=== PATIENT | female | born 2000 | race Two or more races ===

== ENCOUNTER 2023-01-02 15:38 | Outpatient (RCR) | payer OTHER, SELFPAY ==
[2023-01-02 17:27] LABS: HCG Quantitative 10211 mIU/mL
== END 2023-01-16 16:03 | disposition home or self-care (01) ==
LOC: LAB 15:38
PROVIDERS: PCP Family Medicine; Visit Provider Obstetrics & Gynecology
DX: N92.6 Irregular menstruation, unspecified (principal)
CPT/HCPCS: 36415; 84702

== ENCOUNTER 2023-02-22 08:30 | Outpatient (OUT) | payer OTHER, SELFPAY ==
--- NOTE | 2023-02-22 08:35 | US_ITS ---
The [address] [address] Patient Name: ROSALIE MCLAUGHLIN MRN: [id number] date: 2000 Sex: F Assigned Patient Location: Current Patient Location: US Accession/Order Number: [id number] Exam Date: 02/22/2023 08:35 Report Date: 02/22/2023 15:19 At the request of: ANA LUISA VILLATORO Procedure: US OB transvaginal EXAMINATION: US OB transvaginal HISTORY: MISSED MENSES COMPARISON: No relevant comparison available. FINDINGS: GESTATIONAL SAC: Present and normal appearing. YOLK SAC: Present and normal appearing. POLE: Present and normal appearing. CARDIAC: Present. UTERUS: Normal size and appearance. OVARIES: Right: Normal. Left: Normal. CERVIX: 4.4 cm in length and closed. CUL-DE-SAC: Normal. OTHER: Prominent left parauterine vessels; nonspecific. AGE BY LMP: Unknown LMP GENO BY LMP: AGE BY US CRL: 13 weeks 1 day GENO BY US CRL: 08/29/2023 US/US OB transvaginal IMPRESSION: Single live intrauterine 13 weeks 1 day. Electronically authenticated by: LEILA MATA Date: 02/22/2023 15:19
== END 2023-02-22 08:31 | disposition home or self-care (01) ==
LOC: US 08:31
PROVIDERS: PCP Family Medicine; Visit Provider Obstetrics & Gynecology
DX: Z34.91 Encounter for supervision of normal pregnancy, unspecified, first trimester (principal)
CPT/HCPCS: 76817

== ENCOUNTER 2023-03-05 08:57 | Outpatient (OUT) | payer OTHER, SELFPAY ==
[2023-03-05 09:18] LABS: Basophils Percent Auto 0.4 % (0.2-2.0); Eosinophils Absolute Auto 0.1 10^3/uL (0.0-0.7); Eosinophils Percent Auto 1.2 % (0.9-7.0); Hematocrit 36.8 % (36.0-48.0); Hemoglobin 12.9 g/dL (12.0-16.0); Immature Granulocytes Abs Auto 0.03 10^3/uL (0.00-0.03); Immature Granulocytes Pct Auto 0.4 % (0.0-0.5); Lymphocytes Absolute Auto 1.6 10^3/uL (1.2-3.8); Lymphocytes Percent Auto 18.1 % (20.5-60.0); Mean Corpuscular HGB Conc 35.1 g/dL (29.9-35.2); Mean Corpuscular Hemoglobin 31.5 pg (26.7-34.0); Mean Corpuscular Volume 89.8 fL (81.0-99.0); Mean Platelet Volume 9.6 fL (9.5-13.5); Monocytes Absolute Auto 0.4 10^3/uL (0.3-0.8); Monocytes Percent Auto 4.9 % (1.7-12.0); Neutrophils Absolute Auto 6.4 10^3/uL (1.4-6.5); Platelet Count 210 10^3/uL (150-450); Red Cell Distribution Width 12.1 % (11.0-15.0); White Blood Count 8.6 10^3/uL (4.0-11.0)
[2023-03-05 09:28] LABS: Estimated Average Glucose 97 mg/dL
[2023-03-05 10:11] LABS: Thyroid Stimulating Hormone 1.695 uIU/mL (0.358-3.740)
[2023-03-06 05:07] LABS: HCV Ab Non Reactive (Non Reactive); HIV Ab/p24 Ag Screen Non Reactive (Non Reactive); Rubella Antibodies, IgG 7.07 index (Immune >0.99)
[2023-03-06 06:09] LABS: HBsAg Screen Negative (Negative)
[2023-03-06 11:19] LABS: Rapid Plasma Reagin, Quant Non Reactive (NonRea<1:1)
== END 2023-03-05 08:58 | disposition home or self-care (01) ==
LOC: LAB 08:57
PROVIDERS: PCP Family Medicine; Visit Provider Obstetrics & Gynecology
DX: N92.6 Irregular menstruation, unspecified (principal)
CPT/HCPCS: 36415; 83036; 84443; 85025; 86592; 86706; 86762; 86803; 86850; 86900; 86901; 87086; 87389

== ENCOUNTER 2023-03-21 10:27 | Outpatient (OUT) | payer OTHER, SELFPAY ==
--- NOTE | 2023-03-21 | US_ITS ---
[address] [address] Patient Name: ROSALIE MCLAUGHLIN MRN: [id number] date: 2000 Sex: F Assigned Patient Location: Current Patient Location: US Accession/Order Number: [id number] Exam Date: 03/21/2023 10:38 Report Date: 03/21/2023 11:23 At the request of: ANA LUISA VILLATORO Procedure: US OB amniotic fluid vol EXAMINATION: US OB cervical length, US OB amniotic fluid vol HISTORY: VAGINAL BLEEDING AND DISCHARGE COMPARISON: No relevant comparison available. FINDINGS: lie: Transverse Amniotic fluid volume: 11.4 cm, largest fluid pocket: 4.1 cm Heart rate: 136 bpm The cervix measures a total of 4.6 cm in length. The closed portion measures 0.6 cm. There is dilatation of the endocervical canal measuring up to 2.7 cm. Placenta: Fundal/posterior. No intraplacental echogenic abnormality US/US OB amniotic fluid vol IMPRESSION: Marked dilatation of the endocervical canal measuring up to 2.7 cm The total cervical length is 4.6 cm, the closed portion is only 0.6 cm Normal amniotic fluid volume Electronically authenticated by: KATARINA JIANG Date: 03/21/2023 11:23
--- NOTE | 2023-03-21 | US_ITS ---
[address] [address] Patient Name: ROSALIE MCLAUGHLIN MRN: [id number] date: 2000 Sex: F Assigned Patient Location: Current Patient Location: US Accession/Order Number: [id number] Exam Date: 03/21/2023 10:38 Report Date: 03/21/2023 11:23 At the request of: ANA LUISA VILLATORO Procedure: US OB cervical length EXAMINATION: US OB cervical length, US OB amniotic fluid vol HISTORY: VAGINAL BLEEDING AND DISCHARGE COMPARISON: No relevant comparison available. FINDINGS: lie: Transverse Amniotic fluid volume: 11.4 cm, largest fluid pocket: 4.1 cm Heart rate: 136 bpm The cervix measures a total of 4.6 cm in length. The closed portion measures 0.6 cm. There is dilatation of the endocervical canal measuring up to 2.7 cm. Placenta: Fundal/posterior. No intraplacental echogenic abnormality US/US OB cervical length IMPRESSION: Marked dilatation of the endocervical canal measuring up to 2.7 cm The total cervical length is 4.6 cm, the closed portion is only 0.6 cm Normal amniotic fluid volume Electronically authenticated by: KATARINA JIANG Date: 03/21/2023 11:23
== END 2023-03-21 10:28 | disposition home or self-care (01) ==
LOC: US 10:33
PROVIDERS: PCP Family Medicine; Visit Provider Obstetrics & Gynecology
DX: Z12.4 Encounter for screening for malignant neoplasm of cervix (principal); O46.90 Antepartum hemorrhage, unspecified, unspecified trimester
CPT/HCPCS: 76815; 76817; G0145

== ENCOUNTER 2023-03-21 21:01 | Outpatient (REF) | payer OTHER, SELFPAY ==
[2023-03-26 14:09] LABS: Age Gdln ACOG Testing Note (.); IGP, rfx Aptima HPV ASCU Note (.)
== END 2023-03-21 21:02 | disposition home or self-care (01) ==
LOC: LAB 21:01
PROVIDERS: PCP Family Medicine; Visit Provider Obstetrics & Gynecology
DX: Z12.4 Encounter for screening for malignant neoplasm of cervix (principal)
CPT/HCPCS: G0145

== ENCOUNTER 2023-03-25 09:16 | Outpatient (OUT) | payer OTHER, SELFPAY ==
[2023-03-27 01:10] LABS: AFP Value 53.7 ng/mL (.); Gest. Age on Collection Date 17.6 weeks (.); Gestat. Age Based On As provided (.); Insulin Dep Diabetes No (.); OSBR Risk 1 IN 4947 (.); Results Report (.)
== END 2023-03-25 09:17 | disposition home or self-care (01) ==
LOC: LAB 09:16
PROVIDERS: PCP Family Medicine; Visit Provider Obstetrics & Gynecology
DX: Z34.92 Encounter for supervision of normal pregnancy, unspecified, second trimester (principal)
CPT/HCPCS: 36415; 82105

== ENCOUNTER 2023-05-09 12:17 | Observation (INO) | payer OTHER, SELFPAY ==
[2023-05-09 12:55] LABS: Bilirubin Urine NEGATIVE (NEGATIVE); Blood Urine NEGATIVE (NEGATIVE); Clarity Urine CLEAR (CLEAR); Color Urine YELLOW (YELLOW); Glucose Urine UA NEGATIVE (NEGATIVE); Ketones Urine NEGATIVE (NEGATIVE); Leukocyte Esterase Urine TRACE (NEGATIVE); Nitrite Urine NEGATIVE (NEGATIVE); Protein Urine NEGATIVE (NEG/TRACE); Specific Gravity Urine 1.025 (1.005-1.025); Urobilinogen Urine 0.2 EU/dL (0.2-1.0)
[2023-05-09 13:05] LABS: Urine Microscopic Indicated YES
[2023-05-09 13:06] LABS: WBC Urine 0-2 #/HPF (NONE SEEN)
[2023-05-09 13:07] LABS: Bacteria Urine TRACE #/HPF (NONE SEEN); Mucus Urine NONE SEEN (NONE SEEN); RBC Urine NONE SEEN #/HPF (0-2); Squamous Epithelial Cell Urine FEW #/LPF (NONE/RARE); Urine Culture Indicated NO
--- NOTE | 2023-05-09 13:08 | US_ITS ---
[address] [address] Patient Name: ROSALIE MCLAUGHLIN MRN: [id number] date: 2000 Sex: F Assigned Patient Location: [facility] Current Patient Location: Accession/Order Number: [id number] Exam Date: 05/09/2023 13:15 Report Date: 05/09/2023 14:39 At the request of: ANA LUISA VILLATORO Procedure: US OB cervical length EXAMINATION: US OB placenta, US OB cervical length HISTORY: vaginal bleeding COMPARISON: Ultrasound amniotic fluid volume and cervical length 03/21/2023 FINDINGS: PLACENTA: Posterior fundal with lower margin 5.0 cm from internal os. No abruption or subchorionic hematoma. CERVIX LENGTH: 4.5 cm; closed. HEART RATE: 152 bpm OTHER: None. GA: 24 weeks 0 days GENO: 08/29/2023 US/US OB cervical length IMPRESSION: 1. Single live intrauterine . 2. Posterior/fundal placenta without previa. No subchorionic hematoma or abruption. 3. Closed cervix 4.5 cm in length. Electronically authenticated by: LEILA MATA Date: 05/09/2023 14:39
--- NOTE | 2023-05-09 13:08 | US_ITS ---
[address] [address] Patient Name: ROSALIE MCLAUGHLIN MRN: [id number] date: 2000 Sex: F Assigned Patient Location: [facility] Current Patient Location: Accession/Order Number: [id number] Exam Date: 05/09/2023 13:15 Report Date: 05/09/2023 14:39 At the request of: ANA LUISA VILLATORO Procedure: US OB placenta EXAMINATION: US OB placenta, US OB cervical length HISTORY: vaginal bleeding COMPARISON: Ultrasound amniotic fluid volume and cervical length 03/21/2023 FINDINGS: PLACENTA: Posterior fundal with lower margin 5.0 cm from internal os. No abruption or subchorionic hematoma. CERVIX LENGTH: 4.5 cm; closed. HEART RATE: 152 bpm OTHER: None. GA: 24 weeks 0 days GENO: 08/29/2023 US/US OB placenta IMPRESSION: 1. Single live intrauterine . 2. Posterior/fundal placenta without previa. No subchorionic hematoma or abruption. 3. Closed cervix 4.5 cm in length. Electronically authenticated by: LEILA MATA Date: 05/09/2023 14:39
[2023-05-09 13:18] VITALS: BP 99/52; PULSE 79; TEMP 36.1
--- NOTE | 2023-05-09 14:03 | PC.NURSE ---
US to room, Pt removed from FM
== END 2023-05-09 14:31 | disposition home or self-care (01) ==
LOC: FBC 12:22
PROVIDERS: Admitting Provider Obstetrics & Gynecology; PCP Family Medicine; Visit Provider Obstetrics & Gynecology
DX: O46.92 Antepartum hemorrhage, unspecified, second trimester (principal); O26.892 Other specified pregnancy related conditions, second trimester; R10.2 Pelvic and perineal pain; Z3A.24 24 weeks gestation of pregnancy
CPT/HCPCS: 59025; 76815; 76817; 81001; G0378; G0379

== ENCOUNTER 2023-05-11 07:39 | Outpatient (OUT) | payer OTHER, SELFPAY ==
[2023-05-11 08:59] LABS: Basophils Percent Auto 0.3 % (0.2-2.0); Eosinophils Absolute Auto 0.1 10^3/uL (0.0-0.7); Hematocrit 36.7 % (36.0-48.0); Hemoglobin 12.1 g/dL (12.0-16.0); Immature Granulocytes Abs Auto 0.04 10^3/uL (0.00-0.03); Immature Granulocytes Pct Auto 0.4 % (0.0-0.5); Lymphocytes Absolute Auto 1.4 10^3/uL (1.2-3.8); Lymphocytes Percent Auto 14.8 % (20.5-60.0); Mean Corpuscular Hemoglobin 33.1 pg (26.7-34.0); Mean Corpuscular Volume 100.3 fL (81.0-99.0); Mean Platelet Volume 9.9 fL (9.5-13.5); Monocytes Absolute Auto 0.6 10^3/uL (0.3-0.8); Monocytes Percent Auto 6.4 % (1.7-12.0); Neutrophils Absolute Auto 7.2 10^3/uL (1.4-6.5); Neutrophils Percent Auto 77.1 % (43.0-75.0); Platelet Count 204 10^3/uL (150-450); Red Blood Count 3.66 10^6/uL (4.20-5.40); Red Cell Distribution Width 13.1 % (11.0-15.0); White Blood Count 9.3 10^3/uL (4.0-11.0)
[2023-05-11 09:16] LABS: Glucose 1 Hour 85 mg/dL
== END 2023-05-11 07:40 | disposition home or self-care (01) ==
LOC: LAB 07:39
PROVIDERS: PCP Family Medicine; Visit Provider Physician Assistant
DX: Z34.92 Encounter for supervision of normal pregnancy, unspecified, second trimester (principal)
CPT/HCPCS: 36415; 82950; 85025

== ENCOUNTER 2023-08-08 19:31 | Outpatient (REF) | payer OTHER, SELFPAY ==
--- OUTSIDE RECORDS SUMMARY | 2023-08-08 19:34 | XMS_ITS | CCD ---
Author Name Unknown Address [email or web address] [place] [address] Organization [facility] Care Team Providers Care Junior Electrical Engineer Name Role Phone Lexis Evans Unavailable DR LEXIS EVANS Admitting Unavailable NATHAN, DR LEXIS Castillo Primary Care Unavailable NATHAN, DR LEXIS Castillo Consulting Unavailable NATHAN, DR LEXIS Castillo Attending Unavailable Yakelin Friedman Consulting Unavailable NATHAN, DR LEXIS Castillo Admitting Unavailable NATHAN, DR LEXIS Castillo Primary Care Unavailable NATHAN, DR LEXIS Castillo Consulting Unavailable NATHAN, DR LEXIS Castillo Attending Unavailable NATHAN, DR LEXIS Castillo Primary Care Unavailable GIEDRAITIS, ANDRIUS Admitting Unavailable GIEDRAITIS, ANDRIUS Attending Unavailable ANA LUISA VILLATORO Attending Unavailable ANA LUISA VILLATORO Attending Unavailable ANA LUISA VILLATORO Attending Unavailable SAMAN TORRES Attending Unavailable Lexis Evans Attending Unavailable Lexis Evans Primary Care Unavailable Lexis Evans Admitting Unavailable MD Lexis Evans Primary Care Provider MD Lexis Evans Attending Provider Problems Active Problems Problem Classification Problem Date Documented Da te Episodic/Chronic Chronic obstructive pulmonary disease and bronchiectasis (3 sources) Bronchitis; Translations: [Bronchitis, not specified as acute or chronic] Episodic Genitourinary symptoms and ill-defined conditions (3 sources) Dysuria; Translations: [Dysuria] Episodic Inflammatory diseases of female pelvic organs (3 sources) Vaginitis; Translations: [Acute vaginitis] Episodic Other upper respiratory infections (3 sources) Acute upper respiratory infection; Translations: [Acute upper respiratory infection] Episodic Unclassified (3 sources) LOW BACK PAIN, UNSPECIFIED; Translations: [LOW BACK PAIN, UNSPECIFIED] Onset: 11-04-2022 Unclassified (1 source) Low back pain, unspecified; Translations: [Low back pain, unspecified] Onset: 07-12-2023 Urinary tract infections (3 sources) Acute urinary tract infection; Translations: [Urinary tract infection, site not specified] Episodic Past or Other Problems Problem Classification Problem Date Documented Da te Episodic/Chronic Unclassified (2 sources) Lumbar pain M54.50 Unclassified (1 source) LOW BACK PAIN, UNSPECIFIED; Translations: [LOW BACK PAIN, UNSPECIFIED] Onset: 10-31-2022 Results Test Name Value Interpretation Reference Range Facil ity XR LSPINE 2_3 VIEWSon 2022 XR LSPINE 2_3 VIEWS EXAM: XR LSPINE 2_3 VIEWS HISTORY: Low back pain COMPARISON: None. TECHNIQUE: 3 views FINDINGS: Satisfactory alignment. Multilevel endplate degenerative changes, disc disease, anterior spurring and facet arthropathy. No acute fracture or subluxation. Unremarkable soft tissues. IMPRESSION: No acute fracture or subluxation. Electronically authenticated by: YAKELIN FRIEDMAN Date: 2022-10-31 14:26 Normal [facility] CBC AUTO DIFFon 10-17-2022 BASO # 0.0 103/ul Normal 0.0-0.1 [facility] Comment on above: Performed By: #### C BC #### [facility] [address] [place] [address] Dr. Dav Xie Basophils/100 WBC (Bld) 0.6 % Normal 0.2-2.0 [facility] Comment on above: Performed By: #### C BC #### [facility] [address] [address] [address] Dav Xie EO # 0.2 103/ul Normal 0.0-0.7 [facility] Comment on above: Performed By: #### C BC #### [facility] [address] [address] [address] Dav Xie Eosinophils/100 WBC (Bld) 3.0 % Normal 0.9-7.0 [facility] Comment on above: Performed By: #### C BC #### [facility] [address] [place] [address] Dr. Dav Xie Erythrocyte distribution width (RBC) [Ratio] 11.9 % Normal 11.0-15.0 [facility] Comment on above: Performed By: #### C BC #### [facility] [address] [place] [address] Dr. Dav Xie Hematocrit (Bld) [Volume fraction] 39.5 % Normal 36.0-48.0 [facility] Comment on above: Performed By: #### C BC #### [facility] [address] [place] [address] Dr. Dav Xie Hemoglobin (Bld) [Mass/Vol] 13.4 g/dL Normal 12.0-16.0 [facility] Comment on above: Performed By: #### C BC #### [facility] [address] [place] [address] Dr. Dav Xie IG # 0.01 10e3/ul Normal 0.00-0.03 [facility] Comment on above: Performed By: #### C BC #### [facility] [address] [place] [address] Dr. Dav Xie IG % 0.2 % Normal 0.0-0.5 [facility] Comment on above: Performed By: #### C BC #### [facility] [address] [place] [address] Dr. Dav Xie LYMPH # 1.7 103/ul Normal 1.2-3.8 [facility] Comment on above: Performed By: #### C BC #### [facility] [address] [place] [address] Dr. Dav Xie Lymphocytes/100 WBC (Bld) 31.9 % Normal 20.5-60.0 [facility] Comment on above: Performed By: #### C BC #### [facility] [address] [place] [address] Dr. Dav Xie MANUAL DIFF REQ NO Normal [facility] Comment on above: Performed By: #### C BC #### [facility] [address] [place] [address] Dr. Dav Xie MCH (RBC) [Entitic mass] 31.8 pg Normal 26.7-34.0 [facility] Comment on above: Performed By: #### C BC #### [facility] [address] [address] [address] Dav Xie MCHC (RBC) [Mass/Vol] 33.9 g/dL Normal 29.9-35.2 [facility] Comment on above: Performed By: #### C BC #### [facility] [address] [address] [address] Dav Xie MCV (RBC) [Entitic vol] 93.6 fL Normal 81.0-99.0 [facility] Comment on above: Performed By: #### C BC #### [facility] [address] [place] [address] Dr. Dav Xie MONO # 0.5 103/ul Normal 0.3-0.8 [facility] Comment on above: Performed By: #### C BC #### [facility] [address] [place] [address] Dr. Dav Xie Monocytes/100 WBC (Bld) 9.7 % Normal 1.7-12.0 [facility] Comment on above: Performed By: #### C BC #### [facility] [address] [place] [address] Dr. Dav Xie NEUT # 2.9 103/ul Normal 1.4-6.5 [facility] Comment on above: Performed By: #### C BC #### [facility] [address] [place] [address] Dr. Dav Xie Neutrophils/100 WBC (Bld) 54.6 % Normal 43.0-75.0 [facility] Comment on above: Performed By: #### C BC #### [facility] [address] [place] [address] Dr. Dav Xie Platelet mean volume (Bld) [Entitic vol] 9.7 fL Normal 9.5-13.5 [facility] Comment on above: Performed By: #### C BC #### [facility] [address] [place] [address] Dr. Dav Xie PLT 215 103/ul Normal 150-450 [facility] Comment on above: Performed By: #### C BC #### [facility] [address] [place] [address] Dr. Dav Xie RBC 4.22 106/ul Normal 4.20-5.40 [facility] Comment on above: Performed By: #### C BC #### [facility] [address] [place] [address] Dr. Dav Xie WBC 5.4 103/ul Normal 4.0-11.0 [facility] Comment on above: Performed By: #### C BC #### [facility] [address] [place] [address] Dr. Dav Xie FERRITINon 10-17-2022 Ferritin [Mass/Vol] 85.0 ng/mL Normal 6.2-137.0 [facility] Comment on above: Performed By: #### F ERR #### [facility] [address] [place] [address] Dr. Dav Xie PROF CHEM 8 (BAS METB)on Anion gap [Moles/Vol] 11.2 mmol/L Normal [facility] Comment on above: Performed By: #### B MP #### [facility] [address] [place] [address] Dr. Dav Xie Calcium [Mass/Vol] 8.8 mg/dL Normal 8.5-10.1 [facility] Comment on above: Performed By: #### B MP #### [facility] [address] [place] [address] Dr. Dav Xie Chloride [Moles/Vol] 103 mmol/L Normal 98-107 [facility] Comment on above: Performed By: #### B MP #### [facility] [address] [place] [address] Dr. Dav Xie CO2 [Moles/Vol] 29.6 mmol/L Normal 21.0-32.0 [facility] Comment on above: Performed By: #### B MP #### [facility] [address] [place] [address] Dr. Dav Xie Creatinine [Mass/Vol] 0.82 mg/dL Normal 0.55-1.02 [facility] Comment on above: Performed By: #### B MP #### [facility] [address] [address] [address] Dav Xie EGFR-AF PAKISTANI >60 Normal >=60 [facility] Comment on above: Performed By: #### B MP #### [facility] [id number] Dav Xie EGFR-NON AF PAKISTANI >60 Normal >=60 [facility] Comment on above: Performed By: #### B MP #### [facility] [address] [address] [address] Dav Xie Glucose [Mass/Vol] 86 mg/dL Normal 74-106 [facility] Comment on above: Performed By: #### B MP #### [facility] [address] [address] [address] Dav Xie Potassium [Moles/Vol] 3.8 mmol/L Normal 3.5-5.1 [facility] Comment on above: Performed By: #### B MP #### [facility] [address] [address] [address] Dav Xie Sodium [Moles/Vol] 140 mmol/L Normal 136-145 [facility] Comment on above: Performed By: #### B MP #### [facility] [address] [address] [address] Dav Xie Urea nitrogen [Mass/Vol] 13.0 mg/dL Normal 7.0-18.0 [facility] Comment on above: Performed By: #### B MP #### [facility] [address] [address] [address] Dav Xie Urea nitrogen/Creatinine [Mass ratio] 15.9 mg/mg Normal [facility] Comment on above: Performed By: #### B MP #### [facility] [id number] Dav Xie Vital Signs Date Time Vital Sign Value Performing Clinician Facility 10-15-2022 09:30-0400 Body height 160.02 cm Lexis Evans Other Medication Review Other 10-15-2022 09:30-0400 Body mass index (BMI) [Ratio] 28.87 kg/m2 Lexis Evans Other Medication Review Other 10-15-2022 09:30-0400 Body weight 73.94 kg Lexis Evans Other Medication Review Other 10-15-2022 09:30-0400 Diastolic blood pressure 62 mm[Hg] Lexis Evans Other Medication Review Other 10-15-2022 09:30-0400 SaO2% (BldA) [Mass fraction] 99 % Lexis Evans Other Medication Review Other 10-15-2022 09:30-0400 Systolic blood pressure 108 mm[Hg] Lexis Evans Other Medication Review Other Encounters Encounter Date Encounter Type Care Provider Facility Start: 07-22-2023 End: 07-22-2023 ambulatory ANA LUISA SHAUNA Not Available Start: 07-12-2023 End: 07-12-2023 ambulatory Lexis Evans Facility:[facility] Start: 07-12-2023 End: 07-12-2023 ambulatory MD Lexis Evans Work Phone: [facility] Work Phone: Start: 07-12-2023 End: 07-12-2023 Discharged Recurring MD Lexis Evans Work Phone: [facility] [place] Work Phone: Start: 07-04-2023 End: 07-04-2023 ambulatory SAMAN TORRES Not Available Start: 06-20-2023 End: 06-20-2023 ambulatory ANA LUISA SHAUNA Not Available Start: 05-29-2023 End: 05-29-2023 ambulatory ANA LUISA SHAUNA Not Available Start: 11-30-[address] LEXIS EVANS [facility] ity:[facility] Start: 11-09-2022 End: 11-09-2022 ambulatory Lexis Evans Other Medication Review Other Start: 11-09-2022 Telephone encounter Lexis Evans [facility] Start: 10-31-2022 End: 11-01-[address] LEXIS EVANS Facility:[facility] Start: 10-29-2022 End: 10-29-2022 ambulatory Lexis Evans Other Medication Review Other Start: 10-29-2022 Telephone encounter Lexis Evans [facility] Start: 10-26-2022 Encounter for genera l adult medical examination without abnormal findings DR LEXIS EVANS [facility] Start: 10-17-2022 End: 10-18-[address] LEXIS EVANS Facility:[facility] Start: 10-17-2022 End: 10-18-2022 Encounter for general adult medical examination without abnormal findings DR LEXIS EVANS Facility:[facility] Start: 10-15-2022 End: 10-15-2022 ambulatory Lexis Evans Other Medication Review Other Start: 10-15-2022 Encounter for genera l adult medical examination without abnormal findings Lexis Evans [facility] Start: 10-15-2022 Periodic preventive med est patient 18-39 yrs Lexis Evans [facility] Payers Date Payer Category Payer Self-pay 2000 Unknown [id number] 2000 Unknown [id number] 1998 Unknown [id number] 1998 Unknown [id number] 1998 Unknown [id number] 1998 Unknown [id number] 1998 Unknown [id number] 1998 Unknown [id number] 1998 Unknown [id number] 1961 Medicaid [id number] 2. [id number] [employer] ( and others) [id number] Unknown [id number] Social History Date Type Detail Facility Unknown if ever smoked Medication Review Other Sex Assigned At Sex Assigned At Bir th Medication Review Other Evaluation note 11-09-2022 Note Date & Type Note Facility 11-09-2022 Evaluation note Encounter Date Diagnosis Assessment Notes Oct, Lumbar pain (ICD-10 - M54.50) Medication Review Other Evaluation note 10-15-2022 Note Date & Type Note Facility 10-15-2022 Evaluation note Encounter Date Diagnosis Assessment Notes Oct, Wellness examination (ICD-10 - Z00.00) due for labs Oct, Lumbar pain (ICD-10 - M54.50) Pt states she went to chiropractor , had PT and xray through [facility]. She now wants me to address this as she is not improving and an MRI was not covered. She will contact their office and have them send us PT reports and xray so we can try to get the MRI. Pt needs this addressed as she is in the and is running a half marathon later this month. Medication Review Other Evaluation note Note Date & Type Note Facility Evaluation note No Information [facility] Other Evaluation note Note Date & Type Note Facility Evaluation note No assessment information availa [facility] Work Phone: History general Narrative - Reported Note Date & Type Note Facility History general Narrative - Reported Type Medical History Bronchitis Medical History Vaginitis Medical History Acute UTI Medical History Dysuria Hospitalization History l2019 for a blood count being done. Medication Review Other Reason for Referral Reason *FU 11/19 Xray and last OV note. thank you Diagnosis 1 Lumbar pain (M54.50) Referral Organization [facility] elizabeth Referring Provider First Name Lexis Referring Provider Last Name Nathan Referring Provider Specialty Family Medi cine Referred Organization [facility] Referred Provider Juan Miguel Referred Address [address], [place],[address] Referred Provider Specialty Pain Medicin e Referral Priority Routine General Notes Jessie Ashraf 04:25:04 PM >received today, attachments made, referral faxed Clinical Notes F: [id number] Summary Purpose Family History No Family History Records FoundNo Family History Records FoundNo Family History Records Found Advance Directives Advance Directive Response Recorded Date/ Time Advance Directives No May 20, 2023 2:24pm Chief Complaint and Reason for Visit Chief Complaint low back pain Additional Source Comments REASON FOR VISIT (unrecogniz ed section and content) Wellnesslumbar xraylumbar xr ay INFORMATION SOURCE (unrecogn ized section and content) DATE CREATED AUTHOR 11/15/2022 [facility] DATE CREATED AUTHOR AUTHOR'S ORGANIZ ATION 07/23/[address] [facility] EPIC DATE CREATED AUTHOR AUTHOR'S ORGANIZ ATION 07/24/2023 [facility] Care Teams (unrecognized sec tion and content) Team Status: Active Member Role Status Dates Lexis Evans MD Primary Care Provider Active Team Status: Inactive Member Role Status Dates Lexis Evans MD Primary Care Provider, Attending Last castellanos Active Goals (unrecognized section and content) Goals may be documented in a n alternate section FOR RECORDS PERTAINING TO PATIENTS WHO ARE OR HAVE BEEN ENROLLED IN A CHEMICAL DEPENDENCY/SUBSTANCEABUSE PROGRAM, SOME INFORMATION MAY BE OMITTED. This clinical summary was aggregated from multiple sources. Caution should be exercised in using it in the provision of clinical care. This summary normalizes information from multiple sources, and as a consequence, information in this document may materially change the coding, format and clinical context of patient data. In addition, data may be omitted in some cases. CLINICAL DECISIONS SHOULD BE BASED ON THE PRIMARY CLINICAL RECORDS. [facility]. provides no warranty or guarantee of the accuracy or completeness of information in this document.
== END 2023-08-08 19:32 | disposition home or self-care (01) ==
LOC: LAB 19:31
PROVIDERS: PCP Family Medicine; Visit Provider Physician Assistant
DX: Z34.93 Encounter for supervision of normal pregnancy, unspecified, third trimester (principal); Z3A.37 37 weeks gestation of pregnancy
CPT/HCPCS: 87081

== ENCOUNTER 2023-08-22 00:01 | Inpatient (IN) | payer OTHER, SELFPAY ==
[2023-08-22] VITALS (36 sets, daily range): BP systolic 77–198; BP diastolic 53–86; PULSE 67–101; RESP 16–18; TEMP 35.9–36.2
--- OUTSIDE RECORDS SUMMARY | 2023-08-22 00:06 | XMS_ITS | CCD ---
Author Name Unknown Address [address] [facility] [address] [place] [address] Organization [facility] Care Team Providers Care [employer] Supervisor Name Role Phone Lexis Evans Unavailable DR LEXIS EVANS Admitting Unavailable MARCOS, DR LEXIS Castillo Primary Care Unavailable MARCOS, DR LEXIS Castillo Consulting Unavailable MARCOS, DR LEXIS Castillo Attending Unavailable Ursula, Yakelin Consulting Unavailable MARCOS, DR LEXIS Castillo Admitting Unavailable MARCOS, DR LEXIS Castillo Primary Care Unavailable MARCOS, DR LEXIS Castillo Consulting Unavailable MARCOS, DR LEXIS Castillo Attending Unavailable MARCOS, DR LEXIS Castillo Primary Care Unavailable GIEDRAITIS, ANDRIUS Admitting Unavailable GIEDRAITIS, ANDRIUS Attending Unavailable Lexis Evans Attending Unavailable Lexis Evans Primary Care Unavailable Lexis Evans Admitting Unavailable MD Lexis Evans Primary Care Provider [phone] MD Lexis Evans Attending Provider ANA LUISA ROLAND Attending Unavailable ANA LUISA ROLAND Attending Unavailable MARIAM TORRES Attending Unavailable ANA LUISA ROLAND Attending Unavailable ANA LUISA ROLAND Attending Unavailable MARIAM TORRES Attending Unavailable Lexis Evans MD Primary Care Provider [phone] Medications Current Medications Medication Drug Class(es) Dates Sig (Normalized) Sig (Original) diphenhydrAMINE hydrochloride 25 mg oral capsule (2 sources) Histamine-1 Receptor Antagonist Start: 07-04-2023 End: 10-02-2023 diphenhydrAMINE (BENADryl) capsule 25 mg Magnesium (2 sources) Start: 07-04-2023 End: 10-02-2023 take 2 tablets by mouth in the morning magnesium 200 MG tablet Indications: Third trimester Take 2 tablets (400 mg) by mouth in the morning. 60 tablet 2 07/04/2023 10/02/2023 Active multivitamin () 27-0.8 MG tablet (2 sources) Start: 03-20-2022 multivitamin () 27-0.8 MG tablet VIT-DSS-FE FUM-FA PO (2 sources) VIT-DSS -FE FUM-FA PO Take 2 tablets by mouth 0 Active Completed/Discontinued Medications Medication Drug Class(es) Dates Sig (Normalized) Sig (Original) terconazole 4 mg/ml vaginal cream (2 sources) Azole Antifungal Start: 08-08-2023 End: 08-15-2023 terconazole (Terazol 7) 0.4 % vaginal cream Indications: Yeast infection Insert 1 applicator into the vagina at bedtime for 7 days 30 g 0 08/08/2023 08/15/2023 Problems Active Problems Problem Classification Problem Date Documented Da te Episodic/Chronic Chronic obstructive pulmonary disease and bronchiectasis (3 sources) Bronchitis; Translations: [Bronchitis, not specified as acute or chronic] Episodic Genitourinary symptoms and ill-defined conditions (3 sources) Dysuria; Translations: [Dysuria] Episodic Inflammatory diseases of female pelvic organs (3 sources) Vaginitis; Translations: [Acute vaginitis] Episodic Other complications of (2 sources) Diseases of the nervous system complicating , unspecified trimester; Translations: [Other current conditions classifiable elsewhere of mother, unspecified as to episode of care or not applicable] Onset: 07-22-2023 07-22-2023 Episodic Other and delivery including normal (4 sources) Third trimester ; Translations: [Encounter for supervision of normal , unspecified, third trimester] Onset: 07-22-2023 08-13-2023 Episodic Other upper respiratory infections (3 sources) [...] Name Value Interpretation Reference Range Facil ity Urinalysis macro (dipstick) panel (U)on 08-15-2023 Bilirubin, UA Negative Negative - 4(70) +++ mg/dL [facility] Blood, UA Negative Negative - 50 Nicolas/mcL [facility] Clarity, UA Clear [facility] Color, UA Yellow [facility] Glucose, UA Negative Negative - 1999(110) ++++ mg/dL [facility] Interpretation and review of laboratory results Abnormal [facility] Ketones, UA Negative Negative - 160(16) ++++ mg/dL [facility] Leukocytes, UA Negative Negative - 500+++ Freida/mcL [facility] Nitrite, UA Negative Negative - Positive [facility] pH, UA 6.5 5 - 9 [facility] Protein, UA Negative Negative - 1999(20) ++++ mg/dL [facility] Spec Grav, UA 1.020 1 - 1.03 [facility] Urobilinogen, UA 1.0 0.2 - 12 mg/dL [facility] LSPINE 2_3 VIEWSon 2022 XR LSPINE 2_3 VIEWS EXAM: XR LSPINE 2_3 VIEWS HISTORY: Low back pain COMPARISON: None. TECHNIQUE: 3 views FINDINGS: Satisfactory alignment. Multilevel endplate degenerative changes, disc disease, anterior spurring and facet arthropathy. No acute fracture or subluxation. Unremarkable soft tissues. IMPRESSION: No acute fracture or subluxation. Electronically authenticated by: YAKELIN FRIEDMAN Date: 2022-10-31 14:26 Normal [facility] CBC AUTO DIFFon 10-17-2022 BASO # 0.0 103/ul Normal 0.0-0.1 [facility] Comment on above: Performed By: #### C BC #### [facility] [address] [address] [address] Dav Xie Basophils/100 WBC (Bld) 0.6 % Normal 0.2-2.0 [facility] Comment on above: Performed By: #### C BC #### [facility] [address] [place] [address] Dr. Dav Xie EO # 0.2 103/ul Normal 0.0-0.7 [facility] Comment on above: Performed By: #### C BC #### [facility] [address] [place] [address] Dr. Dav Xie Eosinophils/100 WBC (Bld) 3.0 % Normal 0.9-7.0 [facility] Comment on above: Performed By: #### C BC #### [facility] [address] [place] [address] Dr. Dav Xie Erythrocyte distribution width (RBC) [Ratio] 11.9 % Normal 11.0-15.0 [facility] Comment on above: Performed By: #### C BC #### [facility] [address] [place] [address] Dr. Dav Xie Hematocrit (Bld) [Volume fraction] 39.5 % Normal 36.0-48.0 [facility] Comment on above: Performed By: #### C BC #### [facility] [address] [place] [address] Dr. Dav Xie Hemoglobin (Bld) [Mass/Vol] 13.4 g/dL Normal 12.0-16.0 [facility] Comment on above: Performed By: #### C BC #### [facility] [address] [place] [address] Dr. Dav Xie IG # 0.01 10e3/ul Normal 0.00-0.03 [facility] Comment on above: Performed By: #### C BC #### [facility] [address] [place] [address] Dr. Dav Xie IG % 0.2 % Normal 0.0-0.5 [facility] Comment on above: Performed By: #### C BC #### [facility] [address] [place] [address] Dr. Dav Xie LYMPH # 1.7 103/ul Normal 1.2-3.8 [facility] Comment on above: Performed By: #### C BC #### [facility] [address] [address] [address] Dav Xie Lymphocytes/100 WBC (Bld) 31.9 % Normal 20.5-60.0 [facility] Comment on above: Performed By: #### C BC #### [facility] [address] [place] [address] Dr. Dav Xie MANUAL DIFF REQ NO Normal [facility] Comment on above: Performed By: #### C BC #### [facility] [address] [place] [address] Dr. Dav Xie MCH (RBC) [Entitic mass] 31.8 pg Normal 26.7-34.0 [facility] Comment on above: Performed By: #### C BC #### [facility] [address] [place] [address] Dr. Dav Xie MCHC (RBC) [Mass/Vol] 33.9 g/dL Normal 29.9-35.2 [facility] Comment on above: Performed By: #### C BC #### [facility] [address] [place] [address] Dr. Dav Xie MCV (RBC) [Entitic vol] 93.6 fL Normal 81.0-99.0 [facility] Comment on above: Performed By: #### C BC #### [facility] [address] [place] [address] Dr. Dav Xie MONO # 0.5 103/ul Normal 0.3-0.8 [facility] Comment on above: Performed By: #### C BC #### [facility] [address] [place] [address] Dr. Dav Xie Monocytes/100 WBC (Bld) 9.7 % Normal 1.7-12.0 [facility] Comment on above: Performed By: #### C BC #### [facility] [address] [place] [address] Dr. Dav Xie NEUT # 2.9 103/ul Normal 1.4-6.5 [facility] Comment on above: Performed By: #### C BC #### [facility] [address] [place] [address] Dr. Dav Xie Neutrophils/100 WBC (Bld) 54.6 % Normal 43.0-75.0 [facility] Comment on above: Performed By: #### C BC #### [facility] [address] [place] [address] Dr. Dav Xie Platelet mean volume (Bld) [Entitic vol] 9.7 fL Normal 9.5-13.5 [facility] Comment on above: Performed By: #### C BC #### [facility] [address] [place] [address] Dr. Dav Xie PLT 215 103/ul Normal 150-450 [facility] Comment on above: Performed By: #### C BC #### [facility] [address] [place] [address] Dr. Dav Xie RBC 4.22 106/ul Normal 4.20-5.40 [facility] Comment on above: Performed By: #### C BC #### [facility] [address] [place] [address] Dr. Dav Xie WBC 5.4 103/ul Normal 4.0-11.0 [facility] Comment on above: Performed By: #### C BC #### [facility] [address] [place] [address] Dr. Dav Xie FERRITINon 10-17-2022 Ferritin [Mass/Vol] 85.0 ng/mL Normal 6.2-137.0 [facility] Comment on above: Performed By: #### F ERR #### [facility] [address] [place] [address] Dr. Dav Xie PROF CHEM 8 (BAS METB)on Anion gap [Moles/Vol] 11.2 mmol/L Normal [facility] Comment on above: Performed By: #### B MP #### [facility] [address] [place] [address] Dr. Dav Xie Calcium [Mass/Vol] 8.8 mg/dL Normal 8.5-10.1 [facility] Comment on above: Performed By: #### B MP #### [facility] [address] [address] [address] Dav Xie Chloride [Moles/Vol] 103 mmol/L Normal 98-107 [facility] Comment on above: Performed By: #### B MP #### [facility] [address] [address] [address] Dav Xie CO2 [Moles/Vol] 29.6 mmol/L Normal 21.0-32.0 [facility] Comment on above: Performed By: #### B MP #### [facility] [address] [address] [address] Dav Xie Creatinine [Mass/Vol] 0.82 mg/dL Normal 0.55-1.02 [facility] Comment on above: Performed By: #### B MP #### [facility] [address] [place] [address] Dr. Dav Xie EGFR-AF VIETNAMESE >60 Normal >=60 [facility] Comment on above: Performed By: #### B MP #### [facility] [address] [place] [address] Dr. Dav Xie EGFR-NON AF VIETNAMESE >60 Normal >=60 [facility] Comment on above: Performed By: #### B MP #### [facility] [address] [place] [address] Dr. Dav Xie Glucose [Mass/Vol] 86 mg/dL Normal 74-106 [facility] Comment on above: Performed By: #### B MP #### [facility] [address] [address] [address] Dav Xie Potassium [Moles/Vol] 3.8 mmol/L Normal 3.5-5.1 [facility] Comment on above: Performed By: #### B MP #### [facility] [address] [place] [address] Dr. Dav Xie Sodium [Moles/Vol] 140 mmol/L Normal 136-145 [facility] Comment on above: Performed By: #### B MP #### [facility] [address] [place] [address] Dr. Dav Xie Urea nitrogen [Mass/Vol] 13.0 mg/dL Normal 7.0-18.0 [facility] Comment on above: Performed By: #### B MP #### [facility] [address] [place] [address] [id number] [address] Dav Xie Urea nitrogen/Creatinine [Mass ratio] 15.9 mg/mg Normal [facility] Comment on above: Performed By: #### B MP #### [facility] [address] [address] [address] Dav Xie Vital Signs Date Time Vital Sign Value Performing Clinician Facility 08-15-2023 10:13-0500 Body mass index (BMI) [Ratio] 33.18 kg/m2 [employer] Work Phone: [facility] 08-15-2023 10:13-0500 Body weight 90.45 kg [employer] Work Phone: [facility] 08-15-2023 10:13-0500 Diastolic blood pressure 78 mm[Hg] [employer] Work Phone: [facility] 08-15-2023 10:13-0500 Systolic blood pressure 132 mm[Hg] [employer] Work Phone: [facility] 10-15-2022 09:30-0400 Body height 160.02 cm Lexis Evans Other [employer] Other 10-15-2022 09:30-0400 Body mass index (BMI) [Ratio] 28.87 kg/m2 Lexis Evans Other [employer] Other 10-15-2022 09:30-0400 Body weight 73.94 kg Lexis Evans Other [employer] Other 10-15-2022 09:30-0400 Diastolic blood pressure 62 mm[Hg] Lexis Evans Other [employer] Other 10-15-2022 09:30-0400 SaO2% (BldA) [Mass fraction] 99 % Lexis Evans Other [employer] Other 10-15-2022 09:30-0400 Systolic blood pressure 108 mm[Hg] Lexis Evans Other [employer] Other Encounters Encounter Date Encounter Type Care Provider Facility Start: 08-15-2023 End: 08-15-2023 ambulatory ANA LUISA ASUNCION Not Available Start: 08-15-2023 End: 08-15-2023 Office outpatient visit 15 minutes Ana Luisa Asuncion DO Work Phone: [facility] Comment on above: Third trimester preg aniyah Start: 08-08-2023 End: 08-08-2023 ambulatory MARIAM TORRES Not Available Start: 07-22-2023 End: 07-22-2023 ambulatory ANA LUISA ASUNCION Not Available Start: 07-12-2023 End: 07-12-2023 ambulatory Lexis Evans Facility:[facility] Start: 07-12-2023 End: 07-12-2023 ambulatory MD Lexis Evans Work Phone: [facility] Work Phone: Start: 07-12-2023 End: 07-12-2023 Discharged Recurring MD Lexis Evans Work Phone: [facility] [place] Work Phone: Start: 07-04-2023 End: 07-04-2023 ambulatory MARIAM TORRES Not Available Start: 06-20-2023 End: 06-20-2023 ambulatory ANA LUISA ASUNCION Not Available Start: 05-29-2023 End: 05-29-2023 ambulatory ANA LUISA ASUNCION Not Available Start: 11-30-[address] LEXIS EVANS Facil ity:[facility] Start: 11-09-2022 End: 11-09-2022 ambulatory Lexis Evans Other [employer] Other Start: 11-09-2022 Telephone encounter Lexis Evans [facility] Start: 10-31-2022 End: 11-01-[address] LEXIS EVANS Facility:[facility] Start: 10-29-2022 End: 10-29-2022 ambulatory Lexis Evans Other [employer] Other Start: 10-29-2022 Telephone encounter Lexis Evans [facility] Start: 10-26-2022 Encounter for genera l adult medical examination without abnormal findings DR LEXIS EVANS [facility] Start: 10-17-2022 End: 10-18-[address] LEXIS EVANS Facility:[facility] Start: 10-17-2022 End: 10-18-2022 Encounter for general adult medical examination without abnormal findings DR LEXIS EVANS Facility:[facility] Start: 10-15-2022 End: 10-15-2022 ambulatory Lexis Evans Other [employer] Other Start: 10-15-2022 Encounter for genera l adult medical examination without abnormal findings Lexis Evans [facility] Start: 10-15-2022 Periodic preventive med est patient 18-39 yrs Lexis Evans [facility] Procedures Date Procedure Procedure Detail Performing Clinician Start: 08-15-2023 Urnls dip stick/tabl et rgnt non-auto w/o micrscp Ana Luisa Roland DO Work Phone: Plan of Treatment Date Care Activity Detail Author Start: 10-03-2023 End: 10-03-2023 ambulatory 10/03/2023 8:30 AM EDT Visit [facility] [address] [place] [id number] Mariam Torres PA [address] [place] [address] [facility] Start: 03-15-2023 Influenza vaccination Influenza Vacc ine (#1) [facility] Immunizations Immunization Date Immunization Notes Care Provider Fa cili 05-10-2022 influenza virus vacc ine, unspecified formulation Ana Luisa Roland DO Work Phone: [facility] Payers Date Payer Category Payer Self-pay 2019 Medicaid [facility] MEDICA[facility] [place] MED[place] [id number] 2019-Present [address] [place] [address] [id number] 1998 Unknown [id number] [id number]. 593 1998 Unknown [id number] 2.16.840.1.211751.3.579.2. 593 1998 Unknown [id number] 2.16.840.1.241916.3.579.2. 593 1998 Unknown [id number] 2.16.840.1.942591.3.579.2. 593 1998 Unknown [id number] 2.16.840.1.382408.3.579.2. 593 1998 Unknown [id number] 2.16.840.1.183517.3.579.2. 1259 1998 Unknown [id number] 2.16.840.1.940179.3.579.2. 1259 1998 Unknown [id number] 2.16.840.1.352552.3.579.2. 1259 1998 Unknown [id number] 2.16.840.1.739282.3.579.2. 1259 1998 Unknown [id number] 2.16.840.1.816880.3.579.2. 1259 1998 Unknown [id number] 2.16.840.1.565464.3.579.2. 1259 1959 Medicaid [id number] [id number] Department of [facility] ( and others) [id number] Unknown [id number] 2.16.840.1.274630.3.579.2. 531 Social History Date Type Detail Facility Unknown if ever smoked [facility] [employer] Other Start: 03-16-2023 Sex Assigned At [employer] Other Start: 03-16-2023 Tobacco smoking status NHIS Never smoked tobacco [facility] Start: 03-16-2023 Tobacco use and exposure Smokeless tobacco non-user [facility] Start: 08-15-2023 Alcohol intake Current drinker of alcohol (finding) [facility] Start: 03-16-2023 History of Social function [facility] Start: 03-16-2023 Alcohol Comment Occasional alcohol use [facility] Start: 12-06-2022 [facility] Start: 2000 Sex Assigned At Female [facility] Start: 02-15-2023 Gender identity Identifies as female gender (finding) [facility] Start: 02-15-2023 Sexual orientation Heterosexual (finding) [facility] History of Present illness Narrative 08-15-2023 Glenys Ghotra LPN - 08/15/2023 10:00 AM EST Note Date & Type Note Facility 08-15-2023 History of Presen t illness Narrative Reason for Appointment: Patient ID: Rosalie Woodall is a 22 y.o. female who presents for Routine Visit Patient presents today for Return OB appointment. Current Medications: has a current medication list which includes the following prescription(s): magnesium, multivitamin, vit-dss-fe fum-fa, and terconazole, and the following Facility-Administered Medications: diphenhydramine. Medical History: Active Ambulatory Problems Diagnosis Date Noted Restless leg syndrome in 07/22/2023 Third trimester 07/22/2023 Resolved Ambulatory Problems Diagnosis Date Noted No Resolved Ambulatory Problems Past Medical History: Diagnosis Date At low risk for fall BMI 25.0-25.9,adult Encounter for gynecological examination (general) (routine) without abnormal findings IUD complication ([facility] Family History Problem Relation Name Age of Onset Diabetes Father Social History Tobacco Use Smoking status: Never Smokeless tobacco: Never Substance Use Topics Alcohol use: Yes Comment: Occasional alcohol use Drug use: Never History reviewed. No pertinent surgical history. No Known Allergies Review of Systems: Review of Systems All other systems reviewed and are negative. Objective Physical Exam Constitutional: Appearance: Normal appearance. She is well-developed. Genitourinary: Vulva normal. Cardiovascular: Rate and Rhythm: Normal rate and regular rhythm. Pulmonary: Effort: Pulmonary effort is normal. Breath sounds: Normal breath sounds. Abdominal: General: Bowel sounds are normal. There is no distension. Palpations: Abdomen is soft. Tenderness: There is no abdominal tenderness. There is no guarding or rebound. Musculoskeletal: General: No swelling. Normal range of motion. Right lower leg: No edema. Left lower leg: No edema. Neurological: Mental Status: She is alert and oriented to person, place, and time. Skin: General: Skin is warm and dry. Psychiatric: Mood and Affect: Mood normal. Behavior: Behavior normal. Vitals and nursing note reviewed. Exam conducted with a computing tutor present. Vitals: Estimated body mass index is 33.18 kg/m as calculated from the following: Height as of 02/22/23: 5' 5 . Weight as of this encounter: 199 lb 6.4 oz. BP: 132/78 No LMP recorded. Patient is . Assessment/Plan Encounter Diagnosis Name Primary? Third trimester Patient presents today for a routine obstetrics appointment. Patient is currently 38w0d . Patient complaints of being unable to sleep, increase in Jean Hick contractions, pelvic pressure and sharp pains. Patient desires to have Induction of Labor on 08/22/2023 @0001. Called [facility] and spoke with Michelle and patient placed on the books for induction and will report through ER entrance to check in for IOL. Patient to schedule 6 week appointment prior to leaving office, so then she will get the reminder calls. Patient to call office with any further questions/concerns. Documented by Glenys Ghotra LPN on behalf of: Ana Luisa Roland DO documented in this encounter [facility] Evaluation note 11-09-2022 Note Date & Type Note Facility 11-09-2022 Evaluation note Encounter Date Diagnosis Assessment Notes Oct, Lumbar pain (ICD-10 - M54.50) [employer] Other Evaluation note 10-15-2022 Note Date & Type Note Facility 10-15-2022 Evaluation note Encounter Date Diagnosis Assessment Notes Oct, Wellness examination (ICD-10 - Z00.00) due for labs Oct, Lumbar pain (ICD-10 - M54.50) Pt states she went to chiropractor , had PT and xray through [facility]. She now wants me to address this as she is not improving and an MRI was not covered. She will contact their office and have them send us PT reports and xray so we can try to get the MRI. Pt needs this addressed as she is in the and is running a half marathon later this month. [employer] Other Evaluation note Note Date & Type Note Facility Evaluation note No Information [facility] Other Evaluation note Note Date & Type Note Facility Evaluation note No assessment information availa [facility] Work Phone: Evaluation note Note Date & Type Note Facility Evaluation note Diagnosis Third trimester state, incidental documented in this encounter [facility] History general Narrative - Reported Note Date & Type Note Facility History general Narrative - Reported Type Medical History Bronchitis Medical History Vaginitis Medical History Acute UTI Medical History Dysuria Hospitalization History l2019 for a blood count being done. [employer] Other Reason for Referral Reason *FU 11/19 Xray and last OV note. thank you Diagnosis 1 Lumbar pain (M54.50) Referral Organization [facility] elizabeth Referring Provider First Name Lexis Referring Provider Last Name Marcos Referring Provider Specialty Family [facility] Referred Organization [facility] Referred Provider Juan Miguel Referred Address [address], [place],[address] Referred Provider Specialty Pain Medicin e Referral Priority Routine General Notes Jessie Ashraf 04:25:04 PM >received today, attachments made, referral faxed Clinical Notes F: [id number] Summary Purpose Family History No Family History Records FoundNo Family History Records FoundNo Family History Records Found Advance Directives Advance Directive Response Recorded Date/ Time Advance Directives No May 20, 2023 2:24pm Chief Complaint and Reason for Visit Chief Complaint low back pain Additional Source Comments REASON FOR VISIT (unrecogniz ed section and content) Reason Comments Routine Visit INFORMATION SOURCE (unrecogn ized section and content) DATE CREATED AUTHOR 11/15/2022 [facility] DATE CREATED AUTHOR AUTHOR'S ORGANIZ ATION 07/24/2023 [facility] DATE CREATED AUTHOR AUTHOR'S ORGANIZ ATION 08/16/2023 [facility] EPIC Care Teams (unrecognized sec tion and content) Team Status: Active Member Role Status Dates Lexis Evans MD Primary Care Provider Active Team Status: Inactive Member Role Status Dates Lexis Evans MD Primary Care Provider, Attending Last castellanos Active [employer] Super[employer] Relationship Specialty Start Date End Date Lexis Evans MD [address] [facility] [place] [address] PCP - General Family Medicine 02/22/23 Goals (unrecognized section and content) Goals may [...] BE BASED ON THE PRIMARY CLINICAL RECORDS. [facility]. provides no warranty or guarantee of the accuracy or completeness of information in this document.
[2023-08-22 01:16] LABS: Basophils Percent Auto 0.3 % (0.2-2.0); Eosinophils Absolute Auto 0.1 10^3/uL (0.0-0.7); Eosinophils Percent Auto 0.9 % (0.9-7.0); Hematocrit 34.3 % (36.0-48.0); Hemoglobin 11.3 g/dL (12.0-16.0); Immature Granulocytes Abs Auto 0.03 10^3/uL (0.00-0.03); Immature Granulocytes Pct Auto 0.4 % (0.0-0.5); Lymphocytes Absolute Auto 1.8 10^3/uL (1.2-3.8); Lymphocytes Percent Auto 24.2 % (20.5-60.0); Mean Corpuscular HGB Conc 32.9 g/dL (29.9-35.2); Mean Corpuscular Hemoglobin 29.8 pg (26.7-34.0); Mean Corpuscular Volume 90.5 fL (81.0-99.0); Mean Platelet Volume 10.8 fL (9.5-13.5); Monocytes Absolute Auto 0.7 10^3/uL (0.3-0.8); Monocytes Percent Auto 8.9 % (1.7-12.0); Neutrophils Absolute Auto 4.8 10^3/uL (1.4-6.5); Neutrophils Percent Auto 65.3 % (43.0-75.0); Platelet Count 204 10^3/uL (150-450); Red Blood Count 3.79 10^6/uL (4.20-5.40); White Blood Count 7.4 10^3/uL (4.0-11.0)
[2023-08-22 01:16] LABS: Bilirubin Urine NEGATIVE (NEGATIVE); Blood Urine NEGATIVE (NEGATIVE); Clarity Urine CLEAR (CLEAR); Color Urine LT. YELLOW (YELLOW); Glucose Urine UA NEGATIVE (NEGATIVE); Ketones Urine NEGATIVE (NEGATIVE); Leukocyte Esterase Urine LARGE (NEGATIVE); Nitrite Urine NEGATIVE (NEGATIVE); Protein Urine NEGATIVE (NEG/TRACE); Urobilinogen Urine 0.2 EU/dL (0.2-1.0); pH Urine 7.5 (5.0-9.0)
[2023-08-22 01:18] LABS: Urine Microscopic Indicated YES
[2023-08-22 01:23] LABS: Bacteria Urine TRACE #/HPF (NONE SEEN); Cast Seen? NONE SEEN #/LPF (NONE SEEN); Crystals Seen? None Seen #/HPF (None Seen); Mucus Urine NONE SEEN (NONE SEEN); RBC Urine 0-2 #/HPF (0-2); Squamous Epithelial Cell Urine RARE #/LPF (NONE/RARE)
[2023-08-22 01:31] LABS: Amphetamine Screen Urine NEGATIVE (NEGATIVE); Barbiturates Screen Urine NEGATIVE (NEGATIVE); Benzodiazepines Screen Urine NEGATIVE (NEGATIVE); Buprenorphine Screen Urine NEGATIVE (NEGATIVE); Cannabinoid Screen Urine NEGATIVE (NEGATIVE); Cocaine Screen Urine NEGATIVE (NEGATIVE); Methadone Screen Urine NEGATIVE (NEGATIVE); Methamphetamines Screen Urine NEGATIVE (NEGATIVE); Opiate Screen Urine NEGATIVE (NEGATIVE); Oxycodone Screen Urine NEGATIVE (NEGATIVE); Phencyclidine Screen Urine NEGATIVE (NEGATIVE); Tricyclic Antidepressant Urine NEGATIVE (NEGATIVE)
[2023-08-22] MEDS: 0.9 % SODIUM CHLORIDE 1,000 ML 125 ML IV ×2 (02:03→10:00)
[2023-08-22] MEDS: OXYTOCIN 10 UNIT in 0.9 % SODIUM CHLORIDE 500 ML 6.012 UNIT IV (02:06)
[2023-08-22] MEDS: ROPIVACAINE HCL/PF 400 MG/200 ML PREMIX 10 MG EPIDURAL (11:17)
--- NOTE | 2023-08-22 12:55 | PM.OBPRCVD ---
Procedure Intrapartal events: None Induction method: per pitocin protocol Delivery augmentation: rupture of membranes and pitocin Delivery monitor: external FHT and external uterine Route of delivery: Episiotomy Description: right mediolateral Laceration description: perineal - 2nd degree Delivery repair: Vicryl Estimated blood loss (mL): 200 Anesthesia type: Epidural Disposition: floor Delivery date: 08/23/23 Gender: female presentation: vertex Placental delivery description: Spontaneous cord description: 3 Vessels
[2023-08-22] MEDS: GLYCERIN/WITCH HAZEL PADS 1 PAD TOPICAL (14:30)
[2023-08-22] MEDS: BENZOCAINE/MENTHOL 85 GRAM SPRAY BOTTLE 1 APPLIC TOPICAL (14:30)
[2023-08-22] MEDS: KETOROLAC TROMETHAMINE 30 MG/ML VIAL IVP (14:31)
[2023-08-22] MEDS: ACETAMINOPHEN 325 MG TABLET 650 MG PO (18:26)
[2023-08-22] MEDS: IBUPROFEN 600 MG TABLET PO (23:19)
[2023-08-23] VITALS (7 sets, daily range): BP systolic 109–125; BP diastolic 60–83; PULSE 63–77; RESP 16; TEMP 35.6–36.7
[2023-08-23] MEDS: HYDROCODONE/ACET 5-325 MG TABLET 2 TAB PO (04:03)
[2023-08-23 06:04] LABS: Basophils Percent Auto 0.3 % (0.2-2.0); Eosinophils Absolute Auto 0.1 10^3/uL (0.0-0.7); Eosinophils Percent Auto 0.8 % (0.9-7.0); Hematocrit 31.3 % (36.0-48.0); Hemoglobin 10.1 g/dL (12.0-16.0); Immature Granulocytes Abs Auto 0.06 10^3/uL (0.00-0.03); Immature Granulocytes Pct Auto 0.5 % (0.0-0.5); Lymphocytes Absolute Auto 2.4 10^3/uL (1.2-3.8); Lymphocytes Percent Auto 20.1 % (20.5-60.0); Mean Corpuscular HGB Conc 32.3 g/dL (29.9-35.2); Mean Corpuscular Hemoglobin 29.8 pg (26.7-34.0); Mean Corpuscular Volume 92.3 fL (81.0-99.0); Mean Platelet Volume 10.8 fL (9.5-13.5); Monocytes Percent Auto 8.6 % (1.7-12.0); Neutrophils Absolute Auto 8.3 10^3/uL (1.4-6.5); Neutrophils Percent Auto 69.7 % (43.0-75.0); Platelet Count 180 10^3/uL (150-450); Red Blood Count 3.39 10^6/uL (4.20-5.40); Red Cell Distribution Width 13.2 % (11.0-15.0)
[2023-08-23] MEDS: DOCUSATE SODIUM 100 MG CAPSULE PO ×2 (09:06→20:52)
--- NOTE | 2023-08-23 09:08 | P.OBPN_ITS ---
OB - PN: Subj Subjective Patient comments: no complaints and pain well controlled [place] status: doing well Exam Constitutional Vital Signs, click to edit/add: Last Vital Signs Temp 97.9 F 08/23/23 00:51 Pulse 77 08/23/23 09:05 Resp 16 08/23/23 00:56 BP 125/83 08/23/23 09:05 O2 Del Method Room Air 08/22/23 14:43 Documenting provider has reviewed patient's vital signs: yes Common normals: no apparent distress Respiratory Common normals: clear to auscultation bilaterally Cardio Common normals: regular rate and regular rhythm GI Common normals: Normal to inspection, nondistended, normoactive bowel sounds present Extremity Common normals: no calf tenderness Results Labs Labs: Short CBC 08/23/23 Range/Units 05:52 WBC 12.0 H (4.0-11.0) 10^3/uL Hgb 10.1 L (12.0-16.0) g/dL Hct 31.3 L (36.0-48.0) % Plt Count 180 (150-450) 10^3/uL OB - PN: A/P Plan - Vaginal Delivery day: 1 Plan: routine care Time Spent with Patient Time: Total time spent is greater than 50% in coordination of care (as documented) at patient's floor/unit and/or counseling patient: Total time spent with greater than 50% in coordination of care (as documented) at patient's floor/unit and/or counseling patient: less than 15 minutes
[2023-08-23] MEDS: IBUPROFEN 600 MG TABLET PO ×2 (11:33→20:52)
[2023-08-23] MEDS: ACETAMINOPHEN 325 MG TABLET 650 MG PO (16:34)
[2023-08-23] MEDS: GLYCERIN/WITCH HAZEL PADS 1 PAD TOPICAL (19:42)
[2023-08-24 08:04] VITALS: BP 112/66; PULSE 58
[2023-08-24 08:05] VITALS: RESP 16
[2023-08-24] MEDS: ACETAMINOPHEN 325 MG TABLET 650 MG PO (08:07)
[2023-08-24] MEDS: DOCUSATE SODIUM 100 MG CAPSULE PO (08:08)
[2023-08-24 08:40] VITALS: RESP 16; TEMP 36.4
--- NOTE | 2023-08-24 10:51 | PM.OBPN ---
OB - PN: Subj Subjective Patient comments: no complaints, pain well controlled and flatus present status: doing well [place] feeding status: exclusively bottle feeding Exam Constitutional Vital Signs, click to edit/add: Last Vital Signs Temp 97.6 F 08/24/23 08:40 Pulse 58 L 08/24/23 08:04 Resp 16 08/24/23 08:40 BP 112/66 08/24/23 08:04 O2 Del Method Room Air 08/24/23 08:05 Documenting provider has reviewed patient's vital signs: yes Common normals: no apparent distress, average body habitus, oriented x3, healthy appearing, alert and well nourished HENMT Common normals: normocephalic and head/scalp atraumatic Eye Pupil: PERRL and accommodation reflex normal Neck & C-Spine Common normals: full ROM Respiratory Common normals: normal respiratory effort Cardio Common normals: regular rate and regular rhythm GI Common normals: Normal to inspection, nondistended, normoactive bowel sounds present Common normals: no CVA tenderness Back & Pelvis Common normals: thoracic and lumbar spine normal to inspection and no thoracic nor lumbar tenderness Extremity Common normals: normal to inspection, full ROM and no calf tenderness Neuro Common normals: CN's II-XII intact bilaterally, moves all extremities, no focal motor deficits and no sensory deficits noted Psych Common normals: mental status grossly normal, thought process normal, cooperative, affect normal, speech normal and activity/motor behavior normal OB - PN: A/P Plan - Vaginal Delivery day: 1 Plan: routine care Time Spent with Patient Time: Total time spent is greater than 50% in coordination of care (as documented) at patient's floor/unit and/or counseling patient: Total time spent with greater than 50% in coordination of care (as documented) at patient's floor/unit and/or counseling patient: less than 15 minutes
--- NOTE | 2023-08-24 10:53 | PC.NURSE ---
Report given to Amada Senior RN.
--- NOTE | 2023-08-24 11:17 | PM.OBDS ---
DS: Providers Provider Date of admission: 08/22/23 00:01 Primary care physician: Lexis Evans MD Admitting clinician: Evens Roland Consults: 08/22/23 Consult to Anesthesiology Routine Consulting Provider: Chano Alonzo Reason for consultation: epidural Has provider been notified: No Attending physician on discharge: Negrita Olsen Anticipated date of discharge: 08/24/23 DS: Diagnosis Discharge Diagnosis (1) Normal vaginal delivery: Assessment and plan: NO COMPLICATIONS, DOING WELL, BOTTLE FEEDING, WANTS TO GO HOME Plan DISCHARGE OB - DS: Summary Complications complications: none Infant Delivery method: spontaneous vaginal delivery Gender: female Discharge plan: home Status at Discharge Cognitive/behavioral status at discharge: WNL Functional status at discharge: independent ambulation Time Spent with Patient Time attestation: Total time spent providing and/or coordinating discharge services: Time spent: less than 30 minutes Exam Constitutional Vital Signs, click to edit/add: Last Vital Signs Temp 97.6 F 08/24/23 08:40 Pulse 58 L 08/24/23 08:04 Resp 16 08/24/23 08:40 BP 112/66 08/24/23 08:04 O2 Del Method Room Air 08/24/23 08:05 Documenting provider has reviewed patient's vital signs: yes Common normals: no apparent distress HENMT Common normals: normocephalic and head/scalp atraumatic Eye Pupil: PERRL and accommodation reflex normal Discharge Plan Discharge Disposition: Home, Self-Care Condition: Good Assessment: CLINICAL EXAM NONFOCAL, VSS, AFEBRILE, BOTTLE FEEDING, NO ISSUES, WANTING TO GO HOME Health Concerns: NONE Plan of Treatment: DISCHARGE HOME Activity: resume usual activities as tolerated Activity Detail: NO SEX SIX WEEKS, SPORTS BRA 04/02 TO INHIBIT MILK, FOLLOW UP IN SIX WEEKS FOR POST EXAM, MAY SHOWER, WALKING ONLY EXERCISE FOR SIX WEEKS, CALL FOR PROBLEM OR CONCERN Diet: regular diet Activity Restrictions/Additional Instructions: ABOVE Forms: Portal Instructions Follow Up Appointments: MAKE POST EXAM APPOINTMENT IN SIX WEEKS Discharge location: HOME
[2023-08-24] MEDS: IBUPROFEN 600 MG TABLET PO (11:29)
--- NOTE | 2023-08-24 12:37 | PC.NURSE ---
Prescriptions found in chart DC'd by Dr. Olsen as unnecessary.
== END 2023-08-24 12:20 | disposition home or self-care (01) | DRG 560 ==
PROVIDERS: Admitting Provider Obstetrics & Gynecology; PCP Family Medicine; Visit Provider Obstetrics & Gynecology
DX: O70.1 Second degree perineal laceration during delivery (principal); Z3A.39 39 weeks gestation of pregnancy; Z37.0 Single live birth
CPT/HCPCS: 36415; 59025; 59050; 59410; 80307; 81001; 85025; 86850; 86900; 86901; 96374; 96375; 96376; J1885; J2590; J2795

== ENCOUNTER 2023-12-23 10:56 | Outpatient (OUT) | payer OTHER, SELFPAY ==
--- NOTE | 2023-12-23 10:59 | US_ITS ---
The [address] [address] Patient Name: ROSALIE MCLAUGHLIN MRN: [id number] date: 2000 Sex: F Assigned [facility] Accession/Order Number: [id number] Exam Date: 12/23/2023 11:00 Report Date: 12/23/2023 13:31 At the request of: ANA LUISA VILLATORO Procedure: US pelvis transvaginal EXAMINATION: US pelvis transvaginal HISTORY: PELVIC PAIN, IUD PLACEMENT COMPARISON: No relevant comparison available. FINDINGS: The uterus is anteverted, retroflexed. The uterus is normal in size, contour and echotexture measuring 9.9 x 4.4 x 6.2 cm. Endometrium measures 6 mm. Linear hyperechogenicity within the endometrial cavity consistent with a normally positioned IUD The right ovary measures 2.9 x 1.7 x 3.3 cm. Normal color and Doppler flow. Left ovary measures 2.9 x 1.2 x 2.2 cm. Normal color and Doppler flow. No free fluid The patient did have tenderness in the region of the left ovary with ultrasound scanning US/US pelvis transvaginal IMPRESSION: Normally positioned IUD Left adnexal pain with ultrasound scanning Electronically authenticated by: KATARINA JIANG Date: 12/23/2023 13:31
--- OUTSIDE RECORDS SUMMARY | 2023-12-23 11:20 | XMS_ITS | CCD ---
Author Organization [facility] Care Team Providers Care Microbiology Quality Control Technician Name Role Phone Lexis Evans Unavailable DR LEXIS EVANS Admitting Unavailable EVANS, DR LEXIS Castillo Primary Care Unavailable MARCOS, DR LEXIS Castillo Consulting Unavailable EVANS, DR LEXIS Castillo Attending Unavailable Le, Yakelin Consulting Unavailable MARCOS, DR LEXIS Castillo Admitting Unavailable EVANS, DR LEXIS Castillo Primary Care Unavailable EVANS, DR LEXIS Castillo Consulting Unavailable EVANS, DR LEXIS Castillo Attending Unavailable EVANS, DR LEXIS Castillo Primary Care Unavailable GIEDRAITIS, ANDRIUS Admitting Unavailable GIEDRAITIS, ANDRIUS Attending Unavailable Lexis Evans Attending Unavailable Marcos, Lexis Castillo Primary Care Unavailable Lexis Evans Admitting Unavailable MD Lexis Evans Primary Care Provider MD Lexis Evans Attending Provider [phone] Lexis Evans MD Primary Care Provider ANA LUISA ROLAND Attending Unavailable ANA LUISA ROLAND Attending Unavailable MARIAM TORRES Attending Unavailable ANA LUISA ROLAND Attending Unavailable MARIAM TORRES Attending Unavailable ANA LUISA ROLAND Attending Unavailable ANA LUISA ROLAND Attending Unavailable MARIAM TORRES Attending Unavailable Medications Current Medications Medication Drug Class(es) Dates Sig (Normalized) Sig (Original) diphenhydrAMINE hydrochloride 25 mg oral capsule (4 sources) Histamine-1 Receptor Antagonist Start: 07-04-2023 End: 10-02-2023 diphenhydrAMINE (BENADryl) capsule 25 mg Magnesium (4 sources) Start: 07-04-2023 End: 10-02-2023 take 2 tablets by mouth in the morning magnesium 200 MG tablet Indications: Third trimester Take 2 tablets (400 mg) by mouth in the morning. 60 tablet 2 07/04/2023 10/02/2023 Active multivitamin () 27-0.8 MG tablet (4 sources) Start: 03-20-2022 multivitamin () 27-0.8 MG tablet VIT-DSS-FE FUM-FA PO (4 sources) VIT-DSS -FE FUM-FA PO Take 2 [...] Translations: [Acute vaginitis] Episodic Other complications of (4 sources) Diseases of the nervous system complicating , unspecified trimester; Translations: [Other current conditions classifiable elsewhere of mother, unspecified as to episode of care or not applicable] Onset: 07-22-2023 07-22-2023 Episodic Other and delivery including normal (6 sources) Third trimester ; Translations: [Encounter for [...] Name Value Interpretation Reference Range Facil ity ALL CBC WITH AUTO DIFFon BASOPHILS ABSOLUTE AUTO 0.0 [facility] Basophils/100 WBC (Bld) 0.3 % 0.2 - 2.0 % [facility] Eosinophils/100 WBC (Bld) 0.8 % Low 0.9 - 7.0 % [facility] Erythrocyte distribution width (RBC) [Ratio] 13.2 % 11.0 - 15.0 % [facility] Hematocrit (Bld) [Volume fraction] 31.3 % Low 36.0 - 48.0 % [facility] Hemoglobin (Bld) [Mass/Vol] 10.1 g/dL Low 12.0 - 16.0 g/dL [facility] IMMATURE GRANULOCYTES ABS AUTO 0.06 High [facility] Immature granulocytes/100 WBC (Bld) 0.5 % 0.0 - 0.5 % [facility] Interpretation and review of laboratory results Abnormal [facility] LYMPHOCYTES ABSOLUTE AUTO 2.4 [facility] Lymphocytes/100 WBC (Bld) 20.1 % Low 20.5 - 60.0 % [facility] MCH (RBC) [Entitic mass] 29.8 pg 26.7 - 34.0 pg [facility] MCHC (RBC) [Mass/Vol] 32.3 g/dL 29.9 - 35.2 g/dL [facility] MCV (RBC) [Entitic vol] 92.3 fL 81.0 - 99.0 fL [facility] MONOCYTES ABSOLUTE AUTO 1.0 High [facility] Monocytes/100 WBC (Bld) 8.6 % 1.7 - 12.0 % [facility] NEUTROPHILS ABSOLUTE AUTO 8.3 High [facility] Neutrophils/100 WBC (Bld) 69.7 % 43.0 - 75.0 % [facility] Platelet mean volume (Bld) [Entitic vol] 10.8 fL 9.5 - 13.5 fL [facility] are TBH EO # 0.1 [facility] PLT 180 [facility] RBC 3.39 Low [facility] WBC 12.0 High [facility] ALL CBC WITH AUTO DIFFon BASOPHILS ABSOLUTE [facility] Basophils/100 WBC (Bld) 0.3 % 0.2 - 2.0 % [facility] Eosinophils/100 WBC (Bld) 0.9 % 0.9 - 7.0 % [facility] Erythrocyte distribution width (RBC) [Ratio] 13.0 % 11.0 - 15.0 % [facility] Hematocrit (Bld) [Volume fraction] 34.3 % Low 36.0 - 48.0 % [facility] (Bld) [Mass/Vol] 11.3 g/dL Low 12.0 - 16.0 g/dL [facility] IMMATURE GRANULOCYTES ABS AUTO 0.03 [facility] Immature granulocytes/100 WBC (Bld) 0.4 % 0.0 - 0.5 % [facility] Interpretation and review of laboratory results Abnormal [facility] LYMPHOCYTES ABSOLUTE AUTO 1.8 [facility] Lymphocytes/100 WBC (Bld) 24.2 % 20.5 - 60.0 % [facility] MCH (RBC) [Entitic mass] 29.8 pg 26.7 - 34.0 pg [facility] MCHC (RBC) [Mass/Vol] 32.9 g/dL 29.9 - 35.2 g/dL [facility] MCV (RBC) [Entitic vol] 90.5 fL 81.0 - 99.0 fL [facility] MONOCYTES ABSOLUTE AUTO 0.7 [facility] Monocytes/100 WBC (Bld) 8.9 % 1.7 - 12.0 % [facility] NEUTROPHILS ABSOLUTE AUTO 4.8 [facility] Neutrophils/100 WBC (Bld) 65.3 % 43.0 - 75.0 % [facility] Platelet mean volume (Bld) [Entitic vol] 10.8 fL 9.5 - 13.5 fL [facility] are TBH EO # 0.1 [facility] TBH PLT 204 [facility] TB RBC 3.79 Low [facility] WBC 7.4 [facility] Urinalysis macro (dipstick) panel (U)on 08-15-2023 Bilirubin, UA Negative Negative - 4(70) +++ mg/dL [facility] Blood, UA Negative Negative - 50 Nicolas/mcL [facility] Clarity, UA Clear [facility] Color, UA Yellow [facility] Glucose, UA Negative Negative - 1999(110) ++++ mg/dL [facility] Interpretation and review of laboratory results Abnormal [facility] Ketones, UA Negative Negative - 160(16) ++++ mg/dL [facility] Leukocytes, UA Negative Negative - 500+++ Freida/mcL [facility] Nitrite, UA Negative Negative - Positive [facility] pH, UA 6.5 5 - 9 [facility] Protein, UA Negative Negative - 1999(20) ++++ mg/dL [facility] Spec Grav, UA 1.020 1 - 1.03 [facility] Urobilinogen, UA 1.0 0.2 - 12 mg/dL [facility] X[facility] LSPINE 2_3 VIEWSon 2022 XR LSPINE 2_3 VIEWS EXAM: XR LSPINE 2_3 VIEWS HISTORY: Low back pain COMPARISON: None. TECHNIQUE: 3 views FINDINGS: Satisfactory alignment. Multilevel endplate degenerative changes, disc disease, anterior spurring and facet arthropathy. No acute fracture or subluxation. Unremarkable soft tissues. IMPRESSION: No acute fracture or subluxation. Electronically authenticated by: YAKELIN FRIEDMAN Date: 2022-10-31 14:26 Normal [facility] CBC AUTO DIFFon 10-17-2022 BASO # 0.0 103/ul Normal 0.0-0.1 [facility] Comment on above: Performed By: #### C BC #### [facility] [address] [place] [address] Dr. Dav Xie Basophils/100 WBC (Bld) 0.6 % Normal 0.2-2.0 [facility] Comment on above: Performed By: #### C BC #### [facility] [address] [place] [address] Dr. Dav Xie EO # 0.2 103/ul Normal 0.0-0.7 [facility] Comment on above: Performed By: #### C BC #### [facility] [address] [place] [address] Dr. Dav Xie Eosinophils/100 WBC (Bld) 3.0 % Normal 0.9-7.0 [facility] Comment on above: Performed By: #### C BC #### [facility] [address] [place] [address] Dr. Dav Xie Erythrocyte distribution width (RBC) [Ratio] 11.9 % Normal 11.0-15.0 [facility] Comment on above: Performed By: #### C BC #### [facility] [address] [place] [address] Dr. Dav Xie Hematocrit (Bld) [Volume fraction] 39.5 % Normal 36.0-48.0 [facility] Comment on above: Performed By: #### C BC #### [facility] [address] [place] [address] Dr. Dav Xie Hemoglobin (Bld) [Mass/Vol] 13.4 g/dL Normal 12.0-16.0 [facility] Comment on above: Performed By: #### C BC #### [facility] [address] [place] [address] Dr. Dav Xie IG # 0.01 10e3/ul Normal 0.00-0.03 [facility] Comment on above: Performed By: #### C BC #### [facility] [address] [place] [address] Dr. Dav Xie IG % 0.2 % Normal 0.0-0.5 [facility] Comment on above: Performed By: #### C BC #### [facility] [address] [place] [address] Dr. Dav Xie LYMPH # 1.7 103/ul Normal 1.2-3.8 [facility] Comment on above: Performed By: #### C BC #### [facility] [address] [place] [address] Dr. Dav Xie Lymphocytes/100 WBC (Bld) 31.9 % Normal 20.5-60.0 [facility] Comment on above: Performed By: #### C BC #### [facility] [address] [place] [address] Dr. Dav Xie MANUAL DIFF REQ NO Normal [facility] Comment on above: Performed By: #### C BC #### [facility] [address] [address] [address] Dav Xie MCH (RBC) [Entitic mass] 31.8 pg Normal 26.7-34.0 [facility] Comment on above: Performed By: #### C BC #### [facility] [address] [address] [address] Dav Xie MCHC (RBC) [Mass/Vol] 33.9 g/dL Normal 29.9-35.2 [facility] Comment on above: Performed By: #### C BC #### [facility] [address] [place] [address] Dr. Dav Xie MCV (RBC) [Entitic vol] 93.6 fL Normal 81.0-99.0 [facility] Comment on above: Performed By: #### C BC #### [facility] [address] [place] [address] Dr. Dav Xie MONO # 0.5 103/ul Normal 0.3-0.8 [facility] Comment on above: Performed By: #### C BC #### [facility] [address] [place] [address] Dr. Dav Xie Monocytes/100 WBC (Bld) 9.7 % Normal 1.7-12.0 [facility] Comment on above: Performed By: #### C BC #### [facility] [address] [place] [address] Dr. Dav Xie NEUT # 2.9 103/ul Normal 1.4-6.5 [facility] Comment on above: Performed By: #### C BC #### [facility] [address] [place] [address] Dr. Dav Xie Neutrophils/100 WBC (Bld) 54.6 % Normal 43.0-75.0 [facility] Comment on above: Performed By: #### C BC #### [facility] [address] [place] [address] Dr. Dav Xie Platelet mean volume (Bld) [Entitic vol] 9.7 fL Normal 9.5-13.5 [facility] Comment on above: Performed By: #### C BC #### [facility] [address] [place] [address] Dr. Dav Xie PLT 215 103/ul Normal 150-450 [facility] Comment on above: Performed By: #### C BC #### [facility] [address] [place] [address] Dr. Dav Xie RBC 4.22 106/ul Normal 4.20-5.40 [facility] Comment on above: Performed By: #### C BC #### [facility] [address] [place] [address] Dr. Dav Xie WBC 5.4 103/ul Normal 4.0-11.0 [facility] Comment on above: Performed By: #### C BC #### [facility] [address] [place] [address] Dr. Dav Xie FERRITINon 10-17-2022 Ferritin [Mass/Vol] 85.0 ng/mL Normal 6.2-137.0 [facility] Comment on above: Performed By: #### F ERR #### [facility] [address] [place] [address] Dr. Dav Xie PROF CHEM 8 (BAS METB)on Anion gap [Moles/Vol] 11.2 mmol/L Normal [facility] Comment on above: Performed By: #### B MP #### [facility] [address] [place] [address] Dr. Dav Xie Calcium [Mass/Vol] 8.8 mg/dL Normal 8.5-10.1 [facility] Comment on above: Performed By: #### B MP #### [facility] [address] [place] [address] Dr. Dav Xie Chloride [Moles/Vol] 103 mmol/L Normal 98-107 [facility] Comment on above: Performed By: #### B MP #### [facility] [address] [place] [address] Dr. Dav Xie CO2 [Moles/Vol] 29.6 mmol/L Normal 21.0-32.0 [facility] Comment on above: Performed By: #### B MP #### [facility] [address] [address] [address] Dav Xie Creatinine [Mass/Vol] 0.82 mg/dL Normal 0.55-1.02 [facility] Comment on above: Performed By: #### B MP #### [facility] [address] [address] [address] Dav Xie EGFR-AF [place] >60 Normal >=60 [facility] Comment on above: Performed By: #### B MP #### [facility] [address] [address] [address] Dav Xie EGFR-NON AF [place] >60 Normal >=60 [facility] Comment on above: Performed By: #### B MP #### [facility] [address] [address] [address] Dav Xie Glucose [Mass/Vol] 86 mg/dL Normal 74-106 [facility] Comment on above: Performed By: #### B MP #### [facility] [address] [address] [address] Dav Xie Potassium [Moles/Vol] 3.8 mmol/L Normal 3.5-5.1 [facility] Comment on above: Performed By: #### B MP #### [facility] [address] [address] [address] Dav Xie Sodium [Moles/Vol] 140 mmol/L Normal 136-145 [facility] Comment on above: Performed By: #### B MP #### [facility] [address] [address] [address] Dav Xie Urea nitrogen [Mass/Vol] 13.0 mg/dL Normal 7.0-18.0 [facility] Comment on above: Performed By: #### B MP #### [facility] [address] [address] [address] Dav Xie Urea nitrogen/Creatinine [Mass ratio] 15.9 mg/mg Normal [facility] Comment on above: Performed By: #### B MP #### [facility] [address] [address] [address] Dav Xie Vital Signs Date Time Vital Sign Value Performing Clinician Facility 08-15-2023 10:13-0500 Body mass index (BMI) [Ratio] 33.18 kg/m2 Ana Luisa Asuncion DO Work Phone: [facility] 08-15-2023 10:13-0500 Body weight 90.45 kg Ana Luisa Asuncion DO Work Phone: [facility] 08-15-2023 10:13-0500 Diastolic blood pressure 78 mm[Hg] Ana Luisa Asuncion DO Work Phone: [facility] 08-15-2023 10:13-0500 Systolic blood pressure 132 mm[Hg] Ana Luisa Asuncion DO Work Phone: [facility] 10-15-2022 09:30-0400 Body height 160.02 cm Lexis Evans Other [facility] Other 10-15-2022 09:30-0400 Body mass index (BMI) [Ratio] 28.87 kg/m2 Lexis Evans Other [facility] Other 10-15-2022 09:30-0400 Body weight 73.94 kg Lexis Evans Other [facility] Other 10-15-2022 09:30-0400 Diastolic blood pressure 62 mm[Hg] Lexis Evans Other [facility] Other 10-15-2022 09:30-0400 SaO2% (BldA) [Mass fraction] 99 % Lexis Evans Other [facility] Other 10-15-2022 09:30-0400 Systolic blood pressure 108 mm[Hg] Lexis Evans Other [facility] Other Encounters Encounter Date Encounter Type Care Provider Facility Start: 11-04-2023 End: 11-04-2023 ambulatory ANA LUISA ASUNCION Not Available Start: 10-03-2023 End: 10-03-2023 ambulatory MARIAM BRIAN Not Available Start: 2023 [facility] Result Encounter Ana Luisa Asuncion DO Work Phone: [facility] Unsolicited Start: 2023 [facility] Result Encounter Ana Luisa Asuncion DO Work Phone: [facility] Unsolicited Start: 08-22-2023 [facility] Result Encounter Ana Luisa Asuncion DO Work Phone: [facility] Unsolicited Start: 08-22-2023 [facility] Result Encounter Ana Luisa Asuncion DO Work Phone: [facility] Unsolicited Start: 08-15-2023 End: 08-15-2023 ambulatory ANA LUISA ASUNCION Not Available Start: 08-15-2023 End: 08-15-2023 Office outpatient visit 15 minutes Ana Luisa Asuncion DO Work Phone: [facility] Comment on above: Third trimester preg aniyah Start: 08-08-2023 End: 08-08-2023 ambulatory MARIAM BRIAN Not Available Start: 07-22-2023 End: 07-22-2023 ambulatory ANA LUISA ASUNCION Not Available Start: 07-12-2023 End: 07-12-2023 ambulatory Lexis Evans Facility:[facility] Start: 07-12-2023 End: 07-12-2023 ambulatory MD Lexis Evans Work Phone: [facility] Work Phone: Start: 07-12-2023 End: 07-12-2023 Discharged Recurring MD Lexis Evans Work Phone: [facility] Work Phone: Start: 07-04-2023 End: 07-04-2023 ambulatory MARIAM BRIAN Not Available Start: 06-20-2023 End: 06-20-2023 ambulatory ANA LUISA ASUNCION Not Available Start: 05-29-2023 End: 05-29-2023 ambulatory ANA LUISA ASUNCION Not Available Start: 11-30-[address] LEXIS EVANS Facil ity:[facility] Start: 11-09-2022 End: 11-09-2022 ambulatory Lexis Evans Other [facility] Other Start: 11-09-2022 Telephone encounter Lexis Evans [facility] Start: 10-31-2022 End: 11-01-[address] LEXIS EVANS Facility:[facility] Start: 10-29-2022 End: 10-29-2022 ambulatory Lexis Evans Other [facility] Other Start: 10-29-2022 Telephone encounter Lexis Evans [facility] Start: 10-26-2022 Encounter for genera l adult medical examination without abnormal findings DR LEXIS EVANS [facility] Start: 10-17-2022 End: 10-18-[address] LEXIS EVANS Facility:[facility] Start: 10-17-2022 End: 10-18-2022 Encounter for general adult medical examination without abnormal findings DR LEXIS EVANS Facility:[facility] Start: 10-15-2022 End: 10-15-2022 ambulatory Lexis Evans Other [facility] Other Start: 10-15-2022 Encounter for genera l adult medical examination without abnormal findings Lexis Evans [facility] Start: 10-15-2022 Periodic preventive med est patient 18-39 yrs Lexis Evans [facility] Procedures Date Procedure Procedure Detail Performing Clinician Start: 2023 ALL CBC WITH AUTO DIFF Ana Luisa Asuncion DO Work Phone: Start: 08-22-2023 ALL CBC WITH AUTO DIFF Ana Luisa Asuncion DO Work Phone: Start: 08-15-2023 Urnls dip stick/tabl et rgnt non-auto w/o micrscp Ana Luisa Asuncion DO Work Phone: Plan of Treatment Date Care Activity Detail Author Start: 10-03-2023 End: 10-03-2023 ambulatory 10/03/2023 8:30 AM EDT Visit [facility] [address] [place] [id number] Mariam Torres PA [address] [place] [address] [facility] Start: 03-15-2023 Influenza vaccination Influenza Vacc ine (#1) [facility] Immunizations Immunization Date Immunization Notes Care Provider Fa cility 05-10-2022 influenza virus vacc ine, unspecified formulation Ana Luisa Roland DO Work Phone: [facility] Payers Date Payer Category Payer Self-pay 2019 Medicaid [employer] [employer] [id number] 2019-Present [address] [place] [address] [id number] 1998 Unknown [id number] [id number]. 593 1998 Unknown [id number] 2.16.840.1.217751.3.579.2. 593 1998 Unknown [id number] 2.16.840.1.001396.3.579.2. 593 1998 Unknown [id number] 2.16.840.1.414826.3.579.2. 593 1998 Unknown [id number] 2.16.840.1.647432.3.579.2. 593 1998 Unknown [id number] 2.16.840.1.487942.3.579.2. 1259 1998 Unknown [id number] 2.16.840.1.716638.3.579.2. 1259 1998 Unknown [id number] 2.16.840.1.452919.3.579.2. 1259 1998 Unknown [id number] 2.16.840.1.677950.3.579.2. 1259 1998 Unknown [id number] 2.16.840.1.872193.3.579.2. 1259 1998 Unknown [id number] 2.16.840.1.054497.3.579.2. 1259 1998 Unknown [id number] 2.16.840.1.388067.3.579.2. 9 1998 Unknown [id number] 2.16.840.1.733026.3.579.2. 1259 1959 Medicaid [id number] [id number] [employer] ( and others) [id number] [id number] Unknown [id number] 2.16.840.1.098979.3.579.2. 531 Social History Date Type Detail Facility Unknown if ever smoked [facility] Other Start: 03-16-2023 Sex Assigned At [facility] Other Start: 03-16-2023 Tobacco smoking status NHIS [...] Healthcare Start: 02-15-2023 Sexual orientation Heterosexual (finding) [facility] History of Present illness Narrative 08-15-2023 [...] (general) (routine) without abnormal findings [facility] complication ([facility] Family History Problem Relation Name Age of [...] nursing note reviewed. Exam conducted with a refund clerk present. Vitals: Estimated body mass index is [...] of being unable to sleep, increase in Oil Trough Hick contractions, pelvic pressure and sharp pains. Patient desires to have Induction of Labor on 08/22/2023 @0001. Called [facility] and spoke with Michelle and patient placed [...] Luisa Roland DO documented in this encounter [facility] Evaluation note 11-09-2022 Note Date & Type Note Facility 11-09-2022 Evaluation note Encounter Date Diagnosis Assessment Notes Oct, Lumbar pain (ICD-10 - M54.50) [facility] Other Evaluation note 10-15-2022 Note Date & Type Note Facility 10-15-2022 Evaluation note Encounter Date Diagnosis Assessment Notes Oct, Wellness examination (ICD-10 - Z00.00) due for labs Oct, Lumbar pain (ICD-10 - M54.50) Pt states she went to chiropractor , had PT and xray through [facility]. She now wants me to address this as she is not improving and an MRI was not covered. She will contact their office and have them send us PT reports and xray so we can try to get the MRI. Pt needs this addressed as she is in the and is running a half marathon later this month. [facility] Other Evaluation note Note Date & Type Note Facility Evaluation note No Information [employer] Other Evaluation note Note Date & Type Note Facility Evaluation note No assessment information [facility] Work Phone: Evaluation note Note Date & Type Note Facility Evaluation note Diagnosis Third trimester state, incidental documented in this encounter [facility] History general Narrative - Reported Note Date & Type Note Facility History general Narrative - Reported Type Medical History Bronchitis Medical History Vaginitis Medical History Acute UTI Medical History Dysuria Hospitalization History l2019 for a blood count being done. [employer] Other Reason for Referral Reason *FU 11/19 Xray and last OV note. thank you Diagnosis 1 Lumbar pain (M54.50) Referral Organization [facility] Referring Provider First Name Lexis Referring Provider Last Name Marcos Referring Provider Specialty Family Medi cine Referred Organization [facility] Referred Provider Juan Miguel Referred Address [address], [place],[address] Referred Provider Specialty Pain Medicin e Referral Priority Routine General Notes Jessie Ashraf 04:25:04 PM >received today, attachments made, referral faxed Clinical Notes F: [id number] Summary Purpose Family History No Family History Records FoundNo Family History Records FoundNo Family History Records Found Advance Directives No Advanced Directives Records Found Advance Directive Response Recorded Date/ Time Advance Directives No May 20, 2023 2:24pm Chief Complaint and Reason for Visit Chief Complaint low back pain Additional Source Comments REASON FOR VISIT (unrecogniz ed section and content) Reason Comments Routine Visit INFORMATION SOURCE (unrecogn ized section and content) DATE CREATED AUTHOR 11/15/2022 [facility] DATE CREATED AUTHOR AUTHOR'S ORGANIZ ATION 07/24/2023 [facility] DATE CREATED AUTHOR AUTHOR'S ORGANIZ ATION 11/05/2023 [facility] EP[employer] Care Teams (unrecognized sec tion and content) Team Status: Active Member Role Status Dates Lexis Evans MD Primary Care Provider Active Team Status: Inactive Member Role Status Dates Lexis Evans MD Primary Care Provider, Attending Last castellanos Active Microbiology Quality Control Technician Relationship Specialty Start Date End Date Lexis Evans MD [address] [place] [address] PCP - General Family Medicine 02/22/23 Microbiology Quality Control Technician Relationship Specialty Start Date End Date Lexis Evans MD [address] [place] [address] PCP - General Family Medicine [...] BE BASED ON THE PRIMARY CLINICAL RECORDS. [facility] [employer] [facility]. provides no warranty or guarantee of the accuracy or completeness of information in this document.
== END 2023-12-23 10:57 | disposition home or self-care (01) ==
LOC: NOMS 10:57
PROVIDERS: PCP Family Medicine; Visit Provider Obstetrics & Gynecology
DX: R10.2 Pelvic and perineal pain (principal); Z30.431 Encounter for routine checking of intrauterine contraceptive device
CPT/HCPCS: 76830

== ENCOUNTER 2023-12-25 09:10 | Emergency (ER) | payer OTHER, SELFPAY ==
[2023-12-25] VITALS (9 sets, daily range): BP systolic 118–145; BP diastolic 78–89; PULSE 66–80; TEMP 37.2; O2SAT 81–100; BMI 29.1
--- OUTSIDE RECORDS SUMMARY | 2023-12-25 09:28 | XMS_ITS ---
Patient Summarization (C-CDA 2.1 CCD) Created on: December 25, 2023 Dank CRISOSTOMO ROSALIE Weems~ARNOLDO : 2000 Sex: Female Author Organization Sample organization Care Team Providers Care Hydraulic Modeling Engineer Name Role Phone Lexis Evans Unavailable [...] Unavailable MD Lexis Evans Primary Care Provider [phone] MD Lexis Evans Attending Provider [phone] Lexis Evans MD Primary Care Provider [phone] ANA LUISA ROLAND Attending Unavailable ASUNCION, ANA LUISA Attending Unavailable MARIAM TORRES Attending Unavailable ASUNCION, ANA LUISA Attending Unavailable BRIAN, MARIAM Attending Unavailable ASUNCION, ANA LUISA Attending Unavailable ASUNCION, ANA LUISA Attending Unavailable BRIAN, MARIAM Attending Unavailable Encounters Encounter Date Encounter Type Care Provider Facility Start: 11-04-2023 End: 11-04-2023 ambulatory ANA LUISA ASUNCION Not Available Start: 10-03-2023 End: 10-03-2023 ambulatory MARIAM TORRES Not Available Start: 2023 Clinisync Result Encounter [...] Start: 07-12-2023 End: 07-12-2023 ambulatory Lexis Evans Facility:[facility] Start: 07-12-2023 End: 07-12-2023 ambulatory MD Lexis Evans Work Phone: [facility] Work Phone: Start: 07-12-2023 End: 07-12-2023 Discharged Recurring MD Lexis Evans Work Phone: [facility] [place] Work Phone: Start: 07-04-2023 End: 07-04-2023 ambulatory MARIAM TORRES Not Available Start: 06-20-2023 End: 06-20-2023 ambulatory ANA LUISA ASUNCION Not Available Start: 05-29-2023 End: 05-29-2023 ambulatory ANA LUISA ASUNCION Not Available Start: 11-30-[address] LEXIS EVANS Facil ity:[facility] Start: 11-09-2022 End: 11-09-2022 ambulatory Lexis Evans Other [employer] Other Start: 11-09-2022 Telephone encounter Lexis Evans [facility] Start: 10-31-2022 End: 11-01-[address] LEXIS EVANS Facility:[facility] Start: 10-29-2022 End: 10-29-2022 ambulatory Lexis Evans Other [employer] Other Start: 10-29-2022 Telephone encounter Lexis Evans [facility] Start: 10-26-2022 Encounter for genera l adult medical examination without abnormal findings DR LEXIS EVANS [facility] Start: 10-17-2022 End: 10-18-[address] LEXIS EVANS Facility:[facility] Start: 10-17-2022 End: 10-18-2022 Encounter for general adult medical examination without abnormal findings DR LEXIS EVANS Facility:[facility] Start: 10-15-2022 End: 10-15-2022 ambulatory Lexis Evans Other [employer] Other Start: 10-15-2022 Encounter for genera l adult medical examination without abnormal findings Lexis Evans [facility] Start: 10-15-2022 Periodic preventive med est patient 18-39 yrs Lexis Evans [facility] Immunizations Immunization Date Immunization Notes Care Provider Fa lynn 05-10-2022 influenza virus vacc ine, unspecified formulation Ana Luisa Roland DO Work Phone: [facility] Medications Current Medications Medication Drug Class(es) Dates [...] 7 days 30 g 0 08/08/2023 08/15/2023 Payers Date Payer Category Payer Self-pay 2019 Medicaid [employer] [place] [id number] 2019-Present [address] [place] [address] [id number] 2000 Unknown [id number] 2.16.840.1.767106.3.579.2. 593 2000 Unknown [id number] 2.16.840.1.550915.3.579.2. 593 2000 Unknown [id number] 2.16.840.1.831187.3.579.2. 593 2000 Unknown [id number] 2.16.840.1.142917.3.579.2. 593 2000 Unknown [id number] 2.16.840.1.587580.3.579.2. 593 1998 Unknown [id number] 2.16.840.1.629265.3.579.2. 1259 1998 Unknown [id number] 2.16.840.1.774086.3.579.2. 1259 1998 Unknown [id number] 2.16.840.1.066514.3.579.2. 1259 1998 Unknown [id number] 2.16.840.1.393617.3.579.2. 1259 1998 Unknown [id number] 2.16.840.1.730236.3.579.2. 1259 1998 Unknown [id number] 2.16.840.1.174636.3.579.2. 1259 1998 Unknown [id number] 2.16.840.1.144971.3.579.2. 1259 1998 Unknown [id number] 2.16.840.1.422360.3.579.2. 1259 1961 Medicaid [id number] 2.16.840.1.977930.19 Department of [facility] ( and others) [id number] 2.16.840.1.117140.19 Unknown [id number] 2.16.840.1.143202.3.579.2. 531 Plan of Treatment Date Care Activity Detail Author Start: 10-03-2023 End: 10-03-2023 ambulatory 10/03/2023 8:30 AM EDT Visit [facility] [address] [place] [address] [place] [address] Mariam Torres PA [address] [place] [address] [facility] Start: 03-15-2023 Influenza vaccination Influenza Vacc ine (#1) [facility] Problems Active Problems Problem Classification Problem Date [...] normal , unspecified, third trimester] Onset: 07-22-2023 4 Episodic Other upper respiratory infections (3 sources) [...] Translations: [LOW BACK PAIN, UNSPECIFIED] Onset: 10-31-2022 Procedures Date Procedure Procedure Detail Performing Clinician Start: 2023 ALL CBC WITH AUTO DIFF Ana Luisa Asuncion DO Work Phone: Start: 08-22-2023 ALL CBC WITH AUTO DIFF Ana Luisa Asuncion DO Work Phone: Start: 08-15-2023 Urnls dip stick/tabl et rgnt non-auto w/o micrscp Ana Luisa Asuncion DO Work Phone: Results Test Name Value Interpretation Reference Range Facil ity ALL CBC WITH AUTO DIFFon BASOPHILS ABSOLUTE AUTO 0.0 [facility] Basophils/100 WBC (Bld) 0.3 % 0.2 - 2.0 % [facility] Eosinophils/100 WBC (Bld) 0.8 % Low 0.9 - 7.0 % [facility] Erythrocyte distribution width (RBC) [Ratio] 13.2 % 11.0 - 15.0 % [facility] Hematocrit (Bld) [Volume fraction] 31.3 % Low 36.0 - 48.0 % [facility] Hemoglobin (Bld) [Mass/Vol] 10.1 g/dL Low 12.0 - 16.0 g/dL [facility] IMMATURE GRANULOCYTES ABS AUTO 0.06 High [facility] Immature granulocytes/100 WBC (Bld) 0.5 % 0.0 - 0.5 % [facility] Interpretation and review of laboratory results Abnormal [facility] LYMPHOCYTES ABSOLUTE AUTO 2.4 [facility] Lymphocytes/100 WBC (Bld) 20.1 % Low 20.5 - 60.0 % [facility] MCH (RBC) [Entitic mass] 29.8 pg 26.7 - 34.0 pg [facility] MCHC (RBC) [Mass/Vol] 32.3 g/dL 29.9 - 35.2 g/dL [facility] MCV (RBC) [Entitic vol] 92.3 fL 81.0 - 99.0 fL [facility] MONOCYTES ABSOLUTE AUTO 1.0 High [facility] Monocytes/100 WBC (Bld) 8.6 % 1.7 - 12.0 % [facility] NEUTROPHILS ABSOLUTE AUTO 8.3 High [facility] Neutrophils/100 WBC (Bld) 69.7 % 43.0 - 75.0 % [facility] Platelet mean volume (Bld) [Entitic vol] 10.8 fL 9.5 - 13.5 fL [facility] are TBH EO # 0.1 [facility] TBH PLT 180 [facility] TB RBC 3.39 Low [facility] TB[facility] WBC 12.0 High [facility] ALL CBC WITH AUTO DIFFon BASOPHILS ABSOLUTE AUTO 0.0 [facility] Basophils/100 WBC (Bld) 0.3 % 0.2 - 2.0 % [facility] Eosinophils/100 WBC (Bld) 0.9 % 0.9 - 7.0 % [facility] Erythrocyte distribution width (RBC) [Ratio] 13.0 % 11.0 - 15.0 % [facility] Hematocrit (Bld) [Volume fraction] 34.3 % Low 36.0 - 48.0 % [facility] Hemoglobin (Bld) [Mass/Vol] 11.3 g/dL Low 12.0 - 16.0 g/dL [facility] IMMATURE GRANULOCYTES ABS AUTO 0.03 [facility] Immature granulocytes/100 WBC (Bld) 0.4 % 0.0 - 0.5 % [facility] Interpretation and review of laboratory results Abnormal [facility] LYMPHOCYTES ABSOLUTE AUTO 1.8 [facility] Lymphocytes/100 WBC (Bld) 24.2 % 20.5 - 60.0 % [facility] MCH (RBC) [Entitic mass] 29.8 pg 26.7 - 34.0 pg [facility] MCHC (RBC) [Mass/Vol] 32.9 g/dL 29.9 - 35.2 g/dL [facility] MCV (RBC) [Entitic vol] 90.5 fL 81.0 - 99.0 fL [facility] MONOCYTES ABSOLUTE AUTO 0.7 [facility] Monocytes/100 WBC (Bld) 8.9 % 1.7 - 12.0 % [facility] NEUTROPHILS ABSOLUTE AUTO 4.8 [facility] Neutrophils/100 WBC (Bld) 65.3 % 43.0 - 75.0 % [facility] Platelet mean volume (Bld) [Entitic vol] 10.8 fL 9.5 - 13.5 [facility]L [facility].1 [facility] TBH PLT 204 [facility] e TB RBC 3.79 Low [facility] TB WBC 7.4 [facility] macro (dipstick) panel (U)on 08-15-2023 Bilirubin, UA Negative Negative - 4(70) +++ mg/dL [facility] Blood, UA Negative Negative - 50 Nicolas/mcL [facility] Clarity, UA Clear [facility] re Color, UA Yellow [facility] e Glucose, UA Negative Negative - 1999(110) ++++ mg/dL [facility] Interpretation and review of laboratory results Abnormal [facility] Ketones, UA Negative Negative - 160(16) ++++ mg/dL [facility] Leukocytes, UA Negative Negative - 500+++ Freida/mcL [facility] Nitrite, UA Negative Negative - Positive [facility] pH, UA 6.5 5 - 9 [facility] e Protein, UA Negative Negative - 1999(20) ++++ mg/dL [facility] Spec Grav, UA 1.020 1 - 1.03 [facility] Urobilinogen, UA 1.0 0.2 - 12 mg/dL [facility] XR LSPINE 2_3 VIEWSon 2022 XR LSPINE 2_3 VIEWS EXAM: XR LSPINE 2_3 VIEWS HISTORY: Low back pain COMPARISON: None. TECHNIQUE: 3 views FINDINGS: Satisfactory alignment. Multilevel endplate degenerative changes, disc disease, anterior spurring and facet arthropathy. No acute fracture or subluxation. Unremarkable soft tissues. IMPRESSION: No acute fracture or subluxation. Electronically authenticated by: YAKELIN FRIEDMAN Date: 2022-10-31 14:26 Normal [facility] CBC AUTO DIFFon 10-17-2022 BASO # 0.0 103/ul Normal 0.0-0.1 [facility] Comment on above: Performed By: #### C BC #### [facility] [address] [address] [address] Dav Xie Basophils/100 WBC (Bld) 0.6 % Normal 0.2-2.0 [facility] Comment on above: Performed By: #### C BC #### [facility] [address] [address] [address] Dav Xie EO # 0.2 103/ul Normal 0.0-0.7 [facility] Comment on above: Performed By: #### C BC #### [facility] [address] [address] [address] Dav Xie Eosinophils/100 WBC (Bld) 3.0 % Normal 0.9-7.0 [facility] Comment on above: Performed By: #### C BC #### [facility] [address] [address] [address] Dav Xie Erythrocyte distribution width (RBC) [Ratio] 11.9 % Normal 11.0-15.0 [facility] Comment on above: Performed By: #### C BC #### [facility] [address] [address] [address] Dav Xie Hematocrit (Bld) [Volume fraction] 39.5 % Normal 36.0-48.0 [facility] Comment on above: Performed By: #### C BC #### [facility] [address] [address] [address] Dav Xie Hemoglobin (Bld) [Mass/Vol] 13.4 g/dL Normal 12.0-16.0 [facility] Comment on above: Performed By: #### C BC #### [facility] [address] [address] [address] Dav Xie IG # 0.01 10e3/ul Normal 0.00-0.03 [facility] Comment on above: Performed By: #### C BC #### [facility] [address] [place] [address] Dr. Dav Xie IG % 0.2 % Normal 0.0-0.5 [facility] Comment on above: Performed By: #### C BC #### [facility] [address] [place] [address] Dr. Dav Xie LYMPH # 1.7 103/ul Normal 1.2-3.8 [facility] Comment on above: Performed By: #### C BC #### [facility] [address] [place] [address] Dr. Dav Xie Lymphocytes/100 WBC (Bld) 31.9 % Normal 20.5-60.0 [facility] Comment on above: Performed By: #### C BC #### [facility] [address] [place] [address] Dr. Dav Xie MANUAL DIFF REQ NO Normal [facility] Comment on above: Performed By: #### C BC #### [facility] [address] [place] [address] Dr. Dav Xie MCH (RBC) [Entitic mass] 31.8 pg Normal 26.7-34.0 [facility] Comment on above: Performed By: #### C BC #### [facility] [address] [place] [address] Dr. Dav Xie MCHC (RBC) [Mass/Vol] 33.9 g/dL Normal 29.9-35.2 [facility] Comment on above: Performed By: #### C BC #### [facility] [address] [place] [address] Dr. Dav Xie MCV (RBC) [Entitic vol] 93.6 fL Normal 81.0-99.0 [facility] Comment on above: Performed By: #### C BC #### [facility] [address] [place] [address] Dr. Dav Xie MONO # 0.5 103/ul Normal 0.3-0.8 [facility] Comment on above: Performed By: #### C BC #### [facility] [address] [place] [address] Dr. Dav Xie Monocytes/100 WBC (Bld) 9.7 % Normal 1.7-12.0 [facility] Comment on above: Performed By: #### C BC #### [facility] [address] [place] [address] Dr. Dav Xie NEUT # 2.9 103/ul Normal 1.4-6.5 [facility] Comment on above: Performed By: #### C BC #### [facility] [address] [place] [address] Dr. Dav Xie Neutrophils/100 WBC (Bld) 54.6 % Normal 43.0-75.0 [facility] Comment on above: Performed By: #### C BC #### [facility] [address] [place] [address] Dr. Dav Xie Platelet mean volume (Bld) [Entitic vol] 9.7 fL Normal 9.5-13.5 [facility] Comment on above: Performed By: #### C BC #### [facility] [address] [place] [address] Dr. Dav Xie PLT 215 103/ul Normal 150-450 [facility] Comment on above: Performed By: #### C BC #### [facility] [address] [place] [address] Dr. Dav Xie RBC 4.22 106/ul Normal 4.20-5.40 [facility] Comment on above: Performed By: #### C BC #### [facility] [address] [place] [address] Dr. Dav Xie WBC 5.4 103/ul Normal 4.0-11.0 [facility] Comment on above: Performed By: #### C BC #### [facility] [address] [place] [address] Dr. Dav Xie FERRITINon 10-17-2022 Ferritin [Mass/Vol] 85.0 ng/mL Normal 6.2-137.0 [facility] Comment on above: Performed By: #### F ERR #### [facility] [address] [address] [address] Dav Xie PROF CHEM 8 (BAS METB)on Anion gap [Moles/Vol] 11.2 mmol/L Normal [facility] Comment on above: Performed By: #### B MP #### [facility] [address] [address] [address] Dav Xie Calcium [Mass/Vol] 8.8 mg/dL Normal 8.5-10.1 [facility] Comment on above: Performed By: #### B MP #### [facility] [address] [address] [address] Dav Xie Chloride [Moles/Vol] 103 mmol/L Normal 98-107 [facility] Comment on above: Performed By: #### B MP #### [facility] [address] [place] [address] Dr. Dav Xie CO2 [Moles/Vol] 29.6 mmol/L Normal 21.0-32.0 [facility] Comment on above: Performed By: #### B MP #### [facility] [address] [place] [address] Dr. Dav Xie Creatinine [Mass/Vol] 0.82 mg/dL Normal 0.55-1.02 [facility] Comment on above: Performed By: #### B MP #### [facility] [address] [place] [address] Dr. Dav Xie EGFR-AF ANGUILLAN >60 Normal >=60 [facility] Comment on above: Performed By: #### B MP #### [facility] [address] [place] [address] Dr. Dav Xie EGFR-NON AF ANGUILLAN >60 Normal >=60 [facility] Comment on above: Performed By: #### B MP #### [facility] [address] [place] [address] Dr. Dav Xie Glucose [Mass/Vol] 86 mg/dL Normal 74-106 [facility] Comment on above: Performed By: #### B MP #### [facility] [address] [place] [address] Dr. Dav Xie Potassium [Moles/Vol] 3.8 mmol/L Normal 3.5-5.1 [facility] Comment on above: Performed By: #### B MP #### [facility] [address] [address] [address] Dav Xie Sodium [Moles/Vol] 140 mmol/L Normal 136-145 [facility] Comment on above: Performed By: #### B MP #### [facility] [address] [address] [address] Dav Xie Urea nitrogen [Mass/Vol] 13.0 mg/dL Normal 7.0-18.0 [facility] Comment on above: Performed By: #### B MP #### [facility] [address] [address] [address] Dav Xie Urea nitrogen/Creatinine [Mass ratio] 15.9 mg/mg Normal [facility] Comment on above: Performed By: #### B MP #### [facility] [address] [address] [address] Dav Xie Social History Date Type Detail Facility Start: 08-15-2023 Alcohol intake Current drinker of alcohol (finding) [facility] Start: 03-16-2023 Sex Assigned At [facility] [employer] Other Start: 03-16-2023 Tobacco smoking status NHIS Never smoked tobacco [facility] Start: 03-16-2023 Tobacco use and exposure Smokeless tobacco non-user [facility] Start: 03-16-2023 History of Social function [facility] Start: 03-16-2023 Alcohol Comment Occasional alcohol use [facility] Start: 02-15-2023 Gender identity Identifies as female gender (finding) [facility] Start: 02-15-2023 Sexual orientation Heterosexual (finding) [facility] Start: 12-06-2022 [facility] Start: 2000 Sex Assigned At Female [facility] Unknown if ever smoked [facility] [employer] Other Vital Signs Date Time Vital Sign Value Performing Clinician Facility 08-15-2023 10:13-0500 Body mass index (BMI) [Ratio] 33.18 kg/m2 Ana Luisa Asuncion DO Work Phone: [facility] 08-15-2023 10:13-0500 Body weight 90.45 kg Ana Luisa Asuncion DO Work Phone: [facility] 08-15-2023 10:13-0500 Diastolic blood pressure 78 mm[Hg] Ana Luisa Asuncion DO Work Phone: [facility] 08-15-2023 10:13-0500 Systolic blood pressure 132 mm[Hg] Ana Luisa Asuncion DO Work Phone: [facility] 10-15-2022 09:30-0400 Body height 160.02 cm Lexis Evans Other [employer] Other 10-15-2022 09:30-0400 Body mass index (BMI) [Ratio] 28.87 kg/m2 Lexis Evans Other [employer] Other 10-15-2022 09:30-0400 Body weight 73.94 kg Lexis Evans Other [employer] Other 10-15-2022 09:30-0400 Diastolic blood pressure 62 mm[Hg] Lexis Evans Other [employer] Other 10-15-2022 09:30-0400 SaO2% (BldA) [Mass fraction] 99 % Lexis Evans Other [employer] Other 10-15-2022 09:30-0400 Systolic blood pressure 108 mm[Hg] Lexis Evans Other [employer] Other History of Present illness Narrative 08-15-2023 Glenys [...] (general) (routine) without abnormal findings IUD complication ([facility]) Family History Problem Relation Name Age of [...] nursing note reviewed. Exam conducted with a bond manager present. Vitals: Estimated body mass index is [...] of being unable to sleep, increase in John Hick contractions, pelvic pressure and sharp pains. Patient desires to have Induction of Labor on 08/22/2023 @0001. Called [facility] and spoke with Michelle and patient [...] Notes Oct, Lumbar pain (ICD-10 - M54.50) [employer] Other Evaluation note 10-15-2022 Note Date & Type Note Facility 10-15-2022 Evaluation note Encounter Date Diagnosis Assessment Notes Oct, Wellness examination (ICD-10 - Z00.00) due for labs Oct, Lumbar pain (ICD-10 - M54.50) Pt states she went to chiropractor , had PT and xray through [facility]. She now wants me to address this as she is not improving and an MRI was not covered. She will contact their office and have them send us PT reports and xray so we can try to get the MRI. Pt needs this addressed as she is in the and is running a half marathon later this month. [employer] Other Evaluation note Note Date & Type Note Facility Evaluation note No Information [facility] Other Evaluation note Note Date & Type Note Facility Evaluation note No assessment information [facility] Work Phone: Evaluation note Note Date & Type Note Facility Evaluation note Diagnosis Third trimester state, incidental documented in this encounter [facility] History general Narrative - Reported Note Date & Type Note Facility History general Narrative - Reported Type Medical History Bronchitis Medical History Vaginitis Medical History Acute UTI Medical History Dysuria Hospitalization History l2019 for a blood count being done. [employer] Other Reason for Referral Reason *FU 11/19 Xray and last OV note. thank you Diagnosis 1 Lumbar pain (M54.50) Referral Organization [facility] Referring Provider First Name Lexis Referring Provider Last Name Marcos Referring Provider Specialty Family Medi cine Referred Organization [facility] Referred Provider Juan Miguel Referred Address [address], [place],[address] Referred Provider Specialty Pain Medicin e Referral Priority Routine General Notes Jessie Ashraf 04:25:04 PM >received today, attachments made, referral faxed Clinical Notes F: [id number] Summary Purpose Family History No Family History [...] and content) DATE CREATED AUTHOR 11/15/2022 [facility] DATE CREATED AUTHOR AUTHOR'S ORGANIZ ATION 07/24/2023 [facility] DATE CREATED AUTHOR AUTHOR'S ORGANIZ ATION 11/05/2023 [facility] [employer] Care Teams (unrecognized sec tion and content) Team Status: Active Member Role Status Dates Lexis Evans MD Primary Care Provider Active Team Status: Inactive Member Role Status Dates Lexis Evans MD Primary Care Provider, Attending Last castellanos Active Hydraulic Modeling Engineer Relationship Specialty Start Date End Date Lexis Evans MD [address] [place] [address] PCP - General Family Medicine 02/22/23 Hydraulic Modeling Engineer Relationship Specialty Start Date End Date Lexis Evans MD [address] [place] [id number] PCP - General Family Medicine 02/22/23 Goals [...] BE BASED ON THE PRIMARY CLINICAL RECORDS. [facility] [email or web address] [facility]. provides no warranty or guarantee of the accuracy or completeness of information in this document.
--- NOTE | 2023-12-25 09:45 | ECG_ITS ---
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
--- NOTE | 2023-12-25 09:45 | XR_ITS ---
The [address] [address] Patient Name: ROSALIE MCLAUGHLIN MRN: [id number] date: 2000 Sex: F Assigned Patient Location: ER Current Patient Location: ER Accession/Order Number: [id number] Exam Date: 12/25/2023 10:05 Report Date: 12/25/2023 10:45 At the request of: CHERYL SNYDER Procedure: XR chest 2V EXAMINATION: XR chest 2V HISTORY: CP COMPARISON: No relevant comparison available. TECHNIQUE: PA and lateral FINDINGS: LUNGS: No significant pulmonary parenchymal abnormalities. VASCULATURE: No increased pulmonary vasculature. PLEURA: No pneumothorax, effusion, or pleural thickening. CARDIAC: No cardiomegaly or cardiac silhouette abnormality. MEDIASTINUM: No visible mass or adenopathy. BONES: No fracture or visible bone lesion. OTHER: Negative. XR/XR chest 2V IMPRESSION: No acute cardiopulmonary process Electronically authenticated by: KATARINA JIANG Date: 12/25/2023 10:45
--- NOTE | 2023-12-25 09:45 | PC.NURSE ---
patient reports she is dealing with a lot of stress right now due to significant other due to cheating and had panic attack yesterday and now has significant dry mouth and chest discomfort
[2023-12-25] MEDS: HYDROXYZINE PAMOATE 25 MG CAPSULE PO (09:57)
--- NOTE | 2023-12-25 10:34 | ED.GENADUL1 ---
HPI HPI - General Adult General Chief complaint: Nausea/Vomiting/Diarrhea Stated complaint: DRY MOUTH, CHEST PRESSURE Time Seen by Provider: 12/25/23 09:20 Source: patient Mode of arrival: walk-in Limitations: no limitations History of Present Illness HPI narrative: Patient present see ED complaining of not feeling well. She states she had an Anxiety reaction yesterday and really has not felt well since. She said her mouth feels dry she has pressure on her chest and nausea. She has not been able to eat in about a day. She did say that she is having relationships issues and caught her significant other cheating on her and that is what caused everything yesterday. She also has an IUD in and she wants it out. She thinks is causing lower abdominal pain and cramping and she wants me to remove it. She recently and had an ultrasound that showed that it was in proper position. She is not . Related Data Previous Rx's ?Medication ?Instructions ?Recorded hydroxyzine pamoate 25 mg capsule 25 mg PO BID PRN anxiety #20 caps 12/25/23 (Vistaril) Allergies Allergy/AdvReac Type Severity Reaction Status Date / Time No Known Drug Allergies Allergy Verified 08/22/23 00:30 Opioid HPI Opioid Management Most Recent Opioid Data: Last Pain Scale 3 08/24/23 11:29 Ur Phencyclidine Scrn Negative (NEGATIVE) 08/22/23 00:10 Review of Systems ROS Status of ROS 10 or more systems reviewed and unremarkable except as noted in history and below Exam Narrative Exam Narrative: Time Seen: [] Vital Signs: [Per nurse's notes.] General: [Alert] Skin: [Warm, dry, no rash.] Head: [Normocephalic, atraumatic.] Neck: [Supple, trachea midline.] Eye: [Pupils are equal, round and reactive to light, extraocular movements are intact, normal conjunctiva.] Ears, nose, mouth and throat: oral mucosa moist. Cardiovascular: [Regular rate and rhythm, no murmur.] Respiratory: [Lungs are clear to auscultation, respirations are non-labored, breath sounds are equal.] Chest wall: [No tenderness, no deformity.] Gastrointestinal: [Soft, nontender, non distended, normal bowel sounds.] MSK: 5 out of 5 muscle strength x 4 extremities no calf pain or edema Lymphatics: [No lymphadenopathy.] Psychiatric: [Cooperative, appropriate mood & affect.] Neurological: [Alert and oriented to person, place, time, and situation, no focal neurological deficit observed.] Constitutional Vital Signs, click to edit/add: Last Vital Signs Temp 98.9 F 12/25/23 09:18 Pulse 79 12/25/23 10:50 Resp 18 12/25/23 10:50 BP 123/79 12/25/23 10:30 Pulse Ox 100 12/25/23 10:50 Course Vital Signs Vital signs: Vital Signs Temperature 98.9 F 12/25/23 09:18 Pulse Rate 80 12/25/23 09:18 Respiratory Rate 20 12/25/23 09:18 Blood Pressure 145/89 H 12/25/23 09:18 Pulse Oximetry 97 12/25/23 09:18 Temperature 98.9 F 12/25/23 09:18 Pulse Rate 79 12/25/23 10:50 Respiratory Rate 18 12/25/23 10:50 Blood Pressure 123/79 12/25/23 10:30 Pulse Oximetry 100 12/25/23 10:50 Medical Decision Making MDM Narrative Medical decision making narrative: Patient's chest x-ray and EKG are nonacute. She is feeling better after the Vistaril. I did attempt to pull her IUD for her. She is on her period and is bleeding and I was unable to locate the strings to pull the IUD out. 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 Return to ER if anything worsens. I will send her home with Vistaril for her anxiety Differential Diagnosis Differential Diagnosis: Anxiety chest pain Medical Records Medical records reviewed: Yes I reviewed the patient's medical records Imaging Data Chest x-ray: Radiologist's impression: ITS Impressions Chest X-Ray 12/25/23 09:45 IMPRESSION: No acute cardiopulmonary process Electronically authenticated by: KATARINA JIANG Date: 12/25/2023 10:45 ECG Data Attestation: I personally reviewed and interpreted this ECG as follows: Interpretation: EKG INTERPRETATION Time: []1002 Rate: []66 Rhythm: _ []Normal sinus rhythm ST segments: _ []No acute ST elevation or depression T waves: _ [] Ectopy: _ [] P wave/MA interval: _ [] QRS interval: _ [] QT interval: _ [] Comparison: _ [] Comparison EKG date: [] Performed by: [self] Discharge Plan Discharge Stand Alone Forms: Portal Instructions Chief Complaint: Nausea/Vomiting/Diarrhea Clinical Impression: Anxiety Patient Disposition: Home, Self-Care Time of Disposition Decision: 11:52 Condition: Good Mode of Transportation: Private Vehicle Prescriptions / Home Meds: New hydroxyzine pamoate [Vistaril] 25 mg capsule 25 mg PO BID PRN (Reason: anxiety) Qty: 20 0RF Print Language: Lao Instructions: Anxiety (ED) Referrals: Lexis Evans MD [Primary Care Provider] - 1 week Evens Roland DO [Physician] - 1 week
== END 2023-12-25 12:39 | disposition home or self-care (01) ==
PROVIDERS: Emergency Provider Emergency Medicine; PCP Family Medicine
DX: F41.9 Anxiety disorder, unspecified (principal); Z97.5 Presence of (intrauterine) contraceptive device
CPT/HCPCS: 71046; 93005; 99284; Q0177

== ENCOUNTER 2024-01-06 13:46 | Outpatient (OUT) | payer OTHER, SELFPAY ==
--- OUTSIDE RECORDS SUMMARY | 2024-01-06 14:04 | XMS_ITS | CCD ---
Author Organization [facility] Care Team Providers Care Store Cashier Name Role Phone Lexis Rodríguez Unavailable DR LEXIS RODRÍGUEZ Admitting Unavailable MARCOS, DR LEXIS Castillo Primary Care Unavailable MARCOS, DR LEXIS Castillo Consulting Unavailable RODRÍGUEZ, DR LEXIS Castillo Attending Unavailable Yakelin Friedman Consulting Unavailable MARCOS, DR LEXIS Castillo Admitting Unavailable MARCOS, DR LEXIS Castillo Primary Care Unavailable RODRÍGUEZ, DR LEXIS Castillo Consulting Unavailable MARCOS, DR LEXIS Castillo Attending Unavailable MARCOS, DR LEXIS Castillo Primary Care Unavailable GIEDRAITIS, ANDRIUS Admitting Unavailable GIEDRAITIS, ANDRIUS Attending Unavailable Lexis Rodríguez Attending Unavailable Lexis Rodríguez Primary Care Unavailable Lexis Rodríguez Admitting Unavailable MD Lexis Rodríguez Primary Care Provider MD Lexis Rodríguez Attending Provider Lexis Rodríguez MD Primary Care Provider ANA LUISA ROLAND Attending Unavailable ANA LUISA ROLAND Attending Unavailable MARIAM TORRES Attending Unavailable ANA LUISA ROLAND Attending Unavailable MARIAM TORRES Attending Unavailable ANA LUISA ROLAND Attending Unavailable ASUNCIONANA LUISA WELLS Attending Unavailable MARIAM TORRES Attending Unavailable Medications [...] WITH AUTO DIFFon BASOPHILS ABSOLUTE AUTO 0.0 [facility] Basophils/100 WBC (Bld) 0.3 % 0.2 - 2.0 % [facility] Eosinophils/100 WBC (Bld) 0.8 % Low 0.9 - 7.0 % [facility] Erythrocyte distribution width (RBC) [Ratio] 13.2 % 11.0 - 15.0 % [facility] Hematocrit (Bld) [Volume fraction] 31.3 % Low 36.0 - 48.0 % [facility] Hemoglobin (Bld) [Mass/Vol] 10.1 g/dL Low 12.0 - 16.0 g/dL [facility] IMMATURE GRANULOCYTES ABS AUTO 0.06 High [facility] Immature granulocytes/100 WBC (Bld) 0.5 % 0.0 - 0.5 % [facility] Interpretation and review of laboratory results Abnormal [facility] LYMPHOCYTES ABSOLUTE AUTO 2.4 [facility] Lymphocytes/100 WBC (Bld) 20.1 % Low 20.5 - 60.0 % [facility] MCH (RBC) [Entitic mass] 29.8 pg 26.7 - 34.0 pg [facility] MCHC (RBC) [Mass/Vol] 32.3 g/dL 29.9 - 35.2 g/dL [facility] MCV (RBC) [Entitic vol] 92.3 fL 81.0 - 99.0 fL [facility] MONOCYTES ABSOLUTE AUTO 1.0 High [facility] Monocytes/100 WBC (Bld) 8.6 % 1.7 - 12.0 % [facility] NEUTROPHILS ABSOLUTE AUTO 8.3 High [facility] Neutrophils/100 WBC (Bld) 69.7 % 43.0 - 75.0 % [facility] Platelet mean volume (Bld) [Entitic vol] 10.8 fL 9.5 - 13.5 fL [facility] are [facility] EO # 0.1 [facility] PLT 180 [facility] RBC 3.39 Low [facility] WBC 12.0 High [facility] ALL CBC WITH AUTO DIFFon BASOPHILS ABSOLUTE AUTO 0.0 [facility] Basophils/100 WBC (Bld) 0.3 % 0.2 - 2.0 % [facility] Eosinophils/100 WBC (Bld) 0.9 % 0.9 - 7.0 % [facility] Erythrocyte distribution width (RBC) [Ratio] 13.0 % 11.0 - 15.0 % [facility] Hematocrit (Bld) [Volume fraction] 34.3 % Low 36.0 - 48.0 % [facility] Hemoglobin (Bld) [Mass/Vol] 11.3 g/dL Low 12.0 - 16.0 g/dL [facility] IMMATURE GRANULOCYTES ABS AUTO 0.03 [facility] Immature granulocytes/100 WBC (Bld) 0.4 % 0.0 - 0.5 % [facility] Interpretation and review of laboratory results Abnormal [facility] LYMPHOCYTES ABSOLUTE AUTO 1.8 [facility] Lymphocytes/100 WBC (Bld) 24.2 % 20.5 - 60.0 % [facility] MCH (RBC) [Entitic mass] 29.8 pg 26.7 - 34.0 pg [facility] MCHC (RBC) [Mass/Vol] 32.9 g/dL 29.9 - 35.2 g/dL [facility] MCV (RBC) [Entitic vol] 90.5 fL 81.0 - 99.0 fL [facility] MONOCYTES ABSOLUTE AUTO 0.7 [facility] Monocytes/100 WBC (Bld) 8.9 % 1.7 - 12.0 % [facility] NEUTROPHILS ABSOLUTE AUTO 4.8 [facility] Neutrophils/100 WBC (Bld) 65.3 % 43.0 - 75.0 % [facility] Platelet mean volume (Bld) [Entitic vol] 10.8 fL 9.5 - 13.5 fL [facility] EO # 0.1 [facility] PLT 204 [facility] RBC 3.79 Low [facility] WBC 7.4 [facility] Urinalysis macro (dipstick) panel (U)on 08-15-2023 Bilirubin, UA Negative Negative - 4(70) +++ mg/dL [facility] Blood, UA Negative Negative - 50 Nicolas/mcL [facility] Clarity, UA Clear [facility] re Color, UA Yellow [facility] Glucose, UA Negative Negative - 1999(110) ++++ mg/dL [facility] Interpretation and review of laboratory results Abnormal [facility] Ketones, UA Negative Negative - 160(16) ++++ mg/dL [facility] Leukocytes, UA Negative Negative - 500+++ Freida/mcL [facility] Nitrite, UA Negative Negative - Positive [facility] pH, UA 6.5 5 - 9 [facility] Protein, UA Negative Negative - 1999(20) ++++ mg/dL [facility] Spec Grav, UA 1.020 1 - 1.03 [facility] Urobilinogen, UA 1.0 0.2 - 12 mg/dL [facility] XR LSPINE 2_3 VIEWSon 2022 XR LSPINE 2_3 VIEWS EXAM: XR LSPINE 2_3 VIEWS HISTORY: Low back pain COMPARISON: None. TECHNIQUE: 3 views FINDINGS: Satisfactory alignment. Multilevel endplate degenerative changes, disc disease, anterior spurring and facet arthropathy. No acute fracture or subluxation. Unremarkable soft tissues. IMPRESSION: No acute fracture or subluxation. Electronically authenticated by: YAKELIN FRIEDMAN Date: 2022-10-31 14:[address] [facility] CBC AUTO DIFFon 10-17-2022 BASO # 0.0 103/ul Normal 0.0-0.[address] [facility] Comment on above: Performed By: #### C BC #### [facility] [address] [address] [address] Dav Xie Basophils/100 WBC (Bld) 0.6 % Normal 0.2-2.[address] [facility] Comment on above: Performed By: #### C BC #### [facility] [address] [address] [address] Dav Xie EO # 0.2 103/ul Normal 0.0-0.[address] [facility] Comment on above: Performed By: #### C BC #### [facility] [address] [address] [address] Dav Xie Eosinophils/100 WBC (Bld) 3.0 % Normal 0.9-7.[address] [facility] Comment on above: Performed By: #### C BC #### [facility] [address] [place] [address] Dr. Dav Xie Erythrocyte distribution width (RBC) [Ratio] 11.9 % Normal 11.0-15.0 [facility] Comment on above: Performed By: #### C BC #### [facility] [address] [place] [address] Dr. Dav Xie Hematocrit (Bld) [Volume fraction] 39.5 % Normal 36.0-48.0 [facility] Comment on above: Performed By: #### C BC #### [facility] [address] [place] [address] Dr. Dav Xie Hemoglobin (Bld) [Mass/Vol] 13.4 g/dL Normal 12.0-16.0 [facility] Comment on above: Performed By: #### C BC #### [facility] [address] [place] [address] Dr. Dav Xie IG # 0.01 10e3/ul Normal 0.00-0.03 [facility] Comment on above: Performed By: #### C BC #### [facility] [address] [place] [address] Dr. Dav Xie IG % 0.2 % Normal 0.0-0.5 [facility] Comment on above: Performed By: #### C BC #### [facility] [address] [place] [address] Dr. Dav Xie LYMPH # 1.7 103/ul Normal 1.2-3.[address] [facility] Comment on above: Performed By: #### C BC #### [facility] [address] [place] [address] Dr. Dav Xie Lymphocytes/100 WBC (Bld) 31.9 % Normal 20.5-60.0 [facility] Comment on above: Performed By: #### C BC #### [facility] [address] [place] [address] Dr. Dav Xie MANUAL DIFF REQ NO Normal [facility] Comment on above: Performed By: #### C BC #### [facility] [address] [place] [address] Dr. Dav Xie MCH (RBC) [Entitic mass] 31.8 pg Normal 26.7-34.[address] [facility] Comment on above: Performed By: #### C BC #### [facility] [address] [place] [address] Dr. Dav Xie MCHC (RBC) [Mass/Vol] 33.9 g/dL Normal 29.9-35.[address] [facility] Comment on above: Performed By: #### C BC #### [facility] [address] [place] [address] Dr. Dav Xie MCV (RBC) [Entitic vol] 93.6 fL Normal 81.0-99.0 [facility] Comment on above: Performed By: #### C BC #### [facility] [address] [place] [address] Dr. Dav Xie MONO # 0.5 103/ul Normal 0.3-0.[address] [facility] Comment on above: Performed By: #### C BC #### [facility] [address] [place] [address] Dr. Dav Xie Monocytes/100 WBC (Bld) 9.7 % Normal 1.7-12.0 [facility] Comment on above: Performed By: #### C BC #### [facility] [address] [place] [address] Dr. Dav Xie NEUT # 2.9 103/ul Normal 1.4-6.[address] [facility] Comment on above: Performed By: #### C BC #### [facility] [address] [place] [address] Dr. Dav Xie Neutrophils/100 WBC (Bld) 54.6 % Normal 43.0-75.[address] [facility] Comment on above: Performed By: #### C BC #### [facility] [address] [place] [address] Dr. Dav Xie Platelet mean volume (Bld) [Entitic vol] 9.7 fL Normal 9.5-13.[address] [facility] Comment on above: Performed By: #### C BC #### [facility] [address] [place] [address] Dr. Dav Xie PLT 215 103/ul Normal 150-450 [facility] Comment on above: Performed By: #### C BC #### [facility] [address] [place] [address] Dr. Dav Xie RBC 4.22 106/ul Normal 4.20-5.40 [facility] Comment on above: Performed By: #### C BC #### [facility] [address] [place] [address] Dr. Dav Xie WBC 5.4 103/ul Normal 4.0-11.0 [facility] Comment on above: Performed By: #### C BC #### [facility] [address] [place] [address] Dr. Dav Xie FERRITINon 10-17-2022 Ferritin [Mass/Vol] 85.0 ng/mL Normal 6.2-137.0 [facility] Comment on above: Performed By: #### F ERR #### [facility] [address] [place] [address] Dr. Dav Xie PROF CHEM 8 (BAS METB)on Anion gap [Moles/Vol] 11.2 mmol/L Normal [facility] Comment on above: Performed By: #### B MP #### [facility] [address] [place] [address] Dr. Dav Xie Calcium [Mass/Vol] 8.8 mg/dL Normal 8.5-10.1 [facility] Comment on above: Performed By: #### B MP #### [facility] [address] [place] [address] Dr. Dav Xie Chloride [Moles/Vol] 103 mmol/L Normal 98-107 [facility] Comment on above: Performed By: #### B MP #### [facility] [address] [place] [address] Dr. Dav Xie CO2 [Moles/Vol] 29.6 mmol/L Normal 21.0-32.0 [facility] Comment on above: Performed By: #### B MP #### [facility] [address] [address] [address] Dav Xie Creatinine [Mass/Vol] 0.82 mg/dL Normal 0.55-1.02 [facility] Comment on above: Performed By: #### B MP #### [facility] [address] [address] [address] Dav Xie EGFR-AF SAMMARINESE >60 Normal >=60 [facility] Comment on above: Performed By: #### B MP #### [facility] [address] [address] [address] Dav Xie EGFR-NON AF SAMMARINESE >60 Normal >=60 [facility] Comment on above: Performed By: #### B MP #### [facility] [address] [place] [address] Dr. Dav Xie Glucose [Mass/Vol] 86 mg/dL Normal 74-106 [facility] Comment on above: Performed By: #### B MP #### [facility] [address] [place] [address] Dr. Dav Xie Potassium [Moles/Vol] 3.8 mmol/L Normal 3.5-5.1 [facility] Comment on above: Performed By: #### B MP #### [facility] [address] [place] [address] Dr. Dav Xie Sodium [Moles/Vol] 140 mmol/L Normal 136-145 [facility] Comment on above: Performed By: #### B MP #### [facility] [address] [place] [address] Dr. Dav Xie Urea nitrogen [Mass/Vol] 13.0 mg/dL Normal 7.0-18.0 [facility] Comment on above: Performed By: #### B MP #### [facility] [address] [place] [address] Dr. Dav Xie Urea nitrogen/Creatinine [Mass ratio] 15.9 mg/mg Normal [facility] Comment on above: Performed By: #### B MP #### [facility] [address] [place] [address] Dr. Dav Xie Vital Signs Date Time Vital Sign Value Performing Clinician Facility 08-15-2023 10:13-0500 Body mass index (BMI) [Ratio] 33.18 kg/m2 Ana Luisa Asuncion DO Work Phone: [facility] 08-15-2023 10:13-0500 Body weight 90.45 kg Ana Luisa Asuncion DO Work Phone: [facility] 08-15-2023 10:13-0500 Diastolic blood pressure 78 mm[Hg] Ana Luisa Asuncion DO Work Phone: [facility] 08-15-2023 10:13-0500 Systolic blood pressure 132 mm[Hg] Ana Luisa Asuncion DO Work Phone: [facility] 10-15-2022 09:30-0400 Body height 160.02 cm Lexis Rodríguez Other [facility] Other 10-15-2022 09:30-0400 Body mass index (BMI) [Ratio] 28.87 kg/m2 Lexis Rodríguez Other [facility] Other 10-15-2022 09:30-0400 Body weight 73.94 kg Lexis Rodríguez Other [facility] Other 10-15-2022 09:30-0400 Diastolic blood pressure 62 mm[Hg] Lexis Rodríguez Other [employer] Other 10-15-2022 09:30-0400 SaO2% (BldA) [Mass fraction] 99 % Lexis Rodríguez Other [facility] Other 10-15-2022 09:30-0400 Systolic blood pressure 108 mm[Hg] Lexis Rodríguez Other [employer] Other Encounters Encounter Date Encounter Type Care [...] Available Start: 07-12-2023 End: 07-12-2023 ambulatory Lexis Rodríguez Facility:[facility] Start: 07-12-2023 End: 07-12-2023 ambulatory MD Lexis Rodríguez Work Phone: [facility] Work Phone: Start: 07-12-2023 End: 07-12-2023 Discharged Recurring MD Lexis Rodríguez Work Phone: [facility] Work Phone: Start: 07-04-2023 End: 07-04-2023 ambulatory MARIAM BRIAN Not Available Start: 06-20-2023 End: 06-20-2023 ambulatory ANA LUISA ASUNCION Not Available Start: 05-29-2023 End: 05-29-2023 ambulatory ANA LUISA ASUNCION Not Available Start: 11-30-[address] LEXIS RODRÍGUEZ Facil ity:[facility]1 Start: 11-09-2022 End: 11-09-2022 ambulatory Lexis Rodríguez Other [employer] Other Start: 11-09-2022 Telephone encounter Lexis Rodríguez [facility] Start: 10-31-2022 End: 11-01-[address] LEXIS RODRÍGUEZ Facility:[facility] Start: 10-29-2022 End: 10-29-2022 ambulatory Lexis Rodríguez Other [facility] Other Start: 10-29-2022 Telephone encounter Lexis Rodríguez [facility] Start: 10-26-2022 Encounter for genera l adult medical examination without abnormal findings DR LEXIS RODRÍGUEZ [facility] Start: 10-17-2022 End: 10-18-[address] LEXIS RODRÍGUEZ Facility:[facility] Start: 10-17-2022 End: 10-18-2022 Encounter for general adult medical examination without abnormal findings DR LEXIS RODRÍGUEZ Facility:[facility] Start: 10-15-2022 End: 10-15-2022 ambulatory Lexis Rodríguez Other [facility] Other Start: 10-15-2022 Encounter for genera l adult medical examination without abnormal findings Lexis Rodríguez [facility] Start: 10-15-2022 Periodic preventive med est patient 18-39 yrs Lexis Rodríguez [facility] Procedures Date Procedure Procedure Detail Performing [...] AM EDT Visit [facility] [address] [place] [id number] Mariam Torres PA [address] [place] [address] [facility] Start: 03-15-2023 Influenza vaccination Influenza Vacc ine (#1) [facility] Immunizations Immunization Date Immunization Notes Care Provider Fa lynn 05-10-2022 influenza virus vacc ine, unspecified formulation Ana Luisathi Koehlero DO Work Phone: [facility] Payers Date Payer Category Payer Self-pay 2019 Medicaid [employer] [place] [id number] 2019-Present [address] [place] [id number] 1998 Unknown [id number] 2.16.840.1.278411.3.579.2. 593 1998 Unknown [id number] 2.16.840.1.444602.3.579.2. 593 1998 Unknown [id number] 2.16.840.1.750934.3.579.2. 593 1998 Unknown [id number] 2.16.840.1.951936.3.579.2. 593 1998 Unknown [id number] 2.16.840.1.954514.3.579.2. 593 1998 Unknown [id number] 2.16.840.1.158909.3.579.2. 1259 1998 Unknown [id number] 2.16.840.1.562924.3.579.2. 1259 1998 Unknown [id number] 2.16.840.1.037485.3.579.2. 1259 1998 Unknown [id number] 2.16.840.1.175555.3.579.2. 1259 1998 Unknown [id number] 2.16.840.1.289754.3.579.2. 1259 1998 Unknown [id number] 2.16.840.1.400547.3.579.2. 9 1998 Unknown [id number] 2.16.840.1.822510.3.579.2. 9 1998 Unknown [id number] 2.16.840.1.970129.3.579.2. 1259 1959 Medicaid [id number] [id number] [employer] ( and others) [id number] 2.16.840.1.621269.19 Unknown [id number] 2.16.840.1.157154.3.579.2. 531 Social History Date Type Detail Facility Unknown if ever smoked [facility] Other Start: 03-16-2023 Sex Assigned At [facility] Other Start: 03-16-2023 Tobacco smoking status NHIS [...] Healthcare Start: 02-15-2023 Sexual orientation Heterosexual (finding) [facility] History of Present illness Narrative 08-15-2023 Glenys Ghotra LPN - 08/15/2023 10:00 AM EST Note Date & Type Note Facility 08-15-2023 History of Presen t illness Narrative Reason for Appointment: Patient ID: Lucie Woodall is a 22 y.o. female who [...] (general) (routine) without abnormal findings IUD complication ([facility]) Family History Problem Relation Name Age of [...] nursing note reviewed. Exam conducted with a third shift lieutenant present. Vitals: Estimated body mass index is [...] of Labor on 08/22/2023 @0001. Called [facility] and spoke with Michelle and [...] Notes Oct, Lumbar pain (ICD-10 - M54.50) [facility] Other Evaluation note 10-15-2022 Note Date & Type Note Facility 10-15-2022 Evaluation note Encounter Date Diagnosis Assessment Notes Oct, Wellness examination (ICD-10 - Z00.00) due for labs Oct, Lumbar pain (ICD-10 - M54.50) Pt states she went to chiropractor , had PT and xray through [facility]. She now wants me to address this as she is not improving and an MRI was not covered. She will contact their office and have them send us PT reports and xray so we can try to get the MRI. Pt needs this addressed as she is in the and is running a half marathon later this month. [employer] Other Evaluation note Note Date & Type Note Facility Evaluation note No Information [employer] Other Evaluation note Note Date & Type Note Facility Evaluation note No assessment information [facility] Work Phone: Evaluation note [...] l2019 for a blood count being done. [employer] Other Reason for Referral Reason *FU 11/19 Xray and last OV note. thank you Diagnosis 1 Lumbar pain (M54.50) Referral Organization [facility] Referring Provider First Name Lexis Referring Provider Last Name Marcos Referring Provider Specialty Family [facility] cine Referred Organization [facility] Referred Provider Juan Miguel Referred Address [address] [place], [place],[address] Referred Provider Specialty Pain Medicin e Referral Priority Routine General Notes Jessie Ashraf 04:25:04 PM >received today, attachments made, referral faxed Clinical Notes F: [id number] Summary Purpose Family History No Family History [...] and content) DATE CREATED AUTHOR 11/15/2022 [facility] DATE CREATED AUTHOR AUTHOR'S ORGANIZ ATION 07/24/2023 [facility] DATE CREATED AUTHOR AUTHOR'S ORGANIZ ATION 11/05/2023 [facility] [employer] Care Teams (unrecognized sec tion and content) Team Status: Active Member Role Status Dates Lexis Rodríguez MD Primary Care Provider Active Team Status: Inactive Member Role Status Dates Lexis Rodríguez MD Primary Care Provider, Attending Last castellanos Active Store Cashier Relationship Specialty Start Date End Date Lexis Rodríguez MD [address] [place] [id number] PCP - General Family Medicine 02/22/23 Store Cashier Relationship Specialty Start Date End Date Lexis Rodríguez MD [address] [place] [id number] PCP - General Family Medicine 02/22/23 Goals [...] BE BASED ON THE PRIMARY CLINICAL RECORDS. [facility] [employer], [facility]. provides no warranty or guarantee of the accuracy or completeness of information in this document.
[2024-01-06 14:29] LABS: Basophils Percent Auto 0.3 % (0.2-2.0); Eosinophils Absolute Auto 0.1 10^3/uL (0.0-0.7); Eosinophils Percent Auto 0.7 % (0.9-7.0); Hematocrit 40.1 % (36.0-48.0); Hemoglobin 13.6 g/dL (12.0-16.0); Immature Granulocytes Abs Auto 0.02 10^3/uL (0.00-0.03); Immature Granulocytes Pct Auto 0.3 % (0.0-0.5); Lymphocytes Absolute Auto 1.5 10^3/uL (1.2-3.8); Lymphocytes Percent Auto 22.5 % (20.5-60.0); Mean Corpuscular HGB Conc 33.9 g/dL (29.9-35.2); Mean Corpuscular Hemoglobin 31.6 pg (26.7-34.0); Mean Platelet Volume 10.5 fL (9.5-13.5); Monocytes Absolute Auto 0.6 10^3/uL (0.3-0.8); Monocytes Percent Auto 8.2 % (1.7-12.0); Neutrophils Absolute Auto 4.7 10^3/uL (1.4-6.5); Platelet Count 230 10^3/uL (150-450); Red Blood Count 4.31 10^6/uL (4.20-5.40); Red Cell Distribution Width 12.6 % (11.0-15.0); White Blood Count 6.9 10^3/uL (4.0-11.0)
[2024-01-06 14:37] LABS: Anion Gap 14.8; BUN Creatinine Ratio 9.5; Calcium 9.1 mg/dL (8.5-10.1); Carbon Dioxide 26.6 mmol/L (21.0-32.0); Chloride 100 mmol/L (98-107); Estimated GFR (African America >60 (>=60); Estimated GFR (Non-African Ame >60 (>=60); Glucose 110 mg/dL (74-106); Potassium 3.4 mmol/L (3.5-5.1); Sodium 138 mmol/L (136-145); Thyroid Stimulating Hormone 0.664 uIU/mL (0.358-3.740)
== END 2024-01-06 13:47 | disposition home or self-care (01) ==
LOC: LAB 13:47
PROVIDERS: PCP Family Medicine; Visit Provider Family Medicine
DX: R00.0 Tachycardia, unspecified (principal); D50.9 Iron deficiency anemia, unspecified; R53.83 Other fatigue
CPT/HCPCS: 36415; 80048; 82728; 84443; 85025

== ENCOUNTER 2024-05-13 20:37 | Outpatient (REF) | payer OTHER, SELFPAY ==
--- OUTSIDE RECORDS SUMMARY | 2024-05-13 20:42 | XMS_ITS | CCD ---
Author Organization [facility] Care Team Providers Care Gear Lapping Machine Operator Name Role Phone Lexis Rodríguez Unavailable DR [...] ANDRIUS Admitting Unavailable GIEDRAITIS, ANDRIUS Attending Unavailable MD Lexis Rodríguez Primary Care Provider MD Lexis Rodríguez Attending Provider Lexis Rodríguez MD Primary Care Provider ANA LUISA ROLAND Attending Unavailable ASUNCION, ANA LUISA Attending Unavailable BRIAN, MARIAM Attending Unavailable ASUNCION, ANA LUISA Attending Unavailable MARIAM TORRES Attending Unavailable ASUNCION, ANA LUISA Attending Unavailable ANA LUISA ROLAND Attending Unavailable MARIAM TORRES Attending Unavailable MD Lexis Rodríguez Primary Care Provider [phone] DO Grant Menjivar Attending Provider Lexis Rodríguez Primary Care Unavailable Lexis Rodríguez Attending Unavailable Lexis Rodríguez Admitting Unavailable Grant Menjivar Admitting Unavailable Grant Menjivar Attending Unavailable Lexis Rodríguez Primary Care Unavailable Medications Current Medications Medication Drug Class(es) Dates Sig (Normalized) Sig (Original) acetaminophen 500 mg oral tablet (1 source) Start: 05-05-2024 take 1 tablet by mouth every six hours Acetaminophen (Tylenol Extra Strength) 500 mg tablet Active 500 MG PO Every 6 hours May 05, 2024 12:00am diphenhydrAMINE hydrochloride 25 mg oral capsule (4 sources) Histamine-1 Receptor Antagonist Start: 07-04-2023 End: 10-02-2023 diphenhydrAMINE (BENADryl) capsule 25 mg ibuprofen 200 mg oral capsule (1 source) Nonsteroidal Anti-inflammatory Drug Start: 05-05-2024 take 1 capsule by mouth every six hours Ibuprofen (Motrin Ib) 200 mg capsule Active 200 MG PO Every 6 hours May 05, 2024 12:00am Magnesium (4 sources) Start: 07-04-2023 End: 10-02-2023 [...] Take 2 tablets by mouth 0 Active sertraline 50 mg oral tablet (3 sources) Serotonin Reuptake Inhibitor Start: 04-07-2024 take 50 mg by mouth once daily Sertraline Active 50 MG PO Daily April 07, 2024 3:58pm Start: 01-15-2024 End: 04-07-2024 take 25 mg by mouth once daily Sertraline Discontinued 25 MG PO Daily February 13, 2024 8:32am April 07, 2024 3:58pm Completed/Discontinued Medications Medication Drug Class(es) Dates Sig (Normalized) Sig (Original) docosahexaenoic acid 200 mg oral capsule (1 source) Start: 4 End: 4 Docosahexaenoic Acid ( Dha) 200 mg capsule Discontinued MG PO November 15, 2023 12:00am January 15, 2024 9:01am hydrOXYzine pamoate 25 mg oral capsule (1 source) Antihistamine Start: 4 End: 4 take 25 mg by mouth twice daily Hydroxyzine Pamoate Discontinued 25 MG PO Twice daily December 30, 2023 12:00am January 15, 2024 9:20am Methylprednisolone (1 source) Corticosteroid Start: 4 End: 4 Methylprednisolone Discontinued 0 PO per package directions April 17, 2024 12:00am May 05, 2024 9:09am PO PER PKG DIR for 6 days terconazole 4 mg/ml vaginal cream (2 sources) Azole Antifungal Start: End: 4 terconazole (Terazol 7) 0.4 % vaginal cream Indications: Yeast infection Insert 1 applicator into the vagina at bedtime for 7 days 30 g 0 08/08/2023 08/15/2023 tiZANidine 2 mg oral tablet (1 source) Central alpha-2 Adrenergic Agonist Start: End: take 2 mg by mouth three times daily Tizanidine Discontinued 2 MG PO Three times daily April 07, 2024 12:00am May 05, 2024 9:09am Problems Active Problems Problem Classification Problem Date Documented Da te Episodic/Chronic Anxiety disorders (2 sources) Anxiety; Translations: [Anxiety disorder, unspecified] 01-15-2024 Chronic Cardiac dysrhythmias (1 source) Tachycardia; Translations: [Tachycardia, unspecified] 12-30-2023 Episodic Chronic obstructive pulmonary disease and bronchiectasis (3 sources) Bronchitis; Translations: [Bronchitis, not specified as acute or chronic] Episodic Deficiency and other anemia (1 source) Iron deficiency anemia; Translations: [Iron deficiency anemia, unspecified] 12-30-2023 Episodic Genitourinary symptoms and ill-defined conditions (3 sources) Dysuria; Translations: [Dysuria] Episodic Inflammatory diseases of female pelvic organs (3 sources) Vaginitis; Translations: [Acute vaginitis] Episodic Malaise and fatigue (1 source) Fatigue; Translations: [Other fatigue] 12-30-2023 Episodic Other acquired deformities (1 source) Disorder of hip; Translations: [Contracture, left hip] 04-08-2024 Chronic Other acquired deformities (2 sources) Contracture, left hip; 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 Other complications of (4 sources) Diseases of the nervous system complicating , unspecified trimester; Translations: [Other current conditions classifiable elsewhere of mother, unspecified as to episode of care or not applicable] Onset: 07-22-2023 07-22-2023 Episodic Other connective tissue disease (1 source) Tendinitis; Translations: [Iliotibial band syndrome, left leg] 05-05-2024 Episodic Other connective tissue disease (1 source) Iliotibial band syndrome, left leg; Translations: [Other disorders of muscle, ligament, and fascia] 05-05-2024 Episodic Other non-traumatic joint disorders (1 source) Greater trochanteric pain syndrome of left lower limb; Translations: [Pain in left hip] 05-05-2024 Episodic Other non-traumatic joint disorders (1 source) Hip pain; Translations: [Pain in left hip] 04-17-2024 Episodic Other non-traumatic joint disorders (3 sources) Pain in left hip; Translations: [Pain in joint, pelvic region and thigh] Onset: 05-05-2024 04-17-2024 Episodic Other and delivery including normal (6 sources) Third trimester ; Translations: [Encounter for supervision of normal , unspecified, third trimester] Onset: 07-22-2023 08-13-2023 Episodic Other upper respiratory infections (3 sources) Acute upper respiratory infection; Translations: [Acute upper respiratory infection] Episodic Spondylosis; intervertebral disc disorders; other back problems (1 source) Muscle spasm of cervical muscle of neck; Translations: [Muscle spasm of back] 11-19-2023 Episodic Unclassified (3 sources) LOW BACK PAIN, [...] Value Interpretation Reference Range Facil ity XR hip BI w [id number] 05-05-20 24 XR hip BI w PEL1V [facility] [address] [place] [address] XRay Report Signed Patient: Lucie Woodall MR#: [id number] : 2000 Acct:[id number] Age/Sex: 23 / U ADM Date: 05/05/24 [place] [facility] [place] Type: [facility] Attending Dr: Grant Menjivar DO Copies to: Grant Menjivar DO Ordering Provider: Grant Menjivar DO Date of Service: 05/05/24 XR/XR hip BI w PEL1V: M25.552 - Pain in left hip 2 views both hips with single view pelvis plain film COMPARISON: None HISTORY: Bilateral hip pain for months ACUTE FINDINGS: No acute bony findings. DEGENERATIVE CHANGE: Unremarkable SOFT TISSUE FINDINGS: Unremarkable JOINT EFFUSION: None POSTOP CHANGES: None BONY MINERALIZATION: Adequate XR/XR hip BI w PEL1V IMPRESSION: Unremarkable exam Impression dictated by: Sina Nagel M.D.05/05/2024 1:43 PM Dictation Location: [place] [address] Transcribed By: [facility] 05/05/24 1343 Dictated By: Sina Nagel DO 05/05/24 1341 Signed By: 05/05/24 1343 Normal [facility] ALL CBC WITH AUTO DIFFon BASOPHILS ABSOLUTE AUTO 0.0 [facility] Basophils/100 WBC (Bld) 0.3 % 0.2 - 2.0 % [facility] Eosinophils/100 WBC (Bld) 0.8 % Low 0.9 - 7.0 % [facility] Erythrocyte distribution width (RBC) [Ratio] 13.2 % 11.0 - 15.0 % [facility] Hematocrit (Bld) [Volume fraction] 31.3 % Low 36.0 - 48.0 % [facility] Hemoglobin (Bld) [Mass/Vol] 10.1 g/dL Low 12.0 - 16.0 g/dL [facility] IMMATURE GRANULOCYTES ABS AUTO 0.[address] [address] Immature granulocytes/100 WBC (Bld) 0.5 % 0.0 - 0.5 % [facility] Interpretation and review of laboratory results Abnormal [facility] Healthcare LYMPHOCYTES ABSOLUTE AUTO 2.[address] [facility] Lymphocytes/100 WBC (Bld) 20.1 % Low 20.5 - 60.0 % [facility] MCH (RBC) [Entitic mass] 29.8 pg 26.7 - 34.0 pg [facility] MCHC (RBC) [Mass/Vol] 32.3 g/dL 29.9 - 35.2 g/dL [facility] MCV (RBC) [Entitic vol] 92.3 fL 81.0 - 99.0 fL [facility] MONOCYTES ABSOLUTE AUTO 1.0 High [facility] Monocytes/100 WBC (Bld) 8.6 % 1.7 - 12.0 % [facility] NEUTROPHILS ABSOLUTE AUTO 8.3 High [facility] Neutrophils/100 WBC (Bld) 69.7 % 43.0 - 75.0 % [facility] Platelet mean volume (Bld) [Entitic vol] 10.8 fL 9.5 - 13.5 fL [facility] Healthc are TBH EO # 0.1 [facility] PLT 180 [facility] TB RBC 3.39 Low [facility] Healthcar e TBH WBC 12.0 High [facility] Healthcar e [facility] ALL CBC WITH AUTO DIFFon BASOPHILS ABSOLUTE AUTO 0.0 [facility] Basophils/100 WBC (Bld) 0.3 % 0.2 - 2.0 % [facility] Eosinophils/100 WBC (Bld) 0.9 % 0.9 - 7.0 % [facility] Erythrocyte distribution width (RBC) [Ratio] 13.0 % 11.0 - 15.0 % [facility] Hematocrit (Bld) [Volume fraction] 34.3 % Low 36.0 - 48.0 % [facility] Healthcar e Hemoglobin (Bld) [Mass/Vol] 11.3 g/dL Low 12.0 - 16.0 g/dL [facility] IMMATURE GRANULOCYTES ABS AUTO 0.03 [facility] Immature granulocytes/100 WBC (Bld) 0.4 % 0.0 - 0.5 % [facility] Interpretation and review of laboratory results Abnormal [facility] LYMPHOCYTES ABSOLUTE AUTO 1.8 [facility] Lymphocytes/100 WBC (Bld) 24.2 % 20.5 - 60.0 % [facility] MCH (RBC) [Entitic mass] 29.8 pg 26.7 - 34.0 pg [facility] MCHC (RBC) [Mass/Vol] 32.9 g/dL 29.9 - 35.2 g/dL [facility] MCV (RBC) [Entitic vol] 90.5 fL 81.0 - 99.0 fL [facility] MONOCYTES ABSOLUTE AUTO 0.7 [facility] Monocytes/100 WBC (Bld) 8.9 % 1.7 - 12.0 % [facility] NEUTROPHILS ABSOLUTE AUTO 4.8 [facility] Neutrophils/100 WBC (Bld) 65.3 % 43.0 - 75.0 % [facility] Platelet mean volume (Bld) [Entitic vol] 10.8 fL 9.5 - 13.5 fL [facility] EO # 0.1 [facility] PLT 204 [facility] TB RBC 3.79 Low [facility] TBH WBC 7.4 [facility] Healthcar e CL[facility] Healthcar e Urinalysis macro (dipstick) panel (U)on 08-15-2023 Bilirubin, UA Negative Negative - 4(70) +++ mg/dL [facility] Blood, UA Negative Negative - 50 Nicolas/mcL [facility] Clarity, UA Clear [facility] re Color, UA Yellow [facility] e Glucose, UA Negative Negative - 1999(110) ++++ mg/dL [facility] Interpretation and review of laboratory results Abnormal [facility] Ketones, UA Negative Negative - 160(16) ++++ mg/dL [facility] Leukocytes, UA Negative Negative - 500+++ Ferida/mcL [facility] Nitrite, UA Negative Negative - Positive [facility] pH, UA 6.5 5 - 9 [facility] e Protein, UA Negative Negative - 1999(20) ++++ mg/dL [facility] Spec Grav, UA 1.020 1 - 1.03 [facility] Urobilinogen, UA 1.0 0.2 - 12 mg/dL [facility] Health[facility] e XR LSPINE 2_3 VIEWSon 2022 XR LSPINE 2_3 VIEWS EXAM: XR LSPINE 2_3 VIEWS HISTORY: Low back pain COMPARISON: None. TECHNIQUE: 3 views FINDINGS: Satisfactory alignment. Multilevel endplate degenerative changes, disc disease, anterior spurring and facet arthropathy. No acute fracture or subluxation. Unremarkable soft tissues. IMPRESSION: No acute fracture or subluxation. Electronically authenticated by: YAKELIN FRIEDMAN Date: 2022-10-31 14:26 Normal [facility] CBC AUTO DIFFon 10-17-2022 BASO # 0.0 103/ul Normal 0.0-0.1 [facility] Comment on above: Performed By: #### C BC #### [facility] [address] [place] [address] Dr. Dav iXe Basophils/100 WBC (Bld) 0.6 % Normal 0.2-2.0 [facility] Comment on above: Performed By: #### C BC #### [facility] [address] [place] [address] Dr. Dav Xie EO # 0.2 103/ul Normal 0.0-0.7 [facility] Comment on above: Performed By: #### C BC #### [facility] [address] [place] [address] Dr. Dav Xie Eosinophils/100 WBC (Bld) 3.0 % Normal 0.9-7.0 [facility] Comment on above: Performed By: #### C BC #### [facility] [address] [place] [address] Dr. Dav Xie Erythrocyte distribution width (RBC) [Ratio] 11.9 % Normal 11.0-15.0 [facility] Comment on above: Performed By: #### C BC #### [facility] [address] [place] [address] Dr. Dav Xie Hematocrit (Bld) [Volume fraction] 39.5 % Normal 36.0-48.0 [facility] Comment on above: Performed By: #### C BC #### [facility] [address] [place] [address] Dr. Dav Xie Hemoglobin (Bld) [Mass/Vol] 13.4 g/dL Normal 12.0-16.0 [facility] Comment on above: Performed By: #### C BC #### [facility] [address] [place] [address] Dr. Dav Xie IG # 0.01 10e3/ul Normal 0.00-0.03 [facility] Comment on above: Performed By: #### C BC #### [facility] [address] [place] [address] Dr. Dav Xie IG % 0.2 % Normal 0.0-0.5 [facility] Comment on above: Performed By: #### C BC #### [facility] [address] [place] [address] Dr. Dav Xie LYMPH # 1.7 103/ul Normal 1.2-3.8 [facility] Comment on above: Performed By: #### C BC #### [facility] [address] [place] [address] Dr. Dav Xie Lymphocytes/100 WBC (Bld) 31.9 % Normal 20.5-60.0 [facility] Comment on above: Performed By: #### C BC #### [facility] [address] [place] [address] Dr. Dav Xie MANUAL DIFF REQ NO Normal [facility] Comment on above: Performed By: #### C BC #### [facility] [address] [place] [address] Dr. Dav Xie MCH (RBC) [Entitic mass] 31.8 pg Normal 26.7-34.0 [facility] Comment on above: Performed By: #### C BC #### [facility] [address] [place] [address] Dr. Dav Xie MCHC (RBC) [Mass/Vol] 33.9 g/dL Normal 29.9-35.2 [facility] Comment on above: Performed By: #### C BC #### [facility] [address] [place] [address] Dr. Dav Xie MCV (RBC) [Entitic vol] 93.6 fL Normal 81.0-99.0 [facility] Comment on above: Performed By: #### C BC #### [facility] [address] [place] [address] Dr. Dav Xie MONO # 0.5 103/ul Normal 0.3-0.8 [facility] Comment on above: Performed By: #### C BC #### [facility] [address] [place] [address] Dr. Dav Xie Monocytes/100 WBC (Bld) 9.7 % Normal 1.7-12.0 [facility] Comment on above: Performed By: #### C BC #### [facility] [address] [place] [address] Dr. Dav Xie NEUT # 2.9 103/ul Normal 1.4-6.5 [facility] Comment on above: Performed By: #### C BC #### [facility] [address] [place] [address] Dr. Dav Xie Neutrophils/100 WBC (Bld) 54.6 % Normal 43.0-75.0 [facility] Comment on above: Performed By: #### C BC #### [facility] [address] [place] [address] Dr. Dav Xie Platelet mean volume (Bld) [Entitic vol] 9.7 fL Normal 9.5-13.5 [facility] Comment on above: Performed By: #### C BC #### [facility] [address] [place] [address] Dr. Dav Xie PLT 215 103/ul Normal 150-450 [facility] Comment on above: Performed By: #### C BC #### [facility] [address] [place] [address] Dr. Dav Xie RBC 4.22 106/ul Normal 4.20-5.40 [facility] Comment on above: Performed By: #### C BC #### [facility] [address] [place] [address] Dr. Dav Xie WBC 5.4 103/ul Normal 4.0-11.0 [facility] Comment on above: Performed By: #### C BC #### [facility] [address] [place] [address] Dr. Dav Xie FERRITINon 10-17-2022 Ferritin [Mass/Vol] 85.0 ng/mL Normal 6.2-137.0 [facility] Comment on above: Performed By: #### F ERR #### [facility] [address] [place] [address] Dr. Dav Xie PROF CHEM 8 (BAS METB)on Anion gap [Moles/Vol] 11.2 mmol/L Normal [facility] Comment on above: Performed By: #### B MP #### [facility] [address] [place] [address] Dr. Dav Xie Calcium [Mass/Vol] 8.8 mg/dL Normal 8.5-10.1 [facility] Comment on above: Performed By: #### B MP #### [facility] [address] [place] [address] Dr. Dav Xie Chloride [Moles/Vol] 103 mmol/L Normal 98-107 [facility] Comment on above: Performed By: #### B MP #### [facility] [address] [place] [address] Dr. Dav Xie CO2 [Moles/Vol] 29.6 mmol/L Normal 21.0-32.0 [place] Comment on above: Performed By: #### B MP #### [facility] [address] [place] [address] Dr. Dav Xie Creatinine [Mass/Vol] 0.82 mg/dL Normal 0.55-1.02 [facility] Comment on above: Performed By: #### B MP #### [facility] [address] [place] [address] Dr. Dav Xie EGFR-AF CAMEROONIAN >60 Normal >=60 [facility] Comment on above: Performed By: #### B MP #### [facility] [address] [place] [address] Dr. Dav Xie EGFR-NON AF CAMEROONIAN >60 Normal >=60 [facility] Comment on above: Performed By: #### B MP #### [facility] [address] [place] [address] Dr. Dav Xie Glucose [Mass/Vol] 86 mg/dL Normal 74-106 [facility] Comment on above: Performed By: #### B MP #### [facility] [address] [place] [address] Dr. Dav Xie Potassium [Moles/Vol] 3.8 mmol/L Normal 3.5-5.1 [facility] Comment on above: Performed By: #### B MP #### [facility] [address] [place] [address] [address] Dav Xie Sodium [Moles/Vol] 140 mmol/L Normal 136-145 [facility] Comment on above: Performed By: #### B MP #### [facility] [address] [place] [address] [address] Dav Xie Urea nitrogen [Mass/Vol] 13.0 mg/dL Normal 7.0-18.0 [facility] Comment on above: Performed By: #### B MP #### [facility] [address] [place] [address] [address] Dav Xie Urea nitrogen/Creatinine [Mass ratio] 15.9 mg/mg Normal [facility] Comment on above: Performed By: #### B MP #### [facility] [address] [place] [address] [address] Dav Xie Vital Signs Date Time Vital Sign Value Performing Clinician Facility 04-17-2024 [id number] Body height 160.02 cm MD Lexis Rodríguez Work Phone: [facility] 04-17-2024 13:29-0400 Body mass index (BMI) [Ratio] 27.4 kg/m2 MD Lexis Rodríguez Work Phone: [facility] 04-17-2024 13:290400 Body weight 70.3 kg MD Lexis Rodríguez Work Phone: [facility] 04-17-2024 13:29-0400 Diastolic blood pressure 74 mm[Hg] MD Lexis Rodríguez Work Phone: [facility] 04-17-2024 13:29-0400 Heart rate 50 /min MD Lexis Rodríguez Work Phone: [facility] 04-17-2024 13:29-0400 Respiratory rate 18 /min MD Lexis Rodríguez Work Phone: [facility] 04-17-2024 13:29-0400 SaO2% (BldA) [Mass fraction] 98 % MD Lexis Rodríguez Work Phone: [facility] 04-17-2024 13:29-0400 Systolic blood pressure 108 mm[Hg] MD Lexis Rodríguez Work Phone: [facility] 04-07-2024 15:29-0400 Body height 160.02 cm MD Lexis Rodríguez Work Phone: [facility] 04-07-2024 15:29-0400 Body mass index (BMI) [Ratio] 28.1 kg/m2 MD Lexis Rodríguez Work Phone: [facility] 04-07-2024 15:29-0400 Body weight 72.12 kg MD Lexis Rodríguez Work Phone: [facility] 04-07-2024 15:29-0400 Diastolic blood pressure 77 mm[Hg] MD Lexis Rodríguez Work Phone: [facility] 04-07-2024 15:29-0400 Heart rate 79 /min MD Lexis Rodríguez Work Phone: [facility] 04-07-2024 15:29-0400 Systolic blood pressure 115 mm[Hg] MD Lexis Rodríguez Work Phone: [facility] 08-15-2023 10:13-0500 Body mass index (BMI) [Ratio] 33.18 kg/m2 Ana Luisa Asuncion DO Work Phone: [facility] 08-15-2023 10:13-0500 Body weight 90.45 kg Ana Luisa Asuncion DO Work Phone: [facility] 08-15-2023 10:13-0500 Diastolic blood pressure 78 mm[Hg] Ana Luisa Asuncion DO Work Phone: [facility] 08-15-2023 10:13-0500 Systolic blood pressure 132 mm[Hg] Ana Luisa Asuncion DO Work Phone: [facility] 10-15-2022 09:30-0400 Body height 160.02 cm Lexis Rodríguez Other [facility] Other 10-15-2022 09:30-0400 Body mass index (BMI) [Ratio] 28.87 kg/m2 Lexis Rodríguez Other [facility] Other 10-15-2022 09:30-0400 Body weight 73.94 kg Lexis Rodríguez Other [facility] Other 10-15-2022 09:30-0400 Diastolic blood pressure 62 mm[Hg] Lexis Rodríguez Other [facility] Other 10-15-2022 09:30-0400 SaO2% (BldA) [Mass fraction] 99 % Lexis Rodríguez Other [facility] Other 10-15-2022 09:30-0400 Systolic blood pressure 108 mm[Hg] Lexis Rodríguez Other [employer] Other Encounters Encounter Date Encounter Type Care Provider Facility Start: 05-05-2024 End: 05-05-2024 ambulatory MD Lexis Rodríguez Work Phone: [facility] Work Phone: Start: 05-05-2024 End: 05-05-2024 Patient encounter procedure MD Lexis Rodríguez Work Phone: [facility] Work Phone: Start: 04-17-2024 End: 04-17-2024 Patient encounter procedure MD Lexis Rodríguez Work Phone: [facility] Work Phone: Start: 04-07-2024 End: 04-07-2024 Patient encounter procedure MD Lexis Rodríguez Work Phone: [facility] Work Phone: Start: 11-04-2023 End: 11-04-2023 ambulatory ANA LUISA SUEO Not Available Start: 10-03-2023 End: 10-03-2023 ambulatory [...] Not Available Start: 07-12-2023 End: 07-12-2023 ambulatory MD Lexis Rodríguez Work Phone: [facility] Work Phone: Start: 07-12-2023 End: 07-12-2023 Discharged Recurring MD Lexis Rodríguez Work Phone: [facility] Work Phone: Start: 07-04-2023 End: 07-04-2023 ambulatory MARIAM BRIAN Not Available Start: 06-20-2023 End: 06-20-2023 ambulatory ANA LUISA ASUNCION Not Available Start: 05-29-2023 End: 05-29-2023 ambulatory ANA LUISA ASUNCION Not Available Start: 11-30-[address] LEXIS RODRÍGUEZ Facil ity:[facility] Start: 11-09-2022 End: 11-09-2022 ambulatory Lexis Rodríguez Other [employer] Other Start: 11-09-2022 Telephone encounter Lexis Rodríguez [facility] Start: 10-31-2022 End: 11-01-[address] LEXIS RODRÍGUEZ Facility:[facility] Start: 10-29-2022 End: 10-29-2022 ambulatory Lexis Rodríguez Other [facility] Other Start: 10-29-2022 Telephone encounter Lexis Rodríguez [facility] Start: 10-26-2022 Encounter for genera l adult medical examination without abnormal findings DR LEXIS RODRÍGUEZ [facility] Start: 10-17-2022 End: 10-18-[address] LEXIS RODRÍGUEZ Facility:[facility]1 Start: 10-17-2022 End: 10-18-2022 Encounter for general adult medical examination without abnormal findings DR LEXIS RODRÍGUEZ Facility:[facility] Start: 10-15-2022 End: 10-15-2022 ambulatory Lexis Rodríguez Other [facility] Other Start: 10-15-2022 Encounter for genera l adult medical examination without abnormal findings Lexis Rodríguez [facility] Start: 10-15-2022 Periodic preventive med est patient 18-39 yrs Lexis Rodríguez [facility] Procedures Date Procedure Procedure Detail Performing Clinician Start: 05-05-2024 Plain x-ray of pelvi s and lower extremity MD Lexis Rodríguez Work Phone: Start: 2023 ALL CBC WITH AUTO DIFF Ana Luisa Asuncion DO Work Phone: Start: 08-22-2023 ALL CBC WITH AUTO DIFF Ana Luisa Asuncion DO Work Phone: Start: 08-15-2023 Urnls dip stick/tabl et rgnt non-auto w/o micrscp Ana Luisa Asuncion DO Work Phone: Plan of Treatment Date Care Activity Detail Author Start: 04-17-2024 Patient referral [facility] Work Phone: Start: 10-03-2023 End: 10-03-2023 ambulatory 10/03/2023 8:30 AM EDT Visit [facility] [address] [place] [id number] Mariam Torres PA [address] [place] [address] [facility] Start: 03-15-2023 Influenza vaccination Influenza Vacc ine (#1) [facility] Patient referral [facility] Work Phone: Immunizations Immunization Date Immunization Notes Care Provider Fa cility 05-10-2022 influenza virus vaccine, unspecified formulation Ana Luisa Asuncion DO Work Phone: [facility] 04-03-2020 influenza virus vaccine, unspecified formulation MD Lexis Rodríguez Work Phone: [facility] Payers Date Payer Category Payer Self-pay 2019 Medicaid [employer] [place] [employer] [id number] 2019-Present [address] [place] [address] [id number] 1998 Unknown [id number] 2.16.840.1.104089.3.579.2. 593 1998 Unknown [id number] 2.16.840.1.398587.3.579.2. 593 1998 Unknown [id number] 2.16.840.1.960412.3.579.2. 593 1998 Unknown [id number] 2.16.840.1.327746.3.579.2. 593 1998 Unknown [id number] 2.16.840.1.341104.3.579.2. 593 1998 Unknown [id number] 2.16.840.1.072189.3.579.2. 1259 1998 Unknown [id number] 2.16.840.1.124726.3.579.2. 1259 1998 Unknown [id number] 2.16.840.1.830240.3.579.2. 1259 1998 Unknown [id number] 2.16.840.1.409975.3.579.2. 1259 1998 Unknown [id number] 2.16.840.1.595641.3.579.2. 1259 1998 Unknown [id number] 2.16.840.1.385760.3.579.2. 1259 1998 Unknown [id number] 2.16.840.1.184214.3.579.2. 9 1998 Unknown [id number] 2.16.840.1.972019.3.579.2. 1259 1959 Medicaid [id number] 2.16.840.1.748744.[address] [facility] e ( and others) [id number] 2.16.840.1.188394.19 Unknown [id number] 2.16.840.1.347040.3.579.2. 531 Unknown [id number] 2.16.840.1.159924.3.579.2. 531 Social History Date Type Detail Facility Unknown if ever smoked [facility] Other Start: 1998 End: 03-16-2023 Sex Assigned At [facility] Start: 03-16-2023 End: 05-20-2023 Tobacco smoking status MOIS Never smoked tobacco [facility] Start: 03-16-2023 [...] Healthcare Start: 02-15-2023 Sexual orientation Heterosexual (finding) [facility] History of Present illness Narrative 08-15-2023 Glenys MayANAID vaughn - 08/15/2023 10:00 AM EST Note Date [...] (general) (routine) without abnormal findings IUD complication ([facility]) Family History Problem Relation Name [...] nursing note reviewed. Exam conducted with a hospice patient care secretary present. Vitals: Estimated body mass index is 33.18 kg/m as calculated from the following: Height as of 23: 5' 5 . Weight as of this encounter: 199 lb 6.4 oz. BP: 132/78 No LMP recorded. Patient is . Assessment/Plan Encounter Diagnosis Name Primary? Third trimester Patient presents today for a routine obstetrics appointment. Patient is currently 38w0d . Patient complaints of being unable to sleep, increase in [place] contractions, pelvic pressure and sharp pains. Patient desires to have Induction of Labor on 08/22/2023 @0001. Called [facility] and spoke with Michelle and patient placed [...] Luisa Roland DO documented in this encounter [facility] Evaluation note 11-09-2022 Note Date & Type Note Facility 11-09-2022 Evaluation note Encounter Date Diagnosis Assessment Notes Oct, Lumbar pain (ICD-10 - M54.50) [facility] Other Evaluation note 10-15-2022 Note Date & Type Note Facility 10-15-2022 Evaluation note Encounter Date Diagnosis Assessment Notes Oct, Wellness examination (ICD-10 - Z00.00) due for labs Oct, Lumbar pain (ICD-10 - M54.50) Pt states she went to chiropractor , had PT and xray through [facility]. She now wants me to address this as she is not improving and an MRI was not covered. She will contact their office and have them send us PT reports and xray so we can try to get the MRI. Pt needs this addressed as she is in the and is running a half marathon later this month. [facility] Other Evaluation note Note Date & Type Note Facility Evaluation note No Information [facility] Other Evaluation note Note Date & Type Note Facility Evaluation note No assessment information [facility] Work Phone: Evaluation note Note Date & Type Note Facility Evaluation note Diagnosis Third trimester state, incidental documented in this encounter [facility] Evaluation note Note Date & Type Note Facility Evaluation note Diagnosis Onset Date Anxiety acute Left hip flexor tightness ac nikolai Left hip flexor tightness ac nikolai Left hip pain acute Greater trochanteric pain sy ndrome of left lower extremity acute Iliotibial band tendinitis of left side acute [facility] Work Phone: History general Narrative - Reported Note Date & Type Note Facility History general Narrative - Reported Type Medical History Bronchitis Medical History Vaginitis Medical History Acute UTI Medical History Dysuria Hospitalization History l2019 for a blood count being done. [facility] Other Reason for Referral Reason *FU 11/19 Xray and last OV note. thank you Diagnosis 1 Lumbar pain (M54.50) Referral Organization [facility] Referring Provider First Name Lexis Referring Provider Last Name Marcos Referring Provider Specialty Family Medi cine Referred Organization [facility] Referred Provider Jaun Miguel Referred Address [address], [place],[address] Referred Provider Specialty Pain Medicin e Referral Priority Routine General Notes Jessie Ashraf 04:25:04 PM >received today, attachments made, referral faxed Clinical Notes F: [id number] Summary Purpose Family History No Family History Records Found Relationship Condition Age at Onset Recorded Date/T blossom father Diabetes mellitus Unknown Advance Directives No Advanced Directives Records Found Advance Directive Response Recorded Date/ Time Advance Directives No May 20, 2023 2:24pm Advance Directive Response Recorded Date/ Time Advance Directives No May 20, 2023 3:24pm Chief Complaint and Reason for Visit Chief Complaint low back pain Chief Complaint med questions pain in hip CONSULT DR. RODRÍGUEZ LT HIP PAIN, NX M25.552 - Pain in left hip Reason for Visit Anxiety Left hip flexor tightness Left hip flexor tightness Left hip pain Greater trochanteric pain syndrome of left lower extremity Iliotibial band tendinitis of left side Additional Source Comments REASON FOR VISIT (unrecogniz ed section and content) Reason Comments Routine Visit INFORMATION SOURCE (unrecogn ized section and content) DATE CREATED AUTHOR 11/15/2022 [facility] DATE CREATED AUTHOR AUTHOR'S ORGANIZ ATION 11/05/2023 [facility] EPIC DATE CREATED AUTHOR AUTHOR'S ORGANIZ ATION 05/09/2024 [facility] Care Teams (unrecognized sec tion and content) Team Status: Active Member Role Status Dates Lexis Rodríguez MD Primary Care Provider Active Team Status: Inactive Member Role Status Dates Lexis Rodríguez MD Primary Care Provider, Attending Last castellanos Active 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 Start Date End Date Lexis Rodríguez MD [address] [place] [address] PCP - General Family Medicine 02/22/23 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 Start Date End Date Lexis Rodríguez MD [address] [place] [id number] PCP - General Family Medicine 02/22/23 Team Status: Inactive Member Role Status Dates Lexis Rodríguez MD Primary Care Provide r, Attending Provider Active Start: April 07, 2024 End: April 07, 2024 Team Status: Inactive Member Role Status Dates Lexis Rodríguez MD Primary Care Provide r, Attending Provider Active Start: April 17, 2024 End: April 17, 2024 Team Status: Inactive Member Role Status Dates Lexis Rodríguez MD Primary Care Provider Active Start: May 05, 2024 End: May 05, 2024 Grant Menjivar DO Attending Provider Active St art: May 05, 2024 End: May 05, 2024 Goals (unrecognized section and content) Goals may [...] BE BASED ON THE PRIMARY CLINICAL RECORDS. [facility]. provides no warranty or guarantee of the accuracy or completeness of information in this document.
[2024-05-18 15:08] LABS: Age Gdln ACOG Testing Note (.); IGP, rfx Aptima HPV ASCU Note (.)
== END 2024-05-13 20:38 | disposition home or self-care (01) ==
LOC: LAB 20:37
PROVIDERS: PCP Family Medicine; Visit Provider Physician Assistant
DX: Z01.419 Encounter for gynecological examination (general) (routine) without abnormal findings (principal)
CPT/HCPCS: 88175

== ENCOUNTER 2024-06-05 05:29 | Emergency (ER) | payer OTHER, SELFPAY ==
--- OUTSIDE RECORDS SUMMARY | 2024-06-05 05:39 | XMS_ITS | CCD ---
Author Organization [facility] Care Team Providers Care Finisher Plate Name Role Phone Lexis Rodríguez Unavailable DR LEXIS RODRÍGUEZ Admitting Unavailable MARCOS, DR LEXIS Castillo Primary Care Unavailable MARCOS, DR LEXIS Castillo Consulting Unavailable MARCOS, DR LEXIS Castillo Attending Unavailable Le, Yakelin Consulting Unavailable MARCOS, DR LEXIS Castillo Admitting Unavailable MARCOS, DR LEXIS Castillo Primary Care Unavailable MARCOS, DR LEXIS Castillo Consulting Unavailable MARCOS, DR LEXIS Castillo Attending Unavailable MARCOS, DR LEXIS Castillo Primary Care Unavailable GIEDRAITIS, ANDRIUS Admitting Unavailable GIEDRAITIS, ANDRIUS Attending Unavailable MD Lexis Rodríguez Primary Care Provider MD Lexis Rodríguez Attending Provider [phone] Lexis Rodríguez MD Primary Care Provider MD Lexis Rodríguez Primary Care Provider DO Grant Menjivar Attending Provider [phone] Mariam Aragon Unavailable ANA LUISA ROLAND Attending Unavailable ASUNCIONANA LUISA Attending Unavailable BRIAN, MARIAM Attending Unavailable ASUNCION, ANA LUISA Attending Unavailable BRIAN, MARIAM Attending Unavailable ASUNCION, ANA LUISA Attending Unavailable ASUNCION, ANA LUISA Attending Unavailable BRIAN, MARIAM Attending Unavailable ASUNCIONBRANDON WELLSY Attending Unavailable BRIAN, MARIAM Attending Unavailable Grant Menjivar Admitting Unavailable Lexis Rodríguez Primary Care Unavailable Grant Menjivar Attending Unavailable Lexis Rodríguez Attending Unavailable Lexis Rodríguez Primary Care Unavailable Lexis Rodríguez Admitting Unavailable Medications Current Medications Medication Drug Class(es) Dates Sig (Normalized) Sig (Original) acetaminophen 500 mg oral tablet (1 source) Start: 05-05-2024 take 1 tablet by mouth every six hours Acetaminophen (Tylenol Extra Strength) 500 mg tablet Active 500 MG PO Every 6 hours May 05, 2024 12:00am cephalexin 500 mg oral capsule (3 sources) Cephalosporin Antibacterial Start: 05-13-2024 End: 05-20-2024 take 1 capsule by mouth in the morning, then take 1 capsule by mouth in the evening, then take 1 capsule by mouth at bedtime cephalexin (Keflex) 500 MG capsule Indications: Folliculitis Take 1 capsule (500 mg) by mouth in the morning and 1 capsule (500 mg) in the evening and 1 capsule (500 mg) before bedtime. Do all this for 7 days. 21 capsule 05/13/2024 05/20/2024 Active diphenhydrAMINE hydrochloride 25 mg oral capsule (4 [...] 0 Active sertraline 50 mg oral tablet (7 sources) Serotonin Reuptake Inhibitor Start: 04-07-2024 take 50 mg by mouth once daily Sertraline Active 50 MG PO Daily April 07, 2024 3:58pm Start: 01-15-2024 End: 04-07-2024 take 1 tablet by mouth once daily sertraline (Zoloft) 25 MG tablet Take 25 mg by mouth Daily 01/15/2024 Active Completed/Discontinued Medications Medication Drug Class(es) Dates [...] 30, 2023 12:00am January 15, 2024 9:20am levonorgestrel 0.323184 mg/hr intrauterine system (3 sources) Progestin, Progestin-containi ng Intrauterine Device Start: 4 End: 7 levonorgestrel (Kathy) 13.5 MG IUD Methylprednisolone (1 source) Corticosteroid Start: 4 End: 4 Methylprednisolone Discontinued 0 PO per package directions April 17, 2024 12:00am May 05, 2024 9:09am PO PER PKG DIR for 6 days terconazole 4 mg/ml vaginal cream (2 sources) Azole Antifungal Start: 4 End: 4 terconazole (Terazol 7) 0.4 % vaginal cream Indications: Yeast infection Insert 1 applicator into the vagina at bedtime for 7 days 30 g 0 08/08/2023 08/15/2023 tiZANidine 2 mg oral tablet (1 source) Central alpha-2 Adrenergic Agonist Start: 4 End: 4 take 2 mg by mouth three times [...] [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 Other connective tissue disease (1 source) Tendinitis; [...] and thigh] Onset: 05-05-2024 04-17-2024 Episodic Other skin disorders (2 sources) Folliculitis; Translations: [Follicular disorder, unspecified] 05-13-2024 Episodic Other upper respiratory infections (3 sources) [...] Classification Problem Date Documented Da te Episodic/Chronic Other complications of (8 sources) Diseases of the nervous system complicating , unspecified trimester; Translations: [Other current conditions classifiable elsewhere of mother, unspecified as to episode of care or not applicable] Onset: 07-22-2023 07-22-2023 Episodic Other and delivery including normal (10 sources) Third trimester ; Translations: [Encounter for supervision of normal , unspecified, third trimester] Onset: 07-22-2023 08-13-2023 Episodic Unclassified (2 sources) Lumbar pain M54.50 Unclassified (1 source) LOW BACK PAIN, UNSPECIFIED; Translations: [LOW BACK PAIN, UNSPECIFIED] Onset: 10-31-2022 Results Test Name Value Interpretation Reference Range Facility IGP,APTIMA HPV,AGE GDLNon AGE GDLN ACOG TESTING Note . [facility] Comment on above: TESTS RESULT FLAG UN ITS REF RANGE LAB Clinician Provided Cytology Information Source.............Cervix;Endocervix No. of containers..01 ThinPrep Vial Age Algo ACOG Katie... FLAG LEGEND: L-Low Normal,H-High Normal,LL-Alert Low,HH-Alert High <-Panic Low,>-Panic High,A-Abnormal,AA-Critical Abnormal Performed at: 01 =G [facility] [place] [address] [place] [address] Dorothy Bryant MD, IGP, RFX APTIMA HPV ASCU Note . [facility] Comment on above: TESTS RESULT FLAG UN ITS REF RANGE LAB DIAGNOSIS: 02 NEGATIVE FOR INTRAEPITHELIAL LESION OR MALIGNANCY. Specimen adequacy: 02 Satisfactory for evaluation. No endocervical component is identified. Performed by: 02 Iwona Zepeda, Back Seam Stitcher ([facility]) . 02 Note: Note 03 The Pap smear is a screening test designed to aid in the detection of premalignant and malignant conditions of the uterine cervix. It is not a diagnostic procedure and should not be used as the sole means of detecting cervical cancer. Both false-positive and false-negative reports do occur. Test Methodology: Note 03 This liquid based ThinPrep(R) pap test was screened with the use of an image guided system. . 02 The HPV DNA reflex criteria were not met with this specimen result therefore, no HPV testing was performed. FLAG LEGEND: L-Low Normal,H-High Normal,LL-Alert Low,HH-Alert High <-Panic Low,>-Panic High,A-Abnormal,AA-Critical Abnormal Performed at: 02 [place] [facility] [place] [address] [place] [address] Renée Galan PhD, 03 WB [facility] [address] [place] [address] Dorothy Bryant MD, Performed at: =G - [facility] [place] [address] [place], [place] [id number] Channel Development Director: Dorothy Bryant MD, Phone: [phone] Performed at: [facility] - [address] [id number] Channel Development Director: Renée Galan PhD, Phone: [phone] [facility] CERVIX ENDOCERVIX [facility] XR hip BI w [id number] 05-05-20 XR hip BI w [id number] [facility] [address] [place] [address] XRay Report Signed Patient: Lucie Woodall MR#: [id number] : 2000 Acct:[id number] Age/Sex: 23 / U ADM Date: 05/05/24 Loc: [facility] [place] Room: Type: [facility] Attending Dr: Grant Menjivar DO Copies to: [...] Sina Nagel M.D.05/05/2024 1:43 PM Dictation Location: [place] [address] Transcribed By: [facility] 05/05/24 1343 Dictated By: Sina Nagel DO 05/05/24 1341 Signed By: 05/05/24 1343 Normal [facility] ALL CBC WITH AUTO DIFFon BASOPHILS ABSOLUTE AUTO 0.0 [facility] Basophils/100 WBC (Bld) 0.3 % 0.2 - 2.0 % [facility] Eosinophils/100 WBC (Bld) 0.8 % Low 0.9 - 7.0 % [facility] Eryth[facility] distribution width (RBC) [Ratio] 13.2 % 11.0 - 15.0 % [facility] Hematocrit (Bld) [Volume fraction] 31.3 % Low 36.0 - 48.0 % [facility] Hemoglobin (Bld) [Mass/Vol] 10.1 g/dL Low 12.0 - 16.0 g/dL [facility] IMMATURE GRANULOCYTES ABS AUTO 0.06 High [facility] Immature granulocytes/100 WBC (Bld) 0.5 % 0.0 - 0.5 % [facility] Interpretation and review of laboratory results Abnormal [facility] LYMPHOCYTES ABSOLUTE AUTO 2.4 [facility] Lymphocytes/100 WBC (Bld) 20.1 % Low 20.5 - 60.0 % [facility] MCH (RBC) [Entitic mass] 29.8 pg 26.7 - 34.0 pg [facility] MCHC (RBC) [Mass/Vol] 32.3 g/dL 29.9 - 35.2 g/dL [facility] MCV (RBC) [Entitic vol] 92.3 fL 81.0 - 99.0 fL [facility] MONOCYTES ABSOLUTE AUTO 1.0 High [facility] Monocytes/100 WBC (Bld) 8.6 % 1.7 - 12.0 % [facility] NEUTROPHILS ABSOLUTE AUTO 8.3 High [facility] Neutrophils/100 WBC (Bld) 69.7 % 43.0 - 75.0 % [facility] Platelet mean volume (Bld) [Entitic vol] 10.8 fL 9.5 - 13.5 fL [facility] are [facility] EO # 0.1 [facility] PLT 180 [facility] RBC 3.39 Low [facility] WBC 12.0 High [facility] ALL CBC WITH AUTO DIFFon BASOPHILS ABSOLUTE AUTO 0.0 [facility] Basophils/100 WBC (Bld) 0.3 % 0.2 - 2.0 % [facility] Eosinophils/100 WBC (Bld) 0.9 % 0.9 - 7.0 % [facility] Erythrocyte distribution width (RBC) [Ratio] 13.0 % 11.0 - 15.0 % [facility] Hematocrit (Bld) [Volume fraction] 34.3 % Low 36.0 - 48.0 % [facility] Hemoglobin (Bld) [Mass/Vol] 11.3 g/dL Low 12.0 - 16.0 g/dL [facility] IMMATURE GRANULOCYTES ABS AUTO 0.03 [facility] Immature granulocytes/100 WBC (Bld) 0.4 % 0.0 - 0.5 % [facility] Interpretation and review of laboratory results Abnormal [facility] LYMPHOCYTES ABSOLUTE AUTO 1.8 [facility] Lymphocytes/100 WBC (Bld) 24.2 % 20.5 - 60.0 % [facility] MCH (RBC) [Entitic mass] 29.8 pg 26.7 - 34.0 pg [facility] MCHC (RBC) [Mass/Vol] 32.9 g/dL 29.9 - 35.2 g/dL [facility] MCV (RBC) [Entitic vol] 90.5 fL 81.0 - 99.0 fL [facility] MONOCYTES ABSOLUTE AUTO 0.7 [facility] Monocytes/100 WBC (Bld) 8.9 % 1.7 - 12.0 % [facility] NEUTROPHILS ABSOLUTE AUTO 4.8 [facility] Neutrophils/100 WBC (Bld) 65.3 % 43.0 - 75.0 % [facility] Platelet mean volume (Bld) [Entitic vol] 10.8 fL 9.5 - 13.5 fL [facility] EO # 0.1 [facility] PLT 204 [facility] RBC 3.79 Low [facility] WBC 7.4 [facility] Urinalysis macro (dipstick) panel (U)on 08-15-2023 Bilirubin, UA Negative Negative - 4(70) +++ mg/dL [facility] Blood, UA Negative Negative - 50 Nicolas/mcL [facility] Clarity, UA Clear [facility] Color, UA Yellow [facility] e Glucose, UA Negative Negative - 2000(110) ++++ mg/dL [facility] Interpretation and review of laboratory results Abnormal [facility] Ketones, UA Negative Negative - 160(16) ++++ mg/dL [facility] Leukocytes, UA Negative Negative - 500+++ Freida/mcL [facility] Nitrite, UA Negative Negative - Positive [facility] pH, UA 6.5 5 - 9 [facility] e Protein, UA Negative Negative - 2000(20) ++++ mg/dL [facility] Spec Grav, UA 1.020 1 - 1.03 [facility] Urobilinogen, UA 1.0 0.2 - 12 mg/dL [facility] XR LSPINE 2_3 VIEWSon 2022 [...] Date: 2022-10-31 14:26 Normal [facility] CBC AUTO DIFFon 10-17-2022 BASO # 0.0 103/ul Normal 0.0-0.1 [facility] Comment on above: Performed By: #### C BC #### [facility] [address] [place] [address] Dr. Dav Xie Basophils/100 WBC (Bld) 0.6 % Normal 0.2-2.0 [facility] Comment on above: Performed By: #### C BC #### [facility] [address] [place] [address] Dr. Dav Xie EO # 0.2 103/ul Normal 0.0-0.7 [facility] Comment on above: Performed By: #### C BC #### [facility] [address] [place] [address] [address] Dav Xie Eosinophils/100 WBC (Bld) 3.0 % Normal 0.9-7.0 [facility] Comment on above: Performed By: #### C BC #### [facility] [address] [place] [address] Dr. Dav Xie Erythrocyte distribution width (RBC) [Ratio] 11.9 % Normal 11.0-15.0 [facility] Comment on above: Performed By: #### C BC #### [facility] [address] [place] [address] Dr. Dav Xie Hematocrit (Bld) [Volume fraction] 39.5 % Normal 36.0-48.0 [facility] Comment on above: Performed By: #### C BC #### [facility] [address] [place] [address] Dr. Dav Xie Hemoglobin (Bld) [Mass/Vol] 13.4 g/dL Normal 12.0-16.0 [facility] Comment on above: Performed By: #### C BC #### [facility] [address] [place] [address] Dr. Dav Xie IG # 0.01 10e3/ul Normal 0.00-0.03 [facility] Comment on above: Performed By: #### C BC #### [facility] [address] [place] [address] Dr. Dav Xie IG % 0.2 % Normal 0.0-0.5 [facility] Comment on above: Performed By: #### C BC #### [facility] [address] [place] [address] Dr. Dav Xie LYMPH # 1.7 103/ul Normal 1.2-3.8 [facility] Comment on above: Performed By: #### C BC #### [facility] [address] [place] [address] Dr. Dav Xie Lymphocytes/100 WBC (Bld) 31.9 % Normal 20.5-60.0 [facility] Comment on above: Performed By: #### C BC #### [facility] [address] [place] [address] Dr. Dav Xie MANUAL DIFF REQ NO Normal [facility] Comment on above: Performed By: #### C BC #### [facility] [address] [place] [address] Dr. Dav Xie MCH (RBC) [Entitic mass] 31.8 pg Normal 26.7-34.0 [facility] Comment on above: Performed By: #### C BC #### [facility] [address] [place] [address] Dr. Dav Xie MCHC (RBC) [Mass/Vol] 33.9 g/dL Normal 29.9-35.2 [facility] Comment on above: Performed By: #### C BC #### [facility] [address] [place] [address] Dr. Dav Xie MCV (RBC) [Entitic vol] 93.6 fL Normal 81.0-99.0 [facility] Comment on above: Performed By: #### C BC #### [facility] [address] [place] [address] Dr. Dav Xie MONO # 0.5 103/ul Normal 0.3-0.8 [facility] Comment on above: Performed By: #### C BC #### [facility] [address] [place] [address] Dr. Dav Xie Monocytes/100 WBC (Bld) 9.7 % Normal 1.7-12.0 [facility] Comment on above: Performed By: #### C BC #### [facility] [address] [place] [address] Dr. Dav Xie NEUT # 2.9 103/ul Normal 1.4-6.5 [facility] Comment on above: Performed By: #### C BC #### [facility] [address] [place] [address] Dr. Dav Xie Neutrophils/100 WBC (Bld) 54.6 % Normal 43.0-75.0 [facility] Comment on above: Performed By: #### C BC #### [facility] [address] [place] [address] Dr. Dav Xie Platelet mean volume (Bld) [Entitic vol] 9.7 fL Normal 9.5-13.5 [facility] Comment on above: Performed By: #### C BC #### [facility] [address] [place] [address] Dr. Dav Xie PLT 215 103/ul Normal 150-450 [facility] Comment on above: Performed By: #### C BC #### [facility] [address] [place] [address] Dr. Dav Xie RBC 4.22 106/ul Normal 4.20-5.40 [facility] Comment on above: Performed By: #### C BC #### [facility] [address] [place] [address] Dr. Dav Xie WBC 5.4 103/ul Normal 4.0-11.0 [facility] Comment on above: Performed By: #### C BC #### [facility] [address] [place] [address] Dr. Dav Xie FERRITINon 10-17-2022 Ferritin [Mass/Vol] 85.0 ng/mL Normal 6.2-137.0 [facility] Comment on above: Performed By: #### F ERR #### [facility] [address] [place] [address] Dr. Dav Xie PROF CHEM 8 (BAS METB)on Anion gap [Moles/Vol] 11.2 mmol/L Normal [facility] Comment on above: Performed By: #### B MP #### [facility] [address] [place] [address] Dr. Dav Xie Calcium [Mass/Vol] 8.8 mg/dL Normal 8.5-10.1 [facility] Comment on above: Performed By: #### B MP #### [facility] [address] [place] [address] Dr. Dav Xie Chloride [Moles/Vol] 103 mmol/L Normal 98-107 [facility] Comment on above: Performed By: #### B MP #### [facility] [address] [place] [address] Dr. Dav Xie CO2 [Moles/Vol] 29.6 mmol/L Normal 21.0-32.0 [facility] Comment on above: Performed By: #### B MP #### [facility] [address] [place] [address] Dr. Dav Xie Creatinine [Mass/Vol] 0.82 mg/dL Normal 0.55-1.02 [facility] Comment on above: Performed By: #### B MP #### [facility] [address] [place] [address] Dr. Dav Xie EGFR-AF BOTSWANAN >60 Normal >=60 [facility] Comment on above: Performed By: #### B MP #### [facility] [address] [address] [address] Dav Xie EGFR-NON AF BOTSWANAN >60 Normal >=60 [facility] Comment on above: Performed By: #### B MP #### [facility] [address] [address] [address] Dav Xie Glucose [Mass/Vol] 86 mg/dL Normal 74-106 [facility] Comment on above: Performed By: #### B MP #### [facility] [address] [address] [address] Dav Xie Potassium [Moles/Vol] 3.8 mmol/L Normal 3.5-5.1 [facility] Comment on above: Performed By: #### B MP #### [facility] [address] [address] [address] Dav Xie Sodium [Moles/Vol] 140 mmol/L Normal 136-145 [facility] Comment on above: Performed By: #### B MP #### [facility] [address] [address] [address] Dav Xie Urea nitrogen [Mass/Vol] 13.0 mg/dL Normal 7.0-18.0 [facility] Comment on above: Performed By: #### B MP #### [facility] [address] [address] [address] Dav Xie Urea nitrogen/Creatinine [Mass ratio] 15.9 mg/mg Normal [facility] Comment on above: Performed By: #### B MP #### [facility] [address] [address] [address] Dav Xie Vital Signs Date Time Vital Sign Value Performing Clinician Facility 05-13-2024 15:25-0400 Body height 165.1 cm Mariam GONZALES Work Phone: [facility] 05-13-2024 15:25-0400 Body mass index (BMI) [Ratio] 26.29 kg/m2 Mariam GONZALES Work Phone: [facility] 05-13-2024 15:25-0400 Body weight 71.67 kg Mariam Torres JANET Work Phone: [facility] 05-13-2024 15:25-0400 Diastolic blood pressure 70 mm[Hg] Mariam Torres PA Work Phone: [facility] 05-13-2024 15:25-0400 Systolic blood pressure 112 mm[Hg] Mariam Torres JANET Work Phone: [facility] 04-17-2024 13:29-0400 Body height 160.02 cm MD Lexis Rodríguez Work Phone: [facility] 04-17-2024 13:29-0400 Body mass index (BMI) [Ratio] 27.4 kg/m2 MD Lexis Rodríguez Work Phone: [facility] 04-17-2024 13:29-0400 Body weight 70.3 kg MD Lexis Rodríguez Work Phone: [facility] 04-17-2024 13:29-0400 Diastolic blood pressure 74 mm[Hg] MD Lexis Rodríguez Work Phone: [facility] 04-17-2024 13:29-0400 Heart rate 50 /min MD Lexis Rdoríguez Work Phone: [facility] 04-17-2024 13:29-0400 Respiratory rate 18 /min MD Lexis Rodríguez Work Phone: [facility] 04-17-2024 13:29-0400 SaO2% (BldA) [Mass fraction] 98 % MD Lexis Rodríguez Work Phone: [facility] 04-17-2024 13:29-0400 Systolic blood pressure 108 mm[Hg] MD Lexis Rodríguez Work Phone: [facility] 04-07-2024 15:29-0400 Body height 160.02 cm MD Lexis Rodríguez Work Phone: [facility] 04-07-2024 15:29-0400 Body mass index (BMI) [Ratio] 28.1 kg/m2 MD Lexis Rodríguez Work Phone: [facility] 04-07-2024 15:29-0400 Body weight 72.12 kg MD Lexis Rodríguez Work Phone: [facility] 04-07-2024 15:29-0400 Diastolic blood pressure 77 mm[Hg] MD Lexis Rodríguez Work Phone: [facility] 04-07-2024 15:29-0400 Heart rate 79 /min MD Lexis Rodríguez Work Phone: [facility] 04-07-2024 15:29-0400 Systolic blood pressure 115 mm[Hg] MD Lexis Rodríguez Work Phone: [facility] 08-15-2023 10:13-0500 Body mass index (BMI) [Ratio] 33.18 kg/m2 Ana Luisa Asuncion DO Work Phone: [facility] 08-15-2023 10:13-0500 Body weight 90.45 kg Ana Luisa Asuncion DO Work Phone: [facility] 08-15-2023 10:13-0500 Diastolic blood pressure 78 mm[Hg] Ana Luisa Asuncion DO Work Phone: [facility] 08-15-2023 10:13-0500 Systolic blood pressure 132 mm[Hg] Ana Luisa Asuncion DO Work Phone: [facility] 10-15-2022 09:30-0400 Body height 160.02 cm Lexis Rodríguez Other [employer] [facility] [employer] Other 10-15-2022 09:30-0400 Body mass index (BMI) [Ratio] 28.87 kg/m2 Lexis Rodríguez Other [facility] Other 10-15-2022 09:30-0400 Body weight 73.94 kg Lexis Rodríguez Other [facility] Other 10-15-2022 09:30-0400 Diastolic blood pressure 62 mm[Hg] Lexis Rodrgíuez Other [facility] Other 10-15-2022 09:30-0400 SaO2% (BldA) [Mass fraction] 99 % Lexis Rodríguez Other [facility] Other 10-15-2022 09:30-0400 Systolic blood pressure 108 mm[Hg] Lexis Rodríguez Other [facility] Other Encounters Encounter Date Encounter Type Care Provider Facility Start: 05-13-2024 End: 05-13-2024 ambulatory MARIAM TORRES Not Available Start: 05-13-2024 End: 05-13-2024 Patient encounter procedure Mariam GONZALES Work Phone: [facility] Start: 05-13-2024 End: 05-13-2024 Periodic preventive med est patient 18-39 yrs Mariam GONZALES Work Phone: [facility] Comment on above: Well woman exam with routine gynecological exam; Folliculitis Start: 05-13-2024 End: 05-13-2024 Bamboo flowsheet Mariam GONZALES Work Phone: [facility] Start: 05-13-2024 End: 05-18-2024 Bamboo flowsheet Mariam GONZALES Work Phone: [facility] Start: 05-13-2024 End: 05-18-2024 Clinisync Result Encounter Mariam GONZALES Work Phone: [facility] External Department Unsolicited Start: 05-05-2024 End: 05-05-2024 ambulatory MD Lexis Rodríguez Work Phone: [facility] Work Phone: Start: 05-05-2024 End: 05-05-2024 Patient encounter procedure MD Lexis Rodríguez Work Phone: [facility] Work Phone: Start: 04-17-2024 End: 04-17-2024 Patient encounter procedure MD Lexis Rodríguez Work Phone: [facility] Work Phone: Start: 04-07-2024 End: 04-07-2024 Patient encounter procedure MD Lexis Rodríguez Work Phone: [facility] Work Phone: Start: 01-21-2024 End: 01-21-2024 ambulatory ANA LUISA ASUNCION Not Available Start: 11-04-2023 End: 11-04-2023 ambulatory ANA LUISA [...] External Department Unsolicited Start: 08-15-2023 End: 08-15-2023 Office outpatient visit 15 minutes Ana Luisa Asuncion DO Work Phone: [facility] Comment on above: Third trimester preg aniyah Start: 08-15-2023 End: 08-15-2023 ambulatory ANA LUISA ASUNCION Not Available Start: 08-08-2023 End: 08-08-2023 ambulatory MARIAM TORRES Not Available Start: 07-22-2023 End: 07-22-2023 ambulatory ANA LUISA ASUNCION Not Available Start: 07-12-2023 End: 07-12-2023 ambulatory MD Lexis Rodríguez Work Phone: [facility] Work Phone: Start: 07-12-2023 End: 07-12-2023 Discharged Recurring MD Lexis Rodríguez Work Phone: [facility] Work Phone: Start: 07-04-2023 End: 07-04-2023 ambulatory MARIAM TORRES Not Available Start: 06-20-2023 End: 06-20-2023 ambulatory ANA LUISA ASUNCION Not Available Start: 05-29-2023 End: 05-29-2023 ambulatory ANA LUISA ASUNCION Not Available Start: 11-30-[address] LEXIS RODRÍGUEZ Facil ity:H1 Start: 11-09-2022 End: 11-09-2022 ambulatory Lexis Rodríguez Other [facility] Other Start: 11-09-2022 Telephone encounter Lexis Rodríguez [facility] Start: 10-31-2022 End: 11-01-[address] LEXIS RODRÍGUEZ Facility:H1 Start: 10-29-2022 End: 10-29-2022 ambulatory Lexis Rodríguez Other [facility] Other Start: 10-29-2022 Telephone encounter Lexis Rodríguez [facility] Start: 10-26-2022 Encounter for genera l adult medical examination without abnormal findings DR LEXIS RODRÍGUEZ [facility] Start: 10-17-2022 End: 10-18-[address] LEXIS RODRÍGUEZ Facility:H1 Start: 10-17-2022 End: 10-18-2022 Encounter for general adult medical examination without abnormal findings DR LEXIS RODRÍGUEZ Facility:H1 Start: 10-15-2022 End: 10-15-2022 ambulatory Lexis Rodríguez Other [facility] Other Start: 10-15-2022 Encounter for genera l adult medical examination without abnormal findings Lexis Rodríguez [facility] Start: 10-15-2022 Periodic preventive med est patient 18-39 yrs Lexis Rodríguez [facility] Procedures Date Procedure Procedure Detail Performing Clinician Start: 05-13-2024 IGP,APTIMA HPV,AGE GDLN Mariam Torres PA Work Phone: Start: 05-05-2024 Plain x-ray of pelvi s [...] Activity Detail Author Start: 04-17-2024 Patient referral [facility] Work Phone: Start: 03-15-2024 Influenza vaccination Influenza Vacc ine (#[facility]) [facility] Start: 10-03-2023 End: 10-03-2023 ambulatory 10/03/2023 8:30 AM EDT Visit [facility] [address] [place] [address] Mariam Torres PA [address] [place] [address] [facility] Start: 03-15-2023 Influenza vaccination Influenza Vacc ine (#1) [facility] Cytology Cervical or vaginal smear or scraping study Pap Smear Pathology and Cytology Routine Well woman exam with routine gynecological exam Ordered: 05/13/2024 [facility] Work Phone: Comment on above: Ordered: 05/13/2024 Patient referral [facility] Work Phone: Immunizations Immunization Date Immunization Notes Care Provider Fa cility 05-10-2022 influenza virus vaccine, unspecified formulation Ana Luisa Asuncion DO Work Phone: [facility] 05-14-2021 influenza virus vaccine, unspecified formulation Mariam GONZALES Work Phone: [facility] 04-03-2020 influenza virus vaccine, unspecified formulation MD Lexis Rodríguez Work Phone: [facility] Payers Date Payer Category Payer Self-pay 2019 Medicaid [facility] [place] [id number] 2019-Present [address] [place] [address] [id number] 2019 Medicaid (Managed Care) [facility] MEDICA[facility] [id number] 1998 Unknown [id number] 2.16.840.1.644920.3.579.2. 593 1998 Unknown [id number] 2.16.840.1.787787.3.579.2. 593 1998 Unknown [id number] 2.16.840.1.619676.3.579.2. 593 1998 Unknown [id number] 2.16.840.1.956953.3.579.2. 593 1998 Unknown [id number] 2.16.840.1.737221.3.579.2. 593 1998 Unknown [id number] 2.16.840.1.177190.3.579.2. 1259 1998 Unknown [id number] 2.16.840.1.987398.3.579.2. 1259 1998 Unknown [id number] 2.16.840.1.741229.3.579.2. 1259 1998 Unknown [id number] 2.16.840.1.807724.3.579.2. 1259 1998 Unknown [id number] 2.16.840.1.443465.3.579.2. 1259 1998 Unknown [id number] 2.16.840.1.420290.3.579.2. 1259 1998 Unknown [id number] 2.16.840.1.344946.3.579.2. 1259 1998 Unknown [id number] 2.16.840.1.062856.3.579.2. 1259 1998 Unknown [id number] 2.16.840.1.972779.3.579.2. 9 1998 Unknown [id number] 2.16.840.1.452388.3.579.2. 1259 1959 Medicaid [id number] 2.16.840.1.718305.19 Department of [facility] e ( and others) [id number] 2.16.840.1.856556.19 Unknown [id number] 2.16.840.1.787490.3.579.2. 531 Unknown [id number] 2.16.840.1.417499.3.579.2. 531 Social History Date Type Detail Facility Unknown if ever smoked [facility] Other Start: 03-16-2023 End: 05-29-2023 Sex Assigned At [facility] Start: 03-16-2023 End: 05-20-2023 Tobacco smoking status CAIS Never smoked tobacco [facility] Start: 03-16-2023 Tobacco use and exposure Smokeless tobacco non-user [facility] Start: 08-15-2023 End: 05-13-2024 Alcohol intake Current drinker of alcohol (finding) [facility] Start: 03-16-2023 End: 05-29-2023 History of Social function [facility] Start: 03-16-2023 Alcohol Comment Occasional alcohol use [facility] Start: 12-06-2022 [facility] Start: 2000 Sex Assigned At Female [facility] Start: 02-15-2023 Gender identity Identifies as female gender (finding) [facility] Start: 02-15-2023 Sexual orientation Heterosexual (finding) [facility] History of Present illness Narrative 05-13-2024 JANET Fernandez - 05/13/2024 3:00 PM EDT Note Date & Type Note Facility 05-13-2024 History of Presen t illness Narrative Reason for Appointment: Patient ID: Lucie Woodall is a 23 y.o. female who presents for Well Women Visit Patient presents today for Annual Exam. MEDICATIONS Current Outpatient Medications Medication Instructions cephalexin (KEFLEX) 500 mg, Oral, 3 times daily sertraline (ZOLOFT) 25 mg, Oral, Daily ALLERGIES No Known Allergies PROBLEMS Active Ambulatory Problems Diagnosis Date Noted Restless leg syndrome in 07/22/2023 Third trimester 07/22/2023 Resolved Ambulatory Problems Diagnosis Date Noted No Resolved Ambulatory Problems Past Medical History: Diagnosis Date Anxiety At low risk for fall BMI 25.0-25.9,adult Encounter for gynecological examination (general) (routine) without abnormal findings IUD complication ([facility]) HISTORY PAST MEDICAL HISTORY SOCIAL HISTORY Past Medical History: Diagnosis Date Anxiety At low risk for fall BMI 25.0-25.9,adult Encounter for gynecological examination (general) (routine) without abnormal findings IUD complication ([facility]) Social History Tobacco Use Smoking status: Never Smokeless tobacco: Never Substance Use Topics Alcohol use: Yes Comment: Occasional alcohol use Drug use: Never FAMILY HISTORY Family History Problem Relation Name Age of Onset Diabetes Father SURGICAL HISTORY History reviewed. No pertinent surgical history. REVIEW OF SYSTEMS Review of Systems: Review of Systems Constitutional: Negative. HENT: Negative. Eyes: Negative. Respiratory: Negative. Cardiovascular: Negative. Gastrointestinal: Negative. Genitourinary: Negative. Musculoskeletal: Negative. Skin: Negative. Neurological: Negative. All other systems reviewed and are negative. Hematological: Negative. Endocrine: Negative. Allergic/Immunologic: Negative. OBJECTIVE Objective: Physical Exam Constitutional: Appearance: Normal appearance. Genitourinary: Right Adnexa: not tender and no mass present. Left Adnexa: not tender and no mass present. No cervical discharge. Breasts: Breasts are soft. Right: Normal. Left: Normal. HENT: Head: Normocephalic. Nose: Nose normal. Mouth/Throat: Mouth: Mucous membranes are moist. Cardiovascular: Rate and Rhythm: Normal rate. Pulmonary: Effort: Pulmonary effort is normal. Abdominal: General: Bowel sounds are normal. Palpations: Abdomen is soft. Musculoskeletal: General: Normal range of motion. Cervical back: Normal range of motion. Neurological: General: No focal deficit present. Mental Status: She is alert. Skin: General: Skin is warm and dry. Psychiatric: Mood and Affect: Mood normal. Vitals and nursing note reviewed. Exam conducted with a director equipment present. Vitals: Estimated body mass index is 26.29 kg/m as calculated from the following: Height as of this encounter: 5' 5 . Weight as of this encounter: 158 lb. BP: 112/70 No LMP recorded. ASSESSMENT & PLAN ICD-10-CM 1. Well woman exam with routine gynecological exam Z01.419 Pap Smear 2. Folliculitis L73.9 cephalexin (Keflex) 500 MG capsule Annual Exam: Patient presents today for an annual exam. Patient states she is doing well and has no complaints. Pap was obtained without difficulty. No orders of the defined types were placed in this encounter. Follow Up: Patient is to return in one year for annual unless needed otherwise. Documented by Pamela Fritz on behalf of: JANET Fernandez documented in this encounter [facility] History of Present illness Narrative 08-15-2023 [...] (general) (routine) without abnormal findings IUD complication ([facility]) Family History Problem Relation Name Age [...] nursing note reviewed. Exam conducted with a director equipment present. Vitals: Estimated body mass index is [...] on 08/22/2023 @0001. Called [facility] and spoke with Michelle and patient [...] Notes Oct, Lumbar pain (ICD-10 - M54.50) [facility] Other Evaluation note 10-15-2022 Note Date & Type Note Facility 10-15-2022 Evaluation note Encounter Date Diagnosis Assessment Notes Oct, Wellness examination (ICD-10 - Z00.00) due for labs Oct, Lumbar pain (ICD-10 - M54.50) Pt states she went to chiropractor , had PT and xray through [facility]. She now wants me to address this as she is not improving and an MRI was not covered. She will contact their office and have them send us PT reports and xray so we can try to get the MRI. Pt needs this addressed as she is in the and is running a half marathon later this month. [facility] Other Evaluation note Note Date & Type Note Facility Evaluation note No Information [facility] Other Evaluation note Note Date & Type Note Facility Evaluation note No assessment information availa [facility] Work Phone: Evaluation note Note Date & Type Note Facility Evaluation note Diagnosis Third trimester state, incidental documented in this encounter [facility] Evaluation note Note Date & Type Note Facility Evaluation note Diagnosis Onset Date Anxiety acute Left hip flexor tightness [place] Left hip flexor tightness [place] Left hip pain acute Greater trochanteric pain sy ndrome of left lower extremity acute Iliotibial band tendinitis of left side [facility] Work Phone: Evaluation note Note Date & Type Note Facility Evaluation note Diagnosis Well woman exam with routine gynecological exam Routine gynecological examination Folliculitis Other specified disease of hair and hair follicles documented in this encounter [facility] History general Narrative - Reported Note Date & Type Note Facility History general Narrative - Reported Type Medical History Bronchitis Medical History Vaginitis Medical History Acute UTI Medical History Dysuria Hospitalization History l2019 for a blood count being done. [facility] Other Reason for Referral Reason *FU 11/19 Xray and last OV note. thank you Diagnosis 1 Lumbar pain (M54.50) Referral Organization [facility] Referring Provider First Name Lexis Referring Provider Last Name Marcos Referring Provider Specialty Family Medi cine Referred Organization [facility] Referred Provider Juan Miguel Referred Address [address] [place], [place],[address] Referred Provider Specialty Pain Medicin e Referral Priority Routine General Notes Jessie Ashraf 04:25:04 PM >received today, attachments made, referral faxed Clinical Notes F: [id number] Summary Purpose Family History Relationship Condition Age at Onset Recorded Date/T blossom father Diabetes mellitus Unknown Advance Directives Advance Directive Response Recorded Date/ [...] section and content) Reason Comments Routine Visit Reason Comments Well Women Visit INFORMATION SOURCE (unrecogn ized section and content) DATE CREATED AUTHOR 11/15/2022 [facility] DATE CREATED AUTHOR AUTHOR'S ORGANIZ ATION 05/15/2024 [facility] EPIC DATE CREATED AUTHOR AUTHOR'S ORGANIZ ATION 05/16/2024 [facility] Care Teams (unrecognized sec tion and content) Team Status: Active Member Role Status Dates Lexis Rodríguez MD Primary Care Provider Active Team Status: Inactive Member Role Status Dates Lexis Rodríguez MD Primary Care Provider, Attending Last castellanos Active Finisher Plate Relationship Specialty Start Date End Date Lexis Rodríguez MD [address] [place] [address] PCP - General Family Medicine 02/22/23 Finisher Plate Relationship Specialty Start Date End Date Lexis Rodríguez MD [address] [place] [address] PCP - [facility] 02/22/23 Team Status: Inactive Member Role Status [...] May 05, 2024 End: May 05, 2024 Finisher Plate Relationship Specialty Start Date End Date Lexis Rodríguez MD [address] [place] [address] PCP - [facility] 02/22/23 Mariam Torres PA [address] [place] [address] [place] [address] PCP - [facility] 01/13/24 Finisher Plate Relationship Specialty Start Date End Date Lexis Rodríguez MD [address] [place] [address] PCP - [facility] 02/22/23 Mariam Torres PA [address] [place] [address] [place] [address] PCP - [facility] 01/13/24 Goals (unrecognized section and content) Goals may [...] BE BASED ON THE PRIMARY CLINICAL RECORDS. [employer] [facility]. provides no warranty or guarantee of the accuracy or completeness of information in this document.
[2024-06-05 05:42] VITALS: BP 124/78; PULSE 99; TEMP 38.8; O2SAT 99; BMI 25.8
--- NOTE | 2024-06-05 05:56 | ED_ITS ---
HPI - URI/Sore Throat General Chief Complaint: Upper Respiratory Infection Stated Complaint: SORE THROAT Time Seen by Provider: 06/05/24 05:39 Source: patient Limitations: no limitations History of Present Illness HPI Narrative: 23-year-old female presents for cough and sore throat. She has been sick for a week. She had a fever at triage and has not had any medicine for fever today. No vomiting or diarrhea. Related Data Home Medications ?Medication ?Instructions ?Recorded ?Confirmed No Known Home Medications 06/05/24 06/05/24 Previous Rx's ?Medication ?Instructions ?Recorded jlbivqvimkqszrv-dnnwzmkivtzguff-VX 5 ml PO Q6H PRN cold symptoms #118 06/05/24 2 mg-30 mg-10 mg/5 mL oral syrup mL (Bromfed DM) Allergies Allergy/AdvReac Type Severity Reaction Status Date / Time No Known Drug Allergies Allergy Verified 06/05/24 05:42 Review of Systems 2 ROS Narrative A ten point review of systems is negative except as noted above. PFSH PFSH Social History Little interest or pleasure in doing things: not at all Feeling down, depressed, or hopeless: not at all Exam Narrative Exam Narrative: Nurses note and vital signs reviewed and patient is not hypoxic. General: The patient appears in no apparent distress. Patient is resting comfortably on cart. Skin: Warm, dry, no pallor noted. There is no rash noted. Head: Normocephalic, atraumatic Eye: Normal conjunctiva, no drainage Ears, Nose, Mouth, and Throat: oral mucosa is moist. Nares patent. No pharyngeal erythema or exudate. Cardiovascular: Regular Rate and Rhythm, not tachycardic Respiratory: Patient is in no distress, no accessory muscle use, lungs are clear to auscultation, no wheezing, rales or rhonchi Back: non-tender GI: Soft and nontender Musculoskeletal: No joint swelling Neurological: A&O, normal speech Psychiatric: Cooperative Constitutional Vital Signs, click to edit/add: Last Vital Signs Temp 101.9 F H 06/05/24 05:42 Pulse 101 H 06/05/24 06:00 Resp 19 06/05/24 06:00 BP 113/71 06/05/24 06:00 Pulse Ox 100 06/05/24 06:00 O2 Del Method Room Air 06/05/24 05:42 Course Vital Signs Vital signs: Vital Signs Temperature 101.9 F H 06/05/24 05:42 Pulse Rate 99 H 06/05/24 05:42 Respiratory Rate 19 06/05/24 05:42 Blood Pressure 124/78 06/05/24 05:42 Pulse Oximetry 99 06/05/24 05:42 Oxygen Delivery Method Room Air 06/05/24 05:42 Temperature 101.9 F H 06/05/24 05:42 Pulse Rate 101 H 06/05/24 06:00 Respiratory Rate 19 06/05/24 06:00 Blood Pressure 113/71 06/05/24 06:00 Pulse Oximetry 100 06/05/24 06:00 Oxygen Delivery Method Room Air 06/05/24 05:42 MDM - URI/Sore Throat MDM Narrative Medical decision making narrative: Strep, COVID, and influenza are negative. She was given Tylenol for her fever and is discharged home with a prescription for Bromfed. No antibiotic is indicated. Treatment diagnosis and follow-up were discussed with the patient. Differential Diagnosis Differential diagnosis: Likely upper respiratory infection, influenza, pharyngitis and other (COVID, strep, viral URI) Lab Data Attestation: I reviewed the patient's lab results. Labs: Lab Results 06/05/24 Range/Units 05:45 Influenza Type A Ag Negative Influenza Type B Ag Negative SARS-CoV-2 Ag (CV2AG) Negative (NEGATIVE) Streptococcus Screen Negative Discharge Plan Discharge Chief Complaint: Upper Respiratory Infection Clinical Impression: Upper respiratory infection Patient Disposition: Home, Self-Care Time of Disposition Decision: 06:13 Condition: Good Mode of Transportation: Private Vehicle Prescriptions / Home Meds: New znrzhgekxpawwxu-qesgovuqq-OA [Bromfed DM] 2-30-10 mg/5 mL syrup 5 ml PO Q6H PRN (Reason: cold symptoms) Qty: 118 0RF No Action No Known Home Medications Print Language: Marshallese Referrals: Lexis Evans MD [Primary Care Provider] - 1 week
[2024-06-05 05:57] LABS: Internal Control Within Normal Limits; Strep A Antigen Screen Negative
[2024-06-05] MEDS: ACETAMINOPHEN 325 MG TABLET 650 MG PO (05:58)
[2024-06-05 06:00] VITALS: BP 113/71; PULSE 101; O2SAT 100
[2024-06-05 06:03] LABS: Influenza Virus A Antigen Negative; Influenza Virus B Antigen Negative; Internal Control Within Normal Limits; SARS-CoV-2 Ag NEGATIVE (NEGATIVE)
--- NOTE | 2024-06-05 06:20 | PC.NURSE ---
i gave verbal and paper discharge orders along with 1 e-script to this patient and she voices yes to understanding these. at time of discharge this patient voices no concerns and shows no signs of distress
== END 2024-06-05 06:22 | disposition home or self-care (01) ==
PROVIDERS: Emergency Provider Emergency Medicine; PCP Family Medicine
DX: J06.9 Acute upper respiratory infection, unspecified (principal); R50.9 Fever, unspecified
CPT/HCPCS: 87070; 87804; 87811; 87880; 99283

== ENCOUNTER 2024-12-30 18:01 | Emergency (ER) | payer OTHER, SELFPAY ==
--- OUTSIDE RECORDS SUMMARY | 2024-12-23 12:00 | XMS_ITS ---
Author Organization [facility] Address [address] [place] [address] Care Team Providers Care Ship Keeper Name Role Phone Angi Hunt Primary Care Provider Ashley Gold [phone] REASON FOR VISIT BH F/U Encounters Encounter Location Date Provider Diagnosis [facility] [address] [place] [address] 12/23/2024 Ashley Gold Depressive episode F32.9 Assessments Encounter Date Diagnosis (ICD Code) Assessment Notes Treatment Notes Treatment Clinical Notes Section Notes 12/23/2024 Depressive episode (ICD-10 - F32.9) Plan Of Treatment Next Appt Details Follow Up: 2 Weeks, Reason: Provider Name:Ashley wu, 01/05/2025 02:00:00 PM, [address] [place], [address], Provider Name:Ashley wu, 01/21/2025 04:00:00 PM, [address] [place], [address], Progress Notes * ROSALIE MCLAUGHLINDOB: [birth year] (24 yo F)Acc No.[id number]:12/23/2024 F/U - Patient Patient: ROSALIE STERLING Provider: Zayda Gold :2000 A ge:24 Y S ex:Female Date:12/23/2024 Address:[address] [place], [place] [address] Pcp:Angi Hunt Subjective: * Chief Complaints: * 1 . BH F/U. Objective: Therapeutic Interventions: Assessment: * Assessment: 1. D epressive episode - F32.9 (Primary) Plan: * Procedure Codes: 9 0834 PSYTX EST PT&/FAMILY 45 MIN (38-52) * Follow Up: 2 Weeks * Images: Care Plan Details* Problem B H F/U Progress Note Present At Appointment: P atient Session Type: F juana to Face Start Time/End Time: S tart: 4:06End: 4:53p Mental Status Examination Orientation: O riented x 4 Mood: D epressed;Anxious Affect: A ppropriate Insight/Judgment: F air Thought Process: C ircumstantial Speech: N ormal Intervention Risk Assessment: P T denies all areas of risk. No contrary indications present. Therapy Modality: c ognitive behavioral Interventions: a ssess safety risks;cognitive challenging;cognitive refocusing;cognitive reframing;encourage expression of needs;exploration of coping skills;emotion regulation;healthy boundaries;increase awareness of warning signs to triggers;identify unmet emotional needs;reflective listening;supportive reflection;process trauma/significant life eventsComments :HYDRO OPERATOR offered supportive listening and validation of patients feelings. HYDRO OPERATOR provided feedback as needed. HYDRO OPERATOR worked with patient on processing her feelings, worked with reframing and redirection. HYDRO OPERATOR encouraged pt to explore self care and the importance of it. HYDRO OPERATOR discussed the break up and moving forward. Patient to continue to work her coping skills. Response to Intervention: P atrei reports a lot has been going on and that it has been almost a year since the ending of the relationship and the emotions of how that felt when she found out that her partner was cheating. Patient reports trial for custody of her youngest with her ex is coming up and this has created increased anxiety. 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 Progress: l ow * Sign off status: Completed true * Provider: Zayda Gold Date: 0 12/23/2024 Generated for Yael browne/Kai/Kim on: 0 12/30/2024 06:15 PM EDT
--- OUTSIDE RECORDS SUMMARY | 2024-12-29 10:10 | XMS_ITS | Encounter Summary ---
Author Organization [facility] Address [address] [place] [address] Care Team Providers Care Color Stripper Name Role Phone Lexis Evans MD Primary Care Provider [phone] Reason for Visit * Reason Comments Contraception Pt present today to discuss b/c. Encounter Details Date Type Department Care Team (Late Contact Info) Description 12/29/2024 10:10 AM EDT Office Visit [facility] [address] [place] [address] Evens Roland, DO [address] [facility] [place] [address] control counseling Social History Tobacco Use Types Packs/Day Years Used Date Smoking Tobacco: Never Smokeless Tobacco: Never Alcohol Use Standard Drinks/Week Comments Yes 0 (1 standard drink = 0.6 oz pur e alcohol) Occasional alcohol use Comments Unknown Sex and Gender Information Value Date Recorded Sex Assigned at Female 02/15/2023 8:43 AM EDT Legal Sex Female 7:35 PM EDT Gender Identity Female 02/15/2023 8:43 AM EDT Sexual Orientation Straight 02/15/2023 8: 43 AM EDT documented as of this encounter Last Filed Vital Signs Vital Sign Reading Time Taken Comments Blood Pressure 110/72 12/29/2024 10:49 AM EDT Pulse - - Temperature - - Respiratory Rate - - Oxygen Saturation - - Inhaled Oxygen Concentration - - Weight 83.5 kg (184 lb) 12/29/2024 10:49 AM EDT Height - - Body Mass Index 30.62 05/13/2024 3:25 PM EDT documented in this encounter Progress Notes * Jessi Wilks, ACID CONDITIONING WORKER - 12/29/2024 10:10 AM EDT Reason for Appointment: Patient ID: Lucie Woodall is a 24 y.o. female who presents for Contraception (Pt present todayto discuss b/c.) Patient presents today for Acute Visit. MEDICATIONS Current Outpatient Medications Medication Instructions sertraline (ZOLOFT) 25 mg, Oral, Daily ALLERGIES No Known Allergies PROBLEMS Active Ambulatory Problems Diagnosis Date Noted Restless leg syndrome in ([facility]) 07/22/2023 Third trimester ([facility]) 07/22/2023 Resolved Ambulatory Problems Diagnosis Date Noted No Resolved Ambulatory Problems Past Medical History: Diagnosis Date Anxiety At low risk for fall BMI 25.0-25.9,adult Encounter for gynecological examination (general) (routine) without abnormal findings IUD complication HISTORY PAST MEDICAL HISTORY SOCIAL HISTORY Past Medical History: Diagnosis Date Anxiety At low risk for fall BMI 25.0-25.9,adult Encounter for gynecological examination (general) (routine) without abnormal findings IUD complication Social History Tobacco Use Smoking status: Never [...] Objective: Physical Exam Constitutional: Appearance: Normal appearance. She is well-developed. Cardiovascular: Rate and Rhythm: Normal rate and [...] nursing note reviewed. Exam conducted with a security solutions architect present. Vitals: Estimated body mass index is 30.62 kg/m?? as calculated from the following: Height as of 05/13/24: 5' 5 . Weight as of this encounter: 184 lb. BP: 110/72 No LMP recorded (lmp unknown). ASSESSMENT & PLAN ICD-10-CM 1. control counseling Z30.09 POCT , urine manually resulted Pt presents for control counseling. Pt is taking sertraline for PPD, pt doing well with medication. Pt having family stressors currently. Discussed with pt in detail. Pt desires IUD for control. Pt to return for Kathy insertion. Documented by Jessi Wilks LPN on behalf of: Evens Roland DO documented in this encounter Plan of Treatment Upcoming Encounters Date Type Department Care Team (Late st Contact Info) Description 01/05/2025 8:20 AM EDT Procedure Visit [facility] OB [address] [facility] [place] [address] Evens Roland DO [address] [facility] [address] [place] [place], [place] [id number] documented as of this encounter Visit Diagnoses Diagnosis control counseling documented in this encounter Care Teams Color Stripper Relationship Specialty [place] [address] [place] [address] [place] [address] PCP - General Family Medicine 02/22/23 documented as of this encounter
--- OUTSIDE RECORDS SUMMARY | 2024-12-30 18:15 | XMS_ITS | Encounter Summary ---
Author Organization [facility] Address [address] [place] [address] Care Team Providers Care Manager Clinical Services Name Role Phone Lexis Evans MD Primary Care Provider [phone] Mariam Coburn Unavailable Encounter Details Date Type Department Care Team (Late st Contact Info) Description 03/21/2023 Clinisync Result Encounter [facility] External Department Unsolicited Ana Luisa Roland, DO [address] [employer] [address] [place], [place] [id number] Social History Tobacco Use Types Packs/Day Years Used Date Smoking Tobacco: Never Smokeless Tobacco: Never Alcohol Use Standard Drinks/Week Comments Yes 0 (1 standard drink = 0.6 oz pur e alcohol) Occasional alcohol use Comments Yes Sex and Gender Information Value Date Recorded Sex Assigned at Female 02/15/2023 8:43 AM EDT Legal Sex Female 7:35 PM EDT Gender Identity Female 02/15/2023 8:43 AM EDT Sexual Orientation Straight 02/15/2023 8: 43 AM EDT COVID-19 Exposure Response Date Recorded In the last 10 days, have yo u been in contact with someone who was confirmed or suspected to have Coronavirus/COVID-19? No / Unsure 03/14/2023 8:37 AM EDT documented as of this encounter Plan of Treatment Upcoming Encounters Date Type Department Care Team (Late st Contact Info) Description 01/05/2025 8:20 AM EDT Procedure Visit [facility] OB [address] [place] [address] Ana Luisa Roland, DO [address] [facility] [place] [address] documented as of this encounter Procedures Procedure Name Priority Date/Time Associated Diagnosis Comments OBCERVLEN 03/21/2023 11:23 AM EDT documented in this encounter Results * OBCERVLEN (03/21/2023 11:23 AM EDT) Anatomical Region Laterality Modality Other 03/21/2023 11:2 3 AM EDT Narrative 03/21/2023 11:23 AM EDT [address] [address] Ultrasound Report Signed Patient: ROSALIE WOODALL MR #: [id number] : 2000 Acct:[id number] Age/Sex: 22 / F ADM Date: 03/21/23 Loc: US Attending Dr: Ana Luisa Roland D.O. Ordering Physician: Ana Luisa Roland D.O. Date of Service: 03/21/23 Procedure(s): US OB cervical length Accession Number(s): [id number] cc: Lexis Evans M.D.; Ana Luisa Roland D.O. [address] [id number] Patient Name: ROSALIE WOODALL MRN: [facility]:[id number] date: 2000 Sex: F Assigned Patient Location: US Current Patient Location: US Accession/Order Number: [id number] Exam Date: 03/21/2023 10:38 Report Date: 03/21/2023 11:23 At the request of: ANA LUISA ROLAND Procedure: US OB cervical length EXAMINATION: US OB cervical length, US OB amniotic fluid vol HISTORY: VAGINAL BLEEDING AND DISCHARGE COMPARISON: No relevant comparison available. FINDINGS: lie: Transverse Amniotic fluid volume: 11.4 cm, largest fluid pocket: 4.1 cm Heart rate: 136 bpm The cervix measures a total of 4.6 cm in length. The closed portion measures 0.6 cm. There is dilatation of the endocervical canal measuring up to 2.7 cm. Placenta: Fundal/posterior. No intraplacental echogenic abnormality US/US OB cervical length IMPRESSION: Marked dilatation of the endocervical canal measuring up to 2.7 cm The total cervical length is 4.6 cm, the closed portion is only 0.6 cm Normal amniotic fluid volume Electronically authenticated by: KATARINA JIANG Date: 03/21/2023 11:23 Dictated By: Katarina Jiang M.D. Signed By: 03/21/23 1125 DD/ 1123 TD/TT: Asbestos Shingle Inspector: Procedure Note Radiology, Radiologist, MD - 04/05/2023 [place] [address] Ultrasound Report Signed Patient: ROSALIE WOODALLMR #: [id number] : 2000Acct:[id number] Age/Sex: 22 / FADM Date: 03/21/23 Loc: US Attending Dr: Ana Luisa Roland D.O. Ordering Physician: Ana Luisa Roland D.O. Date of Service: 03/21/23 Procedure(s): US OB cervical length Accession Number(s): [id number] cc: Lexis Evans M.D.; Ana Luisa Roland D.O. The [place] [address] Patient Name: ROSALIE WOODALL MRN: [facility]:[id number] date: 2000 Sex: F Assigned Patient Location: US Current Patient Location: US Accession/Order Number: [id number] Exam Date: 03/21/2023 10:38 Report Date: 03/21/2023 11:23 At the request of: ANA LUISA ROLAND Procedure: US OB cervical length EXAMINATION: US OB cervical length, US OB amniotic fluid vol HISTORY: VAGINAL BLEEDING AND DISCHARGE COMPARISON: No relevant comparison available. FINDINGS: lie: Transverse Amniotic fluid volume: 11.4 cm, largest fluid pocket: 4.1 cm Heart rate: 136 bpm The cervix measures a total of 4.6 cm in length. The closed portionmeasures 0.6 cm. There is dilatation of the endocervical canal measuring up to 2.7cm. Placenta: Fundal/posterior. No intraplacental echogenic abnormality US/US OB cervical length IMPRESSION: Marked dilatation of the endocervical canal measuring up to 2.7 cm The total cervical length is 4.6 cm, the closed portion is only 0.6 cm Normal amniotic fluid volume Electronically authenticated by: KATARINA JIANG Date: 03/21/2023 11:23 Dictated By: Katarina Jiang M.D. Signed By:03/21/23 1125 DD/ 1123 TD/TT: Asbestos Shingle Inspector: us Ana Luisa Asuncion DO [facility] Final Result documented in this encounter Visit Diagnoses Not on filedocumented in this encounter Care Teams Manager Clinical Services Relationship Specialty [place] [address] [place] [address] [place] [address] PCP - General Family Medicine 02/22/23 Mariam Coburn PA [address] [place] [address] [place] [address] PCP - [facility] 01/13/24 documented as of this encounter
--- OUTSIDE RECORDS SUMMARY | 2024-12-30 18:15 | XMS_ITS | Encounter Summary ---
Author Organization [facility] Address [address] [place] [address] Care Team Providers Care Ammunition Components Inspector Name Role Phone Lexis Evans MD Primary Care Provider [phone] Mariam Coburn Unavailable Encounter Details Date Type Department Care Team (Late st Contact Info) Description 03/21/2023 Clinisync Result Encounter [facility] External Department Unsolicited Ana Luisa Roland, DO [address] [place], [place] [id number] Social History Tobacco Use Types Packs/Day Years [...] Visit [facility] OB [address] [place] [address] Ana Luisa Roland, DO [address] [facility] [place] [address] documented as of this encounter Procedures Procedure Name Priority Date/Time Associated Diagnosis Comments OBAFI 03/21/2023 11:23 AM EDT documented in this encounter Results * OBAFI (03/21/2023 11:23 AM EDT) Anatomical Region Laterality Modality Other 03/21/2023 11:2 3 AM EDT Narrative 03/21/2023 11:23 AM EDT [address] [address] Ultrasound Report Signed Patient: ROSALIE WOODALL MR #: [id number] : 2000 Acct:[id number] Age/Sex: 22 / F ADM Date: 03/21/23 Loc: US Attending Dr: Ana Luisa Roland D.O. Ordering Physician: Ana Luisa Roland D.O. Date of Service: 03/21/23 Procedure(s): US OB amniotic fluid vol Accession Number(s): [id number] cc: Lexis Evans M.D.; Ana Luisa Roland D.O. [address] [id number] Patient Name: ROSALIE WOODALL MRN: [facility]:[id number] date: 2000 Sex: F Assigned Patient Location: US Current Patient Location: US Accession/Order Number: [id number] Exam Date: 03/21/2023 10:38 Report Date: 03/21/2023 11:23 At the request of: ANA LUISA ROLAND Procedure: US OB amniotic fluid vol EXAMINATION: US OB cervical length, US OB [...] Fundal/posterior. No intraplacental echogenic abnormality US/US OB amniotic fluid vol IMPRESSION: Marked dilatation of the endocervical canal measuring up to 2.7 cm The total cervical length is 4.6 cm, the closed portion is only 0.6 cm Normal amniotic fluid volume Electronically authenticated by: KATARINA JIANG Date: 03/21/2023 11:23 Dictated By: Katarina Jiang M.D. Signed By: 03/21/23 1125 DD/ 1123 TD/TT: Police Sergeant: Procedure Note Radiology, Radiologist, - 04/05/2023 [place] [address] Ultrasound Report Signed Patient: ROSALIE WOODALLMR #: [id number] : 2000Acct:[id number] Age/Sex: 22 / FADM Date: 03/21/23 Loc: US Attending Dr: Ana Luisa Roland D.O. Ordering Physician: Ana Luisa Roland D.O. Date of Service: 03/21/23 Procedure(s): US OB amniotic fluid vol Accession Number(s): [id number] cc: Lexis Evans M.D.; Ana Luisa Roland D.O. The [place] [address] Patient Name: ROSALIE WOODALL MRN: [facility]:[id number] date: 2000 Sex: F Assigned Patient Location: US Current Patient Location: US Accession/Order Number: [id number] Exam Date: 03/21/2023 10:38 Report Date: 03/21/2023 11:23 At the request of: ANA LUISA ROLAND Procedure: US OB amniotic fluid vol EXAMINATION: US OB cervical length, US OB [...] Fundal/posterior. No intraplacental echogenic abnormality US/US OB amniotic fluid vol IMPRESSION: Marked dilatation of the endocervical canal measuring up to 2.7 cm The total cervical length is 4.6 cm, the closed portion is only 0.6 cm Normal amniotic fluid volume Electronically authenticated by: KATARINA JIANG Date: 03/21/2023 11:23 Dictated By: Katarina Jiang M.D. Signed By:03/21/23 1125 DD/ 1123 TD/TT: Police Sergeant: us Ana Luisa Asuncion DO [facility] Final Result documented in this encounter Visit Diagnoses Not on filedocumented in this encounter Care Teams Ammunition Components Inspector Relationship Specialty [place] [address] [place] [address] [place] [address] PCP - General Family Medicine 02/22/23 Mariam Coburn PA [address] [place] [address] [place] [address] PCP - [facility] 01/13/24 documented as of this encounter
--- OUTSIDE RECORDS SUMMARY | 2024-12-30 18:15 | XMS_ITS | Clinical Summary ---
Author Organization [email or web address] [facility] tem Address [id number] [address] [place] [address] Care Team Providers Care Chair Maker Name Role Phone Lexis Evans MD Primary Care Provider [phone] Allergies No known active allergies Medications No known medications Active Problems No known active problems Social History Tobacco Use Types Packs/Day Years Used Date Smoking Tobacco: Never Smokeless Tobacco: Never Alcohol Use Standard Drinks/Week Comments No 0 (1 standard drink = 0.6 oz pur e alcohol) AUDIT-C Answer Date Recorded Frequency of Alcohol Consumption Never 10/11/2018 Average Number of Drinks Not on file 019 Frequency of Binge Drinking Not on file 09/14 Childcare Answer Date Recorded Childcare Unknown 12/24/2018 Employment Answer Date Recorded Employment Unknown 12/24/2018 Purpose - Life Answer Date Recorded Purpose and direction in life Unknown Comments No Sex and Gender Information Value Date Recorded Sex Assigned at Not on file Legal Sex Female 11:55 AM EDT Gender Identity Not on file Sexual Orientation Not on file Last Filed Vital Signs Vital Sign Reading Time Taken Comments Blood Pressure 121/89 10/11/2018 2:53 PM EDT Pulse 99 10/11/2018 2:53 PM EDT Temperature 36.9 C (98.5 F) 10/11/2018 2:53 PM EDT Respiratory Rate 18 10/11/2018 2:53 PM EDT Oxygen Saturation 97% 10/11/2018 2:53 PM EDT Inhaled Oxygen Concentration - - Weight 69.6 kg (153 lb 6.4 oz) 10/11/2018 2:53 P M EDT Height 165.1 cm (5' 5 ) 10/11/2018 2:53 PM EDT Body Mass Index 25.53 10/11/2018 2:53 PM EDT Plan of Treatment Not on file Medical Devices Not on file Insurance [employer] Care Teams Chair Maker Relationship Specialty Start Date End Date Lexis Evans MD [address] [place], [place] [id number] PCP - General 10/11/18
--- OUTSIDE RECORDS SUMMARY | 2024-12-30 18:15 | XMS_ITS | Encounter Summary ---
Author Organization [facility] Address [address] [facility] [place] [address] Care Team Providers Care General Foundry Worker Name Role Phone Lexis Evans MD Primary Care Provider [phone] Mariam Coburn Unavailable Encounter Details Date Type Department Care Team (Late st Contact Info) Description 01/02/2023 Abstract [facility] BCP OB [address] [facility] [address] Evens Roland DO [address] [place], [place] [address] Social History Tobacco Use Types Packs/Day Years Used Date Smoking Tobacco: Never Assessed Comments Unknown Sex and Gender Information Value [...] 01/05/2025 8:20 AM EDT Procedure Visit [facility] OB [address] [facility] [place] [address] Evens Roland DO [address] [place], [place] [address] documented as of this encounter Visit Diagnoses Not on filedocumented in this encounter Care Teams General Foundry Worker Relationship Specialty Start Date End Date Lexis Evans MD [address] [facility] [place] [address] PCP - General Family Medicine 02/22/23 Mariam Coburn PA [address] [place] [address] [place] [address] PCP - [facility] 01/13/24 documented as of this encounter
--- OUTSIDE RECORDS SUMMARY | 2024-12-30 18:15 | XMS_ITS | Encounter Summary ---
Author Organization [facility] Address [address] [facility] [place] [address] Care Team Providers Care Electronic Warfare Officer Name Role Phone Lexis Evans MD Primary Care Provider [phone] Encounter Details Date Type Department Care Team (Latest Contact Info) Description 12/30/2024 Travel Social History Tobacco Use Types Packs/Day Years [...] Procedure Visit [facility] BCP OB [address] [place] [address] Evens Roland, DO [address] [place] [address] documented as of this encounter Visit Diagnoses Not on filedocumented in this encounter Care Teams Electronic Warfare Officer Relationship Specialty Start Date End Date Lexis Evans MD [address] [facility] [place] [address] PCP - General Family Medicine 02/22/23 documented as of this encounter
--- OUTSIDE RECORDS SUMMARY | 2024-12-30 18:15 | XMS_ITS | Encounter Summary ---
Author Organization [facility] Address [address] [place] [address] Care Team Providers Care Criminal Intelligence Specialist Name Role Phone Lexis Evans MD Primary Care Provider [phone] Mariam Coburn Unavailable Encounter Details Date Type Department Care Team (Late st Contact Info) Description 12/23/2023 Clinisync Result Encounter [facility] External Department Unsolicited Ana Luisa Roland DO [address] [place] [address] Social History Tobacco Use Types Packs/Day Years Used Date Smoking Tobacco: Never Smokeless Tobacco: Never Alcohol Use Standard Drinks/Week Comments Yes 0 (1 standard drink = 0.6 oz pur e alcohol) Occasional alcohol use Comments No Sex and Gender Information Value [...] EDT Procedure Visit [facility] BCP OB [address] [place] [address] Ana Luisa Roland DO [address] [place] [address] documented as of this encounter Procedures Procedure Name Priority Date/Time Associated Diagnosis Comments US PELVIS TRANSVAGINAL 12/23/2023 1:31 PM EDT documented in this encounter Results * US PELVIS TRANSVAGINAL (12/23/2023 1:31 PM EDT) Anatomical Region Laterality Modality Other 12/23/2023 1:31 PM EDT Narrative 12/23/2023 1:34 [place] [address] Ultrasound Report Signed Patient: ROSALIE WOODALL MR#: [id number] : 2000 Acct:[id number] Age/Sex: 23 / F ADM Date: 12/23/23 Loc: [facility] Attending Dr: An aLuisa Roland D.O. Ordering Physician: Ana Luisa Roland D.O. Date of Service: 12/23/23 Procedure(s): US pelvis transvaginal Accession Number(s): [id number] cc: Lexis Evans M.D.; Ana Luisa Roland D.O. [place] [id number] Patient Name: ROSALIE WOODALL MRN: [id number]:[id number] date: 2000 Sex: F Assigned Patient Location: [facility] Current Patient Location: [facility] Accession/Order Number: [id number] Exam Date: 12/23/2023 11:00 Report Date: 12/23/2023 13:31 At the request of: ANA LUISA ROLAND Procedure: US pelvis transvaginal EXAMINATION: US pelvis transvaginal HISTORY: PELVIC PAIN, IUD PLACEMENT COMPARISON: No relevant comparison available. FINDINGS: The uterus is anteverted, retroflexed. The uterus is normal in size, contour and echotexture measuring 9.9 x 4.4 x 6.2 cm. Endometrium measures 6 mm. Linear hyperechogenicity within the endometrial cavity consistent with a normally positioned IUD The right ovary measures 2.9 x 1.7 x 3.3 cm. Normal color and Doppler flow. Left ovary measures 2.9 x 1.2 x 2.2 cm. Normal color and Doppler flow. No free fluid The patient did have tenderness in the region of the left ovary with ultrasound scanning US/US pelvis transvaginal IMPRESSION: Normally positioned IUD Left adnexal pain with ultrasound scanning Electronically authenticated by: KATARINA JIANG Date: 12/23/2023 13:31 Dictated By: Katarina Jiang M.D. Signed By: 12/23/23 1334 DD/ 133 TD/TT: Clothing Sorter: Procedure Note Radiology, Radiologist, MD - 12/23/2023 [place] [address] Ultrasound Report Signed Patient: ROSALIE WOODALL CMR#: [id number] : 2000Acct:[id number] Age/Sex: 23 / FADM Date: 12/23/23 Loc: [facility] Attending Dr: Ana Luisa Roland D.O. Ordering Physician: Ana Luisa Roland D.O. Date of Service: 12/23/23 Procedure(s): US pelvis transvaginal Accession Number(s): [id number] cc: Lexis Evans M.D.; Ana Luisa Roland D.O. The [address] [address] Patient Name: ROSALIE WOODALL MRN: [id number] date: 2000 Sex: F Assigned Patient Location: [facility] Current Patient Location: [facility] Accession/Order Number: [id number] Exam Date: 12/23/2023 11:00 Report Date: 12/23/2023 13:31 At the request of: ANA LUISA ROLAND Procedure: US pelvis transvaginal EXAMINATION: US pelvis transvaginal HISTORY: PELVIC PAIN, IUD PLACEMENT COMPARISON: No relevant comparison available. FINDINGS: The uterus is anteverted, retroflexed. The uterus is normal in size,contour and echotexture measuring 9.9 x 4.4 x 6.2 cm. Endometrium measures 6 mm. Linear hyperechogenicity within the endometrial cavity consistent with a normally positioned IUD The right ovary measures 2.9 x 1.7 x 3.3 cm. Normal color and Dopplerflow. Left ovary measures 2.9 x 1.2 x 2.2 cm. Normal color and Doppler flow. No free fluid The patient did have tenderness in the region of the left ovary with ultrasound scanning US/US pelvis transvaginal IMPRESSION: Normally positioned IUD Left adnexal pain with ultrasound scanning Electronically authenticated by: KATARINA JIANG Date: 12/23/2023 13:31 Dictated By: Katarina Jiang M.D. Signed By:12/23/23 1334 DD/ 1331 TD/TT: Clothing Sorter: us Ana Luisa Asuncion DO [facility] Final Result documented in this encounter Visit Diagnoses Not on filedocumented in this encounter Care Teams Criminal Intelligence Specialist Relationship Specialty Start Date End Date Lexis Evans MD [address] [place] [address] [place] [address] PCP - General Family Medicine 02/22/23 Mariam Coburn PA [address] [place] [address] [place] [address] PCP - [facility] 01/13/24 documented as of this encounter
--- OUTSIDE RECORDS SUMMARY | 2024-12-30 18:15 | XMS_ITS | Clinical Summary ---
Author Organization [facility] Healthcare Address [address] [place] [address] Care Team Providers Care Distribution Center Associate Name Role Phone Lexis Evans MD Primary Care Provider [phone] Allergies No known active allergies Medications sertraline (Zoloft) 25 MG tablet Take 25 mg by mouth Daily 01/15/2024 Active Active Problems Problem Noted Date Diagnosed Date Restless leg syndrome in ([facility]) 02/2024 Third trimester ([facility]) 07/22/2023 Encounters Date Type Department Care Team Description 12/30/2024 Travel 12/29/2024 10:10 AM EDT Office Visit [facility] [address] [facility] [place] [address] Evens Roland DO control counseling 12/29/2024 Bamboo flowsheet [facility] [address] [place] [address] Evens Roland DO from Last 3 Months Family History Medical History Relation Name Comments Diabetes Father Relation Name Status Comments Daughter 1 Alive Daughter 2 Alive Father Social History Tobacco Use Types Packs/Day Years Used Date Smoking Tobacco: Never Smokeless Tobacco: Never Tobacco Cessation:Counseling Given: Not Answered Alcohol Use Standard Drinks/Week Comments Yes 0 (1 standard drink = 0.6 oz pur e alcohol) Occasional alcohol use Comments Unknown Sex and Gender Information Value Date Recorded Sex Assigned at Female 02/15/2023 8:43 AM EDT Legal Sex Female 7:35 PM EDT Gender Identity Female 02/15/2023 8:43 AM EDT Sexual Orientation Straight 02/15/2023 8: 43 AM EDT Last Filed Vital Signs Vital Sign Reading Time Taken Comments Blood Pressure 110/72 12/29/2024 10:49 AM EDT Pulse - - Temperature - - Respiratory Rate - - Oxygen Saturation - - Inhaled Oxygen Concentration - - Weight 83.5 kg (184 lb) 12/29/2024 10:49 AM EDT Height 165.1 cm (5' 5 ) 05/13/2024 3:25 PM EDT Body Mass Index 30.62 05/13/2024 3:25 PM EDT Plan of Treatment Upcoming Encounters Date Type Department Care Team (Late st Contact Info) Description 01/05/2025 8:20 AM EDT Procedure Visit [facility] [address] [facility] [place] [address] Evens Roland, DO [address] [facility] [address] [place], [place] [id number] Health Maintenance Due Date Last Done Comments Influenza Vaccine (Season Ended) 2025 05/10/2022, 05/14/2021, 04/03/2020, Additional history exists Insurance [employer] Member Subscriber Plan / Payer (Ef fective 2019-Present) Name:Lucie Woodall Relation to Subscriber:Self Name:Lucie Woodall Payer ID:Not on file Group ID:Not on file Type:Not on file Address: [address] [address] [facility] Care Teams Distribution Center Associate Relationship Specialty Start Date End Date Lexis Evans MD [address] [place] [address] PCP - General Family Medicine 02/22/23
--- OUTSIDE RECORDS SUMMARY | 2024-12-30 18:15 | XMS_ITS | Encounter Summary ---
Author Organization [facility] Address [address] [place] [address] Care Team Providers Care Metalsmith Apprentice Name Role Phone Lexis Evans MD Primary Care Provider [phone] Mariam Coburn Unavailable Encounter Details Date Type Department Care Team (Late st Contact Info) Description 04/24/2023 Abstract [facility] [address] [place] [phone] Mariam Coburn PA [address] [place], [facility] Social History Tobacco Use Types Packs/Day Years [...] suspected to have Coronavirus/COVID-19? No / Unsure 04/18/2023 9:44 PM EDT documented as of this encounter Plan of Treatment Upcoming Encounters Date Type Department Care Team (Late st Contact Info) Description 01/05/2025 8:20 AM EDT Procedure Visit [facility] [address] [place] [address] Evens Roland, [address] [facility] [place] [address] documented as of this encounter Visit Diagnoses Not on filedocumented in this encounter Care Teams Metalsmith Apprentice Relationship Specialty Start Date End Date Lexis Evans MD [address] [facility] [place] [address] PCP - General Family Medicine 02/22/23 Mariam Coburn PA [address] [facility] [place] [address] PCP - [facility] 01/13/24 documented as of this encounter
--- OUTSIDE RECORDS SUMMARY | 2024-12-30 18:15 | XMS_ITS | Patient Health Record ---
Author Organization [facility] es Address [address] [address] [place] [address] Care Team Providers Care Senior Abap Developer Name Role Phone Angi Hunt Primary Care Provider [phone] Rashaun Henderson Unavailable Ashley Gold Unavailable [phone] Reason For Referral No Information Problems Problem Type SNOMED Code ICD Code Onset Dates Problem Status W/U Status Risk Notes Problem Depressive episode (289087390) Depressive episode (F32.9) Active confirmed Encounters Encounter Location Date Provider Diagnosis [facility] [address] [place] [address] 05/22/2024 Rashaun Henderson Depressive episode F32.9 [facility] [address] [facility] [place] [address] 08/04/2024 Ashley Gold Depressive episode F32.9 [facility] [address] [facility] [place] [address] 09/01/2024 Ashley Gold Depressive episode F32.9 [facility] [address] [place] [address] 10/07/2024 Ashley Gold Depressive episode F32.9 [facility] [address] [place] [address] 10/27/2024 Ashley Gold Depressive episode F32.9 [facility] [address] [place] [address] 11/12/2024 Ashley Gold Depressive episode F32.9 [facility] [address] [facility] [place] [address] 12/01/2024 Ashley Gold Depressive episode F32.9 [facility] [address] [place] [address] 12/23/2024 Ashley Asif Depressive episode F32.9 [facility] [address] [address] 04/27/2024 Rashaun ayalaKyung [facility] [address] [place] [address] 06/24/2024 Rashaun Beatriz [facility] [address] [facility] [place] [place] [address] 06/24/2024 Ashley Kaurhelm Assessments Encounter Date Diagnosis (ICD Code) Assessment Notes Treatment Notes Treatment Clinical Notes Section Notes 05/22/2024 Depressive episode (ICD-10 - F32.9) 08/04/2024 Depressive episode (ICD-10 - F32.9) 09/01/2024 Depressive episode (ICD-10 - F32.9) 10/07/2024 Depressive episode (ICD-10 - F32.9) 10/27/2024 Depressive episode (ICD-10 - F32.9) 11/12/2024 Depressive episode (ICD-10 - F32.9) 12/01/2024 Depressive episode (ICD-10 - F32.9) 12/23/2024 Depressive episode (ICD-10 - F32.9) Plan Of Treatment Next Appt Details Provider Name:Ashley Festus Lissa wu, 01/05/2025 02:00:00 PM, [address] [place], [address], Provider Name:Ashley wu, 01/21/2025 04:00:00 PM, [address] [place] [address], [phone], Insurance Providers Payer Name Payer Address Payer Phone Subscriber Number Group Number Insured Name Patient Relationship to Insured Coverage Start Date Coverage End Date [employer] [place] [employer] [address] CLAIMS DE[place] [address] [id number] ROSALIE MCLAUGHLIN Self - patient is the insured [facility] [address] [place] [address] [id number] ROSALIE MCLAUGHLIN Self - patient is the insured 4
--- OUTSIDE RECORDS SUMMARY | 2024-12-30 18:15 | XMS_ITS | Encounter Summary ---
Author Organization [facility] Address [address] [place] [address] Care Team Providers Care Household Appliances Service Technician Name Role Phone Lexis Evans MD Primary Care Provider [phone] Encounter Details Date Type Department Care Team (Late Contact Info) Description 12/29/2024 Bamboo flowsheet [facility] [address] [place] [address] Evens Roland, [address] Agnieszka [place], [facility] Social History Tobacco Use Types Packs/Day Years [...] Encounters Date Type Department Care Team (Late Contact Info) Description 01/05/2025 8:20 AM EDT Procedure Visit [facility] OB [address] [place] [address] Evens Roland, DO [facility] [address] [place], [place] [phone] documented as of this encounter Visit Diagnoses Not on filedocumented in this encounter Care Teams Household Appliances Service Technician Relationship Specialty Start Date End Date Lexis Evans MD [facility] [place] [address] PCP - General Family Medicine 02/22/23 documented as of this encounter
--- OUTSIDE RECORDS SUMMARY | 2024-12-30 18:15 | XMS_ITS | Encounter Summary ---
Author Organization [facility] Address [address] [place] [address] Care Team Providers Care Workplace Trainer And Assessor Name Role Phone Lexis Evans MD Primary Care Provider [phone] Mariam Coburn Unavailable Encounter Details Date Type Department Care Team (Late st Contact Info) Description 05/09/2023 Clinisync Result Encounter [facility] External Department Unsolicited Ana Luisa Roland, DO [address] [place], [place] [id number] Social History Tobacco Use Types Packs/Day Years [...] [facility] [address] [place] [address] Ana Luisa Roland, DO [address] [facility] [place] [address] documented as of this encounter Procedures Procedure Name Priority Date/Time Associated Diagnosis Comments US OB CERVICAL LENGTH 05/09/2023 2:39 PM EDT documented in this encounter Results * US OB CERVICAL LENGTH (05/09/2023 2:39 PM EDT) Anatomical Region Laterality Modality Other 05/09/2023 2:39 PM EDT Narrative 05/09/2023 2:39 PM EDT [address] [address] Ultrasound Report Signed Patient: ROSALIE WOODALL MR#: [id number] : 2000 Acct:[id number] Age/Sex: 22 / F ADM Date: Loc: [facility] [address]: Ana Luisa Roland D.O. Ordering Physician: Ana Luisa Roland D.O. Date of Service: 05/09/23 Procedure(s): US OB cervical length Accession Number(s): [id number] cc: Lexis Evans M.D.; Ana Luisa Roland D.O. [address] [address] Patient Name: ROSALIE WOODALL MRN: [id number] date: 2000 Sex: F Assigned Patient Location: [facility] Current Patient Location: Accession/Order Number: [id number] Exam Date: 05/09/2023 13:15 Report Date: 05/09/2023 14:39 At the request of: ANA LUISA ROLAND Procedure: US OB cervical length EXAMINATION: US OB placenta, US OB cervical length HISTORY: vaginal bleeding COMPARISON: Ultrasound amniotic fluid volume and cervical length 03/21/2023 FINDINGS: PLACENTA: Posterior fundal with lower margin 5.0 cm from internal os. No abruption or subchorionic hematoma. CERVIX LENGTH: 4.5 cm; closed. HEART RATE: 152 bpm OTHER: None. GA: 24 weeks 0 days GENO: 08/29/2023 US/US OB cervical length IMPRESSION: 1. Single live intrauterine . 2. Posterior/fundal placenta without previa. No subchorionic hematoma or abruption. 3. Closed cervix 4.5 cm in length. Electronically authenticated by: PK BOX Date: 05/09/2023 14:39 Dictated By: Pk Box M.D. Signed By: 05/09/23 1441 DD/ 1439 TD/TT: Performance Test Engineer: Procedure Note Radiology, Radiologist, MD - 05/09/2023 [place] [address] Ultrasound Report Signed Patient: ROSALIE WOODALLMR#: [id number] : 2000Acct:[id number] Age/Sex: M Date: Loc: [place] [address]: Ana Luisa Roland D.O. Ordering Physician: Ana Luisa Roland D.O. Date of Service: 05/09/23 Procedure(s): US OB cervical length Accession Number(s): [id number] cc: Lexis Evans M.D.; Ana Luisa Roland D.O. The [place] [id number] Patient Name: ROSALIE WOODALL MRN: [id number] date: 2000 Sex: F Assigned Patient Location: [facility] Current Patient Location: Accession/Order Number: [id number] Exam Date: 05/09/2023 13:15 Report Date: 05/09/2023 14:39 At the request of: ANA LUISA ROLAND Procedure: US OB cervical length EXAMINATION: US OB placenta, US OB cervical length HISTORY: vaginal bleeding COMPARISON: Ultrasound amniotic fluid volume and cervical length 03/21/2023 FINDINGS: PLACENTA: Posterior fundal with lower margin 5.0 cm from internal os. No abruption or subchorionic hematoma. CERVIX LENGTH: 4.5 cm; closed. HEART RATE: 152 bpm OTHER: None. GA: 24 weeks 0 days GENO: 08/29/2023 US/US OB cervical length IMPRESSION: 1. Single live intrauterine . 2. Posterior/fundal placenta without previa. No subchorionic hematoma or abruption. 3. Closed cervix 4.5 cm in length. Electronically authenticated by: PK BOX Date: 05/09/2023 14:39 Dictated By: Pk Box M.D. Signed By:05/09/23 1441 DD/ 143 TD/TT: Performance Test Engineer: us Ana Luisa Asuncion DO [facility] Final Result documented in this encounter Visit Diagnoses Not on filedocumented in this encounter Care Teams Workplace Trainer And Assessor Relationship Specialty Start Date End Date Lexis Evans MD [address] [place] [address] [place] [address] PCP - General Family Medicine 02/22/23 Mariam Coburn PA [address] [place] [address] [place] [address] PCP - [facility] 01/13/24 documented as of this encounter
--- OUTSIDE RECORDS SUMMARY | 2024-12-30 18:15 | XMS_ITS | Encounter Summary ---
Author Organization [facility] Address [address] [place] [address] Care Team Providers Care Waist Presser Name Role Phone Lexis Evans MD Primary Care Provider [phone] Mariam Coburn Unavailable Encounter Details Date Type Department Care Team (Late Contact Info) Description [address] [facility] OB [address] [place] [address] Evens Roland DO [address] [place], [facility]11 Social History Tobacco Use Types Packs/Day Years [...] 01/05/2025 8:20 AM EDT Procedure Visit [facility] OB [address] [place] [address] Evens Roland, DO [address] [place], [facility]11 documented as of this encounter Visit Diagnoses Not on filedocumented in this encounter Care Teams Waist Presser Relationship Specialty Start Date End Date Lexis Evans MD [address] [facility] [place] [address] PCP - General Family Medicine 02/22/23 Mariam Cobunr PA [address] [place] [address] [place] [address] PCP - [facility] 01/13/24 documented as of this encounter
--- OUTSIDE RECORDS SUMMARY | 2024-12-30 18:15 | XMS_ITS | Encounter Summary ---
Author Organization [facility] Address [address] [place] [address] Care Team Providers Care Skilled Trades Teacher Name Role Phone Lexis Evans MD Primary Care Provider [phone] Encounter Details Date Type Department Care Team (Late Contact Info) Description 05/22/[address] [facility] OB [address] [facility] [place] [address] Alaina Lara LPN [address] [place] [id number] Social History Tobacco Use Types Packs/Day Years [...] EDT Procedure Visit [facility] [address] [facility] [place] [address] Evens Roland DO [address] [facility] [address] [place] [id number] documented as of this encounter Procedures Procedure Name Priority Date/Time Associated Diagnosis Comments PAP SMEAR Routine 05/13/2024 12:00 AM EDT documented in this encounter Results * Pap Smear (05/13/2024 12:00 AM EDT) Swab Cervical swab / Unknown Mariam [facility] ORDERABLES Final Re sult EXTERNAL LAB documented in this encounter Visit Diagnoses Not on filedocumented in this encounter Care Teams Skilled Trades Teacher Relationship Specialty Start Date End Date Lexis Evans MD [address] [place] [address] PCP - General Family Medicine 02/22/23 documented as of this encounter
--- OUTSIDE RECORDS SUMMARY | 2024-12-30 18:15 | XMS_ITS | Encounter Summary ---
Author Organization [facility] Address [address] [place] [address] Care Team Providers Care Civil Engineering Professor Name Role Phone Lexis Evans MD Primary Care Provider [phone] Mariam Coburn Unavailable Encounter Details Date Type Department Care Team (Late st Contact Info) Description 03/21/2023 Abstract [facility] [address] [place] [address] Glenys Ghotra LPN Social History Tobacco Use Types Packs/Day Years [...] Visit [facility] [address] [place] [address] Evens Roland DO [address] [place] [address] documented as of this encounter Visit Diagnoses Not on filedocumented in this encounter Care Teams Civil Engineering Professor Relationship Specialty Start Date End Date Lexis Evans MD [address] [facility] [place] [address] PCP - General Family Medicine 02/22/23 Mariam Coburn PA [address] [place] [address] PCP - [facility] 01/13/24 documented as of this encounter
[2024-12-30 18:18] VITALS: BP 127/66; PULSE 80; TEMP 37.2; O2SAT 99
--- NOTE | 2024-12-30 18:32 | CT_ITS ---
[address] [address] Patient Name: ROSALIE MCLAUGHLIN MRN: [id number] date: 2000 Sex: F Assigned Patient Location: ED.MAIN Current Patient Location: ED.MAIN Accession/Order Number: [id number] Exam Date: 12/30/2024 19:32 Report Date: 12/30/2024 19:48 At the request of: SAMAN TORRES Procedure: CT abdomen pelvis w con CT abdomen pelvis w con 12/30/2024 7:21 PM SIGNS AND SYMPTOMS: Right lower quadrant pain, nausea, bloody vaginal discharge TECHNIQUE: Multidetector ct axial images of the abdomen and pelvis were obtained with IV contrast. Multiplanar reformats were performed and reviewed to further define anatomy and possible pathology. CT was performed with one or more of the following dose reduction techniques: Automated exposure control, adjustment of the mA and/or kV according to patient size, or use of iterative reconstruction technique. COMPARISON: 09/18/2020 FINDINGS: Lower Chest: Within normal limits. ABDOMEN: Liver: Within normal limits. Bile Ducts: Normal caliber. Gallbladder: No calcified gallstones. Normal caliber wall. Pancreas: Within normal limits. Spleen: Within normal limits. Adrenals: Within normal limits. Kidneys: Within normal limits. Pelvis: Reproductive Organs: No pelvic masses. Ureters: Within normal limits. Bladder: Within normal limits. Bowel: Normal caliber. There is a normal appendix in the right lower quadrant Mesenteric Lymph Nodes: No enlarged mesenteric lymph nodes. Peritoneum: No ascites or free air, no fluid collection. Vessels: within normal limits Retroperitoneum: Within normal limits. Abdominal Wall: Within normal limits. Bones: Within normal limits. CT/CT abdomen pelvis w con IMPRESSION: No bowel obstruction or obstructive uropathy. No acute intra-abdominal pathology. There is a normal appendix in the right lower quadrant. Impression dictated by: Agusto Felder M.D. 12/30/2024 7:48 PM Dictation Location: [place] [address] Electronically authenticated by: [id number] Y Date: 12/30/2024 19:48
[2024-12-30 18:57] LABS: Basophils Percent Auto 0.5 % (0.2-2.0); Eosinophils Absolute Auto 0.1 10^3/uL (0.0-0.7); Eosinophils Percent Auto 1.6 % (0.9-7.0); Hematocrit 37.3 % (36.0-48.0); Hemoglobin 12.5 g/dL (12.0-16.0); Immature Granulocytes Abs Auto 0.02 10^3/uL (0.00-0.03); Immature Granulocytes Pct Auto 0.3 % (0.0-0.5); Lymphocytes Absolute Auto 2.3 10^3/uL (1.2-3.8); Mean Corpuscular HGB Conc 33.5 g/dL (29.9-35.2); Mean Corpuscular Hemoglobin 31.4 pg (26.7-34.0); Mean Corpuscular Volume 93.7 fL (81.0-99.0); Mean Platelet Volume 9.7 fL (9.5-13.5); Monocytes Absolute Auto 0.8 10^3/uL (0.3-0.8); Monocytes Percent Auto 10.2 % (1.7-12.0); Neutrophils Absolute Auto 4.4 10^3/uL (1.4-6.5); Neutrophils Percent Auto 57.4 % (43.0-75.0); Platelet Count 246 10^3/uL (150-450); Red Blood Count 3.98 10^6/uL (4.20-5.40); Red Cell Distribution Width 13.2 % (11.0-15.0); White Blood Count 7.7 10^3/uL (4.0-11.0)
[2024-12-30] MEDS: 0.9 % SODIUM CHLORIDE 1,000 ML 1000 ML IV (18:57)
[2024-12-30] MEDS: ONDANSETRON PF 4 MG/2 ML VIAL IV (18:58)
[2024-12-30 19:06] LABS: Bilirubin Urine NEGATIVE (NEGATIVE); Blood Urine TRACE-I (NEGATIVE); Clarity Urine CLEAR (CLEAR); Color Urine LT. YELLOW (YELLOW); Glucose Urine UA NEGATIVE (NEGATIVE); Ketones Urine NEGATIVE (NEGATIVE); Leukocyte Esterase Urine TRACE (NEGATIVE); Nitrite Urine NEGATIVE (NEGATIVE); Protein Urine NEGATIVE (NEG/TRACE); Specific Gravity Urine 1.015 (1.005-1.025); Urobilinogen Urine 0.2 EU/dL (0.2-1.0); pH Urine 6.5 (5.0-9.0)
[2024-12-30 19:08] LABS: HCG Qualitative Urine* NEGATIVE (NEGATIVE); Internal Control Within Normal Limits
[2024-12-30 19:21] LABS: Alanine Aminotransferase 37 U/L (14-59); Albumin Level 3.4 g/dL (3.4-5.0); Alkaline Phosphatase 82 U/L (46-116); Anion Gap 11.1; Aspartate Amino Transferase 39 U/L (15-37); BUN Creatinine Ratio 15.6; Bilirubin Total 0.3 mg/dL (0.2-1.0); Calcium 8.8 mg/dL (8.5-10.1); Carbon Dioxide 30.7 mmol/L (21.0-32.0); Chloride 104 mmol/L (98-107); Estimated GFR (African America >60 (>=60 mL/min/1.73m^2); Estimated GFR (Non-African Ame >60 (>=60 mL/min/1.73m^2); Globulin 3.4 g/dL; Glucose 76 mg/dL (74-106); Potassium 3.8 mmol/L (3.5-5.1); Sodium 142 mmol/L (136-145); Total Protein 6.8 g/dL (6.4-8.2)
--- NOTE | 2024-12-30 19:25 | ED_ITS ---
Documented by User: Mariam Coburn 12/30/24 20:12 HPI - Abdominal Pain General Chief Complaint: Abdominal Pain Stated Complaint: abdominal pain Time Seen by Provider: 12/30/24 18:19 Source: patient Mode of arrival: walk-in Limitations: no limitations History of Present Illness HPI narrative: 24-year-old female presents here with chief complaint of right lower quadrant abdominal pain. Patient states she also had small amount of vaginal bleeding earlier today. Right lower quadrant pain on palpation. Patient abdominal pain in the past. She states she saw her [employer]EC[employer] yesterday .denies known history of ovarian cyst. pt scheduled to have a IUD placed. History of . She is not currently bleeding vaginally Related Data Previous Rx's ?Medication ?Instructions ?Recorded rysoxvwxvkjmpss-tnhykuhaizmwjfd-JD 5 ml PO Q6H PRN col d symptoms #118 06/05/24 2 mg-30 mg-10 mg/5 mL oral syrup mL (Bromfed DM) cephalexin 500 mg capsule 500 mg PO BID 7 days #14 cap s 12/30/24 Allergies Allergy/AdvReac Type Severity Reaction Status Date / Time No Known Drug Allergies Allergy Verified 12/30/24 18:18 Review of Systems ROS Status of ROS 10 or more systems reviewed and unremark able except as noted in history and below PFSH PFSH Social History Little interest or pleasure in doing things: not at all Feeling down, depressed, or hopeless: not at all Exam Narrative Exam Narrative: All Systems are negative except as noted/marked.All systems reviewed and otherwise negative Nurses note and vital signs reviewed and patient is not hypoxic. General: The patient appears well and in no apparent distress. Patient is resting comfortably on cart. Skin: Warm, dry, no pallor noted. There is no rash noted. Head: Normocephalic, atraumatic Eye: Normal conjunctiva, no drainage, EOMI. PERRL Ears, Nose, Mouth, and Throat: oral mucosa is moist. Nares patent. Mouth without vesicles. Ear canals patent. Tm's without Erythema Cardiovascular: Regular Rate and Rhythm Respiratory: Patient is in no distress, no accessory muscle use, lungs are clear to auscultation, no wheezing, rales or rhonchi Back: non-tender, no CVA tenderness bilaterally to percussion. GI: rlq tenderness, Normal bowel sounds, no masses appreciated. No rebound, guarding, or rigidity noted. Musculoskeletal: The patient has no evidence of calf tenderness, no pitting edema, symmetrical pulses noted bilaterally Neurological: A&O x4, normal speech Psychiatric: Cooperative Constitutional Vital Signs, click to edit/add: Last Vital Signs Temp 98.7 F 12/30/24 20:41 Pulse 71 12/30/24 20:41 Resp 18 12/30/24 20:41 BP 121/63 12/30/24 20:41 Pulse Ox 98 12/30/24 20:41 Course Vital Signs Vital signs: Vital Signs Temperature 98.9 F 12/30/24 18:18 Pulse Rate 80 12/30/24 18:18 Respiratory Rate 16 12/30/24 18:18 Blood Pressure 127/66 12/30/24 18:18 Pulse Oximetry 99 12/30/24 18:18 Temperature 98.7 F 12/30/24 20:41 Pulse Rate 71 12/30/24 20:41 Respiratory Rate 18 12/30/24 20:41 Blood Pressure 121/63 12/30/24 20:41 Pulse Oximetry 98 12/30/24 20:41 MDM - Abdominal Pain MDM Narrative Medical decision making narrative: 24-year-old female presents here with chief complaint of right lower quadrant abdominal pain. Patient states she also had small amount of vaginal bleeding earlier today. Right lower quadrant pain on palpation. Patient abdominal pain in the past. She states she saw her [employer] yesterday .denies known history of ovarian cyst. pt scheduled to have a IUD placed. History of . She is not currently bleeding vaginally Right lower quadrant abdominal pain. CBC BMP urinalysis reviewed. Patient does have large amount of bacteria in her urine she will be treated for UTI. CT scan shows no acute appendicitis. She will be following up with her [employer] will I will order a pelvic ultrasound to her to have performed due to pelvic pain to rule out ovarian cyst. Patient agrees with plan of care she discharged home with prescription of Keflex. Differential Diagnosis Differential diagnosis: Likely abdominal pain, acute appendicitis, endometriosis and other (ovarian cyst) Medical Records Attestation: I reviewed the patient's medical records. Lab Data Attestation: I reviewed the patient's lab results. Labs: Lab Results 12/30/24 12/30/24 Range/Units 18:35 18:45 WBC 7.7 (4.0-11.0) 10^3/uL RBC 3.98 L (4.20-5.40) 10^6/uL Hgb 12.5 (12.0-16.0) g/dL Hct 37.3 (36.0-48.0) % MCV 93.7 (81.0-99.0) fL MCH 31.4 (26.7-34.0) pg MCHC 33.5 (29.9-35.2) g/dL RDW 13.2 (11.0-15.0) % Plt Count 246 (150-450) 10^3/uL MPV 9.7 (9.5-13.5) fL Neut % (Auto) 57.4 (43.0-75.0) % Lymph % (Auto) 30.0 (20.5-60.0) % [place] % (Auto) 10.2 (1.7-12.0) % Eos % (Auto) 1.6 (0.9-7.0) % Baso % (Auto) 0.5 (0.2-2.0) % Neut # (Auto) 4.4 (1.4-6.5) 10^3/uL Lymph # (Auto) 2.3 (1.2-3.8) 10^3/uL [place] # (Auto) 0.8 (0.3-0.8) 10^3/uL Eos # (Auto) 0.1 (0.0-0.7) 10^3/uL Baso # (Auto) 0.0 (0.0-0.1) 10^3/uL Abs Immat Gran (auto) 0.02 (0.00-0.03) 10^3/uL Imm/Tot Granulo (auto) 0.3 (0.0-0.5) % Sodium 142 (136-145) mmol/L Potassium 3.8 (3.5-5.1) mmol/L Chloride 104 (98-107) mmol/L Carbon Dioxide 30.7 (21.0-32.0) mmol/L Anion Gap 11.1 BUN 17.0 (7.0-18.0) mg/dL Creatinine 1.09 H (0.55-1.02) mg/dL Est GFR ( Amer) >60 (>=60 mL/min/1.73m^2) Est GFR (Non-Af Amer) >60 (>=60 mL/min/1.73m^2) BUN/Creatinine Ratio 15.6 Glucose 76 (74-106) mg/dL Calcium 8.8 (8.5-10.1) mg/dL Total Bilirubin 0.3 (0.2-1.0) mg/dL AST 39 H (15-37) U/L ALT 37 (14-59) U/L Alkaline Phosphatase 82 (46-116) U/L Total Protein 6.8 (6.4-8.2) g/dL Albumin 3.4 (3.4-5.0) g/dL Globulin 3.4 g/dL Albumin/Globulin Ratio 1.0 Urine Color Lt. yellow (YELLOW) Urine Clarity Clear (CLEAR) Urine pH 6.5 (5.0-9.0) Ur Specific [place] 1.015 (1.005-1.025) Urine Protein Negative (NEG/TRACE) mg/dL Urine Glucose (UA) Negative (NEGATIVE) mg/dL Urine Ketones Negative (NEGATIVE) mg/dL Urine Occult Blood Trace-i (NEGATIVE) Urine Nitrite Negative (NEGATIVE) Urine Bilirubin Negative (NEGATIVE) Urine Urobilinogen 0.2 (0.2-1.0) EU/dL Ur Leukocyte Esterase Trace A (NEGATIVE) Urine RBC 0-2 (0-2) #/HPF Urine WBC 2-5 A (NONE SEEN) #/HPF Ur Squamous Epith Cells Few A (NONE/RARE) #/LPF Urine Crystals Seen A (None Seen) #/HPF Amorphous Sediment Few Urine Bacteria Large A (NONE SEEN) #/HPF Urine Casts None seen (NONE SEEN) #/LPF Urine Mucus None seen (NONE SEEN) Ur Culture Indicated? Yes-[facility] [place] Urine HCG, Qual Negative (NEGATIVE) Discharge Plan Discharge Chief Complaint: Abdominal Pain Clinical Impression: Abdominal pain, UTI (urinary tract infection) Patient Disposition: Home, Self-Care Time of Disposition Decision: 20:05 Condition: Good Prescriptions / Home Meds: New cephalexin 500 mg capsule 500 mg PO BID 7 Days Qty: 14 0RF No Action kfwinzqguhmdqua-odyvncuya-DY [Bromfed DM] 2-30-10 mg/5 mL syrup 5 ml PO Q6H PRN (Reason: cold symptoms) Qty: 118 0RF Print Language: Uzbek Instructions: Urinary Tract Infection in Women (DC), Abdominal Pain (ED) Referrals: Evens Roland DO [Physician, [employer]] - 1 week Lexis Evans MD [Primary Care Provider, Family Practice] - 1 week Discharge Date/Time: 12/30/24 21:17 Documented by User: Sina Saenz MD 12/30/24 21:46 HPI - Abdominal Pain General Chief Complaint: Abdominal Pain Stated Complaint: abdominal pain Time Seen by Provider: 12/30/24 18:19 Related Data Previous Rx's ?Medication ?Instructions ?Recorded cweiopzyrfjhvfz-zozymcqgjcnezec-XA 5 ml PO Q6H PRN col d symptoms #118 06/05/24 2 mg-30 mg-10 mg/5 mL oral syrup mL (Bromfed DM) cephalexin 500 mg capsule 500 mg PO BID 7 days #14 cap s 12/30/24 Allergies Allergy/AdvReac Type Severity Reaction Status Date / Time No Known Drug Allergies Allergy Verified 12/30/24 18:18 PFSH PFSH Social History Little interest or pleasure in doing things: not at all Feeling down, depressed, or hopeless: not at all Exam Constitutional Vital Signs, click to edit/add: Last Vital Signs Temp 98.7 F 12/30/24 20:41 Pulse 71 12/30/24 20:41 Resp 18 12/30/24 20:41 BP 121/63 12/30/24 20:41 Pulse Ox 98 12/30/24 20:41 Course Vital Signs Vital signs: Vital Signs Temperature 98.9 F 12/30/24 18:18 Pulse Rate 80 12/30/24 18:18 Respiratory Rate 16 12/30/24 18:18 Blood Pressure 127/66 12/30/24 18:18 Pulse Oximetry 99 12/30/24 18:18 Temperature 98.7 F 12/30/24 20:41 Pulse Rate 71 12/30/24 20:41 Respiratory Rate 18 12/30/24 20:41 Blood Pressure 121/63 12/30/24 20:41 Pulse Oximetry 98 12/30/24 20:41 MDM - Abdominal Pain MDM Narrative Medical decision making narrative: 24-year-old female presents here with chief complaint of right lower quadrant abdominal pain. Patient states she also had small amount of vaginal bleeding earlier today. Right lower quadrant pain on palpation. Patient abdominal pain in the past. She states she saw her [employer]EC[employer] yesterday .denies known history of ovarian cyst. pt scheduled to have a IUD placed. History of . She is not currently bleeding vaginally Right lower quadrant abdominal pain. CBC BMP urinalysis reviewed. Patient does have large amount of bacteria in her urine she will be treated for UTI. CT scan shows no acute appendicitis. She will be following up with her [employer]IVE will I will order a pelvic ultrasound to her to have performed due to pelvic pain to rule out ovarian cyst. Patient agrees with plan of care she discharged home with prescription of Keflex. I, Dr Saenz, have reviewed the above progress note and course of action in the ER; agree with the above. I have personally gone over history and physical, and discussed disposition and treatment plan with the PA. Lab Data Labs: Lab Results 12/30/24 12/30/24 Range/Units 18:35 18:45 WBC 7.7 (4.0-11.0) 10^3/uL RBC 3.98 L (4.20-5.40) 10^6/uL Hgb 12.5 (12.0-16.0) g/dL Hct 37.3 (36.0-48.0) % MCV 93.7 (81.0-99.0) fL MCH 31.4 (26.7-34.0) pg MCHC 33.5 (29.9-35.2) g/dL RDW 13.2 (11.0-15.0) % Plt Count 246 (150-450) 10^3/uL MPV 9.7 (9.5-13.5) fL Neut % (Auto) 57.4 (43.0-75.0) % Lymph % (Auto) 30.0 (20.5-60.0) % [place] % (Auto) 10.2 (1.7-12.0) % Eos % (Auto) 1.6 (0.9-7.0) % Baso % (Auto) 0.5 (0.2-2.0) % Neut # (Auto) 4.4 (1.4-6.5) 10^3/uL Lymph # (Auto) 2.3 (1.2-3.8) 10^3/uL [place] # (Auto) 0.8 (0.3-0.8) 10^3/uL Eos # (Auto) 0.1 (0.0-0.7) 10^3/uL Baso # (Auto) 0.0 (0.0-0.1) 10^3/uL Abs Immat Gran (auto) 0.02 (0.00-0.03) 10^3/uL Imm/Tot Granulo (auto) 0.3 (0.0-0.5) % Sodium 142 (136-145) mmol/L Potassium 3.8 (3.5-5.1) mmol/L Chloride 104 (98-107) mmol/L Carbon Dioxide 30.7 (21.0-32.0) mmol/L Anion Gap 11.1 BUN 17.0 (7.0-18.0) mg/dL Creatinine 1.09 H (0.55-1.02) mg/dL Est GFR ( Amer) >60 (>=60 mL/min/1.73m^2) Est GFR (Non-Af Amer) >60 (>=60 mL/min/1.73m^2) BUN/Creatinine Ratio 15.6 Glucose 76 (74-106) mg/dL Calcium 8.8 (8.5-10.1) mg/dL Total Bilirubin 0.3 (0.2-1.0) mg/dL AST 39 H (15-37) U/L ALT 37 (14-59) U/L Alkaline Phosphatase 82 (46-116) U/L Total Protein 6.8 (6.4-8.2) g/dL Albumin 3.4 (3.4-5.0) g/dL Globulin 3.4 g/dL Albumin/Globulin Ratio 1.0 Urine Color Lt. yellow (YELLOW) Urine Clarity Clear (CLEAR) Urine pH 6.5 (5.0-9.0) Ur Specific [place] 1.015 (1.005-1.025) Urine Protein Negative (NEG/TRACE) mg/dL Urine Glucose (UA) Negative (NEGATIVE) mg/dL Urine Ketones Negative (NEGATIVE) mg/dL Urine Occult Blood Trace-i (NEGATIVE) Urine Nitrite Negative (NEGATIVE) Urine Bilirubin Negative (NEGATIVE) Urine Urobilinogen 0.2 (0.2-1.0) EU/dL Ur Leukocyte Esterase Trace A (NEGATIVE) Urine RBC 0-2 (0-2) #/HPF Urine WBC 2-5 A (NONE SEEN) #/HPF Ur Squamous Epith Cells Few A (NONE/RARE) #/LPF Urine Crystals Seen A (None Seen) #/HPF Amorphous Sediment Few Urine Bacteria Large A (NONE SEEN) #/HPF Urine Casts None seen (NONE SEEN) #/LPF Urine Mucus None seen (NONE SEEN) Ur Culture Indicated? Yes-[facility] [place] Urine HCG, Qual Negative (NEGATIVE) Discharge Plan Discharge Chief Complaint: Abdominal Pain Clinical Impression: Abdominal pain, UTI (urinary tract infection) Patient Disposition: Home, Self-Care Time of Disposition Decision: 20:05 Condition: Good Prescriptions / Home Meds: New cephalexin 500 mg capsule 500 mg PO BID 7 Days Qty: 14 0RF No Action mxebicmurcpnolo-pvkfjctde-EB [Bromfed DM] 2-30-10 mg/5 mL syrup 5 ml PO Q6H PRN (Reason: cold symptoms) Qty: 118 0RF Print Language: Uzbek Instructions: Urinary Tract Infection in Women (DC), Abdominal Pain (ED) Referrals: Evens Roland DO [Physician, [employer]] - 1 week Lexis Evans MD [Primary Care Provider, Family Practice] - 1 week Discharge Date/Time: 12/30/24 21:17
[2024-12-30 19:30] LABS: Bacteria Urine LARGE #/HPF (NONE SEEN); RBC Urine 0-2 #/HPF (0-2)
[2024-12-30 19:31] LABS: Crystals Seen? Seen #/HPF (None Seen); Mucus Urine NONE SEEN (NONE SEEN); Squamous Epithelial Cell Urine FEW #/LPF (NONE/RARE)
[2024-12-30 19:32] LABS: Amorphous Sediment Urine FEW; Cast Seen? NONE SEEN #/LPF (NONE SEEN); Urine Culture Indicated YES-FRMC
[2024-12-30] MEDS: KETOROLAC TROMETHAMINE 30 MG/ML VIAL IVP (19:47)
[2024-12-30 20:41] VITALS: BP 121/63; PULSE 71; TEMP 37.1; O2SAT 98
--- NOTE | 2024-12-30 21:18 | PC.NURSE ---
i gave this patient verbal and paper discharge orders along with 1 e-script and 1 Rx for ultra sound order, this patient voices yes to understanding these. at time of discharge this patient voices no concerns, or needs and this patient shows no signs of distress
== END 2024-12-30 21:17 | disposition home or self-care (01) ==
PROVIDERS: Physician Assistant; Emergency Provider Emergency Medicine; PCP Family Medicine
DX: R10.31 Right lower quadrant pain (principal); N39.0 Urinary tract infection, site not specified
CPT/HCPCS: 36415; 74177; 80053; 81001; 84703; 85025; 87086; 87088; 87186; 96374; 96375; 99285; J1885; J2405; Q9967

== ENCOUNTER 2024-12-31 12:03 | Outpatient (OUT) | payer OTHER, SELFPAY ==
--- NOTE | 2024-12-31 12:13 | US_ITS ---
The [address] [address] Patient Name: ROSALIE MCLAUGHLIN MRN: [id number] date: 2000 Sex: F Assigned Patient Location: Current Patient Location: Accession/Order Number: [id number] Exam Date: 12/31/2024 14:08 Report Date: 12/31/2024 14:14 At the request of: SAMAN TORRES Procedure: US pelvis transvaginal Pelvic ultrasound. Reason for exam: Pelvic pain for 2 weeks. Comparison: none Technique: Transvaginal imaging of the uterus and ovaries was also obtained. Additional spectral Doppler analysis of the ovaries was also obtained. Findings: The uterus measures 8.1 x 6.1 x 4.4 cm. No measurable fibroid. Endometrium is at the upper limits normal in size measuring 16 mm. Trace free fluid is noted. Right ovary measures 2.3 x 2.4 x 1.6 cm. The left ovary measures 2.7 x 2.1 x 2.7 cm. No adnexal mass or cyst. Normal arterial and venous Doppler waveforms. US/US pelvis transvaginal Impression: No acute process. No adnexal mass. Impression dictated by: Grey Stephens Jr., D.O. 12/31/2024 2:14 PM Dictation Location: [place] [address] Electronically authenticated by: [id number] Y Date: 12/31/2024 14:14
--- OUTSIDE RECORDS SUMMARY | 2024-12-31 12:21 | XMS_ITS | CCD ---
Author Organization [facility] Care Team Providers Care City Carrier Name Role Phone Lexis Rodríguez Unavailable DR [...] Unavailable MD Lexis Rodríguez Primary Care Provider [phone] MD Lexis Rodríguez Attending Provider Lexis Rodríguez MD Primary Care Provider MD Lexis Rodríguez Primary Care Provider DO Grant Menjivar Attending Provider Mariam Aragon Unavailable ANA LUISA ROLAND Attending Unavailable ASUNCION, ANA LUISA Attending Unavailable BRIAN, MARIAM Attending Unavailable ASUNCION, ANA LUISA Attending Unavailable BRIAN, MARIAM Attending Unavailable ASUNCION, ANA LUISA Attending Unavailable ASUNCION, ANA LUISA Attending Unavailable BRIAN, MARIAM Attending Unavailable ASUNCION, ANA LUISA Attending Unavailable BRIAN, MARIAM Attending Unavailable Grant Menjivar Admitting Unavailable Lexis Rodríguez Primary Care Unavailable Grant Menjivar Attending Unavailable Lexis Rodríguez Attending Unavailable Lexis Rodríguez Primary Care Unavailable Lexis Rodríguez Admitting Unavailable Lexis Rodríguez MD Primary Care Provider Medications Current Medications Medication Drug Class(es) Dates [...] 0 Active sertraline 50 mg oral tablet (10 sources) Serotonin Reuptake Inhibitor Start: 04-07-2024 take [...] 2023 12:00am January 15, 2024 9:20am levonorgestrel 0.864969 mg/hr intrauterine system (3 sources) Progestin, Progestin-containi ng Intrauterine Device Start: End: 7 levonorgestrel (Kathy) 13.5 MG IUD [...] not specified as acute or chronic] Episodic Contraceptive and procreative management (2 sources) Patient encounter status; Translations: [Encounter for other general counseling and advice on contraception] 12-29-2024 Episodic Deficiency and other anemia (1 source) [...] Documented Da te Episodic/Chronic Other complications of (11 sources) Diseases of the nervous system complicating , unspecified trimester; Translations: [Other current conditions classifiable elsewhere of mother, unspecified as to episode of care or not applicable] Onset: 07-22-2023 07-22-2023 Episodic Other and delivery including normal (13 sources) Third trimester ; Translations: [Encounter for supervision of normal , unspecified, third trimester] Onset: 07-22-2023 08-13-2023 Episodic Unclassified (2 sources) Lumbar pain M54.50 Unclassified (1 source) LOW BACK PAIN, UNSPECIFIED; Translations: [LOW BACK PAIN, UNSPECIFIED] Onset: 10-31-2022 Results Test Name Value Interpretation Reference Range Facility IGP,APTIMA HPV,AGE GDLNon AGE GDLN ACOG TESTING Note . [facility] Comment on above: TESTS RESULT FLAG UN ITS REF RANGE LAB Clinician Provided Cytology Information Source.............Cervix;Endocervix No. of containers..01 ThinPrep Vial Age Algo ACOG Katie... FLAG LEGEND: L-Low Normal,H-High Normal,LL-Alert Low,HH-Alert High <-Panic Low,>-Panic High,A-Abnormal,AA-Critical Abnormal Performed at: 01 =G [facility] [place] [address] Dorothy Bryant MD, IGP, RFX APTIMA HPV ASCU Note . [facility] Comment on above: TESTS RESULT FLAG UN ITS REF RANGE LAB DIAGNOSIS: 02 NEGATIVE FOR INTRAEPITHELIAL LESION OR MALIGNANCY. Specimen adequacy: 02 Satisfactory for evaluation. No endocervical component is identified. Performed by: 02 Iwona Zepeda, [employer] ([facility]) . 02 Note: Note 03 The Pap [...] High,A-Abnormal,AA-Critical Abnormal Performed at: 02 [place] [facility] [address] [id number] [place] [address] Renée Galan PhD, 03 WB [facility] [address] [address] Dorothy Bryant MD, Performed at: =G - [facility] [address] [id number] Contact Center Analyst: Dorothy Bryant MD, Phone: [phone] Performed at: [place] - [facility] [address], [place] [id number] Contact Center Analyst: Renée Galan PhD, Phone: [phone] [facility]-SPATULA CERVIX ENDOCERVIX [facility] XR hip BI w [id number] 05-05-20 24 XR hip BI w [id number] [facility] [address] [place] [address] XRay Report Signed Patient: Lucie Woodall MR#: [id number] : 2000 Acct:[id number] Age/Sex: 23 / U ADM Date: 05/05/24 Loc: [facility] Room: Type: [facility] Attending Dr: Grant Menjivar DO Copies to: [...] Sina Nagel M.D.05/05/2024 1:43 PM Dictation Location: [place] [address] Transcribed By: [facility] 05/05/24 1343 Dictated By: Sina Nagel DO 05/05/24 1341 Signed By: 05/05/24 1343 Normal [facility] ALL CBC WITH AUTO DIFFon BASOPHILS ABSOLUTE AUTO 0.0 [facility] Basophils/100 WBC (Bld) 0.3 % 0.2 - 2.0 % [facility] Eosinophils/100 WBC (Bld) 0.8 % Low 0.9 - 7.0 % [facility] Erythrocyte distribution width (RBC) [Ratio] 13.2 % 11.0 - 15.0 % [facility] Hematocrit (Bld) [Volume fraction] 31.3 % Low 36.0 - 48.0 % [facility] Hemoglobin (Bld) [Mass/Vol] 10.1 g/dL Low 12.0 - 16.0 g/dL [facility] IMMATURE GRANULOCYTES ABS AUTO 0.06 High [facility] Immature granulocytes/100 WBC (Bld) 0.5 % 0.0 - 0.5 % [facility] Interpretation and review of laboratory results Abnormal [facility] LYMPHOCYTES ABSOLUTE AUTO 2.4 [facility] Lymphocytes/100 WBC (Bld) 20.1 % Low 20.5 - 60.0 % [facility] MCH (RBC) [Entitic mass] 29.8 pg 26.7 - 34.0 pg [facility] MCHC (RBC) [Mass/Vol] 32.3 g/dL 29.9 - 35.2 g/dL [facility] MCV (RBC) [Entitic vol] 92.3 fL 81.0 - 99.0 fL [facility] MONOCYTES ABSOLUTE AUTO 1.0 High [facility] Monocytes/100 WBC (Bld) 8.6 % 1.7 - 12.0 % [facility] NEUTROPHILS ABSOLUTE AUTO 8.3 High [facility] Neutrophils/100 WBC (Bld) 69.7 % 43.0 - 75.0 % [facility] Platelet mean volume (Bld) [Entitic vol] 10.8 fL 9.5 - 13.5 fL [facility] are TBH EO # 0.1 [facility] PLT 180 [facility] RBC 3.39 Low [facility] TBH WBC 12.0 High [facility] ALL CBC WITH AUTO DIFFon BASOPHILS ABSOLUTE AUTO 0.0 [facility] Basophils/100 WBC (Bld) 0.3 % 0.2 - 2.0 % [facility] Eosinophils/100 WBC (Bld) 0.9 % 0.9 - 7.0 % [facility] Erythrocyte distribution width (RBC) [Ratio] 13.0 % 11.0 - 15.0 % [facility] Hematocrit (Bld) [Volume fraction] 34.3 % Low 36.0 - 48.0 % [facility] Health[facility] Hemoglobin (Bld) [Mass/Vol] 11.3 g/dL Low 12.0 - 16.0 g/dL [facility] IMMATURE GRANULOCYTES ABS AUTO 0.03 [facility] Immature granulocytes/100 WBC (Bld) 0.4 % 0.0 - 0.5 % [facility] Interpretation and review of laboratory results Abnormal [facility] LYMPHOCYTES ABSOLUTE AUTO 1.8 [facility] Lymphocytes/100 WBC (Bld) 24.2 % 20.5 - 60.0 % [facility] MCH (RBC) [Entitic mass] 29.8 pg 26.7 - 34.0 pg [facility] MCHC (RBC) [Mass/Vol] 32.9 g/dL 29.9 - 35.2 g/dL [facility] MCV (RBC) [Entitic vol] 90.5 fL 81.0 - 99.0 fL [facility] MONOCYTES ABSOLUTE AUTO 0.7 [facility] Monocytes/100 WBC (Bld) 8.9 % 1.7 - 12.0 % [facility] NEUTROPHILS ABSOLUTE AUTO 4.8 [facility] Neutrophils/100 WBC (Bld) 65.3 % 43.0 - 75.0 % [facility] Platelet mean volume (Bld) [Entitic vol] 10.8 fL 9.5 - 13.5 fL [facility] EO # 0.1 [facility] TB PLT 204 [facility] TB RBC 3.79 Low [facility] TB WBC 7.4 [facility] Urinalysis macro (dipstick) panel (U)on 08-15-2023 Bilirubin, UA Negative Negative - 4(70) +++ mg/dL [facility] Blood, UA Negative Negative - 50 Nicolas/mcL [facility] Clarity, UA Clear [facility] re Color, UA Yellow [facility] e Glucose, UA Negative Negative - 2000(110) ++++ mg/dL [facility] Interpretation and review of laboratory results Abnormal [facility] Ketones, UA Negative Negative - 160(16) ++++ mg/dL [facility] Leukocytes, UA Negative Negative - 500+++ Freida/mcL [facility] Nitrite, UA Negative Negative - Positive [facility] pH, UA 6.5 5 - 9 [facility] [employer] Protein, UA Negative Negative - 2000(20) ++++ mg/dL [facility] Spec Grav, UA 1.020 1 - 1.03 [facility] Urobilinogen, UA 1.0 0.2 - 12 mg/dL [facility] XR LSPINE 2_3 [...] YAKELIN FRIEDMAN Date: 2022-10-31 14:26 Normal [facility] CBC AUTO DIFFon 10-17-2022 BASO # 0.0 103/ul Normal 0.0-0.1 [facility] Comment on above: Performed By: #### C BC #### [facility] Laboratory [address] [place] [address] Dr. Dav Xie Basophils/100 WBC (Bld) 0.6 % Normal 0.2-2.0 [facility] Comment on above: Performed By: #### C BC #### [facility] [address] [place] [address] Dr. Dav Xie EO # 0.2 103/ul Normal 0.0-0.7 [facility] Comment on above: Performed By: #### C BC #### [facility] [address] [place] [address] Dr. Dav Xie Eosinophils/100 WBC (Bld) 3.0 % Normal 0.9-7.0 [facility] Comment on above: Performed By: #### C BC #### [facility] [address] [place] [address] Dr. Dav Xie Erythrocyte distribution width (RBC) [Ratio] 11.9 % Normal 11.0-15.0 [facility] Comment on above: Performed By: #### C BC #### [facility] [address] [place] [address] Dr. Dav Xie Hematocrit (Bld) [Volume fraction] 39.5 % Normal 36.0-48.0 [facility] Comment on above: Performed By: #### C BC #### [facility] [address] [place] [address] Dr. Dav Xie Hemoglobin (Bld) [Mass/Vol] 13.4 g/dL Normal 12.0-16.0 [facility] Comment on above: Performed By: #### C BC #### [facility] [address] [place] [address] Dr. Dav Xie IG # 0.01 10e3/ul Normal 0.00-0.03 [facility] Comment on above: Performed By: #### C BC #### [facility] [address] [place] [address] Dr. Dav Xie IG % 0.2 % Normal 0.0-0.5 [facility] Comment on above: Performed By: #### C BC #### [facility] [address] [place] [address] Dr. Dav Xie LYMPH # 1.7 103/ul Normal 1.2-3.8 [facility] Comment on above: Performed By: #### C BC #### [facility] [address] [place] [address] Dr. Dav Xie Lymphocytes/100 WBC (Bld) 31.9 % Normal 20.5-60.0 [facility] Comment on above: Performed By: #### C BC #### [facility] [address] [place] [address] Dr. Dav Xie MANUAL DIFF REQ NO Normal [facility] Comment on above: Performed By: #### C BC #### [facility] [address] [place] [address] Dr. Dav Xie MCH (RBC) [Entitic mass] 31.8 pg Normal 26.7-34.0 [facility] Comment on above: Performed By: #### C BC #### [facility] [address] [place] [address] Dr. Dav Xie MCHC (RBC) [Mass/Vol] 33.9 g/dL Normal 29.9-35.2 [facility] Comment on above: Performed By: #### C BC #### [facility] [address] [place] [address] Dr. Dav Xie MCV (RBC) [Entitic vol] 93.6 fL Normal 81.0-99.0 [facility] Comment on above: Performed By: #### C BC #### [facility] [address] [place] [address] Dr. Dav Xie MONO # 0.5 103/ul Normal 0.3-0.8 [facility] Comment on above: Performed By: #### C BC #### [facility] [address] [place] [address] Dr. Dav Xie Monocytes/100 WBC (Bld) 9.7 % Normal 1.7-12.0 [facility] Comment on above: Performed By: #### C BC #### [facility] [address] [place] [address] Dr. Dav Xie NEUT # 2.9 103/ul Normal 1.4-6.5 [facility] Comment on above: Performed By: #### C BC #### [facility] [address] [place] [address] Dr. Dav Xie Neutrophils/100 WBC (Bld) 54.6 % Normal 43.0-75.0 [facility] Comment on above: Performed By: #### C BC #### [facility] [address] [place] [address] Dr. Dav Xie Platelet mean volume (Bld) [Entitic vol] 9.7 fL Normal 9.5-13.5 [facility] Comment on above: Performed By: #### C BC #### [facility] [address] [place] [address] Dr. Dav Xie PLT 215 103/ul Normal 150-450 [facility] Comment on above: Performed By: #### C BC #### [facility] [address] [place] [address] Dr. Dav Xie RBC 4.22 106/ul Normal 4.20-5.40 [facility] Comment on above: Performed By: #### C BC #### [facility] [address] [place] [address] Dr. Dav Xie WBC 5.4 103/ul Normal 4.0-11.0 [facility] Comment on above: Performed By: #### C BC #### [facility] [address] [place] [address] Dr. Dav Xie FERRITINon 10-17-2022 Ferritin [Mass/Vol] 85.0 ng/mL Normal 6.2-137.0 [facility] Comment on above: Performed By: #### F ERR #### [facility] [address] [place] [address] Dr. Dav Xie PROF CHEM 8 (BAS METB)on Anion gap [Moles/Vol] 11.2 mmol/L Normal [facility] Comment on above: Performed By: #### B MP #### [facility] [address] [place] [address] Dr. Dav Xie Calcium [Mass/Vol] 8.8 mg/dL Normal 8.5-10.1 [facility] Comment on above: Performed By: #### B MP #### [facility] [address] [place] [address] Dr. Dav Xie Chloride [Moles/Vol] 103 mmol/L Normal 98-107 [facility] Comment on above: Performed By: #### B MP #### [facility] [address] [place] [address] Dr. Dav Xie CO2 [Moles/Vol] 29.6 mmol/L Normal 21.0-32.0 [facility] Comment on above: Performed By: #### B MP #### [facility] [address] [place] [address] Dr. Dav Xie Creatinine [Mass/Vol] 0.82 mg/dL Normal 0.55-1.02 [facility] Comment on above: Performed By: #### B MP #### [facility] [address] [place] [address] [address] Dav Xie EGFR-AF BURMESE >60 Normal >=60 [facility] Comment on above: Performed By: #### B MP #### [facility] [address] [place] [address] [address] Dav Xie EGFR-NON AF BURMESE >60 Normal >=60 [facility] Comment on above: Performed By: #### B MP #### [facility] [address] [place] [address] [address] Dav Xie Glucose [Mass/Vol] 86 mg/dL Normal 74-106 [facility] Comment on above: Performed By: #### B MP #### [facility] [address] [place] [address] Dr. Dav Xie Potassium [Moles/Vol] 3.8 mmol/L Normal 3.5-5.1 [facility] Comment on above: Performed By: #### B MP #### [facility] [address] [place] [address] [address] Dav Xie Sodium [Moles/Vol] 140 mmol/L Normal 136-145 [facility] Comment on above: Performed By: #### B MP #### [facility] [address] [place] [address] Dr. Dav Xie Urea nitrogen [Mass/Vol] 13.0 mg/dL Normal 7.0-18.0 [facility] Comment on above: Performed By: #### B MP #### [facility] [address] [place] [address] [address] Dav Xie Urea nitrogen/Creatinine [Mass ratio] 15.9 mg/mg Normal [facility] Comment on above: Performed By: #### B MP #### [facility] [address] [place] [address] Dr. Dav Xie Vital Signs Date Time Vital Sign Value Performing Clinician Facility 12-29-2024 10:49-0400 Body mass index (BMI) [Ratio] 30.62 kg/m2 Ana Luisa Roland DO Work Phone: [facility] 12-29-2024 10:49-0400 Body weight 83.46 kg Ana Luisa Asuncion DO Work Phone: [facility] 12-29-2024 10:49-0400 Diastolic blood pressure 72 mm[Hg] Ana Luisa Asuncion DO Work Phone: [facility] 12-29-2024 10:49-0400 Systolic blood pressure 110 mm[Hg] Ana Luisa Asuncion DO Work Phone: [facility] 05-13-2024 15:25-0400 Body height 165.1 cm Mariam Blockton PA Work Phone: [facility] 05-13-2024 15:25-0400 Body mass index (BMI) [Ratio] 26.29 kg/m2 Mariam Brian PA Work Phone: [facility] 05-13-2024 15:25-0400 Body weight 71.67 kg Mariam Blockton PA Work Phone: [facility] 05-13-2024 15:25-0400 Diastolic blood pressure 70 mm[Hg] Mariam Blockton PA Work Phone: [facility] 05-13-2024 15:25-0400 Systolic blood pressure 112 mm[Hg] Mariam Blockton PA Work Phone: [facility] 04-17-2024 13:29-0400 Body height 160.02 cm MD Lexis Rodríguez Work Phone: [facility] 04-17-2024 13:29-0400 Body mass index (BMI) [Ratio] 27.4 kg/m2 MD Lexis Rodríguez Work Phone: [facility] 04-17-2024 13:29-0400 Body weight 70.3 kg MD Lexis Rodríguez Work Phone: [facility] 04-17-2024 13:29-0400 Diastolic blood pressure 74 mm[Hg] MD Lexis Rodríguez Work Phone: [facility] 04-17-2024 13:29-0400 Heart rate 50 /min MD Lexis Rodríguez Work Phone: [facility] 04-17-2024 13:29-0400 Respiratory rate 18 /min MD Lexis Rodríguez Work Phone: [facility] 04-17-2024 13:29-0400 SaO2% (BldA) [Mass fraction] 98 % MD Lexis Rodríguez Work Phone: [facility] 04-17-2024 13:29-0400 Systolic blood pressure 108 mm[Hg] MD Lexis Rodríguez Work Phone: [facility] 04-07-2024 15:29-0400 Body height 160.02 cm MD Lexis Rodríguez Work Phone: [facility] 04-07-2024 15:29-0400 Body mass index (BMI) [Ratio] 28.1 kg/m2 MD Lexis Rodríguez Work Phone: [facility] 04-07-2024 15:29-0400 Body weight 72.12 kg MD Lexis Rodríguez Work Phone: [facility] 04-07-2024 15:29-0400 Diastolic blood pressure 77 mm[Hg] MD Lexis Rodríguez Work Phone: [facility] 04-07-2024 15:29-0400 Heart rate 79 /min MD Lexis Rodríguez Work Phone: [facility] 04-07-2024 15:29-0400 Systolic blood pressure 115 mm[Hg] MD Lexis Rodríguez Work Phone: [facility] 08-15-2023 10:13-0500 Body mass index (BMI) [Ratio] 33.18 kg/m2 Ana Luisa Asuncion DO Work Phone: [facility] 08-15-2023 10:13-0500 Body weight 90.45 kg Ana Luisa Asuncion DO Work Phone: [facility] 08-15-2023 10:13-0500 Diastolic blood pressure 78 mm[Hg] Ana Luisa Asuncion DO Work Phone: [facility] 08-15-2023 10:13-0500 Systolic blood pressure 132 mm[Hg] Ana Luisa Asuncion DO Work Phone: [facility] 10-15-2022 09:30-0400 Body height 160.02 cm Lexis Rodríguez Other [facility] Other 10-15-2022 09:30-0400 Body mass index (BMI) [Ratio] 28.87 kg/m2 Lexis Rodríguez Other [facility] Other 10-15-2022 09:30-0400 Body weight 73.94 kg Lexis Rodríguez Other [facility] Other 10-15-2022 09:30-0400 Diastolic blood pressure 62 mm[Hg] Lexis Rodríguez Other [facility] Other 10-15-2022 09:30-0400 SaO2% (BldA) [Mass fraction] 99 % Lexis Rodríguez Other [facility] Other 10-15-2022 09:30-0400 Systolic blood pressure 108 mm[Hg] Lexis Rodríguez Other [facility] Other Encounters Encounter Date Encounter Type Care Provider Facility Start: 12-29-2024 End: 12-29-2024 Bamboo flowsheet Ana Luisa Asuncion DO Work Phone: [facility] Start: 12-29-2024 End: 12-29-2024 Bamboo flowsheet Ana Luisa Asuncion DO Work Phone: [facility] Start: 12-29-2024 End: 12-29-2024 Office outpatient visit 15 minutes Ana Luisa Asuncion DO Work Phone: [facility] Comment on above: control counse ling Start: 05-13-2024 End: 05-13-2024 ambulatory MARIAM TORRES Not Available Start: 05-13-2024 End: 05-13-2024 Patient encounter procedure Mariam GONZALES Work Phone: [facility] Start: 05-13-2024 End: 05-13-2024 Periodic preventive med est patient 18-39 yrs Mariam Brian GONZALES Work Phone: [facility] Comment on above: Well woman exam with routine gynecological exam; Folliculitis Start: 05-13-2024 End: 05-13-2024 Bamboo flowsheet Mariam Blockton PA Work Phone: [facility] Start: 05-13-2024 End: 05-18-2024 Bamboo flowsheet Mariam GONZALES Work Phone: [facility] Start: 05-13-2024 End: 05-18-2024 [facility] Result Encounter Mariam GONZALES Work Phone: [facility] External Department Unsolicited Start: 05-05-2024 End: 05-05-2024 ambulatory MD Lexis Rodríguez Work Phone: [facility] Work Phone: Start: 05-05-2024 End: 05-05-2024 Patient encounter procedure MD Lexis Rodríguez Work Phone: [facility] Work Phone: Start: 04-17-2024 End: 04-17-2024 Patient encounter procedure MD Lexis Rodríguez Work Phone: [facility] Work Phone: Start: 04-07-2024 End: 04-07-2024 Patient encounter procedure MD Lexis Rodríguez Work Phone: [facility] Work Phone: Start: 01-21-2024 End: 01-21-2024 ambulatory [...] Available Start: 08-08-2023 End: 08-08-2023 ambulatory MARIAM BRIAN Not Available Start: 07-22-2023 End: 07-22-2023 ambulatory ANA LUISA ASUNCION Not Available Start: 07-12-2023 End: 07-12-2023 ambulatory MD Lexis Rodríguez Work Phone: [facility] Work Phone: Start: 07-12-2023 End: 07-12-2023 Discharged Recurring MD Lexis Rodríguez Work Phone: [facility] [place] Work Phone: Start: 07-04-2023 End: 07-04-2023 ambulatory MARIAM BRIAN Not Available Start: 06-20-2023 End: 06-20-2023 ambulatory ANA LUISA ASUNCION Not Available Start: 05-29-2023 End: 05-29-2023 ambulatory ANA LUISA ASUNCION Not Available Start: 11-30-[address] LEXIS RODRÍGUEZ Facil ity:[facility] Start: 11-09-2022 End: 11-09-2022 ambulatory Lexis Rodríguez Other [facility] Other Start: 11-09-2022 Telephone encounter Lexis Rodríguez [facility] Start: 10-31-2022 End: 11-01-[address] LEXIS RODRÍGUEZ Facility:[facility] Start: 10-29-2022 End: 10-29-2022 ambulatory Lexis Rodríguez Other [facility] Other Start: 10-29-2022 Telephone encounter Lexis Rodríguez [facility] Start: 10-26-2022 Encounter for genera l adult medical examination without abnormal findings DR LEXIS RODRÍGUEZ [facility] Start: 10-17-2022 End: 10-18-[address] LEXIS RODRÍGUEZ Facility:[facility]1 Start: 10-17-2022 End: 10-18-2022 Encounter for general adult medical examination without abnormal findings DR LEXIS RODRÍGUEZ Facility:[facility] Start: 10-15-2022 End: 10-15-2022 ambulatory Lexis Rodríguez Other [facility] Other Start: 10-15-2022 Encounter for genera l adult medical examination without abnormal findings Lexis Rodríguez [facility] Start: 10-15-2022 Periodic preventive med est patient 18-39 yrs Lexis Rodríguez [facility] Procedures Date Procedure Procedure Detail Performing Clinician Start: 05-13-2024 IGP,APTIMA HPV,AGE GDLN Mariam GONZALES Work Phone: Start: 05-05-2024 Plain x-ray of [...] Treatment Date Care Activity Detail Author Start: 03-15-2025 Influenza vaccination Influenz a Vaccine (Season Ended) [facility] Start: 01-05-2025 End: 01-05-2025 Patient encounter procedure 01/05/2025 8:20 AM EDT Procedure Visit [facility] [address] [facility] [phone] Ana Luisa Roland, DO [address] [place] [address] [facility] Start: 12-29-2024 End: 12-29-2024 Patient encounter procedure 12/29/2024 10:10 AM EDT Office Visit [facility] [address] [place] [phone] Ana Luisa Roland, DO [address] [facility] [address] [place] [address] Arrived [facility] Comment on above: Arrived Start: 04-17-2024 Patient referral [facility] Work Phone: Start: 03-15-2024 Influenza vaccination Influenza Vacc ine (#1) [facility] Start: 10-03-2023 End: 10-03-2023 ambulatory 10/03/2023 8:30 AM EDT Visit [facility] [address] [facility] [place] [phone] Mariam Torres PA [address] [place] [address] [facility] Start: 03-15-2023 Influenza vaccination Influenza Vacc ine (#1) [facility] Cytology Cervical or vaginal smear or scraping study Pap Smear Pathology and Cytology Routine Well woman exam with routine gynecological exam Ordered: 05/13/2024 [facility] Work Phone: Comment on above: Ordered: 05/13/2024 Patient referral [facility] Work Phone: Immunizations Immunization Date Immunization Notes Care Provider Fa cili 05-10-2022 influenza virus vaccine, unspecified formulation Ana Luisa Roland Work Phone: [facility] 05-14-2021 influenza virus vaccine, unspecified formulation Mariam GONZALES Work Phone: [facility] 04-03-2020 influenza virus vaccine, unspecified formulation MD Lexis Rodríguez Work Phone: [facility] Payers Date Payer Category Payer ([facility]) [id number] 2023 Self-pay 2019 Medicaid [facility] MEDICAID [place] [id number] 2019-Present [address] [place] [id number] 2019 Medicaid (Managed Care) [employer] [id number] 1998 Unknown [id number] 2.16.840.1.214633.3.579.2. 593 1998 Unknown [id number] 2.16.840.1.496430.3.579.2. 593 1998 Unknown [id number] 2.16.840.1.328206.3.579.2. 593 1998 Unknown [id number] 2.16.840.1.592674.3.579.2. 593 1998 Unknown [id number] 2.16.840.1.738032.3.579.2. 593 1998 Unknown [id number] 2.16.840.1.204321.3.579.2. 1259 1998 Unknown [id number] 2.16.840.1.478368.3.579.2. 9 1998 Unknown [id number] 2.16.840.1.989984.3.579.2. 1259 1998 Unknown [id number] 2.16.840.1.265774.3.579.2. 1259 1998 Unknown [id number] 2.16.840.1.556120.3.579.2. 1259 1998 Unknown [id number] 2.16.840.1.349369.3.579.2. 9 1998 Unknown [id number] 2.16.840.1.064166.3.579.2. 1259 1998 Unknown [id number] 2.16.840.1.320978.3.579.2. 9 1998 Unknown [id number] 2.16.840.1.710322.3.579.2. 1259 1998 Unknown [id number] 2.16.840.1.580415.3.579.2. 1259 1959 Medicaid [id number] 2.16.840.1.807848.19 Department of [facility] ( and others) [id number] Unknown [id number] 2.16.840.1.854980.3.579.2. 531 Unknown [id number] 2.16.840.1.092882.3.579.2. 531 Social History Date Type Detail Facility Unknown if ever smoked [facility] Other Start: 03-16-2023 End: 01-21-2024 Sex Assigned At [facility] Start: 03-16-2023 End: 05-20-2023 Tobacco smoking status NHIS Never smoked tobacco [facility] Start: 03-16-2023 Tobacco use and exposure Smokeless tobacco non-user [facility] Start: 08-15-2023 End: 12-29-2024 Alcohol intake Current drinker of alcohol (finding) [facility] Start: 03-16-2023 End: 01-21-2024 History of Social function [facility] Start: 03-16-2023 Alcohol Comment Occasional alcohol use [facility] Start: 12-06-2022 [facility] Start: 2000 Sex Assigned At Female [facility] Start: 02-15-2023 Gender identity Identifies as female gender (finding) [facility] Start: 02-15-2023 Sexual orientation Heterosexual (finding) [facility] Clinical Notes 10-15-2022 to 12-29-2024 Jessi Wilks TUBE DRAW HELPER - 12/29/2024 10:10 AM JANET Tadeo - 05/13/2024 3:00 PM Darian Ghotra, TUBE DRAW HELPER - 08/15/2023 10:00 AM EST Note Date & Type Note Facility 12-29-2024 History of Presen t illness Narrative Reason for Appointment: Patient ID: Lucie Woodall is a 24 y.o. female who presents for Contraception (Pt present today to discuss b/c.) Patient presents today for Acute Visit. MEDICATIONS Current Outpatient Medications Medication Instructions sertraline (ZOLOFT) 25 mg, Oral, Daily ALLERGIES No Known Allergies PROBLEMS Active Ambulatory Problems Diagnosis Date Noted Restless leg syndrome in ([facility]) 07/22/2023 Third trimester ([facility]) 07/22/2023 Resolved Ambulatory Problems Diagnosis Date Noted [...] nursing note reviewed. Exam conducted with a installer metal flooring present. Vitals: Estimated body mass index is 30.62 kg/m as calculated from the following: Height [...] by Jessi Wilks LPN on behalf of: Ana Luisa Roland DO documented in this encounter [facility] 05-13-2024 History of Presen t illness Narrative [...] (general) (routine) without abnormal findings IUD complication ([facility]) HISTORY PAST MEDICAL HISTORY SOCIAL HISTORY Past Medical History: Diagnosis Date Anxiety At low risk for fall BMI 25.0-25.9,adult Encounter for gynecological examination (general) (routine) without abnormal findings IUD complication ([facility]) Social History Tobacco Use Smoking status: [...] nursing note reviewed. Exam conducted with a installer metal flooring present. Vitals: Estimated body mass index is [...] of: JANET Fernandez documented in this encounter [facility] 08-15-2023 History of Presen t illness Narrative [...] (general) (routine) without abnormal findings IUD complication ([facility]) Family History Problem Relation Name [...] nursing note reviewed. Exam conducted with a installer metal flooring present. Vitals: Estimated body mass index is [...] of Labor on 08/22/2023 @0001. Called [facility] and spoke with Michelle and [...] Luisa Roland DO documented in this encounter [facility] 11-09-2022 Evaluation note Encounter Date Diagnosis Assessment Notes Oct, Lumbar pain (ICD-10 - M54.50) [facility] Other 04-03-2023 Evaluation note* Encounter Date Diagnosis Assessment Notes Treatment Notes Treatment Clinical Notes Oct, Wellness examination (ICD-10 - Z00.00) due for labs Oct, Lumbar pain (ICD-10 - M54.50) Pt states she went to chiropractor, had PT and xray through [facility]. She now wants me to address this as she is not improving and an MRI was not covered. She will contact their office and have them send us PT reports and xray so we can try to get the MRI. Pt needs this addressed as she is in the and is running a half marathon later this month. [facility] Other Evaluation noteNo [employer] Other Evaluation noteNo assessment information available [facility] Work Phone: Evaluation note* Diagnosis Third trimester state, incidental documented in this encounter [facility] Diagnosis Onset Date Resolution Status Anxiety acute Left hip flexor tightness ac [place] Left hip flexor tightness ac [place] Left hip pain acute Greater trochanteric pain sy ndrome of left lower extremity acute Iliotibial band tendinitis of left side acute [facility] Work Phone: Evaluation note* Diagnosis Well woman exam with routine gynecological exam Routine gynecological examination Folliculitis Other specified disease of hair and hair follicles documented [facility] this encounter [facility] Diagnosis control counseling documented in this encounter [facility] Narrative - Reported* Type Description Date Medical History Bronchitis Medical History Vaginitis Medical History Acute UTI Medical History Dysuria Hospitalization History l2019 for a blood count being done. [facility] Other Reason for Referral Reason *FU 11/19 Xray and last OV note. thank you Diagnosis 1 Lumbar pain (M54.50) Referral Organization [facility] Clarita johnson Referring Provider First Name Lexis Referring Provider Last Name Marcos Referring Provider Specialty Family [facility] Referred Organization [facility] Referred Provider Juan Miguel Referred Address [address], [place],[address] Referred Provider Specialty Pain Medicin e Referral Priority Routine General Notes Jessie Ashraf 04:25:04 PM >received today, attachments made, referral faxed Clinical Notes F: [id number] Summary Purpose Family History Relationship Condition Age [...] Routine Visit Reason Comments Well Women Visit Reason Comments Contraception Pt present today to discuss b/c. INFORMATION SOURCE (unrecogn ized section and content) DATE CREATED AUTHOR 11/15/2022 [facility] DATE CREATED AUTHOR AUTHOR'S ORGANIZ ATION 05/15/2024 [facility] EPIC DATE CREATED AUTHOR AUTHOR'S ORGANIZ ATION 05/16/2024 [facility] Care Teams (unrecognized sec tion and content) Team Status: Active Member Role Status Dates Lexis Rodríguez MD Primary Care Provider Active Team Status: Inactive Member Role Status Dates Lexis Rodríguez MD Primary Care Provider, Attending Last castellanos Active City Carrier Relationship Specialty Start Date End Date Lexis Rodríguez MD [address] [place] [address] PCP - General Family Medicine 02/22/23 City Carrier Relationship Specialty Start Date End Date Lexis Rodríguez MD [address] [place] [address] PCP - General Family Medicine 02/22/23 Team [...] May 05, 2024 End: May 05, 2024 City Carrier Relationship Specialty Start Date End Date Lexis Rodríguez MD [address] [facility] [place] [phone] PCP - General Family [facility] 02/22/23 Mariam Torres PA [address] [place] [address] [place] [address] PCP - [facility] 01/13/24 City Carrier Relationship Specialty Start Date End Date Lexis Rodríguez MD [address] [facility] [place] [phone] PCP - General Family Medicine 02/22/23 Mariam Torres PA [address] [place] [address] [place] [address] PCP - [facility] 01/13/24 City Carrier Relationship Specialty Start Date End Date Lexis Rodríguez MD [address] [facility] [place] [phone] PCP - General Family Medicine 02/22/23 City Carrier Relationship Specialty Start Date End Date Lexis Rodríguez MD [address] [facility] [place] [phone] PCP - General Family Medicine 8/11/23 Goals (unrecognized section and content) Goals may [...] BE BASED ON THE PRIMARY CLINICAL RECORDS. [facility]. provides no warranty or guarantee of the accuracy or completeness of information in this document.
== END 2024-12-31 12:04 | disposition home or self-care (01) ==
LOC: US 12:06
PROVIDERS: PCP Family Medicine; Visit Provider Physician Assistant
DX: R10.2 Pelvic and perineal pain (principal)
CPT/HCPCS: 76830

== ENCOUNTER 2025-01-16 12:41 | Emergency (ER) | payer OTHER, SELFPAY ==
--- OUTSIDE RECORDS SUMMARY | 2025-01-05 08:20 | XMS_ITS | Encounter Summary ---
Author Organization [facility] Address [address] [place] [address] Care Team Providers Care Carpenter Labor Supervisor Name Role Phone Lexis Evans MD Primary Care Provider [phone] Reason for Visit * Reason Comments KATHY insertion Encounter Details Date Type Department Care Team (Late st Contact Info) Description 01/05/2025 8:20 AM EDT Procedure Visit [facility] [address] [place] [phone] Evens Roland, DO [address] [facility] [address] [place] [phone] Encounter for IUD insertion; Vaginal discharge; Pelvic [...] Diagnosis Date Noted Restless leg syndrome in ([facility]) 07/22/2023 Third trimester ([facility]) 07/22/2023 Resolved Ambulatory Problems Diagnosis Date Noted [...] nursing note reviewed. Exam conducted with a clinic coordinator present. Vitals: Estimated body mass index is 30.62 kg/m² as calculated from the following: Height as [...] by patient, parent, or legal power of coning machine operator - including discussion of procedurerisks and benefits, [...] Care Team (Late st Contact Info) Description 01/18/2025 3:50 PM EDT Office Visit [facility] [address] [facility] [place] [phone] Evens Roland DO [address] [place] [address] Scheduled Orders Name Type Priority Associated Diagnoses [...] Preg Test, Ur Negative Negative Urine 01/05/2025 8:45 AM EDT Evens Roland DO POINT OF CARE TEST ENTER/EDIT OR DERABLES Final Result * IUD INSERTION (01/05/2025 8:20 AM EDT) Narrative Jessi Wilks LPN - 01/05/2025 8:20 AM EDT Jessi Wilks LPN 01/05/2025 9:39 AM IUD Insertion Performed by: Evens Roland DO Authorized by: Evens Roland DO Procedure: IUD insertion Consent obtained by patient, parent, or legal power of coning machine operator - including discussion of procedure risks and [...] mg documented in this encounter Care Teams Carpenter Labor Supervisor Relationship Specialty Start Date End Date Lexis Evans MD [address] [place] [address] PCP - General Family Medicine 02/22/23 documented as of this encounter
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
[2025-01-16 12:46] VITALS: BP 133/83; PULSE 81; TEMP 37.6; O2SAT 97; BMI 29.1
--- NOTE | 2025-01-16 12:57 | ECG_ITS ---
The [facility] Test Date: 2025-01-16 Pat Name: ROSALIE MCLAUGHLIN Department: Room: - Gender: Female Fitting Room Attendant: : 2000 Requested By: ALEXANDRA RODRÍGUEZ Order Number: [id number] Dominik MD: ZANA VERGARA M.D. Measurements Intervals Chapin Rate: 78 P: 43 MS: 118 QRS: 96 QRSD: 74 T: 49 QT: 398 QTc: 431 Interpretive Statements 1100 Sinus rhythm 2210 Short MS interval 7102 Moderate right axis deviation 9150 abnormal ECG Compared to ECG 12/25/2023 10:02:17 Short MS interval now present Right-axis deviation now present Sinus arrhythmia no longer present Electronically Signed On 01-17-2025 17:23:45 EDT by ZANA VERGARA M.D.
--- NOTE | 2025-01-16 12:57 | XR_ITS ---
The [place] [id number] Patient Name: ROSALIE MCLAUGHLIN MRN: [id number] date: 2000 Sex: F Assigned Patient Location: ER Current Patient Location: ER Accession/Order Number: [id number] Exam Date: 01/16/2025 13:18 Report Date: 01/16/2025 13:18 At the request of: TJ CAMPBELL MD Procedure: XR chest 1V Plain film chest Single view HISTORY: Chest pain shortness of breath COMPARISON: 12/25/2023 FINDINGS: SUPPORT DEVICES: None POSTSURGICAL CHANGES: None HEART: Within normal limits PULMONARY JUDI: Within normal limits MEDIASTINUM: Unremarkable LUNGS AND PLEURA: No acute lung process, pleural effusion or pneumothorax identified. BONY STRUCTURES: Intact ADDITIONAL FINDINGS None XR/XR chest 1V IMPRESSION: No acute process. Impression dictated by: Sina Nagel M.D. 01/16/2025 1:18 PM Dictation Location: [employer] Electronically authenticated by: [id number] Y Date: 01/16/2025 13:18
--- OUTSIDE RECORDS SUMMARY | 2025-01-16 12:58 | XMS_ITS | Clinical Summary ---
Author Organization [facility] tem Address [id number] [address] [place] [address] Care Team Providers Care Department Head College Or University Name Role Phone Lexis Evans MD Primary Care Provider [phone] Allergies No known active allergies Medications No [...] Not on file Insurance ANTHEM Care Teams Department Head [employer] Relationship Specialty Start Date End Date Lexis Evans MD [address] [place], [place] [id number] PCP - General 10/11/18
--- OUTSIDE RECORDS SUMMARY | 2025-01-16 12:58 | XMS_ITS | Encounter Summary ---
Author Organization [facility] Address [address] [place] [address] Care Team Providers Care Optical Systems Engineer Name Role Phone Lexis Evans MD Primary Care Provider [phone] Mariam oCburn Unavailable Encounter Details Date Type Department Care Team (Late st Contact Info) Description 05/09/2023 Clinisync Result Encounter [facility] External Department Unsolicited Ana Luisa Roland, DO [address] [place], [place] [id number] Social History Tobacco Use Types Packs/Day Years [...] 01/18/2025 3:50 PM EDT Office Visit [facility] OB [address] [place] [address] Ana Luisa Roland, DO [address] [facility] [place] [address] documented as of this encounter Procedures Procedure Name Priority Date/Time Associated Diagnosis Comments US OB CERVICAL LENGTH 05/09/2023 2:39 PM EDT documented in this encounter Results * US OB CERVICAL LENGTH (05/09/2023 2:39 PM EDT) Anatomical Region Laterality Modality Other 05/09/2023 2:39 PM EDT Narrative 05/09/2023 2:39 PM EDT [address] [address] Ultrasound Report Signed Patient: ROSALIE WOODALL MR#: [id number] : 2000 Acct:[id number] Age/Sex: 22 / F ADM Date: Loc: [facility] [address]: Ana Luisa Roland D.O. Ordering Physician: Ana Luisa Roland D.O. Date of Service: 05/09/23 Procedure(s): US OB cervical length Accession Number(s): [id number] cc: Lexis Evans M.D.; Ana Luisa Roland D.O. [address] [address] Patient Name: ROSALIE WOODALL MRN: [id number] date: 2000 Sex: F Assigned Patient Location: [facility] Current Patient Location: Accession/Order Number: [id number] Exam Date: 05/09/2023 13:15 Report Date: 05/09/2023 [...] Signed By: 05/09/23 1441 DD/ 1439 TD/TT: Drafter Seismograph: Procedure Note Radiology, Radiologist, MD - 05/09/2023 [place] [address] Ultrasound Report Signed Patient: ROSALIE WOODALLMR#: [id number] : 2000Acct:[id number] Age/Sex: M Date: Loc: [place] [address]: Ana Luisa Roland D.O. Ordering Physician: Ana Luisa Roland D.O. Date of Service: 05/09/23 Procedure(s): US OB cervical length Accession Number(s): [id number] cc: Lexis Evans M.D.; Ana Luisa Roland D.O. The [place] [id number] Patient Name: ROSALIE WOODALL MRN: [id number] date: 2000 Sex: F Assigned Patient Location: [facility] Current Patient Location: Accession/Order Number: [id number] Exam Date: 05/09/2023 13:15 Report Date: 05/09/2023 [...] M.D. Signed By:05/09/23 1441 DD/ 143 TD/TT: Drafter Seismograph: us Ana Luisa Asuncion DO [facility] Final Result documented in this encounter Visit Diagnoses Not on filedocumented in this encounter Care Teams Optical Systems Engineer Relationship Specialty Start Date End Date Lexis Evans MD [address] [place] [address] [place] [address] PCP - General Family Medicine 02/22/23 Mariam Coburn PA [address] [place] [address] [place] [address] PCP - [facility] 01/13/24 documented as of this encounter
--- OUTSIDE RECORDS SUMMARY | 2025-01-16 12:58 | XMS_ITS | Encounter Summary ---
Author Organization [facility] Address [address] [place] [address] Care Team Providers Care Senior Media Director Name Role Phone Lexis Evans MD Primary Care Provider [phone] Mariam Coburn Unavailable Encounter Details Date Type Department Care Team (Late st Contact Info) Description 03/21/2023 Clinisync Result Encounter [facility] External Department Unsolicited Ana Luisa Roland, DO [address] [place] [address] Social History Tobacco Use Types Packs/Day Years [...] 01/18/2025 3:50 PM EDT Office Visit [facility] OB [address] [place] [address] Ana Luisa Roland, DO [address] [facility] [place] [address] documented as of this encounter Procedures Procedure Name Priority Date/Time Associated Diagnosis Comments OBAFI 03/21/2023 11:23 AM EDT documented in this encounter Results * OBAFI (03/21/2023 11:23 AM EDT) Anatomical Region Laterality Modality Other 03/21/2023 11:2 3 AM EDT Narrative 03/21/2023 11:23 AM EDT [address] [address] Ultrasound Report Signed Patient: ROSALIE WOODALL MR #: [id number] : 2000 Acct:[id number] Age/Sex: 22 / F ADM Date: 03/21/23 Loc: US Attending Dr: Ana Luisa Roland D.O. Ordering Physician: Ana Luisa Roland D.O. Date of Service: 03/21/23 Procedure(s): US OB amniotic fluid vol Accession Number(s): [id number] cc: Lexis Evans M.D.; Ana Luisa Roland D.O. [address] [id number] Patient Name: ROSALIE WOODALL MRN: [facility]:[id number] date: 2000 Sex: F Assigned Patient Location: US Current Patient Location: US Accession/Order Number: [id number] Exam Date: 03/21/2023 10:38 Report Date: 03/21/2023 [...] Signed By: 03/21/23 1125 DD/ 1123 TD/TT: Chandelier Maker: Procedure Note Radiology, Radiologist, - 04/05/2023 [place] [address] Ultrasound Report Signed Patient: ROSALIE WOODALLMR #: [id number] : 2000Acct:[id number] Age/Sex: 22 / FADM Date: 03/21/23 Loc: US Attending Dr: Ana Luisa Roland D.O. Ordering Physician: Ana Luisa Roland D.O. Date of Service: 03/21/23 Procedure(s): US OB amniotic fluid vol Accession Number(s): [id number] cc: Lexis Evans M.D.; Ana Luisa Roland D.O. The [place] [address] Patient Name: ROSALIE WOODALL MRN: [facility]:[id number] date: 2000 Sex: F Assigned Patient Location: US Current Patient Location: US Accession/Order Number: [id number] Exam Date: 03/21/2023 10:38 Report Date: 03/21/2023 [...] M.D. Signed By:03/21/23 1125 DD/ 1123 TD/TT: Chandelier Maker: us Ana Luisa Asuncion DO [facility] Final Result documented in this encounter Visit Diagnoses Not on filedocumented in this encounter Care Teams Senior Media Director Relationship Specialty [place] [address] [place] [address] [place] [address] PCP - General Family Medicine 02/22/23 Mariam Coburn PA [address] [place] [address] [place] [address] PCP - [facility] 01/13/24 documented as of this encounter
--- OUTSIDE RECORDS SUMMARY | 2025-01-16 12:58 | XMS_ITS | Encounter Summary ---
Author Organization [facility] Address [address] [place] [address] Care Team Providers Care Rn Child Name Role Phone Lexis Evans MD Primary Care Provider [phone] Encounter Details Date Type Department Care Team (Late Contact Info) Description 05/22/2024 Orders Only [facility] OB [address] [facility] [place] [address] Alaina Lara LPN [address] [place] [id number] Social History Tobacco Use Types Packs/Day Years [...] Department Care Team (Late Contact Info) Description 01/18/2025 3:50 PM EDT Office Visit [facility] [address] [facility] [address] Evens Roland DO [address] [facility] [address] [place] [address] documented as of this encounter Procedures Procedure Name Priority Date/Time Associated Diagnosis Comments PAP SMEAR Routine 05/13/2024 12:00 AM EDT documented in this encounter Results * Pap Smear (05/13/2024 12:00 AM EDT) Swab Cervical swab / Unknown Mariam [facility] ORDERABLES Final Re sult EXTERNAL LAB documented in this encounter Visit Diagnoses Not on filedocumented in this encounter Care Teams Rn Child Relationship Specialty Start Date End Date Lexis Evans MD [address] [place] [address] PCP - General Family Medicine 02/22/23 documented as of this encounter
--- OUTSIDE RECORDS SUMMARY | 2025-01-16 12:58 | XMS_ITS | Encounter Summary ---
Author Organization [facility] Address [address] [place] [address] Care Team Providers Care Mds Coordinator Name Role Phone Lexis Evans MD Primary Care Provider [phone] Encounter Details Date Type Department Care Team (Late st Contact Info) Description 01/07/2025 Telephone [facility] [address] [place] [address] Rosa Wilde MA [address] [place] [address] Social History Tobacco Use Types Packs/Day Years [...] AM EDT documented as of this encounter Miscellaneous Notes * Telephone Encounter - Rosa Wilde MA - 01/07/2025 10:36 AM EDT Called pt advised +BV and flagyl was sent to pharmacy. PVU documented in this encounter Plan of Treatment Upcoming Encounters Date Type Department Care Team (Late st Contact Info) Description 01/18/2025 3:50 PM EDT Office Visit [facility] [address] [place] [address] Evens Roland, DO [address] [facility] [place] [address] documented as of this encounter Visit Diagnoses Diagnosis BV (bacterial vaginosis) Unspecified vaginitis and vulvovaginitis documented in this encounter Care Teams Mds Coordinator Relationship Specialty Start Date End Date Lexis Evans MD [address] [place] [address] [place] [address] PCP - General Family Medicine 02/22/23 documented as of this encounter
--- OUTSIDE RECORDS SUMMARY | 2025-01-16 12:58 | XMS_ITS | Encounter Summary ---
Author Organization [facility] Address [address] [place] [address] Care Team Providers Care Carpet Sewing Machine Operator Name Role Phone Lexis Evans MD Primary Care Provider [phone] Mariam Coburn Unavailable Encounter Details Date Type Department Care Team (Late st Contact Info) Description 12/23/2023 Clinisync Result Encounter [facility] External Department Unsolicited Ana Luisa Roland DO [address] [place] [address] Social History Tobacco Use Types Packs/Day Years [...] EDT Office Visit [facility] [address] [place] [address] Ana Luisa Roland DO [address] [place] [address] documented as of this encounter Procedures Procedure Name Priority Date/Time Associated Diagnosis Comments US PELVIS TRANSVAGINAL 12/23/2023 1:31 PM EDT documented in this encounter Results * US PELVIS TRANSVAGINAL (12/23/2023 1:31 PM EDT) Anatomical Region Laterality Modality Other 12/23/2023 1:31 PM EDT Narrative 12/23/2023 1:34 [place] [address] Ultrasound Report Signed Patient: ROSALIE WOODALL MR#: [id number] : 2000 Acct:[id number] Age/Sex: 23 / F ADM Date: 12/23/23 Loc: [facility] Attending Dr: Ana Luisa Roland D.O. Ordering Physician: Ana Luisa Roland D.O. Date of Service: 12/23/23 Procedure(s): US pelvis transvaginal Accession Number(s): [id number] cc: Lexis Evans M.D.; Ana Luisa Roland D.O. [place] [id number] Patient Name: ROSALIE WOODALL MRN: [id number] date: 2000 Sex: F Assigned Patient Location: [facility] Current Patient Location: [facility] Accession/Order Number: [id number] Exam Date: 12/23/2023 11:00 Report Date: 12/23/2023 [...] Signed By: 12/23/23 1334 DD/ 133 TD/TT: [place]ade Hardware Installer: Procedure Note Radiology, Radiologist, MD - 12/23/2023 [place] [address] Ultrasound Report Signed Patient: ROSALIE WOODALL CMR#: [id number] : 2000Acct:[id number] Age/Sex: 23 / FADM Date: 12/23/23 Loc: N[facility] Attending Dr: Ana Luisa Roland D.O. Ordering Physician: Ana Luisa Roland D.O. Date of Service: 12/23/23 Procedure(s): US pelvis transvaginal Accession Number(s): [id number] cc: Lexis Evans M.D.; Ana Luisa Roland D.O. The [address] [address] Patient Name: ROSALIE WOODALL MRN: [id number] date: 2000 Sex: F Assigned Patient Location: [facility] Current Patient Location: [facility] Accession/Order Number: [id number] Exam Date: 12/23/2023 11:00 Report Date: 12/23/2023 [...] M.D. Signed By:12/23/23 1334 DD/ 1331 TD/TT: [place] Hardware Installer: us Ana Luisa Asuncion DO [facility] Final Result documented in this encounter Visit Diagnoses Not on filedocumented in this encounter Care Teams Carpet Sewing Machine Operator Relationship Specialty Start Date End Date Lexis Evans MD [address] [place] [address] [place] [address] PCP - General Family Medicine 02/22/23 Mariam Coburn PA [address] [place] [address] [place] [address] PCP - [facility] 01/13/24 documented as of this encounter
--- OUTSIDE RECORDS SUMMARY | 2025-01-16 12:58 | XMS_ITS | Patient Health Record ---
Author Organization [facility] Address [address] [address] [place] [address] Care Team Providers Care Building Components Designer Name Role Phone Angi Hunt Primary Care Provider [phone] Rashaun Henderson Unavailable Ashley Gold Unavailable [phone] Reason For Referral No Information Problems Problem Type SNOMED Code ICD Code Onset Dates Problem Status W/U Status Risk Notes Problem Depressive episode (527853898) Depressive episode (F32.9) Active confirmed Encounters Encounter Location Date Provider Diagnosis [facility] [address] [place] [address] 05/22/2024 Rashaun Henderson Depressive episode F32.9 [facility] [address] [facility] [place] [address] 08/04/2024 Ashley Gold Depressive episode F32.9 [facility] [address] [facility] [place] [address] 09/01/2024 Ashley Gold Depressive episode F32.9 [facility] [address] [place] [address] 10/07/2024 Ashley Gold Depressive episode F32.9 [facility] [address] [place] [address] 10/27/2024 Ashley Gold Depressive episode F32.9 [facility] [address] [place] [address] 11/12/2024 Ashley Gold Depressive episode F32.9 [facility] [address] [facility] [place] [address] 12/01/2024 Ashley Gold Depressive episode F32.9 [facility] [address] [place] [address] 12/23/2024 Ashley Asif Depressive episode F32.9 [facility] [address] [place] [address] 01/05/2025 Ashley Asif Depressive episode F32.9 [facility] [address] [place] [place] [address] 04/27/2024 Rashaun Henderson [facility] [address] [place] [address] 06/24/2024 Rashaun Henderson [facility] [address] [place] [address] 06/24/2024 Ashley Gold Assessments Encounter Date Diagnosis (ICD Code) Assessment Notes Treatment Notes Treatment Clinical Notes Section Notes 08/04/2024 Depressive episode (ICD-10 - F32.9) 09/01/2024 Depressive episode (ICD-10 - F32.9) 10/07/2024 Depressive episode (ICD-10 - F32.9) 10/27/2024 Depressive episode (ICD-10 - F32.9) 11/12/2024 Depressive episode (ICD-10 - F32.9) 12/01/2024 Depressive episode (ICD-10 - F32.9) 12/23/2024 Depressive episode (ICD-10 - F32.9) 01/05/2025 Depressive episode (ICD-10 - F32.9) 05/22/2024 Depressive episode (ICD-10 - F32.9) Plan Of Treatment Next Appt Details Provider Name:Ashley wu, 01/21/2025 04:00:00 PM, [address] [place], [address], Provider Name:Ashley wu, 02/17/2025 02:00:00 PM, [address] [place], [address], Insurance Providers Payer Name Payer Address Payer Phone Subscriber Number Group Number Insured Name Patient Relationship to Insured Coverage Start Date Coverage End Date [employer] [place] Medicaid [address] CLAIMS [place] [address] [id number] ROSALIE MCLAUGHLIN Self - patient is the insured [address] [facility] [address] [place] [address] [id number] MCLAUGHLINROSALIE POWELL Self - patient is the insured 4
--- OUTSIDE RECORDS SUMMARY | 2025-01-16 12:58 | XMS_ITS | Encounter Summary ---
Author Organization [facility] Address [address] [place] [address] Care Team Providers Care Hood Maker Name Role Phone Lexis Evans MD Primary Care Provider [phone] Encounter Details Date Type Department Care Team (Late st Contact Info) Description 01/13/2025 Telephone [facility] [address] [facility] [facility] [place] [address] Evens Roland, DO [address] [place] [address] Social History Tobacco Use Types Packs/Day Years [...] encounter Miscellaneous Notes * Telephone Encounter - Zehra Sanz LPN - 01/13/2025 4:53 PM EDT Per Mariam patient to schedule an office visit for Saturday or Saturday to be seen to get plan of care. Patient was called made aware voiced understanding and transferred to clerical to schedule * Telephone Encounter - Zehra Sanz LPN - 01/13/2025 2:52 PM EDT I am calling because not long ago for abdominal pain and I was given antibiotics for and I have done with my antibiotics, that pain that I had come back. I do not know what to do. A call back up [phone], appreciate it. And my data is 1996. Patient states that this pain is lower right abdomen and she can feel this anytime she does cardio if lying in bed and goes to sit up she can feel the discomfort. Patient states that this is always same area and getting worse. Patient states she has been given pain meds this does not work and ultrasounds come back clear. She ws on Flagyl on 01/07/2025 for BV documented in this encounter Plan of Treatment Upcoming Encounters Date Type Department Care Team (Late st Contact Info) Description 01/18/2025 3:50 PM EDT Office Visit [facility] [address] [facility] [place] [address] Evens Roland, DO [address] [facility] [place] [address] documented as of this encounter Visit Diagnoses Not on filedocumented in this encounter Care Teams Hood Maker Relationship Specialty Start Date End Date Lexis Evans MD [address] [facility] [place] [address] PCP - General Family Medicine 02/22/23 documented as of this encounter
--- OUTSIDE RECORDS SUMMARY | 2025-01-16 12:58 | XMS_ITS | Clinical Summary ---
Author Organization [facility] Address [address] [place] [address] Care Team Providers Care Gyn Physician Name Role Phone Lexis Evans MD Primary Care Provider [phone] Allergies No known active allergies Medications sertraline (Zoloft) 25 MG tablet Take 25 mg by mouth Daily 4 01/06/20 25 Discontinue d(Other) acetaminophen (Tylenol) 325 MG capsuleIndicati ons:Pelvic pain in female Take 1 capsule (325 mg) by mouth every 6 (six) hours if needed for mild pain for up to 4 days 15 capsule 5 01/05/20 25 nitrofurantoin, macrocrystal-mo nohydrate, (Macrobid) 100 MG capsuleIndicati ons:Escherichia coli infection Take 1 capsule (100 mg) by mouth in the morning and 1 capsule (100 mg) before bedtime. Do all this for 7 days. 14 capsule 5 01/12/20 25 metroNIDAZOLE (Flagyl) 500 MG tabletIndicatio ns:BV (bacterial vaginosis) Take 1 tablet (500 mg) by mouth in the morning and 1 tablet (500 mg) before bedtime. Do all this for 7 days. Do not drink alcohol while taking this medication. 14 tablet 5 01/15/20 25 Hospital, Clinic, or Other Facility Administered Medication Ordered Dose Route Frequency Start Date End Date Status levonorgestrel (Kathy) 13.5 MG IUDIndications:Enco unter for IUD insertion IU See admin instructions 01/05/2025 01/05/2028 Active Levonorgestrel intrauterine device 52 mgIndications:Encou nter for IUD insertion 52 mg IU Once PRN Procedure 01/05/2025 01/05/2025 Ended Active Problems Problem Noted Date Diagnosed Date Restless leg syndrome in ([facility]) 02/2024 Third trimester ([facility]) 07/22/2023 Encounters Date Type Department Care Team Description 01/13/2025 Telephone [facility] [address] [place] [address] Evens Roland DO 01/07/2025 Telephone [facility] [address] [place] [address] Rosa Wilde MA 01/05/2025 8:20 AM EDT Procedure Visit [facility] [place] [address] [place] [address] Evens Roland DO Encounter for IUD insertion; Vaginal discharge; Pelvic pain 01/04/2025 Telephone [facility] [address] [place] [address] Rosa Wilde MA 12/31/2024 Clinisync Result Encounter [facility] External Department Unsolicited Mariam Torres PA 12/31/2024 Telephone [facility] [address] [place] [address] Mariam Torres PA 12/30/2024 External Result Encounter [facility] External Department Unsolicited Mariam Torres PA 12/30/2024 Travel 12/29/2024 10:10 AM EDT Office Visit [facility] [address] [place] [address] Evens Roland DO control counseling 12/29/2024 Bamboo flowsheet [facility] [address] [place] [address] Evens Roland DO from Last 3 Months [...] EDT Office Visit [facility] BCP OB [address] [place] [place] [address] Evens Roland, DO [address] [facility] [place] [address] Health Maintenance Due Date Last Done Comments Influenza Vaccine (#1) 2025 2, 05/14/2021, 04/03/2020, Additional history exists Procedures Procedure Name Priority Date/Time Associated Diagnosis Comments RECURRENT VAGINITIS (HTRX) Routine 01/05/2025 3:08 PM EDT POCT , URINE Routine 01/05/2025 8:45 AM EDT Encounter for IUD insertion IUD INSERTION Routine 01/05/2025 8:20 AM EDT Encounter for IUD insertion US PELVIS TRANSVAGINAL 12/31/2024 2:14 PM EDT AEROBIC VAISHNAVI CHARGE (NMIC56) Routine 12/30/2024 6:45 PM EDT CULTURE, URINE, ROUTINE Routine 12/30/2024 6:45 PM EDT from Last 3 Months Results * (ABNORMAL) RECURRENT VAGINITIS (HTRX) (01/05/2025 3:08 PM EDT) [facility] ATOPOBIUM VAGINAE 26.292(A) 19.961 - 24.689 ppm 01/06/2025 7:33 AM EDT [facility] ATOPOBIUM VAGINAE Detected(A) 19.961 - 24.689 ppm 01/06/2025 7:33 AM EDT [facility] BVAB 2,3 (BACTERIAL VAGINOSIS ASSOCIATED BACTERIA 2, 3); MOBILUNCUS SPP 0 19.961 - 24.689 ppm 01/06/2025 7:33 AM EDT [facility] BVAB 2,3 (BACTERIAL VAGINOSIS ASSOCIATED BACTERIA 2, 3); MOBILUNCUS SPP Not Detected 19.961 - 24.689 ppm 01/06/2025 7:33 AM EDT [facility] LUCIANO ALBICANS, PARAPSILOSIS, TROPICALIS 0 19.961 - 30.770 ppm 01/06/2025 7:33 AM EDT [facility] LUCIAON ALBICANS, PARAPSILOSIS, TROPICALIS Not Detected 19.961 - 30.770 ppm 01/06/2025 7:33 AM EDT [facility] LUCIANO GLABRATA 0 23.000 - 32.138 ppm 01/06/2025 7:33 AM EDT [facility] LUCIANO GLABRATA Not Detected 23.000 - 32.138 ppm 01/06/2025 7:33 AM EDT [facility] LUCIANO KRUSEI 0 23.000 - 32.271 ppm 01/06/2025 7:33 AM EDT [facility] LUCIANO KRUSEI Not Detected 23.000 - 32.271 ppm 01/06/2025 7:33 AM EDT [facility] CHLAMYDIA TRACHOMATIS 0 23.000 - 31.467 ppm 01/06/2025 7:33 AM EDT [facility] CHLAMYDIA TRACHOMATIS Not Detected 23.000 - 31.467 ppm 01/06/2025 7:33 AM EDT [facility] GARDNERELLA VAGINALIS 0 19.961 - 24.689 ppm 01/06/2025 7:33 AM EDT [facility] GARDNERELLA VAGINALIS Not Detected 19.961 - 24.689 ppm 01/06/2025 7:33 AM EDT [facility] MEGASPHAERA (TYPES 1, 2) 0 19.961 - 24.689 ppm 01/06/2025 7:33 AM EDT [facility] MEGASPHAERA (TYPES 1, 2) Not Detected 19.961 - 24.689 ppm 01/06/2025 7:33 AM EDT [facility] NEISSERIA GONORRHOEAE 0 23.000 - 32.117 ppm 01/06/2025 7:33 AM EDT [facility] NEISSERIA GONORRHOEAE Not Detected 23.000 - 32.117 ppm 01/06/2025 7:33 AM EDT [facility] TRICHOMONAS VAGINALIS 0 23.000 - 32.119 ppm 01/06/2025 7:33 AM EDT [facility] TRICHOMONAS VAGINALIS Not Detected 23.000 - 32.119 ppm 01/06/2025 7:33 AM EDT [facility] MYCOPLASMA GENITALIUM 0 19.961 - 24.689 ppm 01/06/2025 7:33 AM EDT [facility] MYCOPLASMA GENITALIUM Not Detected 19.961 - 24.689 ppm 01/06/2025 7:33 AM EDT [facility] Tissue 01/05/2025 3:08 PM EDT 01/06/2025 2:40 AM EDT us Evens Asuncion DO LAB BLOOD ORDERABLES Final Resul t PEDRO PABLO True [facility] [place] [address] * POCT , urine manually resulted (01/05/2025 [...] by patient, parent, or legal power of consumer attorney - including discussion of procedure risks [...] in 4 weeks for a string check. us Evens Roland DO IN CLINIC/BEDSIDE ORDERABLES Fin al Result * US PELVIS TRANSVAGINAL (12/31/2024 2:14 PM EDT) Anatomical Region Laterality Modality Other 12/31/2024 2:14 PM EDT Narrative 12/31/2024 2:16 [place] [address] Ultrasound Report Signed Patient: ROSALIE WOODALL MR#: [id number] : 2000 Acct:[id number] Age/Sex: 24 / F ADM Date: 12/31/24 Loc: US Attending Dr: Mariam Torres Ordering Physician: Mariam Torres Date of Service: 12/31/24 Procedure(s): US pelvis transvaginal Accession Number(s): [id number] cc: Mariam Torres; Lexis Evans M.D. [address] [address] Patient Name: ROSALIE WOODALL MRN: [id number] date: 2000 Sex: F Assigned Patient Location: US Current Patient Location: US Accession/Order Number: [id number] Exam Date: 12/31/2024 14:08 Report Date: 12/31/2024 14:14 At the request of: MARIAM TORRES Procedure: US pelvis transvaginal Pelvic ultrasound. Reason for exam: Pelvic pain for 2 weeks. Comparison: none Technique: Transvaginal imaging of the uterus and ovaries was also obtained. Additional spectral Doppler analysis of the ovaries was also obtained. Findings: The uterus measures 8.1 x 6.1 x 4.4 cm. No measurable fibroid. Endometrium is at the upper limits normal in size measuring 16 mm. Trace free fluid is noted. Right ovary measures 2.3 x 2.4 x 1.6 cm. The left ovary measures 2.7 x 2.1 x 2.7 cm. No adnexal mass or cyst. Normal arterial and venous Doppler waveforms. US/US pelvis transvaginal Impression: No acute process. No adnexal mass. Impression dictated by: Grey Stephens Jr., D.O. 12/31/2024 2:14 PM Dictation Location: [place] [address] Electronically authenticated by: [id number] Y Date: 12/31/2024 14:14 Dictated By: Grey Stephens M.D. Signed By: 12/31/24 1416 DD/ 1414 TD/TT: Date Pitter: Procedure Note Radiology, Radiologist, - 12/31/2024 [place] [address] Ultrasound Report Signed Patient: ROSALIE WOODALL CMR#: [id number] : 2000Acct:[id number] Age/Sex: 24 / FADM Date: 12/31/24 Loc: US Attending Dr: Mariam Torres Ordering Physician: Mariam Torres Date of Service: 12/31/24 Procedure(s): US pelvis transvaginal Accession Number(s): [id number] cc: Mariam Torres; Lexis Evans M.D. The [place] [id number] Patient Name: ROSALIE WOODALL MRN: [id number] date: 2000 Sex: F Assigned Patient Location: US Current Patient Location: US Accession/Order Number: [id number] Exam Date: 12/31/2024 14:08 Report Date: 12/31/2024 14:14 At the request of: MARIAM TORRES Procedure: US pelvis transvaginal Pelvic ultrasound. Reason for exam: Pelvic pain for 2 weeks. Comparison: none Technique: Transvaginal imaging of the uterus and ovaries was alsoobtained. Additional spectral Doppler analysis of the ovaries was also obtained. Findings: The uterus measures 8.1 x 6.1 x 4.4 cm. No measurable fibroid. Endometrium is at the upper limits normal in size measuring 16 mm. Tracefree fluid is noted. Right ovary measures 2.3 x 2.4 x 1.6 cm. The left ovary measures 2.7 x2.1 x 2.7 cm. No adnexal mass or cyst. Normal arterial and venous Doppler waveforms. US/US pelvis transvaginal Impression: No acute process. No adnexal mass. Impression dictated by: Grey Stephens Jr., D.O. 12/31/2024 2:14 PM Dictation Location: [place] [address] Electronically authenticated by: [id number] Y Date: 4:14 Dictated By: Grey Stephens M.D. Signed By:12/31/24 1416 DD/ 1414 TD/TT: Date Pitter: us Mariam GONZALES [facility] Final Result * (ABNORMAL) AEROBIC VAISHNAVI CHARGE (NMIC56) (12/30/2024 6:45 PM EDT) AMIKACIN <16(S) 01/02/2025 9:30 AM EDT [facility] AMOXACILLIN/K CLAVULANATE <8/4(S) 01/02/2025 9:30 AM EDT [facility] AMPICILLIN <8(S) 01/02/2025 9:30 AM EDT [facility] AMPICILLIN/SULBACT AM <4/2(S) 01/02/2025 9:30 AM EDT [facility] AZTREONAM <4(S) 01/02/2025 9:30 AM EDT [facility] CEFAZOLIN <2(S) 01/02/2025 9:30 AM EDT [facility] CEFEPIME <2(S) 01/02/2025 9:30 AM EDT [facility] CEFTAZIDIME <1(S) 01/02/2025 9:30 AM EDT [facility] CEFTAZIDIME/AVIBAC ALLEN <4(S) 01/02/2025 9:30 AM EDT [facility] CEFTOLOZANE/TAZOBA CTAM <2(S) 01/02/2025 9:30 AM EDT [facility] CEFTRIAXONE <1(S) 01/02/2025 9:30 AM EDT [facility] CEFUROXIME <4(S) 01/02/2025 9:30 AM EDT [facility] CIPROFLOXACIN <0.25(S) 01/02/2025 9:30 AM EDT [facility] ERTAPENEM <0.5(S) 01/02/2025 9:30 AM EDT [facility] GENTAMICIN <2(S) 01/02/2025 9:30 AM EDT [facility] LEVOFLOXACIN <0.5(S) 01/02/2025 9:30 AM EDT [facility] MEROPENEM <1(S) 01/02/2025 9:30 AM EDT [facility] MEROPENEM/VABORBAC ALLEN <2(S) 01/02/2025 9:30 AM EDT [facility] NITROFURANTOIN <32(S) 01/02/2025 9:30 AM EDT [facility] PIPERACILLIN/TAZOB ACTAM <8(S) 01/02/2025 9:30 AM EDT [facility] TETRACYCLINE <4(S) 01/02/2025 9:30 AM EDT [facility] TIGECYCLINE <2(S) 01/02/2025 9:30 AM EDT [facility] TOBRAMYCIN <2(S) 01/02/2025 9:30 AM EDT [facility] TRIMETHOPRIM/SULFA METHOXAZOLE <0.5/9.5( S) 01/02/2025 9:30 AM EDT [facility] Urine Urine specimen obtained by clean catch procedure / Unknown 12/30/2024 6:45 PM EDT 12/31/2024 12:56 PM EDT Comment:Clean-Voided Midstre am Mariam GONZALES [facility] Final Result [facility] [address] [place] [address], [facility] [address] [place] [address] * Urine culture (12/30/2024 6:45 PM EDT) Pathologist [facility] ORGANISM Escherichia coli 01/02/2025 9:30 AM EDT [facility] COLONY COUNT >100,000 01/02/2025 9:30 AM EDT [facility] Urine Urine specimen obtained by clean catch procedure / Unknown 12/30/2024 6:45 PM EDT 12/31/2024 12:56 PM EDT Comment:Clean-Voided Midstre am Mariam GONZALES LAB MICROBIOLOGY - GENERAL ORDER JASON Final Result [facility] [address] [place] [address], [facility] [address] [place] [address] from Last 3 Months Insurance [employer] [facility] Care Teams Gyn Physician Relationship Specialty Start Date End Date Lexis Evans MD [address] [place] [address] PCP - General Family Medicine 02/22/23
--- OUTSIDE RECORDS SUMMARY | 2025-01-16 12:58 | XMS_ITS | Encounter Summary ---
Author Organization [facility] Address [address] [place] [address] Care Team Providers Care Timber Bucker Name Role Phone Lexis Evans MD Primary Care Provider [phone] Mariam Coburn Unavailable Encounter Details Date Type Department Care Team (Late st Contact Info) Description 04/24/2023 Abstract [facility] BCP OB [address] [place] [address] Mariam Coburn PA [address] [place], [facility] Social History Tobacco Use Types Packs/Day Years [...] BCP OB [address] [place] [address] Evens Roland, [address] [facility] [place] [address] documented as of this encounter Visit Diagnoses Not on filedocumented in this encounter Care Teams Timber Bucker Relationship Specialty Start Date End Date Lexis Evans MD [address] [facility] [place] [address] PCP - General Family Medicine 02/22/23 Mariam Coburn PA [address] [facility] [place] [address] PCP - [facility] 01/13/24 documented as of this encounter
--- OUTSIDE RECORDS SUMMARY | 2025-01-16 12:58 | XMS_ITS | Encounter Summary ---
Author Organization [facility] Address [address] [place] [address] Care Team Providers Care Rockboard Lather Name Role Phone Lexis Evans MD Primary Care Provider [phone] Encounter Details Date Type Department Care Team (Late Contact Info) Description 01/04/2025 Telephone [facility] BCP OB [address] [facility] [place] [address] Rosa Wilde MA [address] [facility] [place] [address] Social History Tobacco Use Types Packs/Day Years [...] Telephone Encounter - Rosa Wilde MA - 01/04/2025 3:12 PM EDT Pt was called and advised of the UTI found in Urine and Mariam Coburn wants pt to start on the Macrobid. PVU documented in this encounter Plan of Treatment Upcoming Encounters Date Type Department Care Team (Late Contact Info) Description 01/18/2025 3:50 PM EDT Office Visit [facility] BCP OB [address] [facility] [place] [address] Evens Roland DO [address] [facility] [address] [place], [place] [address] documented as of this encounter Visit Diagnoses Diagnosis Escherichia coli infection Escherichia coli (E. coli) infection in conditions classified elsewhere and of unspecified site documented in this encounter Care Teams Rockboard Lather Relationship Specialty Start Date End Date Lexis Evans MD [address] [facility] [place] [address] PCP - General Family Medicine 02/22/23 documented as of this encounter
--- OUTSIDE RECORDS SUMMARY | 2025-01-16 12:58 | XMS_ITS | Encounter Summary ---
Author Organization [facility] Address [address] [facility] [place] [address] Care Team Providers Care Ornamental Metal Erector Name Role Phone Lexis Evans MD Primary Care Provider [phone] Mariam Coburn Unavailable Encounter Details Date Type Department Care Team (Late st Contact Info) Description 03/21/2023 Abstract [facility] BCP OB [address] [place] [address] Glenys Ghotra LPN Social History Tobacco [...] Visit [facility] BCP OB [address] [place] [address] Evens Roland DO [address] [place] [address] documented as of this encounter Visit Diagnoses Not on filedocumented in this encounter Care Teams Ornamental Metal Erector Relationship Specialty Start Date End Date Lexis Evans MD [address] [facility] [place] [address] PCP - General Family Medicine 02/22/23 Mariam Coburn PA [address] [place] [address] PCP - [facility] 01/13/24 documented as of this encounter
--- OUTSIDE RECORDS SUMMARY | 2025-01-16 12:58 | XMS_ITS | Encounter Summary ---
Author Organization [facility] Address [address] [place] [address] Care Team Providers Care Assault Amphibious Vehicle Officer Name Role Phone Lexis Evans MD Primary Care Provider [phone] Mariam Coburn Unavailable Encounter Details Date Type Department Care Team (Late st Contact Info) Description 03/21/2023 Clinisync Result Encounter [facility] External Department Unsolicited Ana Luisa Roland, DO [address] [employer] [employer] [address] [place] [address] Social History Tobacco Use Types Packs/Day Years [...] 01/18/2025 3:50 PM EDT Office Visit [facility] OB [address] [place] [address] Ana Luisa Roland, DO [address] [facility] [place] [address] documented as of this encounter Procedures Procedure Name Priority Date/Time Associated Diagnosis Comments OBCERVLEN 03/21/2023 11:23 AM EDT documented in this encounter Results * OBCERVLEN (03/21/2023 11:23 AM EDT) Anatomical Region Laterality Modality Other 03/21/2023 11:2 3 AM EDT Narrative 03/21/2023 11:23 AM EDT [address] [address] Ultrasound Report Signed Patient: ROSALIE WOODALL MR #: [id number] : 2000 Acct:[id number] Age/Sex: 22 / F ADM Date: 03/21/23 Loc: US Attending Dr: Ana Luisa Roland D.O. Ordering Physician: Ana Luisa Roland D.O. Date of Service: 03/21/23 Procedure(s): US OB cervical length Accession Number(s): [id number] cc: Lexis Evans M.D.; Ana Luisa Roland D.O. [address] [id number] Patient Name: ROSALIE WOODALL MRN: [facility]:[id number] date: 2000 Sex: F Assigned Patient Location: US Current Patient Location: US Accession/Order Number: [id number] Exam Date: 03/21/2023 10:38 Report Date: 03/21/2023 [...] Signed By: 03/21/23 1125 DD/ 1123 TD/TT: Roll Up Helper: Procedure Note Radiology, Radiologist, MD - 04/05/2023 [place] [address] Ultrasound Report Signed Patient: ROSALIE WOODALLMR #: [id number] : 2000Acct:[id number] Age/Sex: 22 / FADM Date: 03/21/23 Loc: US Attending Dr: Ana Luisa Roland D.O. Ordering Physician: Ana Luisa Roland D.O. Date of Service: 03/21/23 Procedure(s): US OB cervical length Accession Number(s): [id number] cc: Lexis Evans M.D.; Ana Luisa Roland D.O. The [place] [address] Patient Name: ROSALIE WOODALL MRN: [facility]:[id number] date: 2000 Sex: F Assigned Patient Location: US Current Patient Location: US Accession/Order Number: [id number] Exam Date: 03/21/2023 10:38 Report Date: 03/21/2023 [...] M.D. Signed By:03/21/23 1125 DD/ 1123 TD/TT: Roll Up Helper: us Ana Luisa Asuncion DO [facility] Final Result documented in this encounter Visit Diagnoses Not on filedocumented in this encounter Care Teams Assault Amphibious Vehicle Officer Relationship Specialty [place] [address] [place] [address] [place] [address] PCP - General Family Medicine 02/22/23 Mariam Coburn PA [address] [place] [address] [place] [address] PCP - [facility] 01/13/24 documented as of this encounter
--- OUTSIDE RECORDS SUMMARY | 2025-01-16 12:58 | XMS_ITS | Encounter Summary ---
Author Organization [facility] Address [address] [facility] [place] [address] Care Team Providers Care Technical Artist Name Role Phone Lexis Evans MD Primary Care Provider [phone] Mariam Coburn Unavailable Encounter Details Date Type Department Care Team (Late st Contact Info) Description 01/02/2023 Abstract [facility] BCP OB [address] [facility] [place] [address] Evens Roland DO [address] [place] [address], [place] [address] Social History Tobacco Use Types Packs/Day Years [...] 01/18/2025 3:50 PM EDT Office Visit [facility] OB [address] [facility] [place] [address] Evens Roland DO [address] [place], [place] [address] documented as of this encounter Visit Diagnoses Not on filedocumented in this encounter Care Teams Technical Artist Relationship Specialty Start Date End Date Lexis Evans MD [address] [facility] [place] [address] PCP - General Family Medicine 02/22/23 Mariam Coburn PA [address] [place] [address] [place] [address] PCP - [facility] 01/13/24 documented as of this encounter
[2025-01-16 12:59] VITALS: O2SAT 99
--- NOTE | 2025-01-16 12:59 | ED.GENADUL1 ---
HPI HPI - General Adult General Chief complaint: Chest Pain Stated complaint: CHEST PAIN, SOB Time Seen by Provider: 01/16/25 12:43 Source: patient Mode of arrival: Wheelchair Limitations: no limitations History of Present Illness HPI narrative: 24-year-old female presents to the emergency department for a chief complaint of pain in her lower neck that goes into her sternal area. It started at 2:00 this morning and it feels like it is burning. No fever or cough or back pain. She states she is also short of breath and was worried her throat was going to swell shut. She states she has not been under any unusual stress. No known ill contacts. Related Data Home Medications �Medication �Instructions �Recorded �Confirmed sertraline 100 mg tablet 100 mg PO Q24H 01/16/25 01/16/25 Previous Rx's �Medication �Instructions �Recorded esomeprazole magnesium 20 mg 20 mg PO DAILY #20 caps 01/16/25 capsule,delayed release (Nexium) Allergies Allergy/AdvReac Type Severity Reaction Status Date / Time No Known Drug Allergies Allergy Verified 12/30/24 18:18 Opioid HPI Opioid Management Most Recent Opioid Data: Last Pain Scale 7 Today, 12:46 Ur Phencyclidine Scrn, (NEGATIVE) Negative 08/22/23, 00:10 Review of Systems ROS Narrative A ten point review of systems is negative except as noted above. PFSH PFSH Social History Little interest or pleasure in doing things: not at all Feeling down, depressed, or hopeless: not at all Exam Narrative Exam Narrative: Nurses note and vital signs reviewed and patient is not hypoxic. General: The patient appears well and in no apparent distress. Patient is resting comfortably on cart. Skin: Warm, dry, no pallor noted. There is no rash noted. Head: Normocephalic, atraumatic Eye: Normal conjunctiva, no drainage Ears, Nose, Mouth, and Throat: oral mucosa is moist. Nares patent. No pharyngeal erythema or exudate. No swelling or cervical adenopathy. Uvula midline. She is handling oral secretions well. No swelling to the floor of her mouth. Cardiovascular: Regular Rate and Rhythm Respiratory: Patient is in no distress, no accessory muscle use, lungs are clear to auscultation, no wheezing, rales or rhonchi Back: non-tender GI: Soft and nontender Musculoskeletal: The patient has no evidence of calf tenderness, no pitting edema, symmetrical pulses noted bilaterally Neurological: A&O, normal speech Psychiatric: Cooperative Constitutional Vital Signs, click to edit/add: Last Vital Signs Temp 99.7 F 01/16/25 12:46 Pulse 81 01/16/25 12:46 Resp 18 01/16/25 12:46 BP 133/83 01/16/25 12:46 Pulse Ox 99 01/16/25 12:59 O2 Del Method Room Air 01/16/25 12:59 Course Vital Signs Vital signs: Vital Signs Temperature 99.7 F 01/16/25 12:46 Pulse Rate 81 01/16/25 12:46 Respiratory Rate 18 01/16/25 12:46 Blood Pressure 133/83 01/16/25 12:46 Pulse Oximetry 97 01/16/25 12:46 Oxygen Delivery Method Room Air 01/16/25 12:46 Temperature 99.7 F 01/16/25 12:46 Pulse Rate 81 01/16/25 12:46 Respiratory Rate 18 01/16/25 12:46 Blood Pressure 133/83 01/16/25 12:46 Pulse Oximetry 99 01/16/25 12:59 Oxygen Delivery Method Room Air 01/16/25 12:59 Medical Decision Making MDM Narrative Medical decision making narrative: EKG, chest x-ray, and strep are all negative or normal. I suspect that she may have GE reflux. She was given GI cocktail here and prescribed Nexium. There is no evidence of cardiac or pulmonary etiology. She will follow-up with her doctor. Treatment diagnosis and follow-up were discussed with the patient. Differential Diagnosis Differential Diagnosis: Strep throat, GE reflux, IL, pneumothorax Lab Data Lab results reviewed: Yes I reviewed the patient's lab results Labs: Lab Results 01/16/25 Range/Units 12:50 Streptococcus Screen Negative Imaging Data Chest x-ray: Radiologist's impression: ITS Impressions Chest X-Ray 01/16/25 12:57 IMPRESSION: No acute process. Impression dictated by: Sina Nagel M.D. 01/16/2025 1:18 PM Dictation Location: [email or web address] VALLEY [email or web address] Electronically authenticated by: [id number] Y Date: 01/16/2025 13:18 ECG Data Attestation: I personally reviewed and interpreted this ECG as follows: (EKG on my interpretation shows sinus rhythm with rate of 78 and no acute change) Discharge Plan Discharge Chief Complaint: Chest Pain Clinical Impression: Chest pain Patient Disposition: Home, Self-Care Time of Disposition Decision: 13:46 Condition: Good Mode of Transportation: Private Vehicle Prescriptions / Home Meds: New esomeprazole magnesium [Nexium] 20 mg capsule,delayed release(DR/EC) 20 mg PO DAILY Qty: 20 0RF No Action sertraline 100 mg tablet 100 mg PO Q24H Print Language: Maltese Instructions: Chest Pain (ED), GERD (Gastroesophageal Reflux Disease) (ED) Referrals: Lexis Evans MD [Primary Care Provider, Family Practice] - 1 week
--- OUTSIDE RECORDS SUMMARY | 2025-01-16 12:59 | XMS_ITS | CCD ---
Author Organization [facility] Care Team Providers Care Dairy Laboratory Technician Name Role Phone Lexis Rodríguez Unavailable DR [...] Unavailable MD Lexis Rodríguez Primary Care Provider [phone] MD Lexis Rodríguez Attending Provider Lexis Rodríguez MD Primary Care Provider MD Lexis Rodríguez Primary Care Provider DO Grant Menjivar Attending Provider Mariam Aragon Unavailable Lexis Rodríguez MD Primary Care Provider Mariam Torres Admitting Unavailable Mariam Torres Attending Unavailable Grant Menjivar Admitting Unavailable Grant Menjivar Attending Unavailable Lexis Rodríguez Primary Care Unavailable ANA LUISA ROLAND Attending Unavailable ANA LUISA ROLAND Attending Unavailable ANA LUISA ROLAND Attending Unavailable MARIAM TORRES Unavailable Medications Current Medications Medication Drug Class(es) Dates Sig (Normalized) Sig (Original) acetaminophen 325 mg oral capsule (3 sources) Start: 12-31-2024 End: 01-04-2025 take 1 capsule by mouth every six hours for pain acetaminophen (Tylenol) 325 MG capsule Indications: Pelvic pain in female Take 1 capsule (325 mg) by mouth every 6 (six) hours if needed for mild pain for up to 4 days 15 capsule 12/31/2024 01/04/2025 Active Start: 05-05-2024 take 1 tablet by juvenal th every six hours Acetaminophen (Tylenol Extra Strength) [...] Start: 03-20-2022 multivitamin () 27-0.8 MG tablet nitrofurantoin, macrocrystals 25 mg / nitrofurantoin, monohydrate 75 mg oral capsule (1 source) Nitrofuran Antibacterial Start: 01-04-2025 End: 01-11-2025 take 1 capsule by mouth in the morning nitrofurantoin, macrocrystal-monohy drate, (Macrobid) 100 MG capsule Indications: Escherichia coli infection Take 1 capsule (100 mg) by mouth in the morning and 1 capsule (100 mg) before bedtime. Do all this for 7 days. 14 capsule 01/04/2025 01/11/2025 Active VIT-DSS-FE FUM-FA PO (4 sources) VIT-DSS -FE FUM-FA PO Take 2 tablets by mouth 0 Active sertraline 50 mg oral tablet (14 sources) Serotonin Reuptake Inhibitor Start: 04-07-2024 take 50 mg by mouth once daily Sertraline Active 50 MG PO Daily April 07, 2024 3:58pm Start: 01-15-2024 End: 01-05-2025 take 1 tablet by mouth once daily sertraline (Zoloft) 25 MG tablet Take 25 mg by mouth Daily 01/15/2024 01/05/2025 Discontinued (Other) Completed/Discontinued Medications Medication Drug Class(es) Dates Sig (Normalized) Sig (Original) docosahexaenoic acid 200 mg oral capsule (1 source) Start: 11-15-2023 End: 01-15-2024 Docosahexaenoic Acid ( Dha) 200 mg capsule Discontinued MG PO November 15, 2023 12:00am January 15, 2024 9:01am hydrOXYzine pamoate 25 mg oral capsule (1 source) Antihistamine Start: 12-30-2023 End: 01-15-2024 take 25 mg by mouth twice daily Hydroxyzine Pamoate Discontinued 25 MG PO Twice daily December 30, 2023 12:00am January 15, 2024 9:20am levonorgestrel 0.780621 mg/hr intrauterine system (6 sources) Progestin, Progestin-containi ng Intrauterine Device Start: 01-05-2025 End: 01-05-2025 Levonorgestrel intrauterine device 52 mg Start: 01-05-2025 End: 01-05-2025 52 mg, Intrauterine, Once PA N Procedure, Starting on Sat01/05/25 at 0820, For 1 dose Start: 11-04-2023 End: 01-05-2028 levonorgestrel (Kathy) 13.5 MG IUD Methylprednisolone (1 source) Corticosteroid Start: 04-17-2024 End: 05-05-2024 Methylprednisolone Discontinued 0 PO per package directions [...] (1 source) Central alpha-2 Adrenergic Agonist Start: 04-07-2024 End: 05-05-2024 take 2 mg by mouth three times daily Tizanidine Discontinued 2 MG PO Three times daily April 07, 2024 12:00am May 05, 2024 9:09am Problems Active Problems Problem Classification Problem Date Documented Date Episodic/Chronic Abdominal pain (2 sources) Pain in female pelvis; Translations: [Pelvic and perineal pain] 12-31-2024 Episodic Anxiety disorders (2 sources) Anxiety; Translations: [Anxiety disorder, unspecified] 01-15-2024 Chronic Cardiac dysrhythmias (1 source) Tachycardia; Translations: [Tachycardia, unspecified] 12-30-2023 Episodic Chronic obstructive pulmonary disease and bronchiectasis (3 sources) Bronchitis; Translations: [Bronchitis, not specified as acute or chronic] Episodic Contraceptive and procreative management (3 sources) Patient encounter status; Translations: [Encounter for [...] muscle, ligament, and fascia] 05-05-2024 Episodic Other female genital disorders (1 source) Vaginal discharge; Translations: [Other specified noninflammatory disorders of vagina] 01-05-2025 Episodic Other non-traumatic joint disorders (1 source) Greater trochanteric pain syndrome of left lower limb; Translations: [Pain in left hip] 05-05-2024 Episodic Other non-traumatic joint disorders (1 source) Hip pain; Translations: [Pain in left hip] 04-17-2024 Episodic Other skin disorders (2 sources) [...] Translations: [LOW BACK PAIN, UNSPECIFIED] Onset: 11-04-2022 Urinary tract infections (3 sources) Acute urinary tract infection; Translations: [Urinary tract infection, site not specified] Episodic Past or Other Problems Problem Classification Problem Date Documented Da te Episodic/Chronic Other complications of (15 sources) Diseases of the nervous system complicating , unspecified trimester; Translations: [Other current conditions classifiable elsewhere of mother, unspecified as to episode of care or not applicable] Onset: 07-22-2023 07-22-2023 Episodic Other non-traumatic joint disorders (3 sources) Pain in left hip; Translations: [Pain in joint, pelvic region and thigh] Onset: 05-05-2024 04-17-2024 Episodic Other and delivery including normal (17 sources) Third trimester ; Translations: [Encounter for supervision of normal , unspecified, third trimester] Onset: 07-22-2023 08-13-2023 Episodic Unclassified (2 sources) Lumbar pain M54.50 Unclassified (1 source) LOW BACK PAIN, UNSPECIFIED; Translations: [LOW BACK PAIN, UNSPECIFIED] Onset: 10-31-2022 Results Test Name Value Interpretation Reference Range Facility HCG ( test) Ql (U)o n 01-05-2025 Interpretation and review of laboratory results Normal [facility] Preg Test, Ur Negative Negative [facility] IUD Insertionon 01-05-2025 Jessi Wilks LPN 01/05/2025 9:39 AM IUD Insertion Performed by: Ana Luisa Roland DO Authorized by: Ana Luisa Roland DO Procedure: IUD insertion Consent obtained by 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 [facility] US PELVIS TRANSVAGINALon [address] [address] Ultrasound Report Signed Patient: ROSALIE MCLAUGHLIN MR#: [id number] : 2000 Acct:[id number] Age/Sex: 24 / F ADM Date: 12/31/24 Loc: US Attending Dr: Mariam Torres Ordering Physician: Mariam Torres Date of Service: 12/31/24 Procedure(s): US pelvis transvaginal Accession Number(s): [id number] cc: Mariam Torres; Lexis Rodríguez M.D. The [address] [address] Patient Name: ROSALIE MCLAUGHLIN MRN: [facility]:[id number] date: 2000 Sex: F Assigned Patient Location: US Current Patient Location: US Accession/Order Number: [id number] Exam Date: 12/31/2024 14:08 Report Date: 12/31/2024 [...] Jr., D.O. 12/31/2024 2:14 PM Dictation Location: [place] [address] Electronically authenticated by: [id number] Y Date: 12/31/2024 14:14 Dictated By: Grey Stephens M.D. Signed By: 12/31/24 1416 DD/ 1414 TD/TT: Medical Liaison: [facility] Radiology, Radiologist, - 12/31/[address] [address] Ultrasound Report Signed Patient: ROSALIE MCLAUGHLIN MR#: [id number] : 2000 Acct:[id number] Age/Sex: 24 / F ADM Date: 12/31/24 Loc: US Attending Dr: Mariam Torres Ordering Physician: Mariam Torres Date of Service: 12/31/24 Procedure(s): US pelvis transvaginal Accession Number(s): [id number] cc: Mariam Torres; Lexis Rodríguez M.D. [address] [address] Patient Name: ROSALIE MCLAUGHLIN MRN: [facility]:[id number] date: 2000 Sex: F Assigned Patient Location: US Current Patient Location: US Accession/Order Number: [id number] Exam Date: 12/31/2024 14:08 Report Date: 12/31/2024 [...] Jr., D.O. 12/31/2024 2:14 PM Dictation Location: [place] [address] Electronically authenticated by: [id number] Y Date: 12/31/2024 14:14 Dictated By: Grey Stephens M.D. Signed By: 12/31/24 1416 DD/ 1414 TD/TT: Medical Liaison: [facility] Radiology Study observation (narrative) [facility] US PELVIS TRANSVAGINALOrdere d By: Radiologist Radiology on 12-31-2024 [facility] Work Phone: Urine Cultureon 12-30-2024 Bacteria identified Cx Nom (U) ORGANISM: Escherichia coli (O:ESCCOL) [place] Count >100,000 Aerobic VAISHNAVI Charge (NMIC56) ----- SUSCEPTIBILITY ---- ORGANISM: O:ESCCOL ANTIBIOTIC INTERPRETATION VAISHNAVI Amikacin S <16 Amoxacillin/K Clavulanate S <8 Ampicillin S <8 Ampicillin/Sulbactam S <4 Aztreonam S <4 Cefazolin S <2 Cefepime S <2 Ceftazidime S <1 Ceftazidime/Avibacta m S <4 Ceftolozane/Tazobact am S <2 Ceftriaxone S <1 Cefuroxime S <4 Ciprofloxacin S <0.25 Ertapenem S <0.5 Gentamicin S <2 Levofloxacin S <0.5 Meropenem S <1 Meropenem/Vaborbacta m S <2 Nitrofurantoin S <32 Piperacillin/Tazobac raphael S <8 Tetracycline S <4 Tigecycline S <2 Tobramycin S <2 Trimethoprim/Sulfame thoxazole S <0.5 S = SUSCEPTIBLE I = INTERMEDIATE R = RESISTANT BLANK = DATA NOT AVAILABLE, OR DRUG NOT ADVISABLE OR TESTED R* = RESISTANCE DUE TO EXTENDED SPECTRUM BETA-LACTAMASES ESBL = EXTENDED SPECTRUM BETA-LACTAMASE TFG = THYMIDINE-DEPENDENT STRAIN MUNDO = BETA-LACTAMASE POSITIVE IB = INDUCIBLE BETA-LACTAMASE. APPEARS IN PLACE OF 'S' WITH SPECIES KNOWN TO POSSESS INDUCIBLE BETA-LACTAMASES. POTENTIALLY THEY MAY BECOME RESISTANT TO ALL B-LACTAM DRUGS. PERFORMED BY: [place] [address] PATHOLOGIST ESL TEACHER KIRSTEN ZAMORA M.D. Normal [facility] Comment on above: Performed By: #### C UU #### [place] [address] [place] IGP,APTIMA HPV,AGE GDLNon AGE GDLN ACOG TESTING Note . [facility] Comment on above: TESTS RESULT FLAG UN ITS REF RANGE LAB Clinician Provided Cytology Information Source.............Cervix;Endocervix No. of containers..01 ThinPrep Vial Age Algo ACOG Katie... FLAG LEGEND: L-Low Normal,H-High Normal,LL-Alert Low,HH-Alert High <-Panic Low,>-Panic High,A-Abnormal,AA-Critical Abnormal Performed at: 01 =G [address] [address] Dorothy Bryant MD, IGP, RFX APTIMA HPV ASCU Note . [facility] Comment on above: TESTS RESULT FLAG UN ITS REF RANGE LAB DIAGNOSIS: 02 NEGATIVE FOR INTRAEPITHELIAL LESION OR MALIGNANCY. Specimen adequacy: 02 Satisfactory for evaluation. No endocervical component is identified. Performed by: 02 Iwona Zepeda, Flake Drier ([facility]) . 02 Note: Note 03 The Pap [...] Low,>-Panic High,A-Abnormal,AA-Critical Abnormal Performed at: 02 [place] [facility] [place] [address] Renée Galan PhD, [address] [facility] [address] [address] Dorothy Bryant MD, Performed at: =G - [facility] [address] [id number] Pelt Inspector: Dorothy Bryant MD, Phone: [phone] Performed at: [facility] - [facility] [place] [id number] Pelt Inspector: Renée Galan PhD, Phone: [phone] BRUSH-SPATULA CERVIX ENDOCERVIX [facility] XR hip BI w [id number] 05-05-20 24 XR hip BI w [id number] [facility] [address] [place] [address] XRay Report Signed Patient: Rosalie Mclaughlin MR#: [id number] : 2000 Acct:[id number] Age/Sex: 23 / U ADM Date: 05/05/24 Loc: [facility] Room: Type: [facility] Attending Dr: Grant Menjivar DO Copies to: [...] Sina Nagel M.D.05/05/2024 1:43 PM Dictation Location: [place] [address] Transcribed By: [facility] 05/05/24 1343 Dictated By: Sina Nagel DO 05/05/24 1341 Signed By: 05/05/24 1343 Normal [facility] ALL CBC WITH AUTO DIFFon BASOPHILS ABSOLUTE AUTO 0.0 [facility] Basophils/100 WBC (Bld) 0.3 % 0.2 - 2.0 % [facility] Eosinophils/100 WBC (Bld) 0.8 % Low 0.9 - 7.0 % [facility] Erythrocyte distribution width (RBC) [Ratio] 13.2 % 11.0 - 15.0 % [facility] Hematocrit (Bld) [Volume fraction] 31.3 % Low 36.0 - 48.0 % [facility] Hemoglobin (Bld) [Mass/Vol] 10.1 g/dL Low 12.0 - 16.0 g/dL [facility] IMMATURE GRANULOCYTES ABS AUTO 0.06 High [facility] Immature granulocytes/100 WBC (Bld) 0.5 % 0.0 - 0.5 % [facility] Interpretation and review of laboratory results Abnormal [facility] LYMPHOCYTES ABSOLUTE AUTO 2.4 [facility] Lymphocytes/100 WBC (Bld) 20.1 % Low 20.5 - 60.0 % [facility] MCH (RBC) [Entitic mass] 29.8 pg 26.7 - 34.0 pg [facility] MCHC (RBC) [Mass/Vol] 32.3 g/dL 29.9 - 35.2 g/dL [facility] MCV (RBC) [Entitic vol] 92.3 fL 81.0 - 99.0 fL [facility] MONOCYTES ABSOLUTE AUTO 1.0 High N [facility] Monocytes/100 WBC (Bld) 8.6 % 1.7 - 12.0 % [facility] NEUTROPHILS ABSOLUTE AUTO 8.3 High [facility] Neutrophils/100 WBC (Bld) 69.7 % 43.0 - 75.0 % [facility] Platelet mean volume (Bld) [Entitic vol] 10.8 fL 9.5 - 13.5 fL [facility] EO # 0.1 [facility] PLT 180 [facility] RBC 3.39 Low [facility] WBC 12.0 High [facility] ALL CBC WITH AUTO DIFFon BASOPHILS ABSOLUTE AUTO 0.0 N [facility] Basophils/100 WBC (Bld) 0.3 % 0.2 - 2.0 % [facility] Eosinophils/100 WBC (Bld) 0.9 % 0.9 - 7.0 % [facility] Erythrocyte distribution width (RBC) [Ratio] 13.0 % 11.0 - 15.0 % [facility] Hematocrit (Bld) [Volume fraction] 34.3 % Low 36.0 - 48.0 % [facility] Hemoglobin (Bld) [Mass/Vol] 11.3 g/dL Low 12.0 - 16.0 g/dL [facility] IMMATURE GRANULOCYTES ABS AUTO 0.03 [facility] Immature granulocytes/100 WBC (Bld) 0.4 % 0.0 - 0.5 % [facility] Interpretation and review of laboratory results Abnormal [facility] LYMPHOCYTES ABSOLUTE AUTO 1.8 [facility] Lymphocytes/100 WBC (Bld) 24.2 % 20.5 - 60.0 % [facility] MCH (RBC) [Entitic mass] 29.8 pg 26.7 - 34.0 pg [facility] MCHC (RBC) [Mass/Vol] 32.9 g/dL 29.9 - 35.2 g/dL [facility] MCV (RBC) [Entitic vol] 90.5 fL 81.0 - 99.0 fL [facility] MONOCYTES ABSOLUTE AUTO 0.7 N [facility] Monocytes/100 WBC (Bld) 8.9 % 1.7 - 12.0 % [facility] NEUTROPHILS ABSOLUTE AUTO 4.8 [facility] Neutrophils/100 WBC (Bld) 65.3 % 43.0 - 75.0 % [facility] Platelet mean volume (Bld) [Entitic vol] 10.8 fL 9.5 - 13.5 fL [facility] EO # 0.1 [facility] PLT 204 [facility] RBC 3.79 Low [facility] WBC 7.4 [facility] Urinalysis macro (dipstick) panel (U)on 08-15-2023 Bilirubin, UA Negative Negative - 4(70) +++ mg/dL [facility] Blood, UA Negative Negative - 50 Nicolas/mcL [facility] Clarity, UA Clear [facility] Color, UA Yellow [facility] Glucose, UA Negative Negative - 1999(110) ++++ mg/dL [facility] Interpretation and review of laboratory results Abnormal [facility] Ketones, UA Negative Negative - 160(16) ++++ mg/dL [facility] Leukocytes, UA Negative Negative - 500+++ Freida/mcL [facility] Nitrite, UA Negative Negative - Positive [facility] pH, UA 6.5 5 - 9 [facility] Protein, UA Negative Negative - 1999(20) ++++ mg/dL [facility] Spec Grav, UA 1.020 1 - 1.03 [facility] Urobilinogen, UA 1.0 0.2 - 12 mg/dL [facility] XR LSPINE 2_3 VIEWSon 2022 XR LSPINE 2_3 VIEWS EXAM: XR LSPINE 2_3 VIEWS HISTORY: Low back pain COMPARISON: None. TECHNIQUE: 3 views FINDINGS: Satisfactory alignment. Multilevel endplate degenerative changes, disc disease, anterior spurring and facet arthropathy. No acute fracture or subluxation. Unremarkable soft tissues. IMPRESSION: No acute fracture or subluxation. Electronically authenticated by: YAKELIN FRIEDMAN Date: 2022-10-31 14:26 Normal [facility] CBC AUTO DIFFon 10-17-2022 BASO # 0.0 103/ul Normal 0.0-0.1 [facility] Comment on above: Performed By: #### C BC #### [facility] [address] [place] [address] Dr. Dav Xie Basophils/100 WBC (Bld) 0.6 % Normal 0.2-2.0 [facility] Comment on above: Performed By: #### C BC #### [facility] [address] [place] [address] Dr. Dav Xie EO # 0.2 103/ul Normal 0.0-0.7 [facility] Comment on above: Performed By: #### C BC #### [facility] [address] [place] [address] Dr. Dav Xie Eosinophils/100 WBC (Bld) 3.0 % Normal 0.9-7.0 [facility] Comment on above: Performed By: #### C BC #### [facility] [address] [place] [address] Dr. Dav Xie Erythrocyte distribution width (RBC) [Ratio] 11.9 % Normal 11.0-15.0 [facility] Comment on above: Performed By: #### C BC #### [facility] [address] [place] [address] Dr. Dav Xie Hematocrit (Bld) [Volume fraction] 39.5 % Normal 36.0-48.0 [facility] Comment on above: Performed By: #### C BC #### [facility] [address] [place] [address] Dr. Dav Xie Hemoglobin (Bld) [Mass/Vol] 13.4 g/dL Normal 12.0-16.0 [facility] Comment on above: Performed By: #### C BC #### [facility] [address] [place] [address] Dr. Dav Xie IG # 0.01 10e3/ul Normal 0.00-0.03 [facility] Comment on above: Performed By: #### C BC #### [facility] [address] [place] [address] Dr. Dav Xie IG % 0.2 % Normal 0.0-0.5 [facility] Comment on above: Performed By: #### C BC #### [facility] [address] [place] [address] Dr. Dav Xie LYMPH # 1.7 103/ul Normal 1.2-3.8 [facility] Comment on above: Performed By: #### C BC #### [facility] [address] [place] [address] Dr. Dav Xie Lymphocytes/100 WBC (Bld) 31.9 % Normal 20.5-60.0 [facility] Comment on above: Performed By: #### C BC #### [facility] [address] [place] [address] Dr. Dav Xie MANUAL DIFF REQ NO Normal [facility] Comment on above: Performed By: #### C BC #### [facility] [address] [place] [address] Dr. Dav Xie MCH (RBC) [Entitic mass] 31.8 pg Normal 26.7-34.0 [facility] Comment on above: Performed By: #### C BC #### [facility] [address] [place] [address] Dr. Dav Xie MCHC (RBC) [Mass/Vol] 33.9 g/dL Normal 29.9-35.2 [facility] Comment on above: Performed By: #### C BC #### [facility] [address] [place] [address] Dr. Dav Xie MCV (RBC) [Entitic vol] 93.6 fL Normal 81.0-99.0 [facility] Comment on above: Performed By: #### C BC #### [facility] [address] [place] [address] Dr. Dav Xie MONO # 0.5 103/ul Normal 0.3-0.8 [facility] Comment on above: Performed By: #### C BC #### [facility] [address] [place] [address] Dr. Dav Xie Monocytes/100 WBC (Bld) 9.7 % Normal 1.7-12.0 [facility] Comment on above: Performed By: #### C BC #### [facility] [address] [place] [address] Dr. Dav Xie NEUT # 2.9 103/ul Normal 1.4-6.5 [facility] Comment on above: Performed By: #### C BC #### [facility] [address] [place] [address] Dr. Dav Xie Neutrophils/100 WBC (Bld) 54.6 % Normal 43.0-75.0 [facility] Comment on above: Performed By: #### C BC #### [facility] [address] [place] [address] Dr. Dav Xie Platelet mean volume (Bld) [Entitic vol] 9.7 fL Normal 9.5-13.5 [facility] Comment on above: Performed By: #### C BC #### [facility] [address] [place] [address] Dr. Dav Xie PLT 215 103/ul Normal 150-450 [facility] Comment on above: Performed By: #### C BC #### [facility] [address] [place] [address] Dr. Dav Xie RBC 4.22 106/ul Normal 4.20-5.40 [facility] Comment on above: Performed By: #### C BC #### [facility] [address] [place] [address] Dr. Dav Xie WBC 5.4 103/ul Normal 4.0-11.0 [facility] Comment on above: Performed By: #### C BC #### [facility] [address] [place] [address] Dr. Dav Xie FERRITINon 10-17-2022 Ferritin [Mass/Vol] 85.0 ng/mL Normal 6.2-137.0 [facility] Comment on above: Performed By: #### F ERR #### [facility] [address] [place] [address] Dr. Dav Xie PROF CHEM 8 (BAS METB)on Anion gap [Moles/Vol] 11.2 mmol/L Normal [facility] Comment on above: Performed By: #### B MP #### [facility] [address] [place] [address] Dr. Dav Xie Calcium [Mass/Vol] 8.8 mg/dL Normal 8.5-10.1 [facility] Comment on above: Performed By: #### B MP #### [facility] [address] [place] [address] [address] Dav Xie Chloride [Moles/Vol] 103 mmol/L Normal 98-107 [facility] Comment on above: Performed By: #### B MP #### [facility] [address] [place] [address] [address] Dav Xie CO2 [Moles/Vol] 29.6 mmol/L Normal 21.0-32.0 [facility] Comment on above: Performed By: #### B MP #### [facility] [address] [place] [address] Dr. Dav Xie Creatinine [Mass/Vol] 0.82 mg/dL Normal 0.55-1.02 [facility] Comment on above: Performed By: #### B MP #### [facility] [address] [place] [address] [address] Dav Xie EGFR-AF BRAZILIAN >60 Normal >=60 [facility] Comment on above: Performed By: #### B MP #### [facility] [address] [place] [address] Dr. Dav Xie EGFR-NON AF BRAZILIAN >60 Normal >=60 [facility] Comment on above: Performed By: #### B MP #### [facility] [address] [place] [address] Dr. Dav Xie Glucose [Mass/Vol] 86 mg/dL Normal 74-106 [facility] Comment on above: Performed By: #### B MP #### [facility] [address] [place] [address] [address] Dav Xie Potassium [Moles/Vol] 3.8 mmol/L Normal 3.5-5.1 [facility] Comment on above: Performed By: #### B MP #### [facility] [address] [place] [address] Dr. Dav Xie Sodium [Moles/Vol] 140 mmol/L Normal 136-145 [facility] Comment on above: Performed By: #### B MP #### [facility] [address] [place], [place] [address] Dr. Dav Xie Urea nitrogen [Mass/Vol] 13.0 mg/dL Normal 7.0-18.0 [facility] Comment on above: Performed By: #### B MP #### [facility] [address] [place], [place] [address] Dr. Dav Xie Urea nitrogen/Creatinine [Mass ratio] 15.9 mg/mg Normal [facility] Comment on above: Performed By: #### B MP #### [facility] [address] [place], [place] [address] Dr. Dav Xie Vital Signs Date Time Vital Sign Value Performing Clinician Facility 12-29-2024 10:49-0400 Body mass index (BMI) [Ratio] 30.62 kg/m2 [employer] Work Phone: [facility] 12-29-2024 10:49-0400 Body weight 83.46 kg Ana Luisa Asuncion DO Work Phone: [facility] 12-29-2024 10:49-0400 Diastolic blood pressure 72 mm[Hg] Ana Luisa Asuncion DO Work Phone: [facility] 12-29-2024 10:49-0400 Systolic blood pressure 110 mm[Hg] Ana Luisa Asuncion DO Work Phone: [facility] 05-13-2024 15:25-0400 Body height 165.1 cm Mariam GONZALES Work Phone: [facility] 05-13-2024 15:25-0400 Body mass index (BMI) [Ratio] 26.29 kg/m2 Mariam GONZALES Work Phone: [facility] 05-13-2024 15:25-0400 Body weight 71.67 kg Mariam GONZALES Work Phone: [facility] 05-13-2024 15:25-0400 Diastolic blood pressure 70 mm[Hg] Mariam GONZALES Work Phone: [facility] 05-13-2024 15:25-0400 Systolic blood pressure 112 mm[Hg] Mariam GONZALES Work Phone: [facility] 04-17-2024 13:29-0400 Body height 160.02 cm MD Lexis Rodríguez Work Phone: [facility] 04-17-2024 13:29-0400 Body mass index (BMI) [Ratio] 27.4 kg/m2 MD Lexis Rodríguez Work Phone: [facility] 04-17-2024 13:29-0400 Body weight 70.3 kg MD Lexis Rodríguez Work Phone: [facility] 04-17-2024 13:29-0400 Diastolic blood pressure 74 mm[Hg] MD Lexis Rodríguez Work Phone: [facility] 04-17-2024 13:29-0400 Heart rate 50 /min MD Lexis Rodríguez Work Phone: [facility] 04-17-2024 13:29-0400 Respiratory rate 18 /min MD Lexis Rodríguez Work Phone: [facility] 04-17-2024 13:29-0400 SaO2% (BldA) [Mass fraction] 98 % MD Lexis Rodríguez Work Phone: [facility] 04-17-2024 13:29-0400 Systolic blood pressure 108 mm[Hg] MD Lexis Rodríguez Work Phone: [facility] 04-07-2024 15:29-0400 Body height 160.02 cm MD Lexis Rodríguez Work Phone: [facility] 04-07-2024 15:29-0400 Body mass index (BMI) [Ratio] 28.1 kg/m2 MD Lexis Rodríguez Work Phone: [facility] 04-07-2024 15:29-0400 Body weight 72.12 kg MD Lexis Rodríguez Work Phone: [facility] 04-07-2024 15:29-0400 Diastolic blood pressure 77 mm[Hg] MD Lexis Rodríguez Work Phone: [facility] 04-07-2024 15:29-0400 Heart rate 79 /min MD Lexis Rodríguez Work Phone: [facility] 04-07-2024 15:29-0400 Systolic blood pressure 115 mm[Hg] MD Lexis Rodríguez Work Phone: [facility] 08-15-2023 10:13-0500 Body mass index (BMI) [Ratio] 33.18 kg/m2 Ana Luisa Asuncion DO Work Phone: [facility] 08-15-2023 10:13-0500 Body weight 90.45 kg Ana Luisa Asuncion DO Work Phone: [facility] 08-15-2023 10:13-0500 Diastolic blood pressure 78 mm[Hg] Ana Luisa Asuncion DO Work Phone: [facility] 08-15-2023 10:13-0500 Systolic blood pressure 132 mm[Hg] Ana Luisa Asuncion DO Work Phone: [facility] 10-15-2022 09:30-0400 Body height 160.02 cm Lexis Rodríguez Other [facility] Other 10-15-2022 09:30-0400 Body mass index (BMI) [Ratio] 28.87 kg/m2 Lexis Rodríguez Other [facility] Other 10-15-2022 09:30-0400 Body weight 73.94 kg Lexis Rodríguez Other [facility] Other 10-15-2022 09:30-0400 Diastolic blood pressure 62 mm[Hg] Lexis Rodríguez Other [facility] Other 10-15-2022 09:30-0400 SaO2% (BldA) [Mass fraction] 99 % Lexis Rodríguez Other [facility] Other 10-15-2022 09:30-0400 Systolic blood pressure 108 mm[Hg] Lexis Marcos Other [employer] Other Encounters Encounter Date Encounter Type Care Provider Facility Start: 01-05-2025 End: 01-05-2025 ambulatory ANA LUISA ASUNCION Not Available Start: 01-05-2025 End: 01-05-2025 Patient encounter procedure Ana Luisa Asuncion DO Work Phone: [facility] Comment on above: Encounter for IUD in sertion; Vaginal discharge; Pelvic pain Start: 12-31-2024 End: 12-31-2024 Clinisync Result Encounter Mariam GONZALES Work Phone: [facility] Unsolicited Start: 12-31-2024 End: 12-31-2024 Clinisync Result Encounter Mariam GONZALES Work Phone: [facility] Unsolicited Start: 12-31-2024 End: 12-31-2024 Telephone encounter Mariam GONZALES Work Phone: [facility] Start: 12-30-2024 End: 12-30-2024 ambulatory Mariam Torres Facility:[facility] Start: 12-30-2024 End: 01-01-2025 External Result Encounter Mariam GONZALES Work Phone: [facility] Unsolicited Start: 12-30-2024 End: 01-01-2025 External Result Encounter Mariam GONZALES Work Phone: [facility] Unsolicited Start: 12-29-2024 End: 12-29-2024 Bamboo flowsheet Ana Luisa Asuncion DO Work Phone: [facility] Start: 12-29-2024 End: 12-29-2024 Bamboo flowsheet Ana Luisa Asuncion DO Work Phone: [facility] Start: 12-29-2024 End: 12-29-2024 Office outpatient visit 15 minutes Ana Luisa Asuncion DO Work Phone: [facility] Comment on above: control counse ling Start: 12-29-2024 End: 12-29-2024 ambulatory ANA LUISA ASUNCION Not Available Start: 05-13-2024 End: 05-13-2024 ambulatory MARIAM BRIAN Not Available Start: 05-13-2024 End: 05-13-2024 Patient [...] Start: 05-13-2024 End: 05-18-2024 Clinisync Result Encounter Mairam GONZALES Work Phone: [facility] Unsolicited Start: 05-05-2024 End: 05-05-2024 ambulatory MD Lexis Rodríguez Work Phone: [facility] Work Phone: Start: 05-05-2024 End: 05-05-2024 Patient encounter procedure MD Lexis Rodríguez Work Phone: [facility] Work Phone: Start: 04-17-2024 End: 04-17-2024 Patient encounter procedure MD Lexis Rodríguez Work Phone: [facility] Work Phone: Start: 04-07-2024 End: 04-07-2024 Patient encounter procedure MD Lexis Rodríguez Work Phone: [facility] Work Phone: Start: 01-21-2024 End: 01-21-2024 ambulatory ANA LUISA ASUNCION Not Available Start: 2023 Clinisync Result Encounter [...] on above: Third trimester preg aniyah Start: 07-12-2023 End: 07-12-2023 ambulatory MD Lexis Rodríguez Work Phone: [facility] Work Phone: Start: 07-12-2023 End: 07-12-2023 Discharged Recurring MD Lexis Rodríguez Work Phone: [facility] Work Phone: Start: 11-30-[address] LEXIS RODRÍGUEZ Facil ity:[facility]1 Start: 11-09-2022 End: 11-09-2022 ambulatory Lexis Rodríguez Other [employer] Other Start: 11-09-2022 Telephone encounter Lexis Rodríguez [facility] Start: 10-31-2022 End: 11-01-[address] LEXIS RODRÍGUEZ Facility:[facility] Start: 10-29-2022 End: 10-29-2022 ambulatory Lexis Rodríguez Other [facility] Other Start: 10-29-2022 Telephone encounter Lexis Rodríguez [facility] Start: 10-26-2022 Encounter for genera l adult medical examination without abnormal findings DR LEXIS RODRÍGUEZ [facility] Start: 10-17-2022 End: 10-18-[address] LEXIS RODRÍGUEZ Facility:[facility] Start: 10-17-2022 End: 10-18-2022 Encounter for general adult medical examination without abnormal findings DR LEXIS RODRÍGUEZ Facility:[facility] Start: 10-15-2022 End: 10-15-2022 ambulatory Lexis Rodríguez Other [facility] Other Start: 10-15-2022 Encounter for genera l adult medical examination without abnormal findings Lexis Rodríguez [facility] Start: 10-15-2022 Periodic preventive med est patient 18-39 yrs Lexis Rodríguez [facility] Procedures Date Procedure Procedure Detail Performing Clinician Start: 01-05-2025 Urine test visual color cmprsn meths Ana Luisa Asuncion DO Work Phone: Start: 01-05-2025 IUD INSERTION Ana Luisa Abdias io DO Work Phone: Start: 12-31-2024 US PELVIS TRANSVAGINAL Mariam GONZALES Work Phone: Start: 12-30-2024 Culture bacterial quanttative colony count urine Mariam GONZALES Work Phone: Start: 05-13-2024 IGP,APTIMA HPV,AGE GDLN Mariam GONZALES [...] Influenza vaccination Influenz a Vaccine (Season Ended) [facility] Start: 01-05-2025 End: 01-05-2025 Patient encounter procedure 01/05/2025 8:20 AM EDT Procedure Visit [facility] [address] [place] [id number] Ana Luisa Roland, DO [address] [place] [address] [facility] Start: 12-29-2024 End: 12-29-2024 Patient encounter procedure 12/29/2024 10:10 AM EDT Office Visit [facility] [address] [place] [phone] Ana Luisa Roland, DO [address] [place], [place] [id number] Arrived [facility] Comment on above: Arrived Start: 04-17-2024 Patient referral [facility] Work Phone: Start: 03-15-2024 Influenza vaccination Influenza Vacc ine (#1) [facility] Start: 10-03-2023 End: 10-03-2023 ambulatory 10/03/2023 8:30 AM EDT Visit [facility] [address] [place] [phone] Mariam Torres PA [address] [place], [place] [id number] [facility] Start: 03-15-2023 Influenza vaccination Influenza Vacc ine (#1) [facility] Bacteria identified in Urine by Culture Urine culture Microbiology Routine 12/30/2024 6:45 PM EDT [facility] Work Phone: CHLAMYDIA TRACHOMATI S (GENITO/STI) CHLAMYDIA TRACHOMATIS (GENITO/STI) Lab Routine Vaginal discharge Pelvic pain Ordered: 01/05/2025 [facility] Comment on above: Ordered: 01/05/2025 Cytology Cervical or vaginal smear or scraping study Pap Smear Pathology and Cytology Routine Well woman exam with routine gynecological exam Ordered: 05/13/2024 [facility] Work Phone: Comment on above: Ordered: 05/13/2024 Neisseria gonorrhoea e DNA [Presence] in Unspecified specimen by ELIAS with probe detection Neisseria gonorrhea DNA probe, direct Lab Routine Vaginal discharge Pelvic pain Ordered: 01/05/2025 [facility] Comment on above: Ordered: 01/05/2025 Patient referral [facility] Work Phone: SURESWAB(R) ADVANCED VAGINITIS PLUS, TMA SURESWAB(R) ADVANCED VAGINITIS PLUS, TMA Pathology and Cytology Routine Vaginal discharge Pelvic pain Ordered: 01/05/2025 [facility] Work Phone: Comment on above: Ordered: 01/05/2025 Immunizations Immunization Date Immunization Notes Care Provider Fa lynn 05-10-2022 influenza virus vaccine, unspecified formulation Ana Luisa Roland DO Work Phone: [facility] 05-14-2021 influenza virus vaccine, unspecified formulation Mariam GONZALES Work Phone: [facility] 04-03-2020 influenza virus vaccine, unspecified formulation MD Lexis Rodríguez Work Phone: [facility] Payers Date Payer Category Payer (JUAN ALBERTO) [id number] 2024 Department of [facility] e ( and others) [id number] 2024 Self-pay 2019 Medicaid [employer] [id number] 2019-Present [address] [place] [address] [id number] 2019 Medicaid (Managed Care) [facility] MEDICAID [id number] 1998 Unknown [id number]. 593 1998 Unknown [id number]. 593 1998 Unknown [id number] [id number]. 593 1998 Unknown [id number] [id number]. 593 1998 Unknown [id number] [id number]. 593 1998 Unknown [id number] [id number]. 1259 1998 Unknown [id number] [id number]. 1259 1998 Unknown [id number] [id number]. 1259 1998 Unknown [id number] [id number]. 1259 1959 Medicaid [id number] Department of [facility] ( and others) [id number] Unknown [id number]. 531 Unknown [id number] 531 Social History Date Type Detail Facility Unknown if ever smoked [facility] Other Start: 03-16-2023 End: 01-21-2024 Sex Assigned At [facility] Start: 03-16-2023 End: 05-20-2023 Tobacco smoking status NHIS Never smoked tobacco [facility] Start: 03-16-2023 Tobacco use and exposure Smokeless tobacco non-user [facility] Start: 08-15-2023 End: 01-05-2025 Alcohol intake Current drinker of alcohol (finding) [facility] Start: 03-16-2023 End: 01-21-2024 History of Social function [facility] Start: 03-16-2023 Alcohol Comment Occasional alcohol use [facility] Start: 12-06-2022 [facility] Start: 2000 Sex Assigned At Female [facility] Start: 02-15-2023 Gender identity Identifies as female gender (finding) [facility] Start: 02-15-2023 Sexual orientation Heterosexual (finding) [facility] Clinical Notes 10-15-2022 to 01-05-2025 Jessi Wilks LPN - 01/05/2025 8:20 AM EDTTelephone Encounter - JANET Fernandez - 12/31/2024 2:17 PM EDTTelephone Encounter - JANET Fernandez - 12/31/2024 2:17 PM JANET Tadeo - 05/13/2024 3:00 PM EDT Note Date & Type Note Facility 01-05-2025 History of Presen t illness Narrative Associated Order(s): IUD Insertion Post-Procedure Diagnose(s): Encounter for IUD insertion Reason for Appointment: Patient ID: Rosalie Mclaughlin is a 24 y.o. female who presents for KATHY insertion Patient presents today for a IUD Insertion appointment. MEDICATIONS Current Outpatient Medications Medication Instructions nitrofurantoin (macrocrystal-monohydrate) (MACROBID) 100 mg, Oral, 2 times daily ALLERGIES No Known Allergies PROBLEMS Active Ambulatory Problems Diagnosis Date Noted Restless leg syndrome in ([facility]) 07/22/2023 Third trimester ([facility]) 07/22/2023 Resolved Ambulatory Problems Diagnosis Date [...] nursing note reviewed. Exam conducted with a electrical technician present. Vitals: Estimated body mass index is 30.62 kg/m as calculated from the following: Height as of 05/13/24: 5' 5 . Weight as of 12/29/24: 184 lb. BP: No LMP recorded (lmp unknown). ASSESSMENT & PLAN Assessment/Plan Encounter Diagnosis: ICD-10-CM 1. 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 Patient advised to return to the ER if symptoms continue or worsen. Patient was seen last evening by myself in er and labs with CT scan were all negative. She did have US performed today but results are not back. CT made no mention of ovarian cyst or free fluid in pelvis, ua neg . We will send in small script for tylenol #3. Patient verbalized understanding and agrees with plan of care. [facility] 12-31-2024 Miscellaneous Notes Formattin g of this note might be different from the original. Patient called in regards to pain post US. Patient advised to return to the ER if symptoms continue or worsen. Patient was seen last evening by myself in er and labs with CT scan were all negative. She did have US performed today but results are not back. CT made no mention of ovarian cyst or free fluid in pelvis, ua neg . We will send in small script for tylenol #3. Patient verbalized understanding and agrees with plan of care. documented in this encounter [facility] 12-29-2024 History of Presen t illness Narrative Reason for Appointment: Patient ID: Rosalie Mclaughlin is a 24 y.o. female who presents for Contraception (Pt present today to discuss b/c.) Patient presents today for Acute Visit. MEDICATIONS Current Outpatient Medications Medication Instructions sertraline (ZOLOFT) 25 mg, Oral, Daily ALLERGIES No Known Allergies PROBLEMS Active Ambulatory Problems Diagnosis Date Noted Restless leg syndrome in ([facility]) 07/22/2023 Third trimester ([facility]) 07/22/2023 Resolved Ambulatory Problems Diagnosis Date [...] nursing note reviewed. Exam conducted with a electrical technician present. Vitals: Estimated body mass index is [...] Luisa Roland DO documented in this encounter [facility] 05-13-2024 History of Presen t illness Narrative Reason for Appointment: Patient ID: Rosalie Mclaughlin is a 23 y.o. female who presents [...] (general) (routine) without abnormal findings IUD complication ([facility]) HISTORY PAST MEDICAL HISTORY SOCIAL HISTORY Past Medical History: Diagnosis Date Anxiety At low risk for fall BMI 25.0-25.9,adult Encounter for gynecological examination (general) (routine) without abnormal findings IUD complication ([facility]) Social History Tobacco Use Smoking [...] nursing note reviewed. Exam conducted with a electrical technician present. Vitals: Estimated body mass index is [...] of: JANET Fernandez documented in this encounter [facility] 08-15-2023 History of Presen t illness Narrative Reason for Appointment: Patient ID: Rosalie Mclaughlin is a 22 y.o. female who presents [...] (general) (routine) without abnormal findings IUD complication ([facility]) Family History Problem Relation Name [...] nursing note reviewed. Exam conducted with a electrical technician present. Vitals: Estimated body mass index is [...] of being unable to sleep, increase in [place] contractions, pelvic pressure and sharp pains. Patient desires to have Induction of Labor on 08/22/2023 @0001. Called [facility] and spoke with Michelle and [...] Luisa Roland DO documented in this encounter [facility] 11-09-2022 Evaluation note Encounter Date Diagnosis Assessment Notes Oct, Lumbar pain (ICD-10 - M54.50) [facility] Other 04-03-2023 Evaluation note* Encounter Date Diagnosis Assessment Notes Treatment Notes Treatment Clinical Notes Oct, Wellness examination (ICD-10 - Z00.00) due for labs Oct, Lumbar pain (ICD-10 - M54.50) Pt states she went to chiropractor, had PT and xray through [facility]. She now wants me to address this as she is not improving and an MRI was not covered. She will contact their office and have them send us PT reports and xray so we can try to get the MRI. Pt needs this addressed as she is in the and is running a half marathon later this month. [facility] Other Evaluation noteNo [employer] Other Evaluation noteNo assessment information available [facility] Work Phone: Evaluation note* Diagnosis Third trimester state, incidental documented [facility] Diagnosis Onset Date Resolution Status Anxiety acute Left hip flexor tightness ac angeline Left hip flexor tightness ac angeline Left hip pain acute Greater trochanteric pain sy ndrome of left lower extremity acute Iliotibial band tendinitis of left side acute [facility] Work Phone: Evaluation note* Diagnosis Well woman exam with routine gynecological exam Routine gynecological examination Folliculitis Other specified disease of hair and hair follicles [facility] Diagnosis control counseling documented [facility]* Diagnosis Pelvic pain in female- Primary Unspecified symptom associated with female genital organs [facility] Diagnosis Encounter for IUD insertion Insertion of intrauterine contraceptive device Vaginal discharge Leukorrhea, not specified as infective Pelvic pain documented in this [facility] Narrative - Reported* Type Description Date Medical History Bronchitis Medical History Vaginitis Medical History Acute UTI Medical History Dysuria Hospitalization History l2019 for a blood count being done. [facility] Other Reason for Referral Reason *FU 11/19 Xray and last OV note. thank you Diagnosis 1 Lumbar pain (M54.50) Referral Organization [facility] elizabeth Referring Provider First Name Lexis Referring Provider Last Name Marcos Referring Provider Specialty Family [facility] Referred Organization [facility] Referred Provider Juan Miguel Referred Address [address], [place],[address] Referred Provider Specialty Pain Medicin e Referral Priority Routine General Notes Jessie Ashraf 04:25:04 PM >received today, attachments made, referral faxed Clinical Notes F: [phone] Summary Purpose Family History No Family History [...] Contraception Pt present today to discuss b/c. Reason Comments KATHY insertion INFORMATION SOURCE (unrecogn ized section and content) DATE CREATED AUTHOR 11/15/2022 [facility] DATE CREATED AUTHOR AUTHOR'S ORGANIZ ATION 01/03/2025 [facility] DATE CREATED AUTHOR AUTHOR'S ORGANIZ ATION 01/06/2025 [facility] [employer] Care Teams (unrecognized sec tion and content) Team Status: Active Member Role Status Dates Lexis Rodríguez MD Primary Care Provider Active Team Status: Inactive Member Role Status Dates Lexis Rodríguez MD Primary Care Provider, Attending Last castellanos Active 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 Start Date End Date Lexis Rodríguez MD [address] [place] [address] PCP - General Family Medicine 02/22/23 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 Start Date End Date Lexis Rodríguez MD [address] [place] [phone] PCP - General Family Medicine 02/22/23 Team [...] May 05, 2024 End: May 05, 2024 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 Start Date End Date Lexis Rodríguez MD [address] [place] [address] PCP - General Family [facility] 02/22/23 Mariam Torres PA [address] [place] [address] [place] [address] PCP - [facility] 01/13/24 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 Start Date End Date Lexis Rodríguez MD [address] [place] [phone] PCP - General Family Medicine 02/22/23 Mariam Torres PA [address] [place] [address] [place] [address] PCP - [facility] 01/13/24 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 Start Date End Date Lexis Rodríguez MD [address] [place] [address] PCP - General Family Medicine 02/22/23 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 Start Date End Date Lexis Rodríguez MD [address] [place] [address] PCP - General Family Medicine 02/22/23 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 Start Date End Date Lexis Rodríguez MD [address] [place] [address] PCP - General Family Medicine 02/22/23 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 Start Date End Date Lexis Rodríguez MD [address] [place] [address] PCP - General Family Medicine 02/22/23 Goals [...] BE BASED ON THE PRIMARY CLINICAL RECORDS. [place] [facility] [employer] provides no warranty or guarantee of the accuracy or completeness of information in this document.
--- OUTSIDE RECORDS SUMMARY | 2025-01-16 12:59 | XMS_ITS | Encounter Summary ---
Author Organization [facility] Address [address] [place] [address] Care Team Providers Care Cotton Bag Sewer Name Role Phone Lexis Evans MD Primary Care Provider [phone] Mariam Coburn Unavailable Encounter Details Date Type Department Care Team (Late Contact Info) Description 2023 Abstract [facility] [address] [place] [address] Evens Roland DO [address], [facility]11 Social History Tobacco Use Types [...] 01/18/2025 3:50 PM EDT Office Visit [facility] [address] [place] [address] Evens Roland, DO [address], [facility]11 documented as of this encounter Visit Diagnoses Not on filedocumented in this encounter Care Teams Cotton Bag Sewer Relationship Specialty Start Date End Date Lexis Evans MD [address] [facility] [place] [address] PCP - General Family Medicine 02/22/23 Mariam Coburn PA [address] [place] [address] [place] [address] PCP - [facility] 01/13/24 documented as of this encounter
--- NOTE | 2025-01-16 13:01 | PC.NURSE ---
poor effort with resp inspirations
[2025-01-16] MEDS: lidocaine HCL 15 ML, MAG HYDROX/ALUMINUM HYD/SIMETH 30 ML, HYOSCYAMINE SULFATE 0.25 MG PO (14:03)
[2025-01-16 14:09] VITALS: BP 120/77; PULSE 97; O2SAT 100
== END 2025-01-16 14:12 | disposition home or self-care (01) ==
PROVIDERS: Emergency Provider Emergency Medicine; PCP Family Medicine
DX: R07.9 Chest pain, unspecified (principal); R06.02 Shortness of breath
CPT/HCPCS: 71045; 87070; 87880; 93005; 99285

== ENCOUNTER 2025-01-20 11:59 | Outpatient (OUT) | payer OTHER, SELFPAY ==
--- OUTSIDE RECORDS SUMMARY | 2025-01-18 15:50 | XMS_ITS | Encounter Summary ---
Author Organization [facility] Address [address] [place] [address] Care Team Providers Care Corporate Secretary Name Role Phone Lexis Evans MD Primary Care Provider [phone] Reason for Visit * Reason Comments Pelvic Pain Encounter Details Date Type Department Care Team (Late st Contact Info) Description 01/18/2025 3:50 PM EDT Office Visit [facility] OB [address] [place] [address] Evens Roland, DO [address] [address] Pelvic pain in female Social History Tobacco Use Types Packs/Day Years [...] Sign Reading Time Taken Comments Blood Pressure 118/74 01/18/2025 4:17 PM EDT Pulse - - Temperature - - Respiratory Rate - - Oxygen Saturation - - Inhaled Oxygen Concentration - - Weight 83 kg (183 lb) 01/18/2025 4:17 PM EDT Height 165.1 cm (5' 5 ) 01/18/2025 4:17 PM EDT Body Mass Index 30.45 01/18/2025 4:17 PM EDT documented in this encounter Progress Notes * Praveena Chen NP - 01/18/2025 3:50 PM EDT Reason for Appointment: Patient ID: Lucie Woodall is a 24 y.o. female who presents for Pelvic Pain Patient presents today for Acute Visit. MEDICATIONS No current outpatient medications ALLERGIES No Known Allergies PROBLEMS Active Ambulatory Problems Diagnosis Date Noted Restless leg syndrome in ([facility]) 07/22/2023 Third trimester ([facility]) 07/22/2023 Resolved Ambulatory Problems Diagnosis Date [...] Age of Onset Diabetes Father SURGICAL HISTORY No past surgical history on file. REVIEW OF SYSTEMS Review of Systems: Review of Systems Constitutional: Negative. HENT: Negative. Eyes: Negative. Respiratory: Negative. Cardiovascular: Negative. Gastrointestinal: Negative. Genitourinary: Positive for pelvic pain. Right sided pelvic pain Musculoskeletal: Negative. Skin: Negative. Neurological: Negative. All [...] nursing note reviewed. Exam conducted with a welt wheeler present. Vitals: Estimated body mass index is 30.45 kg/m?? as calculated from the following: Height as of this encounter: 5' 5 . Weight as of this encounter: 183 lb. BP: 118/74 No LMP recorded (lmp unknown). ASSESSMENT & PLAN ICD-10-CM 1. Pelvic pain in female R10.2 POCT urinalysis dipstick manually resulted POCT , urine manually resulted SURESWAB(R) ADVANCED VAGINITIS PLUS, TMA Neisseria gonorrhea DNA probe, direct CHLAMYDIA TRACHOMATIS (GENITO/STI) US Pelvis w/ TV SURESWAB(R) ADVANCED VAGINITIS PLUS, TMA Patient with complaints of continued pelvic pain. Placed IUD in December this year to help with pain and menstrual cycles. Will repeat ultrasound for diagnostics and if pelvic pain persists will scheduled for diagnostic lap Documented by Praveena Chen NP on behalf of: Evens Roland DO documented in this encounter Plan of Treatment Scheduled Orders Name Type Priority Associated Diagnoses Order Schedule SURESWAB(R) ADVANCED VAGINITIS PLUS, TMA Pathology and Cytology Routine Pelvic pain in female Expected: 01/18/2025 (Approximate), Expires: 01/18/2026 Neisseria gonorrhea DNA probe, direct Lab Routine Pelvic pain in female Ordered: 01/18/2025 CHLAMYDIA TRACHOMATIS (GENITO/STI) Lab Routine Pelvic pain in female Ordered: 01/18/2025 US Pelvis w/ TV Imaging Routine Pelvic pain in female Expected: 01/18/2025 (Approximate), Expires: 01/18/2026 documented as of this encounter Visit Diagnoses Diagnosis Pelvic pain in female Unspecified symptom associated with female genital organs documented in this encounter Care Teams Corporate Secretary Relationship Specialty Start Date End Date Lexis Evans MD [address] [place] [address] PCP - General Family Medicine 02/22/23 documented as of this encounter
--- NOTE | 2025-01-20 12:01 | US_ITS ---
The [address] [address] Patient Name: ROSALIE MCLAUGHLIN MRN: [id number] date: 2000 Sex: F Assigned Patient Location: US Current Patient Location: US Accession/Order Number: [id number] Exam Date: 01/20/2025 15:35 Report Date: 01/20/2025 15:38 At the request of: ANA LUISA VILLATORO DO Procedure: US pelvis w/ transvaginal Transabdominal and transvaginal pelvic ultrasound HISTORY: Pelvic pain. Uterus anteverted. Uterus measures 8.6 x 5.6 x 4.[address]. Endometrium has a total combined thickness of 8 mm. Right ovary measures 2.6 x 2.7 x 2.2 cm with resistive index of 0.5. There is a complex right ovarian cyst measuring up to 2.4 cm. Multiple thin septations and debris. Possible hemorrhagic cyst. Left ovary measures 3.0 x 3.0 x 1.1 cm with resistive index of 0.6. Dilated vessels in the adnexal region seen bilaterally. No free fluid. No adnexal mass. US/US pelvis w/ transvaginal IMPRESSION: Adequate position of IUD. 2.4 cm complex right ovarian cyst. Color-flow both ovaries. No adnexal mass or free fluid. May consider short-term follow-up assessment. Impression dictated by: Sina Nagel M.D. 01/20/2025 3:38 PM Dictation Location: [place] [address] Electronically authenticated by: [id number] Y Date: 01/20/2025 15:38
--- OUTSIDE RECORDS SUMMARY | 2025-01-20 12:01 | XMS_ITS | Patient Health Record ---
Author Organization [facility] Address [address] [address] Care Team Providers Care Can Capper Name Role Phone Angi Hunt Primary Care Provider Rashaun Henderson Unavailable [phone] Ashley Gold Unavailable [phone] Reason For Referral No Information Problems Problem Type SNOMED Code ICD Code Onset Dates Problem Status W/U Status Risk Notes Problem Depressive episode (672090129) Depressive episode (F32.9) Active confirmed Encounters Encounter Location Date Provider Diagnosis [facility] [address] [place] [place] [address] 04/27/2024 Rashaun Henderson [facility] [address] [place] [address] 06/24/2024 Rashaun Henderson [facility] [address] [facility] [place] [address] 06/24/2024 Ashley Gold [facility] [address] [place] [address] 05/22/2024 Rashaun Henderson Depressive episode F32.9 [facility] [address] [place] [place] [address] 08/04/2024 Ashley Gold Depressive episode F32.9 [facility] [address] [place] [address] 09/01/2024 Ashley Gold Depressive episode F32.9 [facility] [address] [place] [address] 10/07/2024 Ashley Gold Depressive episode F32.9 [facility] [address] [facility] [place] [address] 10/27/2024 Ashley Gold Depressive episode F32.9 [facility] [address] [place] [place] [address] 11/12/2024 Ashley Gold Depressive episode F32.9 [facility] [address] [place] [address] 12/01/2024 Ashley Gold Depressive episode F32.9 [facility] [address] [facility] [place] [address] 12/23/2024 Ashley Gold Depressive episode F32.9 [facility] [address] [place] [address] 01/05/2025 Ashley Gold Depressive episode F32.9 Assessments [...] F32.9) 01/05/2025 Depressive episode (ICD-10 - F32.9) Plan Of Treatment Next Appt Details Provider Name:Ashley wu, 01/21/2025 04:00:00 PM, [address] [place], [address], Provider Name:Ashley wu, 02/17/2025 02:00:00 PM, [address] [place], [address], Insurance Providers Payer Name Payer Address Payer Phone Subscriber Number Group Number Insured Name Patient Relationship to Insured Coverage Start Date Coverage End Date [employer] [place] [place] [employer] [address] [place]S [place] [address] [id number] ROSALIE MCLAUGHLIN Self - patient is the insured 4 [employer] [facility] [address] [place] [address] [id number] MCLAUGHLINROSALIE POWELL Self - patient is the insured 4
--- OUTSIDE RECORDS SUMMARY | 2025-01-20 12:01 | XMS_ITS | Encounter Summary ---
Author Organization [facility] Address [address] [facility] [place] [address] Care Team Providers Care Flight Control Tower Operator Name Role Phone Lexis Evans MD Primary Care Provider [phone] Mariam Coburn Unavailable Encounter Details Date Type Department Care Team (Late st Contact Info) Description 03/21/2023 Abstract [facility] OB [address] [place], [place] [address] [place] [address] Glenys Ghotra LPN Social History Tobacco [...] as of this encounter Plan of Treatment Not on file documented as of this encounter Visit Diagnoses Not on filedocumented in this encounter Care Teams Flight Control Tower Operator Relationship Specialty Start Date End Date Lexis Evans MD [address] [facility] [place] [address] PCP - General Family Medicine 02/22/23 Mariam Coburn PA [address] [place] [address] [place] [address] PCP - [facility] 01/13/24 documented as of this encounter
--- OUTSIDE RECORDS SUMMARY | 2025-01-20 12:01 | XMS_ITS | Encounter Summary ---
Author Organization [facility] Address [address] [place] [address] Care Team Providers Care Thermodynamics Professor Name Role Phone Lexis Evans MD Primary Care Provider [phone] Mariam Coburn Unavailable Encounter Details Date Type Department Care Team (Late st Contact Info) Description 03/21/2023 Clinisync Result Encounter [facility] External Department Unsolicited Ana Luisa Roland, DO [address] [facility] [address] [place], [place] [id number] Social History Tobacco Use Types Packs/Day Years [...] on file documented as of this encounter Procedures Procedure Name Priority Date/Time Associated Diagnosis Comments OBAFI 03/21/2023 11:23 AM EDT documented in this encounter Results * OBAFI (03/21/2023 11:23 AM EDT) Anatomical Region Laterality Modality Other 03/21/2023 11:2 3 AM EDT Narrative 03/21/2023 11:23 [place] [address] Ultrasound Report Signed Patient: ROSALIE WOODALL MR #: [id number] : 2000 Acct:[id number] Age/Sex: 22 / F ADM Date: 03/21/23 Loc: US Attending Dr: Ana Luisa Roland D.O. Ordering Physician: Ana Luisa Roland D.O. Date of Service: 03/21/23 Procedure(s): US OB amniotic fluid vol Accession Number(s): [id number] cc: Lexis Evans M.D.; Ana Luisa Roland D.O. [place] [id number] Patient Name: ROSALIE WOODALL MRN: [id number] date: 2000 Sex: F Assigned Patient Location: US Current Patient Location: US Accession/Order Number: [id number] Exam Date: 03/21/2023 10:38 Report Date: 03/21/2023 [...] Signed By: 03/21/23 1125 DD/ 1123 TD/TT: Digital Proofing And Platemaker: Procedure Note Radiology, Radiologist, - 04/05/2023 [place] [address] Ultrasound Report Signed Patient: ROSALIE WOODALLMR #: [id number] : 2000Acct:[id number] Age/Sex: 22 / FADM Date: 03/21/23 Loc: US Attending Dr: Ana Luisa Roland D.O. Ordering Physician: Ana Luisa Roland D.O. Date of Service: 03/21/23 Procedure(s): US OB amniotic fluid vol Accession Number(s): [id number] cc: Lexis Evans M.D.; Ana Luisa Roland D.O. The [place] [id number] Patient Name: ROSALIE WOODALL MRN: [id number] date: 2000 Sex: F Assigned Patient Location: US Current Patient Location: US Accession/Order Number: [id number] Exam Date: 03/21/2023 10:38 Report Date: 03/21/2023 [...] M.D. Signed By:03/21/23 1125 DD/ 1123 TD/TT: Digital Proofing And Platemaker: us Ana Luisa Asuncion DO [facility] Final Result documented in this encounter Visit Diagnoses Not on filedocumented in this encounter Care Teams Thermodynamics Professor Relationship Specialty Start Date End Date Lexis Evans MD [address] [facility] [place] [address] PCP - General Family Medicine 02/22/23 Mariam Coburn PA [address] [place] [address] [place] [address] PCP - [facility] 01/13/24 documented as of this encounter
--- OUTSIDE RECORDS SUMMARY | 2025-01-20 12:01 | XMS_ITS | Encounter Summary ---
Author Organization [facility] Address [address] [place] [address] Care Team Providers Care Master Ocean Yacht Name Role Phone Lexis Evans MD Primary Care Provider [phone] Mariam Coburn Unavailable Encounter Details Date Type Department Care Team (Late st Contact Info) Description 12/23/2023 Clinisync Result Encounter [facility] External Department Unsolicited Ana Luisa Roland, DO [address] [place] [facility] [address] [place], [place] [address] Social History Tobacco Use Types Packs/Day Years [...] PM EDT Narrative 12/23/2023 1:34 PM EDT [address] [address] Ultrasound Report Signed Patient: ROSALIE WOODALL MR#: [id number] : 2000 Acct:[id number] Age/Sex: 23 / F ADM Date: 12/23/23 Loc: NOMS Attending Dr: Ana Luisa Roland D.O. Ordering Physician: Ana Luisa Roland D.O. Date of Service: 12/23/23 Procedure(s): US pelvis transvaginal Accession Number(s): [id number] cc: Lexis Evans M.D.; Ana Luisa Roland D.O. [place] [id number] Patient Name: ROSALIE WOODALL MRN: [id number] date: 2000 Sex: F Assigned Patient Location: [facility] Current Patient Location: [facility] Accession/Order Number: [id number] Exam Date: 12/23/2023 11:00 Report Date: 12/23/2023 [...] Jiang M.D. Signed By: 12/23/23 1334 DD/ 1331 TD/TT: Glassware Verifier: Procedure Note Radiology, Radiologist, MD - 12/23/2023 [place] [address] Ultrasound Report Signed Patient: ROSALIE WOODALL CMR#: [id number] : 2000Acct:[id number] Age/Sex: 23 / FADM Date: 12/23/23 Loc: NOMS Attending Dr: Ana Luisa Roland D.O. Ordering Physician: Ana Luisa Roland D.O. Date of Service: 12/23/23 Procedure(s): US pelvis transvaginal Accession Number(s): [id number] cc: Lexis Evans M.D.; Ana Luisa Roland D.O. The [place] [address] Patient Name: ROSALIE WOODALL MRN: [facility]:[id number] date: 2000 Sex: F Assigned Patient Location: [facility] Current Patient Location: [facility] Accession/Order Number: [id number] Exam Date: 12/23/2023 11:00 Report Date: 12/23/2023 [...] M.D. Signed By:12/23/23 1334 DD/ 1331 TD/TT: Glassware Verifier: us Ana Luisa Asuncion DO [facility] Final Result documented in this encounter Visit Diagnoses Not on filedocumented in this encounter Care Teams Master Ocean Yacht Relationship Specialty [place] [address] [place] [address] [place] [address] PCP - General Family Medicine 02/22/23 Mariam Coburn PA [address] [place] [address] [place] [address] PCP - [facility] 01/13/24 documented as of this encounter
--- OUTSIDE RECORDS SUMMARY | 2025-01-20 12:01 | XMS_ITS | Encounter Summary ---
Author Organization [facility] Address [address] [facility] [place] [address] Care Team Providers Care Rental Coordinator Name Role Phone Lexis Evans MD Primary Care Provider [phone] Encounter Details Date Type Department Care Team (Late st Contact Info) Description 01/18/2025 Bamboo flowsheet [facility] [address] [place] [address] Evens Roland, DO [address] [place] [place], [place] [address] Social History Tobacco Use Types Packs/Day Years [...] on filedocumented in this encounter Care Teams Rental Coordinator Relationship Specialty Start Date End Date Lexis Evans MD [address] [place] [address] PCP - General Family Medicine 02/22/23 documented as of this encounter
--- OUTSIDE RECORDS SUMMARY | 2025-01-20 12:01 | XMS_ITS | Encounter Summary ---
Author Organization [facility] Address [address] [place] [address] Care Team Providers Care Block Making Machine Operator Name Role Phone Lexis Evans MD Primary Care Provider [phone] Encounter Details Date Type Department Care Team (Late st Contact Info) Description 01/07/2025 Telephone [facility] OB [address] [facility] [place] [address] Rosa Wilde MA [address] [place] [address] Social History Tobacco Use Types Packs/Day Years [...] documented in this encounter Plan of Treatment Not on file documented as of this encounter Visit Diagnoses Diagnosis BV (bacterial vaginosis) Unspecified vaginitis and vulvovaginitis documented in this encounter Care Teams Block Making Machine Operator Relationship Specialty Start Date End Date Lexis Evans MD [address] [place] [address] PCP - General Family Medicine 02/22/23 documented as of this encounter
--- OUTSIDE RECORDS SUMMARY | 2025-01-20 12:01 | XMS_ITS | Encounter Summary ---
Author Organization [facility] Address [address] [place] [address] Care Team Providers Care Hyperbaric Technologist Name Role Phone Lexis Evans MD Primary Care Provider [phone] Mariam Coburn Unavailable Encounter Details Date Type Department Care Team (Late st Contact Info) Description 04/24/2023 Abstract [facility] OB [address] [place] [address] Mariam Coburn PA [address] [facility] [address] [place], [facility] Social History Tobacco Use Types Packs/Day Years [...] on filedocumented in this encounter Care Teams Hyperbaric Technologist Relationship Specialty Start Date End Date Lexis Evans MD [address] [facility] [place] [address] PCP - General Family Medicine 02/22/23 Mariam Coburn PA [address] [place] [address] [place] [address] PCP - [facility] 01/13/24 documented as of this encounter
--- OUTSIDE RECORDS SUMMARY | 2025-01-20 12:01 | XMS_ITS | Encounter Summary ---
Author Organization [facility] Address [address] [place] [address] Care Team Providers Care Rent Collector Name Role Phone Lexis Evans MD Primary Care Provider [phone] Encounter Details Date Type Department Care Team (Late st Contact Info) Description 05/22/2024 Orders Only [facility] OB [address] [facility] [place] [address] Alaina Lara LPN [address] [employer] [place] [id number] Social History Tobacco Use Types Packs/Day Years [...] on filedocumented in this encounter Care Teams Rent Collector Relationship Specialty Start Date End Date Lexis Evans MD [address] [place] [address] PCP - General Family Medicine 02/22/23 documented as of this encounter
--- OUTSIDE RECORDS SUMMARY | 2025-01-20 12:01 | XMS_ITS | Clinical Summary ---
Author Organization [facility] tem Address [id number] [address] [place] [address] Care Team Providers Care Automatic Embroidery Machine Tender Name Role Phone Lexis Evans MD Primary Care Provider Allergies No known active allergies Medications No [...] Not on file Insurance ANTHEM Care Teams Automatic Embroidery Machine Tender Relationship Specialty Start Date End Date Lexis Evans MD [address] [place], [place] [id number] PCP - General 10/11/18
--- OUTSIDE RECORDS SUMMARY | 2025-01-20 12:01 | XMS_ITS | Encounter Summary ---
Author Organization [facility] Address [address] [place] [address] Care Team Providers Care General Supervisor Name Role Phone Lexis Evans MD Primary Care Provider [phone] Mariam Coburn Unavailable Encounter Details Date Type Department Care Team (Late st Contact Info) Description 03/21/2023 Clinisync Result Encounter [facility] External Department Unsolicited Ana Luisa Roland, DO [address] [facility] [address] [place], [place] [id number] Social History Tobacco Use Types Packs/Day Years [...] AM EDT Narrative 03/21/2023 11:23 [place] [address] Ultrasound Report Signed Patient: ROSALIE WOODALL MR #: [id number] : 2000 Acct:[id number] Age/Sex: 22 / F ADM Date: 03/21/23 Loc: US Attending Dr: Ana Luisa Roland D.O. Ordering Physician: Ana Luisa Roland D.O. Date of Service: 03/21/23 Procedure(s): US OB cervical length Accession Number(s): [id number] cc: Lexis Evans M.D.; Ana Luisa Roland D.O. [place] [id number] Patient Name: ROSALIE WOODALL MRN: [id number] date: 2000 Sex: F Assigned Patient Location: US Current Patient Location: US Accession/Order Number: [id number] Exam Date: 03/21/2023 10:38 Report Date: 03/21/2023 [...] Signed By: 03/21/23 1125 DD/ 1123 TD/TT: Grain Wafer Machine Operator: Procedure Note Radiology, Radiologist, - 04/05/2023 [place] [address] Ultrasound Report Signed Patient: ROSALIE WOODALLMR #: [id number] : 2000Acct:[id number] Age/Sex: 22 / FADM Date: 03/21/23 Loc: US Attending Dr: Ana Luisa Roland D.O. Ordering Physician: Ana Luisa Roland D.O. Date of Service: 03/21/23 Procedure(s): US OB cervical length Accession Number(s): [id number] cc: Lexis Evans M.D.; Ana Luisa Roland D.O. The [place] [id number] Patient Name: ROSALIE WOODALL MRN: [id number] date: 2000 Sex: F Assigned Patient Location: US Current Patient Location: US Accession/Order Number: [id number] Exam Date: 03/21/2023 10:38 Report Date: 03/21/2023 [...] M.D. Signed By:03/21/23 1125 DD/ 1123 TD/TT: Grain Wafer Machine Operator: us Ana Luisa Koehlero DO [facility] Final Result documented in this encounter Visit Diagnoses Not on filedocumented in this encounter Care Teams General Supervisor Relationship Specialty Start Date End Date Lexis Evans MD [address] [facility] [place] [address] PCP - General Family Medicine 02/22/23 Mariam Coburn PA [address] [facility] [place] [address] PCP - [facility] 01/13/24 documented as of this encounter
--- OUTSIDE RECORDS SUMMARY | 2025-01-20 12:01 | XMS_ITS | Clinical Summary ---
Author Organization [facility] Address [address] [place] [address] Care Team Providers Care Flue Tile Press Operator Name Role Phone Lexis Evans MD Primary Care Provider [phone] Allergies No known active allergies Medications ibuprofen 800 MG tabletIndicatio ns:Pelvic pain in female Take 1 tablet (800 mg) by mouth every 8 (eight) hours if needed for mild pain for up to 10 days 30 tablet 2 5 01/29/20 25 Active sertraline (Zoloft) 25 MG tablet Take 25 [...] this for 7 days. 14 capsule 5 01/19/20 25 Discontinue d(Therapy completed) metroNIDAZOLE (Flagyl) 500 MG tabletIndicatio ns:BV (bacterial vaginosis) Take 1 tablet (500 mg) by mouth in the morning and 1 tablet (500 mg) before bedtime. Do all this for 7 days. Do not drink alcohol while taking this medication. 14 tablet 01/19/20 25 Discontinue d(Therapy completed) Hospital, Clinic, or Other Facility Administered Medication Ordered Dose Route Frequency Start Date End Date Status levonorgestrel (Kathy) 13.5 MG IUDIndications:Enco unter for IUD insertion IU See admin instructions 01/05/2025 01/05/2028 Active Levonorgestrel intrauterine device 52 mgIndications:Encou nter for IUD insertion 52 mg IU Once PRN Procedure 01/05/2025 01/05/2025 Ended Active Problems Problem Noted Date Diagnosed Date Restless leg syndrome in ([facility]) 02/2024 Third trimester ([facility]) 07/22/2023 Encounters Date Type Department Care Team Description 01/18/2025 3:50 PM EDT Office Visit [facility] [address] [place] [address] Evens Roland DO Pelvic pain in female 01/18/2025 Bamboo flowsheet [facility] [place] [address] [place] [address] Evens Roland, 01/13/2025 Telephone [facility] [place] [address] [place] [address] Evens Roland, 01/07/2025 Telephone [facility] [address] [place] [address] Rosa Wilde MA 01/05/2025 8:20 AM EDT Procedure Visit [facility] [place] [address] Evens Roland DO Encounter for IUD insertion; Vaginal discharge; Pelvic pain 01/04/2025 Telephone [facility] [address] [place] [address] Rosa Wilde MA 12/31/2024 Clinisync Result Encounter [facility] External Department Unsolicited Mariam Torres PA 12/31/2024 Telephone [facility] [place] [address] [place] [address] Mariam Torres PA 12/30/2024 External Result Encounter [facility] External Department Unsolicited Mariam Torres PA 12/30/2024 Travel 12/29/2024 10:10 AM EDT Office Visit [facility] [address] [place] [address] Evens Roland DO control counseling 12/29/2024 Bamboo flowsheet [facility] [address] [place] [address] Evens Roland DO from Last 3 Months [...] Mass Index 30.45 01/18/2025 4:17 PM EDT Plan of Treatment Health Maintenance Due Date Last Done Comments Influenza Vaccine (#1) 2025 2, 05/14/2021, 04/03/2020, Additional history exists Procedures Procedure Name Priority Date/Time Associated Diagnosis Comments RECURRENT VAGINITIS (HTRX) Routine 01/18/2025 4:39 PM EDT RECURRENT VAGINITIS (HTRX) Routine 01/05/2025 3:08 PM [...] Months Results * (ABNORMAL) RECURRENT VAGINITIS (HTRX) (01/18/2025 4:39 PM EDT) Only the most recent of2 resultswithin the time period is included. Pathologist [facility] ATOPOBIUM VAGINAE 26.061(A) 19.961 - 24.689 ppm 01/20/2025 8:01 AM EDT [facility] ATOPOBIUM VAGINAE Detected(A) 19.961 - 24.689 ppm 01/20/2025 8:01 AM EDT [facility] BVAB 2,3 (BACTERIAL VAGINOSIS ASSOCIATED BACTERIA 2, 3); MOBILUNCUS SPP 20.586(A) 19.961 - 24.689 ppm 01/20/2025 8:01 AM EDT [facility] BVAB 2,3 (BACTERIAL VAGINOSIS ASSOCIATED BACTERIA 2, 3); MOBILUNCUS SPP Detected(A) 19.961 - 24.689 ppm 01/20/2025 8:01 AM EDT [facility] LUCIANO ALBICANS, PARAPSILOSIS, TROPICALIS 0 19.961 - 30.770 ppm 01/20/2025 8:01 AM EDT [facility] LUCIANO ALBICANS, PARAPSILOSIS, TROPICALIS Not Detected 19.961 - 30.770 ppm 01/20/2025 8:01 AM EDT [facility] LUCIANO GLABRATA 0 23.000 - 32.138 ppm 01/20/2025 8:01 AM EDT [facility] LUCIANO GLABRATA Not Detected 23.000 - 32.138 ppm 01/20/2025 8:01 AM EDT [facility] LUCIANO KRUSEI 0 23.000 - 32.271 ppm 01/20/2025 8:01 AM EDT [facility] LUCIANO KRUSEI Not Detected 23.000 - 32.271 ppm 01/20/2025 8:01 AM EDT [facility] CHLAMYDIA TRACHOMATIS 0 23.000 - 31.467 ppm 01/20/2025 8:01 AM EDT [facility] CHLAMYDIA TRACHOMATIS Not Detected 23.000 - 31.467 ppm 01/20/2025 8:01 AM EDT [facility] GARDNERELLA VAGINALIS 24.806(A) 19.961 - 24.689 ppm 01/20/2025 8:01 AM EDT [facility] GARDNERELLA VAGINALIS Detected(A) 19.961 - 24.689 ppm 01/20/2025 8:01 AM EDT [facility] MEGASPHAERA (TYPES 1, 2) 0 19.961 - 24.689 ppm 01/20/2025 8:01 AM EDT [facility] MEGASPHAERA (TYPES 1, 2) Not Detected 19.961 - 24.689 ppm 01/20/2025 8:01 AM EDT [facility] NEISSERIA GONORRHOEAE 0 23.000 - 32.117 ppm 01/20/2025 8:01 AM EDT [facility] NEISSERIA GONORRHOEAE Not Detected 23.000 - 32.117 ppm 01/20/2025 8:01 AM EDT [facility] TRICHOMONAS VAGINALIS 0 23.000 - 32.119 ppm 01/20/2025 8:01 AM EDT [facility] TRICHOMONAS VAGINALIS Not Detected 23.000 - 32.119 ppm 01/20/2025 8:01 AM EDT [facility] MYCOPLASMA GENITALIUM 0 19.961 - 24.689 ppm 01/20/2025 8:01 AM EDT [facility] MYCOPLASMA GENITALIUM Not Detected 19.961 - 24.689 ppm 01/20/2025 8:01 AM EDT [facility] ERMB, C; MEFA 20.433(A) 23.000 - 27.611 ppm 01/20/2025 8:01 AM EDT [facility] ERMB, C; MEFA Detected(A) 23.000 - 27.611 ppm 01/20/2025 8:01 AM EDT [facility] TET B, TET M 22.46(A) 23.000 - 27.778 ppm 01/20/2025 8:01 AM EDT [facility] TET B, TET M Detected(A) 23.000 - 27.778 ppm 01/20/2025 8:01 AM EDT [facility] Tissue 01/18/2025 4:39 PM EDT 01/20/2025 2:49 AM EDT Evens Roland DO LAB BLOOD ORDERABLES Final [facility]ul t [facility] [address] [place] [address] * POCT , urine manually resulted (01/05/2025 8:45 AM EDT) Preg Test, Ur Negative Negative Urine 01/05/2025 8:45 AM EDT us Evens Roland DO POINT OF CARE TEST ENTER/EDIT OR DERABLES Final Result * IUD INSERTION (01/05/2025 8:20 AM EDT) Narrative Jessi Wilks LPN - 01/05/2025 8:20 AM EDT Jessi Wilks LPN 01/05/2025 9:39 AM IUD Insertion Performed by: Evens Roland DO Authorized by: Evens Roland DO Procedure: IUD insertion Consent obtained by patient, parent, or legal power of divorce attorney - including discussion of procedure risks [...] PM EDT Narrative 12/31/2024 2:16 PM EDT [address] [address] Ultrasound Report Signed Patient: ROSALIE WOODALL MR#: [id number] : 2000 Acct:[id number] Age/Sex: 24 / F ADM Date: 12/31/24 Loc: Attending Dr: Mairam Torres Ordering Physician: Marima Torres Date of Service: 12/31/24 Procedure(s): US pelvis transvaginal Accession Number(s): [id number] cc: Mariam Torres; Lexis Evans M.D. The [place] [address] Patient Name: ROSALIE WOODALL MRN: [facility]:[id number] date: 2000 Sex: F Assigned Patient Location: US Current Patient Location: US Accession/Order Number: [id number] Exam Date: 12/31/2024 14:08 Report Date: 12/31/2024 [...] Jr., D.O. 12/31/2024 2:14 PM Dictation Location: [place] [address] Electronically authenticated by: [id number] Y Date: 12/31/2024 14:14 Dictated By: Grey Stephens M.D. Signed By: 12/31/24 1416 DD/ 1414 TD/TT: Certified Registered Dental Assistant: Procedure Note Radiology, Radiologist, - 12/31/2024 [place] [address] Ultrasound Report Signed Patient: ROSALIE WOODALL CMR#: [id number] : 2000Acct:[id number] Age/Sex: 24 / FADM Date: 12/31/24 Loc: US Attending Dr: Mariam Torres Ordering Physician: Mariam Torres Date of Service: 12/31/24 Procedure(s): US pelvis transvaginal Accession Number(s): [id number] cc: Mariam Torres; Lexis Evans M.D. [place] [id number] Patient Name: ROSALIE WOODALL MRN: [id number] date: 2000 Sex: F Assigned Patient Location: US Current Patient Location: US Accession/Order Number: [id number] Exam Date: 12/31/2024 14:08 Report Date: 12/31/2024 [...] Jr., D.O. 12/31/2024 2:14 PM Dictation Location: [place] [address] Electronically authenticated by: [id number] Y Date: 4:14 Dictated By: Grey Stephens M.D. Signed By:12/31/24 1416 DD/ 1414 TD/TT: Certified Registered Dental Assistant: Mariam GONZALES [facility] Final Result * (ABNORMAL) AEROBIC VAISHNAVI CHARGE (NMIC56) (12/30/2024 6:45 PM EDT) AMIKACIN <16(S) 01/02/2025 9:30 AM EDT [facility] AMOXACILLIN/K CLAVULANATE <8/4(S) 01/02/2025 9:30 AM EDT [facility] AMPICILLIN <8(S) 01/02/2025 9:30 AM EDT [facility] AMPICILLIN/SULBACT AM <4/2(S) 01/02/2025 9:30 AM EDT [facility] AZTREONAM <4(S) 01/02/2025 9:30 AM EDT [facility] CEFAZOLIN <2(S) 01/02/2025 9:30 AM EDT [facility] CEFEPIME <2(S) 01/02/2025 9:30 AM EDT [facility] CEFTAZIDIME <1(S) 01/02/2025 9:30 AM EDT [facility] CEFTAZIDIME/AVIBAC ALLEN <4(S) 01/02/2025 9:30 AM EDT [facility] CEFTOLOZANE/TAZOBA CTAM <2(S) 01/02/2025 9:30 AM EDT [facility] CEFTRIAXONE <1(S) 01/02/2025 9:30 AM EDT [facility] CEFUROXIME <4(S) 01/02/2025 9:30 AM EDT [facility] CIPROFLOXACIN <0.25(S) 01/02/2025 9:30 AM EDT [facility] ERTAPENEM <0.5(S) 01/02/2025 9:30 AM EDT [facility] GENTAMICIN <2(S) 01/02/2025 9:30 AM EDT [facility] LEVOFLOXACIN <0.5(S) 01/02/2025 9:30 AM EDT [facility] MEROPENEM <1(S) 01/02/2025 9:30 AM EDT [facility] MEROPENEM/VABORBAC ALLEN <2(S) 01/02/2025 9:30 AM EDT [facility] NITROFURANTOIN <32(S) 01/02/2025 9:30 AM EDT [facility] PIPERACILLIN/TAZOB ACTAM <8(S) 01/02/2025 9:30 AM EDT [facility] TETRACYCLINE <4(S) 01/02/2025 9:30 AM EDT [facility] TIGECYCLINE <2(S) 01/02/2025 9:30 AM EDT [facility] TOBRAMYCIN <2(S) 01/02/2025 9:30 AM EDT [facility] TRIMETHOPRIM/SULFA METHOXAZOLE <0.5/9.5( S) 01/02/2025 9:30 AM EDT [facility] Urine Urine specimen obtained by clean catch procedure / Unknown 12/30/2024 6:45 PM EDT 12/31/2024 12:56 PM EDT Comment:Clean-Voided [place] am Mariam GONZALES [facility] Final Result Performing Organization Address City/[facility]/ZIP Co de Phone Number [facility], [facility] [address] [place] [address], [facility] [address] [place] [address] * Urine culture (12/30/2024 6:45 PM EDT) [facility] ORGANISM Escherichia coli 01/02/2025 9:30 AM EDT [facility] COLONY COUNT >100,000 01/02/2025 9:30 AM EDT [facility] Urine Urine specimen obtained by clean catch procedure / Unknown 12/30/2024 6:45 PM EDT 12/31/2024 12:56 PM EDT Comment:Clean-Voided [place] am us Mariam GONZALES LAB MICROBIOLOGY - GENERAL ORDER JASON Final Result Performing Organization Address City/[facility]/ZIP Co de Phone Number [facility], [facility] [address] [place] [address], [facility] [address] [place] [address] from Last 3 Months Insurance [employer] [facility] Care Teams Flue Tile Press Operator Relationship Specialty Start Date End Date Lexis Evans MD [address] [place] [phone] PCP - General Family Medicine 02/22/23
--- OUTSIDE RECORDS SUMMARY | 2025-01-20 12:01 | XMS_ITS | Encounter Summary ---
Author Organization [facility] Address [address] [facility] [place] [address] Care Team Providers Care Grain Mill Worker Name Role Phone Lexis Evans MD Primary Care Provider [phone] Mariam Coburn Unavailable Encounter Details Date Type Department Care Team (Late st Contact Info) Description 2023 Abstract [facility] OB [address] [place] [phone] Evens Roland, DO [address] [place], [place] [address] Social History Tobacco Use Types Packs/Day Years [...] on filedocumented in this encounter Care Teams Grain Mill Worker Relationship Specialty Start Date End Date Lexis Evans MD [address] [facility] [place] [address] PCP - General Family Medicine 02/22/23 Mariam Coburn PA [address] [facility] [address] [place], [facility] PCP - [facility] 01/13/24 documented as of this encounter
--- OUTSIDE RECORDS SUMMARY | 2025-01-20 12:01 | XMS_ITS | Encounter Summary ---
Author Organization [facility] Address [address] [place] [address] Care Team Providers Care Belly Roller Name Role Phone Lexis Evans MD Primary Care Provider [phone] Encounter Details Date Type Department Care Team (Late st Contact Info) Description 01/13/2025 Telephone [facility] [address] [facility] [place] [address] Evens Roland, DO [address] [place] [address] Social History Tobacco Use Types Packs/Day Years [...] what to do. A call back up [phone], appreciate it. And my data is 1996. [...] on filedocumented in this encounter Care Teams Belly Roller Relationship Specialty Start Date End Date Lexis Evans MD [address] [place] [address] PCP - General Family Medicine 02/22/23 documented as of this encounter
--- OUTSIDE RECORDS SUMMARY | 2025-01-20 12:01 | XMS_ITS | Encounter Summary ---
Author Organization [facility] Address [address] [facility] [place] [address] Care Team Providers Care Certified Physical Therapist Assistant Name Role Phone Lexis Evans MD Primary Care Provider [phone] Mariam Coburn Unavailable Encounter Details Date Type Department Care Team (Late st Contact Info) Description 01/02/2023 Abstract [facility] BCP OB [address] [place] [phone] Evens Roland DO [address] [facility] [place] [address] Social History Tobacco Use Types Packs/Day Years [...] on filedocumented in this encounter Care Teams Certified Physical Therapist Assistant Relationship Specialty Start Date End Date Lexis Evans MD [address] [facility] [place] [address] PCP - General Family Medicine 02/22/23 Mariam Coburn PA [address] [place] [address] [facility] 01/13/24 documented as of this encounter
--- OUTSIDE RECORDS SUMMARY | 2025-01-20 12:01 | XMS_ITS | Encounter Summary ---
Author Organization [facility] Address [address] [place] [address] Care Team Providers Care Educational Consultant Name Role Phone Lexis Evans MD Primary Care Provider [phone] Mariam Coburn Unavailable Encounter Details Date Type Department Care Team (Late st Contact Info) Description 05/09/2023 Clinisync Result Encounter [facility] External Department Unsolicited Ana Luisa Roland, DO [address] [facility] [address] [place], [place] [address] Social History Tobacco Use Types Packs/Day Years [...] PM EDT Narrative 05/09/2023 2:39 [place] [address] Ultrasound Report Signed Patient: ROSALIE WOODALL MR#: [id number] : 2000 Acct:[id number] Age/Sex: 22 / F ADM Date: Loc: [facility] [address]: Ana Luisa Roland D.O. Ordering Physician: Ana Luisa Roland D.O. Date of Service: 05/09/23 Procedure(s): US OB cervical length Accession Number(s): [id number] cc: Lexis Evans M.D.; Ana Luisa Roland D.O. [place] [address] Patient Name: ROSALIE WOODALL MRN: [id number] date: 2000 Sex: F Assigned Patient Location: [facility] Current Patient Location: Accession/Order Number: [id number] Exam Date: 05/09/2023 13:15 Report Date: 05/09/2023 [...] Signed By: 05/09/23 1441 DD/ 1439 TD/TT: Inspector General: Procedure Note Radiology, Radiologist, - 05/09/2023 [place] [address] Ultrasound Report Signed Patient: ROSALIE WOODALLMR#: [id number] : 2000Acct:[id number] Age/Sex: 22 / FADM Date: Loc: [facility] [address]: Ana Luisa Roland D.O. Ordering Physician: Ana Luisa Roland D.O. Date of Service: 05/09/23 Procedure(s): US OB cervical length Accession Number(s): [id number] cc: Lexis Evans M.D.; Ana Luisa Roland D.O. The [place] [address] Patient Name: ROSALIE WOODALL MRN: [id number] date: 2000 Sex: F Assigned Patient Location: [facility] Current Patient Location: Accession/Order Number: [id number] Exam Date: 05/09/2023 13:15 Report Date: 05/09/2023 [...] Pk Box M.D. Signed By:05/09/23 1441 DD/ 1439 TD/TT: Inspector General: Ana Luisa Roland DO [facility] Final Result documented in this encounter Visit Diagnoses Not on filedocumented in this encounter Care Teams Educational Consultant Relationship Specialty Start Date End Date Lexis Evans MD [address] [facility] [place] [address] PCP - General Family Medicine 02/22/23 Mariam Coburn PA [address] [facility] [place] [address] PCP - [facility] 01/13/24 documented as of this encounter
== END 2025-01-20 12:00 | disposition home or self-care (01) ==
LOC: US 11:59
PROVIDERS: PCP Family Medicine; Visit Provider Obstetrics & Gynecology
DX: R10.2 Pelvic and perineal pain (principal); N83.291 Other ovarian cyst, right side; Z97.5 Presence of (intrauterine) contraceptive device
CPT/HCPCS: 76830; 76856

== ENCOUNTER 2025-02-17 12:27 | Outpatient (OUT) | payer OTHER, SELFPAY ==
--- OUTSIDE RECORDS SUMMARY | 2025-01-05 08:20 | XMS_ITS | Encounter Summary ---
Author Organization [facility] Address [address] [place] [address] Care Team Providers Care Cyber Engineer Name Role Phone Lexis Evans MD Primary Care Provider [phone] Reason for Visit * Reason Comments KATHY insertion Encounter Details Date Type Department Care Team (Late st Contact Info) Description 01/05/2025 8:20 AM EDT Procedure Visit [facility] [address] [facility] [phone] Evens Roland DO [address] [place], [place] [id number] Encounter for IUD insertion; Vaginal discharge; Pelvic pain Social History Tobacco Use Types Packs/Day Years [...] AM EDT documented as of this encounter Progress Notes * Jessi Wilks LPN - 01/05/2025 8:20 AM EDTAssociated Order(s): IUD Insertion Post-Procedure Diagnose(s): Encounter for IUD insertion Reason for Appointment: Patient ID: Lucie Woodall is a 24 y.o. female who presents for KATHY insertion Patient presents today for a IUD Insertion appointment. MEDICATIONS Current Outpatient Medications Medication Instructions nitrofurantoin (macrocrystal-monohydrate) (MACROBID) 100 mg, Oral, 2 times daily ALLERGIES No Known Allergies PROBLEMS Active Ambulatory Problems Diagnosis Date Noted Restless leg syndrome in ([facility]) 07/22/2023 Third trimester ([facility]) 07/22/2023 Resolved Ambulatory Problems Diagnosis Date [...] nursing note reviewed. Exam conducted with a home delivery driver present. Vitals: Estimated body mass index is 30.62 kg/m?? as calculated from the following: Height as of 05/13/24: 5' 5 . Weight as of 12/29/24: 184 lb. BP: No LMP recorded (lmp unknown). ASSESSMENT & PLAN Assessment/Plan Encounter Diagnosis: ICD-10-CM 1. Encounter for IUD insertion Z30.430 levonorgestrel (Kathy) 13.5 MG IUD POCT , urine manually resulted IUD Insertion Performed by: Evens Roland DO Authorized by: Evens Roland DO Procedure: IUD insertion Consent obtained by patient, parent, or legal power of finance attorney - including discussion of procedurerisks and benefits, patient questions answered, and patient education provided: yes risk: reasonably certain the patient is not Date/Time of Insertion: 01/05/2025 9:07 AM Immediately prior to procedure a time out was called: no Pelvic exam performed: no Speculum placed in vagina: yes Cervix cleaned and prepped: yes Tenaculum/Allis/Ring Forceps applied to cervix: yes Anesthesia used: no IUD inserted without complications: yes OSM: 52 mg Levonorgestrel 20 MCG/DAY Patient tolerated procedure well: yes Inserted with ultrasound guidance: no Intended removal date: 5 years Insertion comments: IUD Insertion: Patient presents today for an IUD Insertion. Patient is having a Kathy placed and written consent was obtained. Patient was placed in the dorsal lithotomy position with feet in stirrups. A sterile speculum ws placed into the vagina and the cervix was visualized. Cervix was cleansed with betadine and the anterior lip was grasped with ring forceps. Uterus was then gently sounded. New IUD device wasgently advanced through the endocervix, toward te uterine fundus. The IUD was then deployed as device was gently removed from the uterus. The IUD strings were cut to the length from external os. All instruments were removed from the vagina. Post-procedure instructions given. All of patients questions were answered and she expressed understanding. Advised to call interim with any questions or concerns. Cultures obtained Follow Up: Patient is to return to the office in 4 weeks for a string check. Documented by Jessi Wilks LPN on behalf of: Evens Roland DO documented in this encounter Plan of Treatment Upcoming Encounters Date Type Department Care Team (Late st Contact Info) Description 03/11/2025 10:00 AM EDT Office Visit [facility] [address] [facility] [address] Mariam Coburn PA [address] [facility] [place] [address] Scheduled Orders Name Type Priority Associated Diagnoses Order Schedule SURESWAB(R) ADVANCED VAGINITIS PLUS, TMA Pathology and Cytology Routine Vaginal discharge Pelvic pain Ordered: 01/05/2025 CHLAMYDIA TRACHOMATIS (GENITO/STI) Lab Routine Vaginal discharge Pelvic pain Ordered: 01/05/2025 Neisseria gonorrhea DNA probe, direct Lab Routine Vaginal discharge Pelvic pain Ordered: 01/05/2025 documented as of this encounter Procedures Procedure Name Priority Date/Time Associated Diagnosis Comments POCT , URINE Routine 01/05/2025 8:45 AM EDT Encounter for IUD insertion IUD INSERTION Routine 01/05/2025 8:20 AM EDT Encounter for IUD insertion documented in this encounter Results * POCT , urine manually resulted (01/05/2025 8:45 AM EDT) Preg Test, Ur Negative Negative Urine 01/05/2025 8:4 5 AM EDT Evens Roland DO POINT OF CARE TEST ENTER/EDIT OR DERABLES Final Result * IUD INSERTION (01/05/2025 8:20 AM EDT) Narrative Jessi Wilks LPN - 01/05/2025 8:20 AM EDT Jessi Wilks LPN 01/05/2025 9:39 AM IUD Insertion Performed by: Evens Roland DO Authorized by: Evens Roland DO Procedure: IUD insertion Consent obtained by patient, parent, or legal power of finance attorney - including discussion of procedure risks and benefits, patient questions answered, and patient education provided: yes risk: reasonably certain the patient is not Date/Time of Insertion: 01/05/2025 9:07 AM Immediately prior to procedure a time out was called: no Pelvic exam performed: no Speculum placed in vagina: yes Cervix cleaned and prepped: yes Tenaculum/Allis/Ring Forceps applied to cervix: yes Anesthesia used: no IUD inserted without complications: yes OSM: 52 mg Levonorgestrel 20 MCG/DAY Patient tolerated procedure well: yes Inserted with ultrasound guidance: no Intended removal date: 5 years Insertion comments: IUD Insertion: Patient presents today for an IUD Insertion. Patient is having a Kathy placed and written consent was obtained. Patient was placed in the dorsal lithotomy position with feet in stirrups. A sterile speculum ws placed into the vagina and the cervix was visualized. Cervix was cleansed with betadine and the anterior lip was grasped with ring forceps. Uterus was then gently sounded. New IUD device was gently advanced through the endocervix, toward te uterine fundus. The IUD was then deployed as device was gently removed from the uterus. The IUD strings were cut to the length from external os. All instruments were removed from the vagina. Post-procedure instructions given. All of patients questions were answered and she expressed understanding. Advised to call interim with any questions or concerns. Cultures obtained Follow Up: Patient is to return to the office in 4 weeks for a string check. Evens Roland DO IN CLINIC/BEDSIDE ORDERABLES Fin al Result documented in this encounter Visit Diagnoses Diagnosis Encounter for IUD insertion Insertion of intrauterine contraceptive device Vaginal discharge Leukorrhea, not specified as infective Pelvic pain documented in this encounter Administered Medications Inactive Administered Medications - up to 3 most recent administrations Medication Order MAR Action Action Date Dose Rate Site Levonorgestrel intrauterine device 52 mg 52 mg, Intrauterine, Once PRN Procedure, Starting on Sat01/05/25 at 0820, For 1 doseIndications:Encounter for IUD insertion Given 01/05/2025 8:20 AM EDT 52 mg documented in this encounter Care Teams Cyber Engineer Relationship Specialty [place] [address] [place] [phone] PCP - General Family Medicine 02/22/23 documented as of this encounter
--- OUTSIDE RECORDS SUMMARY | 2025-02-08 10:00 | XMS_ITS | Encounter Summary ---
Author Organization [facility] Address [address] [place] [address] Care Team Providers Care Circuit Breaker Mechanic Name Role Phone Lexis Evans MD Primary Care Provider [phone] Reason for Visit * Reason Comments Pre-op Visit Encounter Details Date Type Department Care Team (Late st Contact Info) Description 02/08/2025 10:00 AM EDT Consult NIKKO [facility] OBGYN [address] [place] [address] Evens Roland DO [address] [facility] [place] [address] Pre-op examination; Pelvic pain; Cyst of ovary, unspecified laterality Social History Tobacco Use Types Packs/Day Years [...] Sign Reading Time Taken Comments Blood Pressure 118/72 02/08/2025 10:05 AM EDT Pulse - - Temperature - - Respiratory Rate - - Oxygen Saturation - - Inhaled Oxygen Concentration - - Weight 83.9 kg (185 lb) 02/08/2025 10:05 AM EDT Height - - Body Mass Index 30.79 01/18/2025 4:17 PM EDT documented in this encounter Progress Notes * Kati Whitt - 02/08/2025 10:00 AM EDT Reason for Appointment: Patient ID: Lucie Woodall is a 24 y.o. female who presents for Pre-op Visit Patient presents today for Pre Op appointment. Patient is scheduled to undergo Diagnostic Laparoscopy, possible SHANNON, possible FOE, possible BSO on 03-03-[address] Roland at [facility]. MEDICATIONS Current Outpatient Medications Medication Instructions esomeprazole (NEXIUM) 20 mg, Daily sertraline (Zoloft) 100 MG tablet sertraline (ZOLOFT) 50 mg, Daily ALLERGIES No Known Allergies PROBLEMS Active Ambulatory Problems Diagnosis Date Noted Restless leg syndrome in ([facility]) 07/22/2023 Third trimester ([facility]) 07/22/2023 Resolved Ambulatory Problems Diagnosis Date [...] Cardiovascular: Negative. Gastrointestinal: Negative. Genitourinary: Positive for menstrual problem and pelvic pain. Musculoskeletal: Negative. Skin: Negative. Neurological: Negative. All other systems reviewed and are negative. Hematological: Negative. Endocrine: Negative. Allergic/Immunologic: Negative. OBJECTIVE Objective: OBGyn Exam Vitals: Estimated body mass index is 30.79 kg/m?? as calculated from the following: Height as of 01/18/25: 5' 5 . Weight as of this encounter: 185 lb. BP: 118/72 No LMP recorded. (Menstrual status: IUD). ASSESSMENT & PLAN ICD-10-CM 1. Pre-op examination Z01.818 2. Pelvic pain R10.2 3. Cyst of ovary, unspecified laterality N83.209 Pre Op: Patient is doing well but has complaints of pelvic pain and ovarian cyst. I have discussed conservative management vs. surgical management with the patient in detail and patient desires surgical management at this time. Patient will undergo Diagnostic Laparoscopy, possible SHANNON, possible FOE, possible BSO on 03-03-25. Surgical consents were signed, mmc was reviewed, and patient is to proceed to [facility]. Follow Up: Patient is to follow up between 1-2 weeks post operative to assess proper healing and recovery fromprocedure. Documented by Glenys Ghotra LPN.. on behalf of: Evens Roland DO documented in this encounter Plan of Treatment Upcoming Encounters Date Type Department Care Team (Late st Contact Info) Description 03/11/2025 10:00 AM EDT Office Visit NIKKO Arceo OBGYN [address] [place] [address] Mariam Coburn PA [address] [facility] [place] [address] documented as of this encounter Visit Diagnoses Diagnosis Pre-op examination Pelvic pain Cyst of ovary, unspecified laterality documented in this encounter Care Teams Circuit Breaker Mechanic Relationship Specialty Start Date End Date Lexis Evans MD [address] [place] [address] PCP - General Family Medicine 02/22/23 documented as of this encounter
--- OUTSIDE RECORDS SUMMARY | 2025-02-17 12:29 | XMS_ITS | Encounter Summary ---
Author Organization [facility] Address [address] [facility] [place] [address] Care Team Providers Care Electronic Calibration Technician Name Role Phone Lexis Evans MD Primary Care Provider [phone] Encounter Details Date Type Department Care Team (Late Contact Info) Description 05/22/2024 Orders Only NIKKO FOX [address] [place] [address] Alaina Lara LPN [address] [place] [id number] Social History Tobacco Use Types Packs/Day Years [...] Department Care Team (Late Contact Info) Description 03/11/2025 10:00 AM EDT Office Visit NIKKO FOX [address] [place] [address] Mariam Coburn PA [address] [facility] [address] [place], [facility] documented as of this encounter Procedures Procedure Name Priority Date/Time Associated Diagnosis Comments PAP SMEAR Routine 05/13/2024 12:00 AM EDT documented in this encounter Results * Pap Smear (05/13/2024 12:00 AM EDT) Swab Cervical swab / Unknown Mariam [facility] ORDERABLES Final Re sult EXTERNAL LAB documented in this encounter Visit Diagnoses Not on filedocumented in this encounter Care Teams Electronic Calibration Technician Relationship Specialty Start Date End Date Lexis Evans MD [address] [place] [address] PCP - General Family Medicine 02/22/23 documented as of this encounter
--- OUTSIDE RECORDS SUMMARY | 2025-02-17 12:29 | XMS_ITS | Encounter Summary ---
Author Organization [facility] Address [address] [facility] [place] [address] Care Team Providers Care Scientist Immunology Name Role Phone Lexis Evans MD Primary Care Provider [phone] Mariam Coburn Unavailable Encounter Details Date Type Department Care Team (Late Contact Info) Description 01/02/2023 Abstract NOMJusten FOX [address] [facility] [address] Evens Roland DO [address] [facility] [address] [place], [id number] Social History Tobacco Use Types Packs/Day Years [...] AM EDT Office Visit NIKKO FOX [address] [place] [phone] Mariam Coburn PA [address] [facility] [address] [place], [id number] documented as of this encounter Visit Diagnoses Not on filedocumented in this encounter Care Teams Scientist Immunology Relationship Specialty Start Date End Date Lexis Evans MD [address] [facility] [place] [address] PCP - General Family Medicine 02/22/23 Mariam Coburn PA [address] [place] [address] [place] [address] PCP - [facility] 01/13/24 documented as of this encounter
--- OUTSIDE RECORDS SUMMARY | 2025-02-17 12:29 | XMS_ITS | Clinical Summary ---
Author Organization [facility] Address [id number] [address] [place] [address] Care Team Providers Care Continuous Improvement Specialist Name Role Phone Lexis Evans MD Primary Care Provider [phone] Allergies No known active allergies Medications No [...] Not on file Insurance ANTHEM Care Teams Continuous Improvement Specialist Relationship Specialty Start Date End Date Lexis Evans MD [address] [place], [place] [phone] PCP - General 10/11/18
--- OUTSIDE RECORDS SUMMARY | 2025-02-17 12:29 | XMS_ITS | Encounter Summary ---
Author Organization [facility] Address [address] [facility] [place] [address] Care Team Providers Care Studio Operator Name Role Phone Lexis Evans MD Primary Care Provider [phone] Mariam Coburn Unavailable Encounter Details Date Type Department Care Team (Late Contact Info) Description 2023 Abstract NIKKO FOX [address] [facility] [place] [address] Evens Roland DO [address] [facility] [address] [place], [facility] Social History Tobacco Use Types Packs/Day [...] AM EDT Office Visit NIKKO FOX [address] [facility] [place] [address] Mariam Coburn PA [address] [facility] [address] [place], [place] [phone] documented as of this encounter Visit Diagnoses Not on filedocumented in this encounter Care Teams Studio Operator Relationship Specialty [place] [address] [place] [address] [place] [address] PCP - General Family Medicine 02/22/23 Mairam Coburn PA [address] [place] [address] [place] [address] PCP - [facility] 01/13/24 documented as of this encounter
--- OUTSIDE RECORDS SUMMARY | 2025-02-17 12:29 | XMS_ITS | Encounter Summary ---
Author Organization [facility] Address [address] [place] [address] Care Team Providers Care Core Blower Operator Name Role Phone Lexis Evans MD Primary Care Provider [phone] Mariam Coburn Unavailable Encounter Details Date Type Department Care Team (Late Contact Info) Description 04/24/2023 Abstract NIKKO FOX [address] [facility] [place] [address] Mariam Coburn PA [address] [facility] [address] [place] [phone] Social History Tobacco Use Types Packs/Day Years [...] 10:00 AM EDT Office Visit NOMS Marielos FOX [address] [facility] [place] [address] Mariam Coburn PA [address] [facility] [place] [address] documented as of this encounter Visit Diagnoses Not on filedocumented in this encounter Care Teams Core Blower Operator Relationship Specialty Start Date End Date Lexis Evans MD [address] [facility] [place] [address] PCP - General Family Medicine 02/22/23 Mariam Coburn PA [address] [facility] [place] [address] PCP - [facility] 01/13/24 documented as of this encounter
--- OUTSIDE RECORDS SUMMARY | 2025-02-17 12:29 | XMS_ITS | Encounter Summary ---
Author Organization [facility] Address [address] [place] [address] Care Team Providers Care Blanket Winder Operator Name Role Phone Lexis Evans MD Primary Care Provider [phone] Mariam Coburn Unavailable Encounter Details Date Type Department Care Team (Late st Contact Info) Description 03/21/2023 Clinisync Result Encounter NOMS External Department Unsolicited Ana Luisa Roland DO [address] [place], [place] [phone] Social History Tobacco Use Types Packs/Day Years [...] Description 03/11/2025 10:00 AM EDT Office Visit NOMJusten Arceo OBGYEvans [address] [place] [address] Mariam Coburn PA [address] [place] [address] [place] [address] documented as of this encounter Procedures Procedure Name Priority Date/Time Associated Diagnosis Comments OBCERVLEN 03/21/2023 11:23 AM EDT documented in this encounter Results * OBCERVLEN (03/21/2023 11:23 AM EDT) Anatomical Region Laterality Modality Other 03/21/2023 11:2 3 AM EDT Narrative 03/21/2023 11:23 AM EDT [address] [address] Ultrasound Report Signed Patient: ROSALIE WOODALL MR #: [id number] : 2000 Acct:[id number] Age/Sex: 22 / F ADM Date: 03/21/23 Loc: US Attending Dr: Ana Luisa Roland D.O. Ordering Physician: Ana Luisa Roland D.O. Date of Service: 03/21/23 Procedure(s): US OB cervical length Accession Number(s): [id number] cc: Lexis Evans M.D.; Ana Luisa Roland D.O. [address] [id number] Patient Name: ROSALIE WOODALL MRN: [facility]:[id number] date: 2000 Sex: F Assigned Patient Location: US Current Patient Location: US Accession/Order Number: [id number] Exam Date: 03/21/2023 10:38 Report Date: 03/21/2023 [...] Signed By: 03/21/23 1125 DD/ 1123 TD/TT: Embedded Firmware Engineer: Procedure Note Radiology, Radiologist, - 04/05/2023 [place] [address] Ultrasound Report Signed Patient: ROSALIE WOODALLMR #: [id number] : 2000Acct:[id number] Age/Sex: 22 / FADM Date: 03/21/23 Loc: US Attending Dr: Ana Luisa Roland D.O. Ordering Physician: Ana Luisa Roland D.O. Date of Service: 03/21/23 Procedure(s): US OB cervical length Accession Number(s): [id number] cc: Lexis Evans M.D.; Ana Luisa Roland D.O. [address] [place] [address] Patient Name: ROSALIE WOODALL MRN: [facility]:[id number] date: 2000 Sex: F Assigned Patient Location: US Current Patient Location: US Accession/Order Number: [id number] Exam Date: 03/21/2023 10:38 Report Date: 03/21/2023 [...] M.D. Signed By:03/21/23 1125 DD/ 1123 TD/TT: Embedded Firmware Engineer: us Ana Luisa Asuncion DO [facility] Final Result documented in this encounter Visit Diagnoses Not on filedocumented in this encounter Care Teams Blanket Winder Operator Relationship Specialty Start Date End Date Lexis Evans MD [address] [facility] [place] [address] PCP - General Family Medicine 02/22/23 Mariam Coburn PA [address] [place] [address] [place] [address] PCP - [facility] 01/13/24 documented as of this encounter
--- OUTSIDE RECORDS SUMMARY | 2025-02-17 12:29 | XMS_ITS | Encounter Summary ---
Author Organization [facility] Address [address] [place] [address] Care Team Providers Care Decator Operator Name Role Phone Lexis Evans MD Primary Care Provider [phone] Mariam Coburn Unavailable Encounter Details Date Type Department Care Team (Late Contact Info) Description 03/21/2023 Abstract NIKKO FOX [address] [place] [address] Glenys Ghotra LPN Social History Tobacco [...] AM EDT Office Visit NIKKO FOX [address] [place] [address] Mariam Coburn PA [address] [place] [address] documented as of this encounter Visit Diagnoses Not on filedocumented in this encounter Care Teams Decator Operator Relationship Specialty Start Date End Date Lexis Evans MD [address] [facility] [place] [address] PCP - General Family Medicine 02/22/23 Mariam Coburn PA [address] [place] [address] PCP - [facility] 01/13/24 documented as of this encounter
--- OUTSIDE RECORDS SUMMARY | 2025-02-17 12:29 | XMS_ITS | Encounter Summary ---
Author Organization [facility] Address [address] [place] [address] Care Team Providers Care Infection Control Manager Name Role Phone Lexis Evans MD Primary Care Provider [phone] Encounter Details Date Type Department Care Team (Late st Contact Info) Description 01/27/2025 Results Follow-Up [facility] OBGYN [address] [place] [address] Alaina Lara LPN [address] [place] [address] Social History Tobacco Use Types Packs/Day [...] as of this encounter Miscellaneous Notes * Result Encounter Note - Alaina Lara LPN - 01/27/2025 4:05 PM EDT Pt notified. She is going to think about her options and then get back with me on what she would like to do documented in this encounter Plan of Treatment Upcoming Encounters Date Type Department Care Team (Late st Contact Info) Description 03/11/2025 10:00 AM EDT Office Visit NOMS Marielos FOX [address] [facility] [place] [address] Mariam Coburn PA [address] [facility] [address] [place], [place] [phone] documented as of this encounter Visit Diagnoses Not on filedocumented in this encounter Care Teams Infection Control Manager Relationship Specialty Start Date End Date Lexis Evans MD [address] [facility] [place] [address] PCP - General Family Medicine 02/22/23 documented as of this encounter
--- OUTSIDE RECORDS SUMMARY | 2025-02-17 12:29 | XMS_ITS | Encounter Summary ---
Author Organization [facility] Address [address] [place] [address] Care Team Providers Care Paint Mixer Name Role Phone Lexis Evans MD Primary Care Provider [phone] Mariam Coburn Unavailable Encounter Details Date Type Department Care Team (Late st Contact Info) Description 12/23/2023 Clinisync Result Encounter NOMS External Department Unsolicited Ana Luisa Roland DO [address] [facility] [address] [place], [place] [phone] Social History Tobacco Use Types Packs/Day Years [...] 03/11/2025 10:00 AM EDT Office Visit NOMJusten FOX [address] [facility] [place] [address] Mariam Coburn PA [address] [facility] [place] [address] documented as of this encounter Procedures Procedure Name Priority Date/Time Associated Diagnosis Comments US PELVIS TRANSVAGINAL 12/23/2023 1:31 PM EDT documented in this encounter Results * US PELVIS TRANSVAGINAL (12/23/2023 1:31 PM EDT) Anatomical Region Laterality Modality Other 12/23/2023 1:31 PM EDT Narrative 12/23/2023 1:34 [place] [address] Ultrasound Report Signed Patient: ROSALIE WOODALL MR#: [id number] : 2000 Acct:[id number] Age/Sex: 23 / F ADM Date: 12/23/23 Loc: NIKKO Attending Dr: Ana Luisa Roland D.O. Ordering Physician: Ana Luisa Roland D.O. Date of Service: 12/23/23 Procedure(s): US pelvis transvaginal Accession Number(s): [id number] cc: Lexis Evans M.D.; Ana Luisa Roland D.O. [address] [address] Patient Name: ROSALIE WOODALL MRN: [facility]:[id number] date: 2000 Sex: F Assigned Patient Location: [facility] Current Patient Location: [facility] Accession/Order Number: [id number] Exam Date: 12/23/2023 11:00 Report Date: 12/23/2023 [...] Signed By: 12/23/23 1334 DD/ 1331 TD/TT: Dock Clerk: Procedure Note Radiology, Radiologist, MD - 12/23/2023 [place] [address] Ultrasound Report Signed Patient: ROSALIE WOODALL CMR#: [id number] : 2000Acct:[id number] Age/Sex: 23 / FADM Date: 12/23/23 Loc: NOMS Attending Dr: Ana Luisa Roland D.O. Ordering Physician: Ana Luisa Roland D.O. Date of Service: 12/23/23 Procedure(s): US pelvis transvaginal Accession Number(s): [id number] cc: Lexis Evans M.D.; Ana Luisa Roland D.O. [address] [place] [id number] Patient Name: ROSALIE WOODALL MRN: [id number] date: 2000 Sex: F Assigned Patient Location: [facility] Current Patient Location: [facility] Accession/Order Number: [id number] Exam Date: 12/23/2023 11:00 Report Date: 12/23/2023 [...] M.D. Signed By:12/23/23 1334 DD/ 1331 TD/TT: Dock Clerk: us Ana Luisa Asuncion DO [facility] Final Result documented in this encounter Visit Diagnoses Not on filedocumented in this encounter Care Teams Paint Mixer Relationship Specialty Start Date End Date Lexis Evans MD [address] [place] [address] [place] [address] PCP - General Family Medicine 02/22/23 Mariam Coburn PA [address] [place] [address] [place] [address] PCP - [facility] 01/13/24 documented as of this encounter
--- OUTSIDE RECORDS SUMMARY | 2025-02-17 12:29 | XMS_ITS | Clinical Summary ---
Author Organization [facility] Healthcare Address [address] [place] [address] Care Team Providers Care Big Data Analytics Lead Name Role Phone Lexis Evans MD Primary Care Provider [phone] Allergies No known active allergies Medications sertraline (Zoloft) 50 MG tablet Take 50 mg by mouth Daily 4 Active esomeprazole (NexIUM) [address] capsule Take 20 mg by mouth Daily 5 Active sertraline (Zoloft) 100 MG tablet 5 Active ibuprofen 800 MG tabletIndicatio ns:Pelvic pain in female Take 1 tablet (800 mg) by mouth every 8 (eight) hours if needed for mild pain for up to 10 days 30 tablet 2 5 01/29/20 25 metroNIDAZOLE (Flagyl) 500 MG tabletIndicatio ns:BV (bacterial vaginosis) Take 1 tablet (500 mg) by mouth in the morning and 1 tablet (500 mg) before bedtime. Do all this for 7 days. Do not drink alcohol while taking this medication. 14 tablet 5 02/09/20 25 Discontinue d(Therapy completed) Hospital, Clinic, or Other Facility Administered Medication Ordered Dose Route Frequency Start Date End Date Status levonorgestrel (Kathy) 13.5 MG IUDIndications:Enco unter for IUD insertion IU See admin instructions 01/05/2025 01/05/2028 Active Active Problems Problem Noted Date Diagnosed Date Restless leg syndrome in ([facility]) 02/2024 Third trimester ([facility]) 07/22/2023 Encounters Date Type Department Care Team Description 02/08/2025 10:00 AM EDT Consult [facility] [address] [place] [address] Ana Luisa Roland DO Pre-op examination; Pelvic pain; Cyst of ovary, unspecified laterality 01/29/2025 Telephone [facility] [address] [place] [address] Alaina Lara LPN 01/27/2025 Results Follow-Up [facility] [address] [place] [address] Alaina Lara LPN 01/21/2025 Telephone [facility] [place] [facility] [address] [place] [address] Helga Thomas MA 01/20/2025 Clinisync Result Encounter [facility] External Department Unsolicited Ana Luisa Roland DO 01/18/2025 3:50 PM EDT Office Visit [facility] [address] [place] [address] Ana Luisa Roland DO Pelvic pain in female 01/18/2025 Bamboo flowsheet [facility] [place] [facility] [address] [place] [address] Ana Luisa Roland, 01/13/2025 Telephone [facility] [address] [place] [address] Ana Luisa Roland DO 01/07/2025 Telephone [facility] [address] [place] [address] Rosa Wilde MA 01/05/2025 8:20 AM EDT Procedure Visit [facility] [address] [place] [address] Ana Luisa Roland DO Encounter for IUD insertion; Vaginal discharge; Pelvic pain 01/04/2025 Telephone [facility] [address] [facility] [address] Rosa Wilde MA 12/31/2024 Clinisync Result Encounter [facility] External Department Unsolicited Mariam Torres PA 12/31/2024 Telephone [facility] [address] [address] Mariam Torres PA 12/30/2024 External Result Encounter [facility] External Department Unsolicited Mariam Torres PA 12/30/2024 Travel 12/29/2024 10:10 AM EDT Office Visit [facility] [address] [address] Ana Luisa Roland DO control counseling 12/29/2024 Bamboo flowsheet [facility] [address] [facility] [address] Ana Luisa Roland DO from Last 3 Months Family [...] (185 lb) 02/08/2025 10:05 AM EDT Height 165.1 cm (5' 5 ) 01/18/2025 4:17 PM EDT Body Mass Index 30.79 01/18/2025 4:17 PM EDT Plan of Treatment Upcoming Encounters Date Type Department Care Team (Late st Contact Info) Description 03/11/2025 10:00 AM EDT Office Visit [facility] [address] [place] [address] Mariam Torres PA [address] [place] [address] Health Maintenance Due Date Last Done Comments Influenza Vaccine (#1) 2025 3, 05/10/2022, 05/14/2021, Additional history exists Procedures Procedure Name Priority Date/Time Associated Diagnosis Comments US PELVIS W/ TRANSVAGINAL 01/20/2025 3:38 PM EDT RECURRENT VAGINITIS (HTRX) Routine 01/18/2025 4:39 PM [...] EDT from Last 3 Months Results * US PELVIS W/ TRANSVAGINAL (01/20/2025 3:38 PM EDT) Anatomical Region Laterality Modality Other 01/20/2025 3:38 PM EDT Narrative 01/20/2025 3:40 PM EDT [address] [address] Ultrasound Report Signed Patient: ROSALIE MCLAUGHLIN MR#: [id number] : 2000 Acct:[id number] Age/Sex: 24 / F ADM Date: 01/20/25 Loc: US Attending Dr: Ana Luisa Roland D.O. Ordering Physician: Ana Luisa Roland D.O. Date of Service: 01/20/25 Procedure(s): US pelvis w/ transvaginal Accession Number(s): [id number] cc: Lexis Evans M.D.; Ana Luisa Roland D.O. [place] [id number] Patient Name: ROSALIE MCLAUGHLIN MRN: [id number] date: 2000 Sex: F Assigned Patient Location: US Current Patient Location: US Accession/Order Number: [id number] Exam Date: 01/20/2025 15:35 Report Date: 01/20/2025 15:38 At the request of: ANA LUISA ROLAND DO Procedure: US pelvis w/ transvaginal Transabdominal and transvaginal pelvic ultrasound HISTORY: Pelvic pain. Uterus anteverted. Uterus measures 8.6 x 5.6 x 4.[address]. Endometrium has a total combined thickness of 8 mm. Right ovary measures 2.6 x 2.7 x 2.2 cm with resistive index of 0.5. There is a complex right ovarian cyst measuring up to 2.4 cm. Multiple thin septations and debris. Possible hemorrhagic cyst. Left ovary measures 3.0 x 3.0 x 1.1 cm with resistive index of 0.6. Dilated vessels in the adnexal region seen bilaterally. No free fluid. No adnexal mass. US/US pelvis w/ transvaginal IMPRESSION: Adequate position of IUD. 2.4 cm complex right ovarian cyst. Color-flow both ovaries. No adnexal mass or free fluid. May consider short-term follow-up assessment. Impression dictated by: Sina Nagel M.D. 01/20/2025 3:38 PM Dictation Location: [place] [address] Electronically authenticated by: [id number] Y Date: 01/20/2025 15:38 Dictated By: Sina Nagel D.O. Signed By: 01/20/25 1540 DD/ 1538 TD/TT: Utilization Review Nurse: Procedure Note Radiology, Radiologist, MD - 01/20/2025 [place] [address] Ultrasound Report Signed Patient: ROSALIE MCLAUGHLIN CMR#: [id number] : 2000Acct:[id number] Age/Sex: 24 / FADM Date: 01/20/25 Loc: US Attending Dr: Ana Luisa Roland D.O. Ordering Physician: Ana Luisa Roland D.O. Date of Service: 01/20/25 Procedure(s): US pelvis w/ transvaginal Accession Number(s): [id number] cc: Lexis Evans M.D.; Ana Luisa Roland D.O. The [place] [id number] Patient Name: ROSALIE MCLAUGHLIN MRN: [id number] date: 2000 Sex: F Assigned Patient Location: Current Patient Location: US Accession/Order Number: [id number] Exam Date: 01/20/2025 15:35 Report Date: 01/20/2025 15:38 At the request of: ANA LUISA ROLAND DO Procedure: US pelvis w/ transvaginal Transabdominal and transvaginal pelvic ultrasound HISTORY: Pelvic pain. Uterus anteverted. Uterus measures 8.6 x 5.6 x 4.[address]. Endometrium has a total combined thickness of 8 mm. Right ovary measures2.6 x 2.7 x 2.2 cm with resistive index of 0.5. There is a complex rightovarian cyst measuring up to 2.4 cm. Multiple thin septations and debris.Possible hemorrhagic cyst. Left ovary measures 3.0 x 3.0 x 1.1 cm with resistiveindex of 0.6. Dilated vessels in the adnexal region seen bilaterally. No free fluid. No adnexal mass. US/US pelvis w/ transvaginal IMPRESSION: Adequate position of IUD. 2.4 cm complex right ovarian cyst. Color-flow both ovaries. No adnexal mass or free fluid. May consider short-term follow-up assessment. Impression dictated by: Sina Nagel M.D. 01/20/2025 3:38 PM Dictation Location: [place] [address] Electronically authenticated by: [id number] Y Date: 5:38 Dictated By: Sina Nagel D.O. Signed By:01/20/25 1540 DD/ 1538 TD/TT: Utilization Review Nurse: us Ana Luisa Asuncion DO [facility] Final Result * (ABNORMAL) RECURRENT VAGINITIS (HTRX) (01/18/2025 4:39 PM EDT) Only the most recent of2 resultswithin the time period is included. ATOPOBIUM VAGINAE 26.061(A) 19.961 - 24.689 ppm 01/20/2025 8:01 AM EDT [facility] ATOPOBIUM VAGINAE Detected(A) 19.961 - 24.689 ppm 01/20/2025 8:01 AM EDT [facility] BVAB 2,3 (BACTERIAL VAGINOSIS ASSOCIATED BACTERIA 2, 3); MOBILUNCUS SPP 20.586(A) 19.961 - 24.689 ppm 01/20/2025 8:01 AM EDT [facility] BVAB 2,3 (BACTERIAL VAGINOSIS ASSOCIATED BACTERIA 2, 3); MOBILUNCUS SPP Detected(A) 19.961 - 24.689 ppm 01/20/2025 8:01 AM EDT [facility] LUCIANO ALBICANS, PARAPSILOSIS, TROPICALIS 0 19.961 - 30.770 ppm 01/20/2025 8:01 AM EDT [facility] LUCIANO ALBICANS, PARAPSILOSIS, TROPICALIS Not Detected 19.961 - 30.770 ppm 01/20/2025 8:01 AM EDT [facility] [place] LUCIANO GLABRATA 0 23.000 - 32.138 ppm 01/20/2025 8:01 AM EDT [facility] LUCIANO GLABRATA Not Detected 23.000 - 32.138 ppm 01/20/2025 8:01 AM EDT [facility] LUCIANO KRUSEI 0 23.000 - 32.271 ppm 01/20/2025 8:01 AM EDT [facility] LUCIANO KRUSEI Not Detected 23.000 - 32.271 ppm 01/20/2025 8:01 AM EDT [facility] CHLAMYDIA TRACHOMATIS 0 23.000 - 31.467 ppm 01/20/2025 8:01 AM EDT [facility] CHLAMYDIA TRACHOMATIS Not Detected 23.000 - 31.467 ppm 01/20/2025 8:01 AM EDT [facility] GARDNERELLA VAGINALIS 24.806(A) 19.961 - 24.689 ppm 01/20/2025 8:01 AM EDT [facility] GARDNERELLA VAGINALIS Detected(A) 19.961 - 24.689 ppm 01/20/2025 8:01 AM EDT [facility] MEGASPHAERA (TYPES 1, 2) 0 19.961 - 24.689 ppm 01/20/2025 8:01 AM EDT [facility] MEGASPHAERA (TYPES 1, 2) Not Detected 19.961 - 24.689 ppm 01/20/2025 8:01 AM EDT [facility] NEISSERIA GONORRHOEAE 0 23.000 - 32.117 ppm 01/20/2025 8:01 AM EDT [facility] NEISSERIA GONORRHOEAE Not Detected 23.000 - 32.117 ppm 01/20/2025 8:01 AM EDT [facility] TRICHOMONAS VAGINALIS 0 23.000 - 32.119 ppm 01/20/2025 8:01 AM EDT [facility] TRICHOMONAS VAGINALIS Not Detected 23.000 - 32.119 ppm 01/20/2025 8:01 AM EDT [facility] MYCOPLASMA GENITALIUM 0 19.961 - 24.689 ppm 01/20/2025 8:01 AM EDT [facility] MYCOPLASMA GENITALIUM Not Detected 19.961 - 24.689 ppm 01/20/2025 8:01 AM EDT [facility] ERMB, C; MEFA 20.433(A) 23.000 - 27.611 ppm 01/20/2025 8:01 AM EDT [facility] ERMB, C; MEFA Detected(A) 23.000 - 27.611 ppm 01/20/2025 8:01 AM EDT [facility] TET B, TET M 22.46(A) 23.000 - 27.778 ppm 01/20/2025 8:01 AM EDT [facility] TET B, TET M Detected(A) 23.000 - 27.778 ppm 01/20/2025 8:01 AM EDT [facility] Tissue 01/18/2025 4:39 PM EDT 01/20/2025 2:49 AM EDT Ana Luisa Asuncion DO LAB BLOOD ORDERABLES Final [facility]ul t [facility] [address] [place] [address] * POCT , urine manually resulted (01/05/2025 8:45 AM EDT) Preg Test, Ur Negative Negative Urine 01/05/2025 8:45 AM EDT Ana Luisa Asuncion DO POINT OF CARE TEST ENTER/EDIT OR DERABLES Final Result * IUD INSERTION (01/05/2025 8:20 AM EDT) Narrative Jessi Wilks LPN - 01/05/2025 8:20 AM EDPatrick Wilks LPN 01/05/2025 9:39 AM IUD Insertion Performed by: Ana Luisa Roland DO Authorized by: Ana Luisa Roland DO Procedure: IUD insertion Consent obtained by patient, parent, or legal power of sandwich artist - including discussion of procedure risks and [...] 4 weeks for a string check. us Ana Luisa Roland DO IN CLINIC/BEDSIDE ORDERABLES Fin al Result * US PELVIS TRANSVAGINAL (12/31/2024 2:14 PM EDT) Anatomical Region Laterality Modality Other 12/31/2024 2:14 PM EDT Narrative 12/31/2024 2:16 PM EDT The [address] [address] Ultrasound Report Signed Patient: ROSALIE MCLAUGHLIN MR#: [id number] : 2000 Acct:[id number] Age/Sex: 24 / F ADM Date: 12/31/24 Loc: US Attending Dr: Mariam Torres Ordering Physician: Mariam Torres Date of Service: 12/31/24 Procedure(s): US pelvis transvaginal Accession Number(s): [id number] cc: Mariam Torres; Lexis Evans M.D. The [address] [address] Patient Name: ROSALIE MCLAUGHLIN MRN: [id number] date: 2000 Sex: F Assigned Patient Location: US Current Patient Location: US Accession/Order Number: [id number] Exam Date: 12/31/2024 14:08 Report Date: 12/31/2024 [...] Jr., D.O. 12/31/2024 2:14 PM Dictation Location: [place] [address] Electronically authenticated by: [id number] Y Date: 12/31/2024 14:14 Dictated By: Grey Stephens M.D. Signed By: 12/31/24 1416 DD/ 1414 TD/TT: Utilization Review Nurse: Procedure Note Radiology, Radiologist, - 12/31/[address] [place] [address] Ultrasound Report Signed Patient: ROSALIE MCLAUGHLIN CMR#: [id number] : 2000Acct:[id number] Age/Sex: 24 / FADM Date: 12/31/24 Loc: US Attending Dr: Mariam Torres Ordering Physician: Mariam Torres Date of Service: 12/31/24 Procedure(s): US pelvis transvaginal Accession Number(s): [id number] cc: Mariam Torres; Lexis Evans M.D. [place] [address] Patient Name: ROSALIE MCLAUGHLIN MRN: [id number] date: 2000 Sex: F Assigned Patient Location: US Current Patient Location: US Accession/Order Number: [id number] Exam Date: 12/31/2024 14:08 Report Date: 12/31/2024 [...] Jr., D.O. 12/31/2024 2:14 PM Dictation Location: [place] [address] Electronically authenticated by: [id number] Y Date: 4:14 Dictated By: Grey Stephens M.D. Signed By:12/31/24 1416 DD/ 1414 TD/TT: Utilization Review Nurse: us Mariam GONZALES [facility] Final Result * (ABNORMAL) AEROBIC VAISHNAVI CHARGE (NMIC56) (12/30/2024 6:45 PM EDT) AMIKACIN <16(S) 01/02/2025 9:30 AM EDT [facility] AMOXACILLIN/K CLAVULANATE <8/4(S) 01/02/2025 9:30 AM EDT [facility] AMPICILLIN <8(S) 01/02/2025 9:30 AM EDT [facility] AMPICILLIN/SULBACT AM <4/2(S) 01/02/2025 9:30 AM EDT [facility] AZTREONAM <4(S) 01/02/2025 9:30 AM EDT [facility] CEFAZOLIN <2(S) 01/02/2025 9:30 AM EDT [facility] CEFEPIME <2(S) 01/02/2025 9:30 AM EDT [facility] CEFTAZIDIME <1(S) 01/02/2025 9:30 AM EDT [facility] CEFTAZIDIME/AVIBAC ALLEN <4(S) 01/02/2025 9:30 AM EDT [facility] CEFTOLOZANE/TAZOBA CTAM <2(S) 01/02/2025 9:30 AM EDT [facility] CEFTRIAXONE <1(S) 01/02/2025 9:30 AM EDT [facility] CEFUROXIME <4(S) 01/02/2025 9:30 AM EDT [facility] CIPROFLOXACIN <0.25(S) 01/02/2025 9:30 AM EDT [facility] ERTAPENEM <0.5(S) 01/02/2025 9:30 AM EDT [facility] GENTAMICIN <2(S) 01/02/2025 9:30 AM EDT [facility] LEVOFLOXACIN <0.5(S) 01/02/2025 9:30 AM EDT [facility] MEROPENEM <1(S) 01/02/2025 9:30 AM EDT [facility] MEROPENEM/VABORBAC ALLEN <2(S) 01/02/2025 9:30 AM EDT [facility] NITROFURANTOIN <32(S) 01/02/2025 9:30 AM EDT [facility] PIPERACILLIN/TAZOB ACTAM <8(S) 01/02/2025 9:30 AM EDT [facility] TETRACYCLINE <4(S) 01/02/2025 9:30 AM EDT [facility] TIGECYCLINE <2(S) 01/02/2025 9:30 AM EDT [facility] TOBRAMYCIN <2(S) 01/02/2025 9:30 AM EDT [facility] TRIMETHOPRIM/SULFA METHOXAZOLE <0.5/9.5( S) 01/02/2025 9:30 AM EDT [facility] Urine Urine specimen obtained by clean catch procedure / Unknown 12/30/2024 6:45 PM EDT 12/31/2024 12:56 PM EDT Comment:Clean-Voided Midstre am Mariam GONZALES [facility] Final Result [facility] [address] [place] [address], [place] [id number] * Urine culture (12/30/2024 6:45 PM EDT) [facility] ORGANISM Escherichia coli 01/02/2025 9:30 AM EDT [facility] COLONY COUNT >100,000 01/02/2025 9:30 AM EDT [facility] Urine Urine specimen obtained by clean catch procedure / Unknown 12/30/2024 6:45 PM EDT 12/31/2024 12:56 PM EDT Comment:Clean-Voided Midstre am us Mariam GONZALES LAB MICROBIOLOGY - GENERAL ORDER JASON Final Result [facility] [address] [place] [address], [facility] [address] [place] [address] from Last 3 Months Insurance [employer] Care Teams Big Data Analytics Lead Relationship Specialty Start Date End Date Lexis Evans MD [address] [place] [address] PCP - General Family Medicine 02/22/23
--- OUTSIDE RECORDS SUMMARY | 2025-02-17 12:29 | XMS_ITS | Encounter Summary ---
Author Organization [facility] Address [address] [place] [address] Care Team Providers Care Urban Gardening Specialist Name Role Phone Lexis Evans MD Primary Care Provider [phone] Mariam Coburn Unavailable Encounter Details Date Type Department Care Team (Late st Contact Info) Description 05/09/2023 Clinisync Result Encounter [facility] External Department Unsolicited Ana Luisa Roland DO [email or web address] [place], [place] [id number] Social History Tobacco Use Types Packs/Day Years [...] EDT Office Visit [facility] [address] [place] [address] Mariam Coburn PA [address] [place] [address] Dr [place] [phone] (work) documented as of this encounter Procedures Procedure Name Priority Date/Time Associated Diagnosis Comments US OB CERVICAL LENGTH 05/09/2023 2:39 PM EDT documented in this encounter Results * US OB CERVICAL LENGTH (05/09/2023 2:39 PM EDT) Anatomical Region Laterality Modality Other 05/09/2023 2:39 PM EDT Narrative 05/09/2023 2:39 PM EDT [address] [address] Ultrasound Report Signed Patient: ROSALIE WOODALL MR#: [id number] : 2000 Acct:[id number] Age/Sex: 22 / F ADM Date: Loc: [facility] 250- Attending Dr: Ana Luisa Roland D.O. Ordering Physician: Ana Luisa Roland D.O. Date of Service: 05/09/23 Procedure(s): US OB cervical length Accession Number(s): [id number] cc: Lexis Evans M.D.; Ana Luisa Roland D.O. [address] [id number] Patient Name: ROSALIE WOODALL MRN: [id number] date: 2000 Sex: F Assigned Patient Location: [facility] Current Patient Location: Accession/Order Number: [id number] Exam Date: 05/09/2023 13:15 Report Date: 05/09/2023 [...] Box M.D. Signed By: 05/09/23 1441 DD/ 143 TD/TT: Nail Puller: Procedure Note Radiology, Radiologist, MD - 05/09/2023 [place] [address] Ultrasound Report Signed Patient: ROSALIE WOODALLMR#: [id number] : 2000Acct:[id number] Age/Sex: 22 FADM Date: Loc: [place] [address]: Ana Luisa Roland D.O. Ordering Physician: Ana Luisa Roland D.O. Date of Service: 05/09/23 Procedure(s): US OB cervical length Accession Number(s): [id number] cc: Lexis Evans M.D.; Ana Luisa Roland D.O. The [place] [address] Patient Name: ROSALIE WOODALL MRN: [id number] date: 2000 Sex: F Assigned Patient Location: [facility] Current Patient Location: Accession/Order Number: [id number] Exam Date: 05/09/2023 13:15 Report Date: 05/09/2023 [...] M.D. Signed By:05/09/23 1441 DD/ 1439 TD/TT: Nail Puller: us Ana Luisa Asuncion DO [facility] Final Result documented in this encounter Visit Diagnoses Not on filedocumented in this encounter Care Teams Urban Gardening Specialist Relationship Specialty Start Date End Date Lexis Evans MD [address] [place] [address] [place] [address] PCP - General Family Medicine 02/22/23 Mariam Coburn PA [address] [place] [address] [place] [address] PCP - [facility] 01/13/24 documented as of this encounter
--- OUTSIDE RECORDS SUMMARY | 2025-02-17 12:29 | XMS_ITS | Patient Health Record ---
Author Organization [facility] Address [address] [address] Care Team Providers Care Deck Hand Name Role Phone Angi Hunt Primary Care Provider [phone] Rashaun Henderson Unavailable Ashley Gold Unavailable [phone] Reason For Referral No Information Problems Problem Type SNOMED Code ICD Code Onset Dates Problem Status W/U Status Risk Notes Problem Depressive episode (380094599) Depressive episode (F32.9) Active confirmed Encounters Encounter Location Date Provider Diagnosis [facility] [address] [place] [place] [address] 04/27/2024 Rashaun Henderson [facility] [address] [place] [address] 06/24/2024 Rashaun Henderson [facility] [address] [facility] [place] [address] 06/24/2024 Ashley Gold [facility] [address] [place] [address] 05/22/2024 Rashaun Henderson Depressive episode F32.9 [facility] [address] [facility] [place] [address] 08/04/2024 Ashley Gold Depressive episode F32.9 [facility] [address] [place] [facility] [place] [address] 09/01/2024 Ashley Gold Depressive episode F32.9 [facility] [address] [place] [facility] [place] [address] 10/07/2024 Ashley Gold Depressive episode F32.9 [facility] [address] [place] [address] 10/27/2024 Ashley Gold Depressive episode F32.9 [facility] [address] [place] [address] 11/12/2024 Ashley Gold Depressive episode F32.9 [facility] [address] [place] [address] 12/01/2024 Ashley Gold Depressive episode F32.9 [facility] [address] [place] [address] 12/23/2024 Ashley Gold Depressive episode F32.9 [facility] [address] [place] [address] 01/05/2025 Ashley Gold Depressive episode F32.9 [facility] [address] [place] [address] 01/21/2025 Ashley Gold Depressive episode F32.9 Assessments Encounter [...] F32.9) 01/05/2025 Depressive episode (ICD-10 - F32.9) 01/21/2025 Depressive episode (ICD-10 - F32.9) Plan Of Treatment Next Appt Details Provider Name:Ashley wu, 02/17/2025 02:00:00 PM, [address] [facility] [place], [address], Provider Name:Ashley wu, 03/02/2025 03:45:00 PM, [address] [place], [address], Insurance Providers Payer Name Payer Address Payer Phone Subscriber Number Group Number Insured Name Patient Relationship to Insured Coverage Start Date Coverage End Date [employer] [place] Medicaid [address] CLAIMS DE[place] [address] [id number] ROSALIE MCLAUGHLIN Self - patient is the insured 4 [employer] [facility] [address] [place] [address] [id number] ROSALIE MCLAUGHLIN Self - patient is the insured 4 [employer] Primary [address] [place] [address] [id number] ROSALIE MCLAUGHLIN Self - patient is the insured 5 5
--- OUTSIDE RECORDS SUMMARY | 2025-02-17 12:29 | XMS_ITS | Encounter Summary ---
Author Organization [facility] Address [address] [place] [address] Care Team Providers Care Customer Service Security Officer Name Role Phone Lexis Evans MD Primary Care Provider [phone] Mariam Coburn Unavailable Encounter Details Date Type Department Care Team (Late st Contact Info) Description 03/21/2023 Clinisync Result Encounter [facility] External Department Unsolicited Ana Luisa Roland DO [address] [place], [place] [id number] Social History Tobacco Use Types Packs/Day Years [...] EDT Office Visit NOMJusten [place]ce[place] OBGYEvans [address] [place] [address] Mariam Coburn PA [address] [place] [address] [place] [address] documented as of this encounter Procedures Procedure Name Priority Date/Time Associated Diagnosis Comments OBAFI 03/21/2023 11:23 AM EDT documented in this encounter Results * OBAFI (03/21/2023 11:23 AM EDT) Anatomical Region Laterality Modality Other 03/21/2023 11:2 3 AM EDT Narrative 03/21/2023 11:23 AM EDT [address] [address] Ultrasound Report Signed Patient: ROSALIE WOODALL MR #: [id number] : 2000 Acct:[id number] Age/Sex: 22 / F ADM Date: 03/21/23 Loc: US Attending Dr: Ana Luisa Roland D.O. Ordering Physician: Ana Luisa Roland D.O. Date of Service: 03/21/23 Procedure(s): US OB amniotic fluid vol Accession Number(s): [id number] cc: Lexis Evans M.D.; Ana Luisa Roland D.O. [address] [id number] Patient Name: ROSALIE WOODALL MRN: [facility]:[id number] date: 2000 Sex: F Assigned Patient Location: US Current Patient Location: US Accession/Order Number: [id number] Exam Date: 03/21/2023 10:38 Report Date: 03/21/2023 [...] Signed By: 03/21/23 1125 DD/ 1123 TD/TT: Finisher Accordion: Procedure Note Radiology, Radiologist, - 04/05/2023 [place] [address] Ultrasound Report Signed Patient: ROSALIE WOODALLMR #: [id number] : 2000Acct:[id number] Age/Sex: 22 / FADM Date: 03/21/23 Loc: US Attending Dr: Ana Luisa Roland D.O. Ordering Physician: Ana Luisa Roland D.O. Date of Service: 03/21/23 Procedure(s): US OB amniotic fluid vol Accession Number(s): [id number] cc: Lexis Evans M.D.; Ana Luisa Roland D.O. The [place] [address] Patient Name: ROSALIE WOODALL MRN: [id number] date: 2000 Sex: F Assigned Patient Location: US Current Patient Location: US Accession/Order Number: [id number] Exam Date: 03/21/2023 10:38 Report Date: 03/21/2023 [...] M.D. Signed By:03/21/23 1125 DD/ 1123 TD/TT: Finisher Accordion: us Ana Luisa Asuncion DO [facility] Final Result documented in this encounter Visit Diagnoses Not on filedocumented in this encounter Care Teams Customer Service Security Officer Relationship Specialty Start Date End Date Lexis Evans MD [address] [place] [address] [place] [address] PCP - General Family Medicine 02/22/23 Mariam Coburn PA [address] [place] [address] [place] [address] PCP - [facility] 01/13/24 documented as of this encounter
--- NOTE | 2025-02-17 13:10 | P.GSHP_ITS ---
History of Present Illness History of Present Illness Chief complaint: Pelvic Pain, Ovarian Cyst Narrative: Patient presents for presurgical testing. Please see HPI from Dr. Roland dated February 08, 2025. Review of Systems ROS Narrative Please see ROS from Dr. Roland dated February 08, 2025. [facility] Medical History (Updated 02/17/25 @ 12:54 by Lisa Ojeda NP) Low iron ?E61.1 - Iron deficiency (ICD-10) Panic attacks ?F41.0 - Panic disorder [episodic paroxysmal anxiety] (ICD-10) Depression ?F32.A - Depression, unspecified (ICD-10) Pelvic pain ?R10.2 - Pelvic and perineal pain (ICD-10) Ovarian cyst ?N83.209 - Unspecified ovarian cyst, unspecified side (ICD-10) Heartburn ?R12 - Heartburn (ICD-10) Family History (Updated 02/17/25 @ 12:54 by Lisa Ojeda NP) Other Family history of diabetes mellitus Family history of ovarian cancer Family history of stroke Social History (Updated 02/17/25 @ 12:49 by Lisa Ojeda NP) Within the past year, how often did you have a drink containing alcohol: monthly or less Smoking status: Never smoker Non-prescribed substance use: denies use Previous occupational history: [employer] Highest level of school completed/degree received: some college, no degree Little interest or pleasure in doing things: not at all Feeling down, depressed, or hopeless: not at all Meds Home Medications and Allergies Home Medications ?Medication ?Instructions ?Recorded ?Confirmed ?Type sertraline 100 mg tablet 100 mg PO QPM 01/16/2502/17 History ibuprofen 800 mg tablet 800 mg PO Q8H PRN pain 02/1702/17/25 History levonorgestrel 14 mcg/24 hr (up to 1 device intrauteri ne ONCE 02/17/25 02/17/25 History 3 yrs) 13.5 mg intrauterine device (Kathy) Allergies Allergy/AdvReac Type Severity Reaction Status Date / Time No Known Drug Allergies Allergy Verified 02/17/25 12:47 Exam Narrative Exam Narrative: Constitutional: Awake, alert, comfortable, well-appearing, nontoxic, interactive, vital signs as charted Head: Normocephalic, atraumatic Neck: Supple, normal appearance, normal range of motion, no meningeal signs, no lymphadenopathy Respiratory: No respiratory distress, breath sounds clear Cardiovascular: Regular rate and rhythm, strong and regular heart tones Abdomen: Nontender, normal bowel sounds, soft, no CVA tenderness Musculoskeletal: Normal gait, no swelling or edema Skin: No rashes or induration, no lesions, only visible skin inspected Neuro: No neurological deficits, normal sensation Psychiatric: Oriented ?3, normal affect Assessment and Plan Assessment and Plan (1) Ovarian cyst: (2) Pelvic pain: Plan Diagnostic laparoscopy, possible SHANNON, possible FOE, possible BSO scheduled with Dr. Roland March 03, 2025.
== END 2025-02-17 12:28 | disposition home or self-care (01) ==
LOC: PST 12:27
PROVIDERS: PCP Family Medicine; Visit Provider Obstetrics & Gynecology
DX: Z01.818 Encounter for other preprocedural examination (principal); R10.2 Pelvic and perineal pain; N83.209 Unspecified ovarian cyst, unspecified side
CPT/HCPCS: G0463

== ENCOUNTER 2025-03-03 06:05 | Day surgery (SDC) | payer OTHER, SELFPAY ==
--- OUTSIDE RECORDS SUMMARY | 2025-02-17 10:00 | XMS_ITS ---
Author Organization [employer] [facility] Address [address] [place] [address] Care Team Providers Care Field Care Manager Name Role Phone Angi Hunt Primary Care Provider [phone] Ashley Gold Unavailable [phone] REASON FOR VISIT fu Encounters Encounter Location Date Provider Diagnosis [facility] [address] [place] [address] 02/17/2025 Ashley Gold Plan Of Treatment No Information Progress Notes * ROSALIE MCLAUGHLINDOB: [birth year] (24 yo F)Acc No.[id number]:02/17/2025 F/U - Patient Patient: ROSALIE STERLING Provider: Zayda Gold :2000 A ge:24 Y S ex:Female Date:02/17/2025 Address:[address] [place], [place] [address] Pcp:Angi Hunt Subjective: * Chief Complaints: * 1 . Bh fu. Objective: Therapeutic Interventions: Assessment: Plan: * Images: Care Plan Details* * Electronic signature of MELISSA Moya on 03/03/2025 at 06:09 AM EDT Sign off status: Pending * Provider: Zayda Gold Date: 02/17/2025 Generated for Yael browne/Kai/eTransmitting on: 03/03/2025 06:09 AM EDT
[2025-02-17 13:02] VITALS: BP 113/75; PULSE 75; TEMP 36.4; O2SAT 100; BMI 31.4
[2025-03-03] VITALS (13 sets, daily range): BP systolic 98–127; BP diastolic 55–83; PULSE 61–101; TEMP 36.2–36.3; O2SAT 97–100; BMI 31.8
--- OUTSIDE RECORDS SUMMARY | 2025-03-03 06:09 | XMS_ITS | Patient Health Record ---
Author Organization [facility] Address [address] [place] [address] Care Team Providers Care Meat Smoker Name Role Phone Angi Hunt Primary Care Provider Rashaun Henderson Unavailable Ashley Gold Unavailable [phone] Reason For Referral No Information Problems Problem Type SNOMED Code ICD Code Onset Dates Problem Status W/U Status Risk Notes Problem Depressive episode (422002321) Depressive episode (F32.9) Active confirmed Encounters Encounter Location Date Provider Diagnosis [facility] [address] [place] [place] [address] 04/27/2024 Rashaun Henderson [facility] [address] [place] [address] 06/24/2024 Rashaun Henderson [facility] [address] [facility] [place] [address] 06/24/2024 Ashley Gold [facility] [address] [place] [address] 05/22/2024 Rashaun Henderson Depressive episode F32.9 [facility] [address] [place] [place] [address] 08/04/2024 Ashley Gold Depressive episode F32.9 [facility] [address] [place] [address] 09/01/2024 Ashley Gold Depressive episode F32.9 [facility] [address] [place] [place] [address] 10/07/2024 Ashley Gold Depressive episode F32.9 [facility] [address] [place] [address] 10/27/2024 Ashley Gold Depressive episode F32.9 [facility] [address] [place] [place] [address] 11/12/2024 Ashley Gold Depressive episode F32.9 [facility] [address] [place] [place] [address] 12/01/2024 Ashley Gold Depressive episode F32.9 [facility] [address] [facility] [place] [address] 12/23/2024 Ashley Gold Depressive episode F32.9 [facility] [address] [facility] [place] [address] 01/05/2025 Ashley Gold Depressive episode F32.9 [facility] [address] [facility] [address] 01/21/2025 Ashley Gold Depressive episode F32.9 Assessments Encounter Date Diagnosis (ICD Code) Assessment Notes Treatment Notes Treatment Clinical Notes Section Notes 01/05/2025 Depressive episode (ICD-10 - F32.9) 12/23/2024 Depressive episode (ICD-10 - F32.9) 12/01/2024 Depressive episode (ICD-10 - F32.9) 11/12/2024 Depressive episode (ICD-10 - F32.9) 10/27/2024 Depressive episode (ICD-10 - F32.9) 10/07/2024 Depressive episode (ICD-10 - F32.9) 05/22/2024 Depressive episode (ICD-10 - F32.9) 01/21/2025 Depressive episode (ICD-10 - F32.9) 09/01/2024 Depressive episode (ICD-10 - F32.9) 08/04/2024 Depressive episode (ICD-10 - F32.9) Plan Of Treatment No Information Insurance Providers Payer Name Payer Address Payer Phone Subscriber Number Group Number Insured Name Patient Relationship to Insured Coverage Start Date Coverage End Date [employer] [place] Medicaid [address] CLAIMS DEPT [facility] [place] [address] [id number] ROSALIE MCLAUGHLIN Self - patient is the insured Magdi [facility] [address] [place] [address] [id number] ROSALIE MCLAUGHLIN Self - patient is the insured 4 ANTHEM Primary [address] [place] [address] [id number] MCLAUGHLIN ROSALIE Self - patient is the insured 5 5
--- OUTSIDE RECORDS SUMMARY | 2025-03-03 06:09 | XMS_ITS | Encounter Summary ---
Author Organization [facility] Address [address] [place] [address] Care Team Providers Care Meter Readers Supervisor Name Role Phone Lexis Evans MD Primary Care Provider [phone] Mariam Coburn Unavailable Encounter Details Date Type Department Care Team (Late st Contact Info) Description 12/23/2023 Clinisync Result Encounter NOMS External Department Unsolicited Ana Luisa Roland DO [address] [facility] [address] [place], [place] [id number] Social History Tobacco Use Types Packs/Day Years [...] AM EDT Office Visit NOMJusten FOX [address] [facility] [place] [address] Mariam Coburn PA [address] [facility] [place] [address] documented as of this encounter Procedures Procedure Name Priority Date/Time Associated Diagnosis Comments US PELVIS TRANSVAGINAL 12/23/2023 1:31 PM EDT documented in this encounter Results * US PELVIS TRANSVAGINAL (12/23/2023 1:31 PM EDT) Anatomical Region Laterality Modality Other 12/23/2023 1:31 PM EDT Narrative 12/23/2023 1:34 [place] [address] Ultrasound Report Signed Patient: ROSALIE WOODALL MR#: [id number] : 2000 Acct:[id number] Age/Sex: 23 / F ADM Date: 12/23/23 Loc: NIKKO Attending Dr: Ana Luisa Roland D.O. Ordering Physician: Ana Luisa Roland D.O. Date of Service: 12/23/23 Procedure(s): US pelvis transvaginal Accession Number(s): [id number] cc: Lexis Evans M.D.; Ana Luisa Roland D.O. [address] [address] Patient Name: ROSALIE WOODALL MRN: [id number] date: 2000 Sex: F Assigned Patient Location: [facility] Current Patient Location: [facility] Accession/Order Number: [id number] Exam Date: 12/23/2023 11:00 Report Date: 12/23/2023 [...] Signed By: 12/23/23 1334 DD/ 1331 TD/TT: Electrical Timing Device Calibrator: Procedure Note Radiology, Radiologist, MD - 12/23/2023 [place] [address] Ultrasound Report Signed Patient: ROSALIE WOODALL CMR#: [id number] : 2000Acct:[id number] Age/Sex: 23 / FADM Date: 12/23/23 Loc: NOMS Attending Dr: Ana Luisa Roland D.O. Ordering Physician: Ana Luisa Roland D.O. Date of Service: 12/23/23 Procedure(s): US pelvis transvaginal Accession Number(s): [id number] cc: Lexis Evans M.D.; Ana Luisa Roland D.O. The [place] [address] Patient Name: ROSALIE WOODALL MRN: [id number] date: 2000 Sex: F Assigned Patient Location: [facility] Current Patient Location: [facility] Accession/Order Number: [id number] Exam Date: 12/23/2023 11:00 Report Date: 12/23/2023 [...] M.D. Signed By:12/23/23 1334 DD/ 1331 TD/TT: Electrical Timing Device Calibrator: us Ana Luisa Asuncion DO [facility] Final Result documented in this encounter Visit Diagnoses Not on filedocumented in this encounter Care Teams Meter Readers Supervisor Relationship Specialty Start Date End Date Lexis Evans MD [address] [place] [address] [place] [address] PCP - General Family Medicine 02/22/23 Mariam Coburn PA [address] [place] [address] [place] [address] PCP - [facility] 01/13/24 documented as of this encounter
--- OUTSIDE RECORDS SUMMARY | 2025-03-03 06:09 | XMS_ITS | Encounter Summary ---
Author Organization [facility] Address [address] [place] [address] Care Team Providers Care Put In Beat Adjuster Name Role Phone Lexis Evans MD Primary Care Provider [phone] Mariam Coburn Unavailable Encounter Details Date Type Department Care Team (Late st Contact Info) Description 05/09/2023 Clinisync Result Encounter NOMS External Department Unsolicited Ana Luisa Roland DO [address] [place], [place] [phone] Social History Tobacco Use Types Packs/Day Years [...] Description 03/11/2025 10:00 AM EDT Office Visit NOMJusetn Arceo OBGYEvans [address] [employer] [place] [address] Mariam Coburn PA [address] [place] [address] Dr [place] [id number] (work) documented as of this encounter Procedures Procedure Name Priority Date/Time Associated Diagnosis Comments US OB CERVICAL LENGTH 05/09/2023 2:39 PM EDT documented in this encounter Results * US OB CERVICAL LENGTH (05/09/2023 2:39 PM EDT) Anatomical Region Laterality Modality Other 05/09/2023 2:39 PM EDT Narrative 05/09/2023 2:39 PM EDT [address] [address] Ultrasound Report Signed Patient: ROSALIE WOODALL MR#: [id number] : 2000 Acct:[id number] Age/Sex: 22 / F ADM Date: Loc: [facility] 250- Attending Dr: Ana Luisa Roland D.O. Ordering Physician: Ana Luisa Roland D.O. Date of Service: 05/09/23 Procedure(s): US OB cervical length Accession Number(s): [id number] cc: Lexis Evans M.D.; Ana Luisa Roland D.O. [address] [id number] Patient Name: ROSALIE WOODALL MRN: [id number] date: 2000 Sex: F Assigned Patient Location: [facility] Current Patient Location: Accession/Order Number: [id number] Exam Date: 05/09/2023 13:15 Report Date: 05/09/2023 [...] Signed By: 05/09/23 1441 DD/ 143 TD/TT: Ramp Attendant: Procedure Note Radiology, Radiologist, MD - 05/09/2023 [place] [address] Ultrasound Report Signed Patient: ROSALIE WOODALLMR#: [id number] : 2000Acct:[id number] Age/Sex: 22 FADM Date: Loc: [place] [address]: Ana Luisa Roland D.O. Ordering Physician: Ana Luisa Roland D.O. Date of Service: 05/09/23 Procedure(s): US OB cervical length Accession Number(s): [id number] cc: Lexis Evans M.D.; Ana Luisa Roland D.O. The [place] [address] Patient Name: ROSALIE WOODALL MRN: [id number] date: 2000 Sex: F Assigned Patient Location: [facility] Current Patient Location: Accession/Order Number: [id number] Exam Date: 05/09/2023 13:15 Report Date: 05/09/2023 [...] M.D. Signed By:05/09/23 1441 DD/ 1439 TD/TT: Ramp Attendant: us Ana Luisa Asuncion DO [facility] Final Result documented in this encounter Visit Diagnoses Not on filedocumented in this encounter Care Teams Put In Beat Adjuster Relationship Specialty Start Date End Date Lexis Evans MD [address] [place] [address] [place] [address] PCP - General Family Medicine 02/22/23 Mariam Coburn PA [address] [place] [address] [place] [address] PCP - [facility] 01/13/24 documented as of this encounter
--- OUTSIDE RECORDS SUMMARY | 2025-03-03 06:09 | XMS_ITS | Encounter Summary ---
Author Organization [facility] Address [address] [facility] [place] [address] Care Team Providers Care Web Offset Press Feeder Name Role Phone Lexis Evans MD Primary Care Provider [phone] Mariam Coburn Unavailable Encounter Details Date Type Department Care Team (Late Contact Info) Description 2023 Abstract NIKKO FOX [address] [facility] [place] [address] Evens Roland DO [address] [facility] [address] [place], [facility] Social History Tobacco Use Types Packs/Day Years [...] AM EDT Office Visit NIKKO FOX [address] [facility] [place] [address] Mariam Coburn PA [address] [facility] [address] [place], [place] [address] documented as of this encounter Visit Diagnoses Not on filedocumented in this encounter Care Teams Web Offset Press Feeder Relationship Specialty [place] [address] [place] [address] [place] [address] PCP - General Family Medicine 02/22/23 Mariam Coburn PA [address] [place] [address] [place] [address] PCP - [facility] 01/13/24 documented as of this encounter
--- OUTSIDE RECORDS SUMMARY | 2025-03-03 06:09 | XMS_ITS | Encounter Summary ---
Author Organization [facility] Address [address] [place] [address] Care Team Providers Care Electric Melt Operator Name Role Phone Lexis Evans MD Primary Care Provider [phone] Mariam Coburn Unavailable Encounter Details Date Type Department Care Team (Late st Contact Info) Description 03/21/2023 Clinisync Result Encounter NOMS External Department Unsolicited Aan Luisa Roland DO [address] [place], [place] [id number] Social History Tobacco Use Types Packs/Day Years [...] EDT Office Visit NOMJusten [place] OBGYEvans [address] [place] [address] Mariam Coburn PA [address] [place] [address] [place] [address] documented as of this encounter Procedures Procedure Name Priority Date/Time Associated Diagnosis Comments OBCERVLEN 03/21/2023 11:23 AM EDT documented in this encounter Results * OBCERVLEN (03/21/2023 11:23 AM EDT) Anatomical Region Laterality Modality Other 03/21/2023 11:2 3 AM EDT Narrative 03/21/2023 11:23 AM EDT [address] [address] Ultrasound Report Signed Patient: ROSALIE WOODALL MR #: [id number] : 2000 Acct:[id number] Age/Sex: 22 / F ADM Date: 03/21/23 Loc: US Attending Dr: Ana Luisa Roland D.O. Ordering Physician: Ana Luisa Roland D.O. Date of Service: 03/21/23 Procedure(s): US OB cervical length Accession Number(s): [id number] cc: Lexis Evans M.D.; Ana Luisa Roland D.O. [address] [id number] Patient Name: ROSALIE WOODALL MRN: [facility]:[id number] date: 2000 Sex: F Assigned Patient Location: US Current Patient Location: US Accession/Order Number: [id number] Exam Date: 03/21/2023 10:38 Report Date: 03/21/2023 [...] Signed By: 03/21/23 1125 DD/ 1123 TD/TT: Warp Knitter: Procedure Note Radiology, Radiologist, - 04/05/2023 [place] [address] Ultrasound Report Signed Patient: ROSALIE WOODALLMR #: [id number] : 2000Acct:[id number] Age/Sex: 22 / FADM Date: 03/21/23 Loc: US Attending Dr: Ana Luisa Roland D.O. Ordering Physician: Ana Luisa Roland D.O. Date of Service: 03/21/23 Procedure(s): US OB cervical length Accession Number(s): [id number] cc: Lexis Evans M.D.; Ana Luisa Roland D.O. The [place] [address] Patient Name: ROSALIE WOODALL MRN: [facility]:[id number] date: 2000 Sex: F Assigned Patient Location: US Current Patient Location: US Accession/Order Number: [id number] Exam Date: 03/21/2023 10:38 Report Date: 03/21/2023 [...] M.D. Signed By:03/21/23 1125 DD/ 1123 TD/TT: Warp Knitter: us Ana Luisa Asuncion DO [facility] Final Result documented in this encounter Visit Diagnoses Not on filedocumented in this encounter Care Teams Electric Melt Operator Relationship Specialty Start Date End Date Lexis Evans MD [address] [facility] [place] [address] PCP - General Family Medicine 02/22/23 Mariam Coburn PA [address] [place] [address] [place] [address] PCP - [facility] 01/13/24 documented as of this encounter
--- OUTSIDE RECORDS SUMMARY | 2025-03-03 06:09 | XMS_ITS | Encounter Summary ---
Author Organization [facility] Address [address] [place] [address] Care Team Providers Care Card Lacer Name Role Phone Lexis Evans MD Primary Care Provider [phone] Encounter Details Date Type Department Care Team (Late st Contact Info) Description 01/27/2025 Results Follow-Up [facility] [address] [place] [address] Alaina Lara LPN [address] [place] [address] US PELVIS W/ TRANSVAGINAL Social History Tobacco Use Types Packs/Day Years [...] Description 03/11/2025 10:00 AM EDT Office Visit BRITTNEYS Marielos FOX [address] [facility] [address] Mariam Coburn PA [address] [facility] [address] [place], [place] [id number] documented as of this encounter Visit Diagnoses Not on filedocumented in this encounter Care Teams Card Lacer Relationship Specialty Start Date End Date Lexsi Evans MD [address] [place] [place] [address] PCP - General Family Medicine 02/22/23 documented as of this encounter
--- OUTSIDE RECORDS SUMMARY | 2025-03-03 06:09 | XMS_ITS | Encounter Summary ---
Author Organization [facility] Address [address] [facility] [place] [address] Care Team Providers Care Technician'S Helper Name Role Phone Lexis Evans MD Primary Care Provider [phone] Encounter Details Date Type Department Care Team (Late Contact Info) Description 05/22/2024 Orders Only NIKKO FOX [address] [facility] [place] [address] Alaina Lara LPN [address] [place] [id number] Social History Tobacco Use Types Packs/Day Years [...] Visit NIKKO FOX [address] [facility] [place] [address] Mariam Coburn PA [address] [facility] [address] [place], [facility] documented as of this encounter Procedures Procedure Name Priority Date/Time Associated Diagnosis Comments PAP SMEAR Routine 05/13/2024 12:00 AM EDT documented in this encounter Results * Pap Smear (05/13/2024 12:00 AM EDT) Swab Cervical swab / Unknown Mariam [facility] ORDERABLES Final Re sult EXTERNAL LAB documented in this encounter Visit Diagnoses Not on filedocumented in this encounter Care Teams Technician'S Helper Relationship Specialty Start Date End Date Lexis Evans MD [address] [place] [address] PCP - General Family Medicine 02/22/23 documented as of this encounter
--- OUTSIDE RECORDS SUMMARY | 2025-03-03 06:09 | XMS_ITS | Encounter Summary ---
Author Organization [facility] Address [address] [place] [address] Care Team Providers Care Lab Nurse Name Role Phone Lexis Evans MD Primary Care Provider [phone] Mariam Coburn Unavailable Encounter Details Date Type Department Care Team (Late Contact Info) Description 03/21/2023 Abstract NIKKO FOX [address] [place] [address] Glenys Ghotra LPN Social History Tobacco [...] Office Visit NIKKO FOX [address] [place] [address] Mariam Coburn PA [address] [place] [address] documented as of this encounter Visit Diagnoses Not on filedocumented in this encounter Care Teams Lab Nurse Relationship Specialty Start Date End Date Lexis Evans MD [address] [facility] [place] [address] PCP - General Family Medicine 02/22/23 Mariam Coburn PA [address] [place] [address] PCP - [facility] 01/13/24 documented as of this encounter
--- OUTSIDE RECORDS SUMMARY | 2025-03-03 06:09 | XMS_ITS | Encounter Summary ---
Author Organization [facility] Address [address] [facility] [place] [address] Care Team Providers Care Automatic Teller Machine Servicer Name Role Phone Lexis Evans MD Primary Care Provider [phone] Mariam Coburn Unavailable Encounter Details Date Type Department Care Team (Late Contact Info) Description 01/02/2023 Abstract NOMJusten FOX [address] [facility] [phone] Evens Roland DO [address] [facility] [address] Rosi [place]ce[place], [facility] Social History Tobacco Use Types [...] AM EDT Office Visit NIKKO FOX [address] [place] [phone] Mariam Coburn PA [address] [facility] [address] [place], [facility] documented as of this encounter Visit Diagnoses Not on filedocumented in this encounter Care Teams Automatic Teller Machine Servicer Relationship Specialty Start Date End Date Lexis Evans MD [address] [facility] [place] [address] PCP - General Family Medicine 02/22/23 Mariam Coburn PA [address] [place] [address] [place] [address] PCP - [facility] 01/13/24 documented as of this encounter
--- OUTSIDE RECORDS SUMMARY | 2025-03-03 06:09 | XMS_ITS | Encounter Summary ---
Author Organization [facility] Address [address] [place] [address] Care Team Providers Care Shredding Machine Knife Changer Name Role Phone Lexis Evans MD Primary Care Provider [phone] Mariam Coburn Unavailable Encounter Details Date Type Department Care Team (Late st Contact Info) Description 03/21/2023 Clinisync Result Encounter NOMS External Department Unsolicited Ana Luisa Roland DO [address] Rosi [place], [place] [id number] Social History Tobacco Use Types Packs/Day Years [...] EDT Office Visit NOMJusten Arceo [facility] [address] [place] [address] Mariam Coburn PA [address] [place] [address] [place] [address] documented as of this encounter Procedures Procedure Name Priority Date/Time Associated Diagnosis Comments OBAFI 03/21/2023 11:23 AM EDT documented in this encounter Results * OBAFI (03/21/2023 11:23 AM EDT) Anatomical Region Laterality Modality Other 03/21/2023 11:2 3 AM EDT Narrative 03/21/2023 11:23 AM EDT [address] [address] Ultrasound Report Signed Patient: ROSALIE WOODALL MR #: [id number] : 2000 Acct:[id number] Age/Sex: 22 / F ADM Date: 03/21/23 Loc: US Attending Dr: Ana Luisa Roland D.O. Ordering Physician: Ana Luisa Roland D.O. Date of Service: 03/21/23 Procedure(s): US OB amniotic fluid vol Accession Number(s): [id number] cc: Lexis Evans M.D.; Ana Luisa Roland D.O. [address] [id number] Patient Name: ROSALIE WOODALL MRN: [facility]:[id number] date: 2000 Sex: F Assigned Patient Location: US Current Patient Location: US Accession/Order Number: [id number] Exam Date: 03/21/2023 10:38 Report Date: 03/21/2023 [...] Signed By: 03/21/23 1125 DD/ 1123 TD/TT: Dry Cleaning Teacher: Procedure Note Radiology, Radiologist, - 04/05/2023 [place] [address] Ultrasound Report Signed Patient: ROSALIE WOODALLMR #: [id number] : 2000Acct:[id number] Age/Sex: 22 / FADM Date: 03/21/23 Loc: US Attending Dr: Ana Luisa Roland D.O. Ordering Physician: Ana Luisa Roland D.O. Date of Service: 03/21/23 Procedure(s): US OB amniotic fluid vol Accession Number(s): [id number] cc: Lexis Evans M.D.; Ana Luisa Roland D.O. The [place] [address] Patient Name: ROSALIE WOODALL MRN: [facility]:[id number] date: 2000 Sex: F Assigned Patient Location: US Current Patient Location: US Accession/Order Number: [id number] Exam Date: 03/21/2023 10:38 Report Date: 03/21/2023 [...] M.D. Signed By:03/21/23 1125 DD/ 1123 TD/TT: Dry Cleaning Teacher: us Ana Luisa Asuncion DO [facility] Final Result documented in this encounter Visit Diagnoses Not on filedocumented in this encounter Care Teams Shredding Machine Knife Changer Relationship Specialty Start Date End Date Lexis Evans MD [address] [place] [address] [place] [address] PCP - General Family Medicine 02/22/23 Mariam Coburn PA [address] [place] [address] [place] [address] PCP - [facility] 01/13/24 documented as of this encounter
--- OUTSIDE RECORDS SUMMARY | 2025-03-03 06:09 | XMS_ITS | Clinical Summary ---
Author Organization [facility] tem Address [id number] [address] [place] [address] Care Team Providers Care Hard Metals Engraver Hand Name Role Phone Lexis Evans MD Primary Care Provider [phone] Allergies No known active allergies Medications No [...] Not on file Insurance ANTHEM Care Teams Hard Metals Engraver Hand Relationship Specialty Start Date End Date Lexis Evans MD [address] [place], [place] [phone] PCP - General 10/11/18
--- OUTSIDE RECORDS SUMMARY | 2025-03-03 06:09 | XMS_ITS | Encounter Summary ---
Author Organization [facility] Address [address] [place] [address] Care Team Providers Care Staff Educator Name Role Phone Lexis Evans MD Primary Care Provider [phone] Mariam Coburn Unavailable Encounter Details Date Type Department Care Team (Late st Contact Info) Description 05/09/2023 Clinisync Result Encounter NOMS External Department Unsolicited Ana Luisa Roland DO [email or web address] [place], [place] [phone] Social History Tobacco Use Types Packs/Day Years [...] EDT Office Visit NOMJusten Arceo [facility] [address] [place] [address] Mariam Coburn PA [address] [place] [address] Dr [place] [phone] documented as of this encounter Procedures Procedure Name Priority Date/Time Associated Diagnosis Comments US OB PLACENTA 05/09/2023 2:39 PM EDT documented in this encounter Results * US OB PLACENTA (05/09/2023 2:39 PM EDT) Anatomical Region Laterality Modality Other 05/09/2023 2:39 PM EDT Narrative 05/09/2023 2:39 PM EDT [address] [address] Ultrasound Report Signed Patient: ROSALIE WOODALL MR#: [id number] : 2000 Acct:[id number] Age/Sex: 22 / F ADM Date: Loc: [facility] 250- Attending Dr: Ana Luisa Roland D.O. Ordering Physician: Ana Luisa Roland D.O. Date of Service: 05/09/23 Procedure(s): US OB placenta Accession Number(s): [id number] cc: Lexis Evans M.D.; Ana Luisa Roland D.O. [address] [address] Patient Name: ROSALIE WOODALL MRN: [id number] date: 2000 Sex: F Assigned Patient Location: [facility] Current Patient Location: Accession/Order Number: [id number] Exam Date: 05/09/2023 13:15 Report Date: 05/09/2023 14:39 At the request of: ANA LUISA ROLAND Procedure: US OB placenta EXAMINATION: US OB placenta, US OB cervical length HISTORY: vaginal bleeding COMPARISON: Ultrasound amniotic fluid volume and cervical length 03/21/2023 FINDINGS: PLACENTA: Posterior fundal with lower margin 5.0 cm from internal os. No abruption or subchorionic hematoma. CERVIX LENGTH: 4.5 cm; closed. HEART RATE: 152 bpm OTHER: None. GA: 24 weeks 0 days GENO: 08/29/2023 US/US OB placenta IMPRESSION: 1. Single live intrauterine . 2. Posterior/fundal placenta without previa. No subchorionic hematoma or abruption. 3. Closed cervix 4.5 cm in length. Electronically authenticated by: PK BOX Date: 05/09/2023 14:39 Dictated By: Pk Box M.D. Signed By: 05/09/23 1441 DD/ 1439 TD/TT: Pump Assembler: Procedure Note Radiology, Radiologist, MD - 05/09/2023 [place] [address] Ultrasound Report Signed Patient: ROSALIE WOODALLMR#: [id number] : 2000Acct:[id number] Age/Sex: 22 / FADM Date: Loc: [place] [address]: Ana Luisa Roland D.O. Ordering Physician: Ana Luisa Roland D.O. Date of Service: 05/09/23 Procedure(s): US OB placenta Accession Number(s): [id number] cc: Lexis Evans M.D.; Ana Luisa Roland D.O. The [place] [phone] Patient Name: ROSALIE WOODALL MRN: [facility]:[id number] date: 2000 Sex: F Assigned Patient Location: [facility] Current Patient Location: Accession/Order Number: [id number] Exam Date: 05/09/2023 13:15 Report Date: 05/09/2023 14:39 At the request of: ANA LUISA ROLAND Procedure: US OB placenta EXAMINATION: US OB placenta, US OB cervical length HISTORY: vaginal bleeding COMPARISON: Ultrasound amniotic fluid volume and cervical length 03/21/2023 FINDINGS: PLACENTA: Posterior fundal with lower margin 5.0 cm from internal os. No abruption or subchorionic hematoma. CERVIX LENGTH: 4.5 cm; closed. HEART RATE: 152 bpm OTHER: None. GA: 24 weeks 0 days GENO: 08/29/2023 US/US OB placenta IMPRESSION: 1. Single live intrauterine . 2. Posterior/fundal placenta without previa. No subchorionic hematoma or abruption. 3. Closed cervix 4.5 cm in length. Electronically authenticated by: PK BOX Date: 05/09/2023 14:39 Dictated By: Pk Box M.D. Signed By:05/09/23 1441 DD/ 1439 TD/TT: Pump Assembler: us Ana Luisa Asuncion DO [facility] Final Result documented in this encounter Visit Diagnoses Not on filedocumented in this encounter Care Teams Staff Educator Relationship Specialty [place] [address] [place] [address] [place] [address] PCP - General Family Medicine 02/22/23 Mariam Coburn PA [address] [place] [address] [place] [address] PCP - [facility] 01/13/24 documented as of this encounter
--- OUTSIDE RECORDS SUMMARY | 2025-03-03 06:09 | XMS_ITS | Clinical Summary ---
Author Organization [facility] Healthcare Address [address] [place] [address] Care Team Providers Care Metal Caster Name Role Phone Lexis Evans MD Primary Care Provider Allergies No known active allergies Medications sertraline (Zoloft) 50 MG tablet Take 50 mg by mouth Daily 4 Active esomeprazole (NexIUM) [address] capsule Take 20 mg by mouth Daily 5 Active sertraline (Zoloft) 100 MG tablet 5 Active metroNIDAZOLE (Flagyl) 500 MG tabletIndicatio ns:BV (bacterial vaginosis) Take 1 tablet (500 mg) by mouth in the morning and 1 tablet (500 mg) before bedtime. Do all this for 7 days. Do not drink alcohol while taking this medication. 14 tablet 5 02/09/20 25 Discontinu ed(Therapy completed) Hospital, Clinic, or Other Facility Administered Medication Ordered Dose Route Frequency Start Date End Date Status levonorgestrel (Kathy) 13.5 MG IUDIndications:Enco unter for IUD insertion IU See admin instructions 01/05/2025 01/05/2028 Active Active Problems Problem Noted Date Diagnosed Date Restless leg syndrome in ([facility]) 02/2024 Third trimester ([facility]) 07/22/2023 Encounters Date Type Department Care Team Description 02/08/2025 10:00 AM EDT Consult NIKKO Arceo [facility] [address] [place] [address] [place] [phone] Ana Luisa Roland, Pre-op examination; Pelvic pain; Cyst of ovary, unspecified laterality 01/29/2025 Telephone [facility] [address] [place] [address] Alaina Lara LPN 01/27/2025 Results Follow-Up [facility] [address] [place] [address] Alaina Lara, REMELT SUGAR BOILER US PELVIS W/ TRANSVAGINAL 01/21/2025 Telephone [facility] [address] [place] [address] Helga Thomas MA 01/20/2025 Clinisync Result Encounter NOMS External Department Unsolicited Ana Luisa Roland, 01/18/2025 3:50 PM EDT Office Visit [facility] [address] [place] [address] Ana Luisa Roland, Pelvic pain in female 01/18/2025 Bamboo flowsheet [facility] [address] [place] [address] Ana Luisa Roland, 01/13/2025 Telephone [facility] [address] [facility] [place] [address] Ana Luisa Roland, 01/07/2025 Telephone [facility] [address] [facility] [place] [address] Rosa Wilde MA 01/05/2025 8:20 AM EDT Procedure Visit [facility] [address] [place] [address] Ana Luisa Roland DO Encounter for IUD insertion; Vaginal discharge; Pelvic pain 01/04/2025 Telephone [facility] [address] [place] [address] Wilde Rosa, MA 12/31/2024 Clinisync Result Encounter NOMS External Department Unsolicited Mariam Torres PA 12/31/2024 Telephone [facility] Marielos FOX [address] [facility] [place] [address] Mariam Torres PA 12/30/2024 External Result Encounter NOMS External Department Unsolicited Mariam Torres PA 12/30/2024 Travel 12/29/2024 10:10 AM EDT Office Visit NOMS Marielos FOX [address] [place] [address] Ana Luisa Roland DO control counseling 12/29/2024 Bamboo flowsheet [facility]S Marielos FOX [address] [facility] [place] [address] Ana Luisa Roland DO from Last 3 [...] EDT Office Visit [facility] [address] [facility] [place] [address] Mariam Torres PA [address] [facility] [address] [place], [place] [address] Health Maintenance Due Date Last Done Comments [...] PM EDT Narrative 01/20/2025 3:40 PM EDT The [address] [address] Ultrasound Report Signed Patient: ROSALIE MCLAUGHLIN MR#: [id number] : 2000 Acct:[id number] Age/Sex: 24 / F ADM Date: 01/20/25 Loc: US Attending Dr: Ana Luisa Roland D.O. Ordering Physician: Ana Luisa Roland D.O. Date of Service: 01/20/25 Procedure(s): US pelvis w/ transvaginal Accession Number(s): [id number] cc: Lexis Evans M.D.; Ana Luisa Roland D.O. [place] [address] Patient Name: ROSALIE MCLAUGHLIN MRN: [facility]:[id number] date: 2000 Sex: F Assigned Patient Location: Current Patient Location: US Accession/Order Number: [id number] Exam Date: 01/20/2025 15:35 Report Date: 01/20/2025 [...] Nagel M.D. 01/20/2025 3:38 PM Dictation Location: [place] [address] Electronically authenticated by: [id number] Y Date: 01/20/2025 15:38 Dictated By: Sina Nagel D.O. Signed By: 01/20/25 1540 DD/ 1538 TD/TT: Front Desk Person: Procedure Note Radiology, Radiologist, - 01/20/2025 [place] [address] Ultrasound Report Signed Patient: ROSALIE MCLAUGHLIN CMR#: [id number] : 2000Acct:[id number] Age/Sex: 24 / FADM Date: 01/20/25 Loc: US Attending Dr: Ana Luisa Roland D.O. Ordering Physician: Ana Luisa Roland D.O. Date of Service: 01/20/25 Procedure(s): US pelvis w/ transvaginal Accession Number(s): [id number] cc: Lexis Evans M.D.; Ana Luisa Roland D.O. The [place] [address] Patient Name: ROSALIE MCLAUGHLIN MRN: [facility]:[id number] date: 2000 Sex: F Assigned Patient Location: US Current Patient Location: US Accession/Order Number: [id number] Exam Date: 01/20/2025 15:35 Report Date: 01/20/2025 [...] Nagel M.D. 01/20/2025 3:38 PM Dictation Location: [place] [address] Electronically authenticated by: [id number] Y Date: 5:38 Dictated By: Sina Nagel D.O. Signed By:01/20/25 1540 DD/ 1538 TD/TT: Front Desk Person: [facility] Asuncion DO [facility] Final Result * (ABNORMAL) RECURRENT VAGINITIS (HTRX) (01/18/2025 4:39 PM EDT) Only the most recent of2 resultswithin the time period is included. ATOPOBIUM VAGINAE 26.061(A) 19.961 - 24.689 ppm 01/20/2025 8:01 AM EDT [facility] ATOPOBIUM VAGINAE Detected(A) 19.961 - 24.689 ppm 01/20/2025 8:01 AM EDT [facility] BVAB 2,3 (BACTERIAL VAGINOSIS ASSOCIATED BACTERIA 2, 3); MOBILUNCUS SPP 20.586(A) 19.961 - 24.689 ppm 01/20/2025 8:01 AM EDT [facility] BVAB 2,3 (BACTERIAL VAGINOSIS ASSOCIATED BACTERIA 2, 3); MOBILUNCUS SPP Detected(A) 19.961 - 24.689 ppm 01/20/2025 8:01 AM EDT [facility] LUCIANO ALBICANS, PARAPSILOSIS, TROPICALIS 0 19.961 - 30.770 ppm 01/20/2025 8:01 AM EDT [facility] LUCIANO ALBICANS, PARAPSILOSIS, TROPICALIS Not Detected 19.961 - 30.770 ppm 01/20/2025 8:01 AM EDT [facility] LUCIANO GLABRATA 0 23.000 - 32.138 ppm 01/20/2025 8:01 AM EDT [facility] [place] LUCIANO GLABRATA Not Detected 23.000 - 32.138 ppm 01/20/2025 8:01 AM EDT [facility] [place] LUCIANO KRUSEI 0 23.000 - 32.271 ppm 01/20/2025 8:01 AM EDT [facility] [place] LUCIANO KRUSEI Not Detected 23.000 - 32.271 ppm 01/20/2025 8:01 AM EDT [facility] [place] CHLAMYDIA TRACHOMATIS 0 23.000 - 31.467 ppm 01/20/2025 8:01 AM EDT [facility] [place] CHLAMYDIA TRACHOMATIS Not Detected 23.000 - 31.467 ppm 01/20/2025 8:01 AM EDT [facility] [place] GARDNERELLA VAGINALIS 24.806(A) 19.961 - 24.689 ppm 01/20/2025 8:01 AM EDT [facility] [place] GARDNERELLA VAGINALIS Detected(A) 19.961 - 24.689 ppm 01/20/2025 8:01 AM EDT [facility] [place] MEGASPHAERA (TYPES 1, 2) 0 19.961 - 24.689 ppm 01/20/2025 8:01 AM EDT [facility] [place] MEGASPHAERA (TYPES 1, 2) Not Detected 19.961 - 24.689 ppm 01/20/2025 8:01 AM EDT [facility] [place] NEISSERIA GONORRHOEAE 0 23.000 - 32.117 ppm 01/20/2025 8:01 AM EDT [facility] [place] NEISSERIA GONORRHOEAE Not Detected 23.000 - 32.117 ppm 01/20/2025 8:01 AM EDT [facility] [place] TRICHOMONAS VAGINALIS 0 23.000 - 32.119 ppm 01/20/2025 8:01 AM EDT [facility] [place] TRICHOMONAS VAGINALIS Not Detected 23.000 - 32.119 ppm 01/20/2025 8:01 AM EDT [facility] [place] MYCOPLASMA GENITALIUM 0 19.961 - 24.689 ppm 01/20/2025 8:01 AM EDT [facility] MYCOPLASMA GENITALIUM Not Detected 19.961 - 24.689 ppm 01/20/2025 8:01 AM EDT [facility] ERMB, C; MEFA 20.433(A) 23.000 - 27.611 ppm 01/20/2025 8:01 AM EDT [facility] ERMB, C; MEFA Detected(A) 23.000 - 27.611 ppm 01/20/2025 8:01 AM EDT [facility] TET B, TET M 22.46(A) 23.000 - 27.778 ppm 01/20/2025 8:01 AM EDT [facility] TET B, TET M Detected(A) 23.000 - 27.778 ppm 01/20/2025 8:01 AM EDT [facility] Tissue 01/18/2025 4:39 PM EDT 01/20/2025 2:49 AM EDT us Ana Luisa Roland DO LAB BLOOD ORDERABLES Final Resul t [facility] [address] [place] [address] * POCT , urine manually resulted (01/05/2025 8:45 AM EDT) Preg Test, Ur Negative Negative Urine 01/05/2025 8:45 AM EDT us Ana Luisa Roland DO POINT OF CARE TEST ENTER/EDIT OR DERABLES Final Result * IUD INSERTION (01/05/2025 8:20 AM EDT) Narrative Jessi Wilks LPN - 01/05/2025 8:20 AM EDT Jessi Wilks LPN 01/05/2025 9:39 AM IUD Insertion Performed by: Ana Luisa Roland DO Authorized by: Ana Luisa Roland DO Procedure: IUD insertion Consent obtained by patient, parent, or legal power of sample taker operator - including discussion of procedure risks [...] in 4 weeks for a string check. Ana Luisa Roland DO IN CLINIC/BEDSIDE ORDERABLES Fin al Result * US PELVIS TRANSVAGINAL (12/31/2024 2:14 PM EDT) Anatomical Region Laterality Modality Other 12/31/2024 2:14 PM EDT Narrative 12/31/2024 2:16 PM EDT [address] [address] Ultrasound Report Signed Patient: ROSALIE MCLAUGHLIN MR#: [id number] : 2000 Acct:[id number] Age/Sex: 24 / F ADM Date: 12/31/24 Loc: US Attending Dr: Mariam Torres Ordering Physician: Mariam Torres Date of Service: 12/31/24 Procedure(s): US pelvis transvaginal Accession Number(s): [id number] cc: Mariam Torres; Lexis Evans M.D. The [address] [address] Patient Name: ROSALIE MCLAUGHLIN MRN: [id number]:[id number] date: 2000 Sex: F Assigned Patient Location: US Current Patient Location: US Accession/Order Number: [id number] Exam Date: 12/31/2024 14:08 Report Date: 12/31/2024 [...] Jr., D.O. 12/31/2024 2:14 PM Dictation Location: [place] [address] Electronically authenticated by: [id number] Y Date: 12/31/2024 14:14 Dictated By: Grey Stephens M.D. Signed By: 12/31/24 1416 DD/ 1414 TD/TT: Front Desk Person: Procedure Note Radiology, Radiologist, - 12/31/[address] [address] Ultrasound Report Signed Patient: ROSALIE MCLAUGHLIN CMR#: [id number] : 2000Acct:[id number] Age/Sex: 24 / FADM Date: 12/31/24 Loc: Attending Dr: Mariam Torres Ordering Physician: Mariam Torres Date of Service: 12/31/24 Procedure(s): US pelvis transvaginal Accession Number(s): [id number] cc: Mariam Torres; Lexis Evans M.D. [place] [address] Patient Name: ROSALIE MCLAUGHLIN MRN: [facility]:[id number] date: 2000 Sex: F Assigned Patient Location: US Current Patient Location: US Accession/Order Number: [id number] Exam Date: 12/31/2024 14:08 Report Date: 12/31/2024 [...] Jr., D.O. 12/31/2024 2:14 PM Dictation Location: [place] [address] Electronically authenticated by: [id number] Y Date: 4:14 Dictated By: Grey Stephens M.D. Signed By:12/31/24 1416 DD/ 1414 TD/TT: Front Desk Person: us Mariam GONZALES [facility] Final Result * (ABNORMAL) AEROBIC VAISHNAVI CHARGE (NMIC56) (12/30/2024 6:45 PM EDT) Pathologist [facility] AMIKAFORMERLY [facility] <16(S) 01/02/2025 9:30 AM EDT [facility] AMOXACILLIN/K CLAVULANATE <8/4(S) 01/02/2025 9:30 AM EDT [facility] AMPICILLIN <8(S) 01/02/2025 9:30 AM EDT [facility] AMPICILLIN/SULBACT AM <4/2(S) 01/02/2025 9:30 AM EDT [facility] AZTREONAM <4(S) 01/02/2025 9:30 AM EDT [facility] CEFAZOLIN <2(S) 01/02/2025 9:30 AM EDT [facility] CEFEPIME <2(S) 01/02/2025 9:30 AM EDT [facility] CEFTAZIDIME <1(S) 01/02/2025 9:30 AM EDT [facility] CEFTAZIDIME/AVIBAC ALLEN <4(S) 01/02/2025 9:30 AM EDT [facility] CEFTOLOZANE/TAZOBA CTAM <2(S) 01/02/2025 9:30 AM EDT [facility] CEFTRIAXONE <1(S) 01/02/2025 9:30 AM EDT [facility] CEFUROXIME <4(S) 01/02/2025 9:30 AM EDT [facility] CIPROFLOXACIN <0.25(S) 01/02/2025 9:30 AM EDT [facility] ERTAPENEM <0.5(S) 01/02/2025 9:30 AM EDT [facility] GENTAMICIN <2(S) 01/02/2025 9:30 AM EDT [facility] LEVOFLOXACIN <0.5(S) 01/02/2025 9:30 AM EDT [facility] MEROPENEM <1(S) 01/02/2025 9:30 AM EDT [facility] MEROPENEM/VABORBAC ALLEN <2(S) 01/02/2025 9:30 AM EDT [facility] NITROFURANTOIN <32(S) 01/02/2025 9:30 AM EDT [facility] PIPERACILLIN/TAZOB ACTAM <8(S) 01/02/2025 9:30 AM EDT [facility] TETRACYCLINE <4(S) 01/02/2025 9:30 AM EDT [facility] TIGECYCLINE <2(S) 01/02/2025 9:30 AM EDT [facility] TOBRAMYCIN <2(S) 01/02/2025 9:30 AM EDT [facility] TRIMETHOPRIM/SULFA METHOXAZOLE <0.5/9.5( S) 01/02/2025 9:30 AM EDT [facility] Urine Urine specimen obtained by clean catch procedure / Unknown 12/30/2024 6:45 PM EDT 12/31/2024 12:56 PM EDT Comment:Clean-Voided Mid[facility] am Mariam GONZALES PENDING SALE TO [facility] Final Result Performing Organization Address [facility] de Phone Number PENDING SALE TO [facility] [address] [place] [address], [facility] [address] [place] [address] * Urine culture (12/30/2024 6:45 PM EDT) [facility] ORGANISM Escherichia coli 01/02/2025 9:30 AM EDT [facility] COLONY COUNT >100,000 01/02/2025 9:30 AM EDT [facility] Urine Urine specimen obtained by clean catch procedure / Unknown 12/30/2024 6:45 PM EDT 12/31/2024 12:56 PM EDT Comment:Clean-Voided Mid[facility] am us Mariam GONZALES LAB MICROBIOLOGY - GENERAL ORDER JASON Final Result Performing Organization Address City/[facility]/ZIP Co de Phone Number PENDING SALE TO [facility] [address] [place] [address], [facility] [address] [place] [address] from Last 3 Months Insurance [facility] MEDICAID Care Teams Metal Caster Relationship Specialty Start Date End Date Lexis Evans MD [address] [place] [address] PCP - General Family Medicine 02/22/23
--- OUTSIDE RECORDS SUMMARY | 2025-03-03 06:09 | XMS_ITS | Encounter Summary ---
Author Organization [facility] Address [address] [place] [address] Care Team Providers Care Rubber Off Name Role Phone Lexis Evans MD Primary Care Provider [phone] Mariam Coburn Unavailable Encounter Details Date Type Department Care Team (Late Contact Info) Description 04/24/2023 Abstract [facility] FOX [address] [place] [id number] Mariam Coburn PA [address] [facility] [address] [place] [id number] Social History Tobacco Use Types Packs/Day Years [...] EDT Office Visit [facility] [address] [place] [id number] Mariam Coburn PA [address] [place] [address] documented as of this encounter Visit Diagnoses Not on filedocumented in this encounter Care Teams Rubber Off Relationship Specialty Start Date End Date Lexis Evans MD [address] [facility] [place] [address] PCP - General Family Medicine 02/22/23 Mariam Coburn PA [address] [place] [address] PCP - [facility] 01/13/24 documented as of this encounter
--- OUTSIDE RECORDS SUMMARY | 2025-03-03 06:10 | XMS_ITS | CCD ---
Author Organization [facility] Care Team Providers Care Sheather Name Role Phone Lexis Rodríguez Unavailable DR LEXIS RODRÍGUEZ Admitting Unavailable MARCOS, DR LEXIS Castillo Primary Care Unavailable MARCOS, DR LEXIS Castillo Consulting Unavailable MARCOS, DR LEXIS Castillo Attending Unavailable Yakelin Friedman [...] Provider MD Lexis Rodríguez Primary Care Provider [phone] DO Grant Menjivar Attending Provider Mariam Aragon Unavailable Lexis Rodríguez MD Primary Care Provider [phone] Mariam Torres Admitting Unavailable Mariam Torres Attending [...] Start: 05-05-2024 take 1 tablet by juvenal every six hours Acetaminophen (Tylenol Extra Strength) [...] End: 10-02-2023 diphenhydrAMINE (BENADryl) capsule 25 mg esomeprazole 20 mg delayed release oral capsule (1 source) Proton Pump Inhibitor Start: 01-16-2025 take 1 capsule by mouth once daily esomeprazole (NexIUM) [address] capsule Take 20 mg by mouth Daily 01/16/2025 Active ibuprofen 800 mg oral tablet (4 sources) Nonsteroidal Anti-inflammatory Drug Start: 01-18-2025 End: 01-28-2025 take 1 tablet by mouth every eight hours for pain ibuprofen 800 MG tablet Indications: Pelvic pain in female Take 1 tablet (800 mg) by mouth every 8 (eight) hours if needed for mild pain for up to 10 days 30 tablet 2 01/18/2025 01/28/2025 Active Start: 05-05-2024 take [address] [facility] every six hours Ibuprofen (Motrin Ib) 200 mg capsule Active 200 MG PO Every 6 hours May 05, 2024 12:00am levonorgestrel 0.152182 mg/hr intrauterine system (11 sources) Progestin, Progestin-containing Intrauterine Device Start: 01-05-2025 End: 01-05-2025 Levonorgestrel intrauterine device 52 mg Start: 01-05-2025 End: 01-05-2025 52 mg, Intrauterine, Once IL N Procedure, Starting on Sat01/05/25 at 0820, For 1 dose Start: 11-04-2023 End: 01-05-2028 levonorgestrel (Kathy) 13.5 MG IUD Magnesium (4 sources) Start: 07-04-2023 End: 10-02-2023 take 2 tablets by mouth in the morning magnesium 200 MG tablet Indications: Third trimester Take 2 tablets (400 mg) by mouth in the morning. 60 tablet 2 07/04/2023 10/02/2023 Active metroNIDAZOLE 500 mg oral tablet (3 sources) Nitroimidazole Antimicrobial Start: 01-21-2025 End: 02-08-2025 take 1 tablet by mouth in the morning metroNIDAZOLE (Flagyl) 500 MG tablet Indications: BV (bacterial vaginosis) Take 1 tablet (500 mg) by mouth in the morning and 1 tablet (500 mg) before bedtime. Do all this for 7 days. Do not drink alcohol while taking this medication. 14 tablet 01/21/2025 02/08/2025 Discontinued (Therapy completed) Start: 01-07-2025 End: 01-18-2025 take 1 tablet by mouth in the morning metroNIDAZOLE (Flagyl) 500 MG tablet Indications: BV (bacterial vaginosis) Take 1 tablet (500 mg) by mouth in the morning and 1 tablet (500 mg) before bedtime. Do all this for 7 days. Do not drink alcohol while taking this medication. 14 tablet 01/07/2025 01/18/2025 Discontinued (Therapy completed) multivitamin () 27-0.8 MG tablet (4 sources) Start: 03-20-2022 multivitamin () 27-0.8 MG tablet VIT-DSS-FE FUM-FA PO (4 sources) VIT-DSS -FE FUM-FA PO Take 2 tablets by mouth 0 Active sertraline 100 mg oral tablet (16 sources) Serotonin Reuptake Inhibitor Start: 11-06-2024 sertraline (Zoloft) 100 MG tablet 11/06/2024 Active Start: 07-05-2024 take 1 tablet by juvenal once daily sertraline (Zoloft) 50 MG tablet Take 50 mg by mouth Daily 07/05/2024 Active Start: 04-07-2024 take 50 mg by mouth [...] 200 mg oral capsule (1 source) Start: End: Docosahexaenoic Acid ( Dha) 200 mg capsule Discontinued MG PO November 15, 2023 12:00am January 15, 2024 9:01am hydrOXYzine pamoate 25 mg oral capsule (1 source) Antihistamine Start: 4 End: take 25 mg by mouth twice daily Hydroxyzine Pamoate Discontinued 25 MG PO Twice daily December 30, 2023 12:00am January 15, 2024 9:20am Methylprednisolone (1 source) Corticosteroid Start: 4 End: Methylprednisolone Discontinued 0 PO per package directions April 17, 2024 12:00am May 05, 2024 9:09am PO PER PKG DIR for 6 days nitrofurantoin, macrocrystals 25 mg / nitrofurantoin, monohydrate 75 mg oral capsule (3 sources) Nitrofuran Antibacterial Start: 5 End: 5 take 1 capsule by mouth in the morning nitrofurantoin, macrocrystal-monohydr ate, (Macrobid) 100 MG capsule Indications: Escherichia coli infection Take 1 capsule (100 mg) by mouth in the morning and 1 capsule (100 mg) before bedtime. Do all this for 7 days. 14 capsule 01/04/2025 01/18/2025 Discontinued (Therapy completed) terconazole 4 mg/ml vaginal cream (2 sources) Azole Antifungal Start: 4 End: 4 terconazole (Terazol 7) 0.4 % vaginal cream Indications: Yeast infection Insert 1 applicator into the vagina at bedtime for 7 days 30 g 0 08/08/2023 08/15/2023 tiZANidine 2 mg oral tablet (1 source) Central alpha-2 Adrenergic Agonist Start: End: 4 take 2 mg by mouth three times daily Tizanidine Discontinued 2 MG PO Three times daily April 07, 2024 12:00am May 05, 2024 9:09am Problems Active Problems Problem Classification Problem Date Documented Date Episodic/Chronic Abdominal pain (5 sources) Pain in female pelvis; Translations: [Pelvic [...] infection; Translations: [Acute upper respiratory infection] Episodic Ovarian cyst (1 source) Cyst of ovary; Translations: [Unspecified ovarian cyst, unspecified side] 02-05-2025 Episodic Spondylosis; intervertebral disc disorders; other back [...] Documented Da te Episodic/Chronic Other complications of (20 sources) Diseases of the nervous system complicating , unspecified trimester; Translations: [Other current conditions classifiable elsewhere of mother, unspecified as to episode of care or not applicable] Onset: 07-22-2023 07-22-2023 Episodic Other non-traumatic joint disorders (3 sources) Pain in left hip; Translations: [Pain in joint, pelvic region and thigh] Onset: 05-05-2024 04-17-2024 Episodic Other and delivery including normal (20 sources) Third trimester ; Translations: [Encounter for supervision of normal , unspecified, third trimester] Onset: 07-22-2023 08-13-2023 Episodic Unclassified (2 sources) Lumbar pain M54.50 Unclassified (1 source) LOW BACK PAIN, UNSPECIFIED; Translations: [LOW BACK PAIN, UNSPECIFIED] Onset: 10-31-2022 Results Test Name Value Interpretation Reference Range Facility US PELVIS W/ TRANSVAGINALon 01-20-2025 [place] [address] Ultrasound Report Signed Patient: ROSALIE MCLAUGHLIN MR#: [id number] : 2000 Acct:[id number] Age/Sex: 24 / F ADM Date: 01/20/25 Loc: US Attending Dr: Ana Luisa Roland D.O. Ordering Physician: Ana Luisa Roland D.O. Date of Service: 01/20/25 Procedure(s): US pelvis w/ transvaginal Accession Number(s): [id number] cc: Lexis Rodríguez M.D.; Ana Luisa Roland D.O. [place] [address] Patient Name: ROSALIE MCLAUGHLIN MRN: [id number] date: 2000 Sex: F Assigned Patient Location: US Current Patient Location: US Accession/Order Number: [id number] Exam Date: 01/20/2025 15:35 Report Date: 01/20/2025 [...] Nagel M.D. 01/20/2025 3:38 PM Dictation Location: [place] [address] Electronically authenticated by: [id number] Y Date: 01/20/2025 15:38 Dictated By: Sina Nagel D.O. Signed By: 01/20/25 1540 DD/ 1538 TD/TT: Ems Helicopter Pilot: [facility] Radiology, Radiologist, MD - 01/20/2025 [place] [address] Ultrasound Report Signed Patient: ROSALIE MCLAUGHLIN MR#: [id number] : 2000 Acct:[id number] Age/Sex: 24 / F ADM Date: 01/20/25 Loc: US Attending Dr: Ana Luisa Roland D.O. Ordering Physician: Ana Luisa Roland D.O. Date of Service: 01/20/25 Procedure(s): US pelvis w/ transvaginal Accession Number(s): [id number] cc: Lexis Rodríguez M.D.; Ana Luisa Roland D.O. The [place] [address] Patient Name: ROSALIE MCLAUGHLIN MRN: [facility]:[id number] date: 2000 Sex: F Assigned Patient Location: Current Patient Location: US Accession/Order Number: [id number] Exam Date: 01/20/2025 15:35 Report Date: 01/20/2025 [...] Nagel M.D. 01/20/2025 3:38 PM Dictation Location: [place] [address] Electronically authenticated by: [id number] Y Date: 01/20/2025 15:38 Dictated By: Sina Nagel D.O. Signed By: 01/20/25 1540 DD/ 1538 TD/TT: Ems Helicopter Pilot: [facility] Radiology Study observation (narrative) [facility] US PELVIS W/ TRANSVAGINALOrd ered By: Radiologist Radiology on 01-20-2025 [facility] Work Phone: HCG ( test) Ql (U)o n 01-05-2025 Interpretation and review of laboratory results Normal [facility] Preg Test, Ur Negative Negative [facility] IUD Insertionon 01-05-2025 Jessi Wilks LPN 01/05/2025 9:39 AM IUD Insertion Performed by: Ana Luisa Roland DO Authorized by: Ana Luisa Roland DO Procedure: IUD insertion Consent obtained by patient, parent, or legal power of commonwealth attorney - including discussion of procedure risks [...] in 4 weeks for a string check. [facility] PELVIS TRANSVAGINALon [address] [address] Ultrasound Report Signed Patient: ROSALIE MCLAUGHLIN MR#: [id number] : 2000 Acct:[id number] Age/Sex: 24 / F ADM Date: 12/31/24 Loc: US Attending Dr: Mariam Torres Ordering Physician: Mariam Torres Date of Service: 12/31/24 Procedure(s): US pelvis transvaginal Accession Number(s): [id number] cc: Mariam Torres; Lexis Rodríguez M.D. [address] [address] Patient Name: ROSALIE MCLAUGHLIN MRN: [id number] date: 2000 Sex: F Assigned Patient Location: US Current Patient Location: US Accession/Order Number: [id number] Exam Date: 12/31/2024 14:08 Report Date: 12/31/2024 [...] Jr., D.O. 12/31/2024 2:14 PM Dictation Location: [place] [address] Electronically authenticated by: [id number] Y Date: 12/31/2024 14:14 Dictated By: Grey Stephens M.D. Signed By: 12/31/24 1416 DD/ 1414 TD/TT: Ems Helicopter Pilot: [facility] Radiology, Radiologist, - 12/31/2024 [place] [address] Ultrasound Report Signed Patient: ROSALIE MCLAUGHLIN MR#: [id number] : 2000 Acct:[id number] Age/Sex: 24 / F ADM Date: 12/31/24 Loc: US Attending Dr: Mariam Torres Ordering Physician: Mariam Torres Date of Service: 12/31/24 Procedure(s): US pelvis transvaginal Accession Number(s): [id number] cc: Mariam Torres; Lexis Rodríguez M.D. The [place] [id number] Patient Name: ROSALIE MCLAUGHLIN MRN: [facility]:[id number] date: 2000 Sex: F Assigned Patient Location: Current Patient Location: US Accession/Order Number: [id number] Exam Date: 12/31/2024 14:08 Report Date: 12/31/2024 [...] Jr., D.O. 12/31/2024 2:14 PM [facility]ict[facility] Electronically authenticated by: [id number] Y Date: 12/31/2024 14:14 Dictated By: Grey Stephens M.D. Signed By: 12/31/24 1416 DD/ 13 TD/TT: Ems Helicopter Pilot: [facility] Radiology Study observation (narrative) [facility] US PELVIS TRANSVAGINALOrdere d By: Radiologist Radiology on 12-31-2024 [facility] Work Phone: Urine Cultureon 12-30-2024 Bacteria identified Cx Nom (U) ORGANISM: Escherichia coli (O:ESCCOL) [place] Count >100,000 Aerobic VAISHNAVI Charge (NMIC56) ----- [...] RESISTANT TO ALL B-LACTAM DRUGS. PERFORMED BY: [facility] [address] [place] [address] PATHOLOGIST ELEVATOR CONDUCTOR KIRSTEN ZAMORA M.D. Normal [facility] Comment on above: Performed By: #### C UU #### [facility] [address] IGP,APTIMA HPV,AGE GDLNon AGE GDLN ACOG TESTING Note . [facility] Comment on above: TESTS RESULT FLAG UN ITS REF RANGE LAB Clinician Provided Cytology Information Source.............Cervix;Endocervix No. of containers..01 ThinPrep Vial Age Algo ACOG Katie... FLAG LEGEND: L-Low Normal,H-High Normal,LL-Alert Low,HH-Alert High <-Panic Low,>-Panic High,A-Abnormal,AA-Critical Abnormal Performed at: 01 =[facility] [address] [place] [address] Dorothy Bryant MD, IGP, RFX APTIMA HPV ASCU Note . [facility] Comment on above: TESTS RESULT FLAG UN ITS REF RANGE LAB DIAGNOSIS: 02 NEGATIVE FOR INTRAEPITHELIAL LESION OR MALIGNANCY. Specimen adequacy: 02 Satisfactory for evaluation. No endocervical component is identified. Performed by: 02 Iwona Zepeda, Microwave Supervisor ([facility]) . 02 Note: Note 03 The [...] High,A-Abnormal,AA-Critical Abnormal Performed at: 02 [place] [facility] [address] [place] [address] Renée Galan PhD, 03 WB [facility] [address] [facility] [address] Dorothy Bryant MD, Performed at: =G - [facility] [address] [place] [facility] [place] [id number] Point Of Care Technician: Dorothy Bryant MD, Phone: [phone] Performed at: [facility] [address] [facility], [place] [id number] Point Of Care Technician: Renée Galan PhD, Phone: [phone] BRUSH-SPATULA CERVIX ENDOCERVIX [facility] XR hip BI w [id number] 05-05-20 XR hip BI w [id number] [facility] [address] [place] [address] XRay Report Signed Patient: Rosalie Mclaughlin MR#: [id number] : 2000 Acct:[id number] Age/Sex: 23 / U ADM Date: 05/05/24 Loc: [facility] Room: Type: [facility] Attending Dr: Grant Menjivar DO Copies to: [...] Sina Nagel M.D.05/05/2024 1:43 PM Dictation Location: [place] [address] Transcribed By: [facility] 05/05/24 1343 Dictated By: Sina Nagel DO 05/05/24 1341 Signed By: 05/05/24 1343 Normal [facility] ALL CBC WITH AUTO DIFFon BASOPHILS ABSOLUTE AUTO 0.0 N [facility] Basophils/100 WBC (Bld) 0.3 % 0.2 - 2.0 % [facility] Eosinophils/100 WBC (Bld) 0.8 % Low 0.9 - 7.0 % [facility] Erythrocyte distribution width (RBC) [Ratio] 13.2 % 11.0 - 15.0 % [facility] Hematocrit (Bld) [Volume fraction] 31.3 % Low 36.0 - 48.0 % [facility] Hemoglobin (Bld) [Mass/Vol] 10.1 g/dL Low 12.0 - 16.0 g/dL [facility] IMMATURE GRANULOCYTES ABS AUTO 0.06 High [facility] Immature granulocytes/100 WBC (Bld) 0.5 % 0.0 - 0.5 % [facility] Interpretation and review of laboratory results Abnormal [facility] LYMPHOCYTES ABSOLUTE AUTO 2.4 [facility] Lymphocytes/100 WBC (Bld) 20.1 % Low 20.5 - 60.0 % [facility] MCH (RBC) [Entitic mass] 29.8 pg 26.7 - 34.0 pg [facility] MCHC (RBC) [Mass/Vol] 32.3 g/dL 29.9 - 35.2 g/dL [facility] MCV (RBC) [Entitic vol] 92.3 fL 81.0 - 99.0 fL [facility] MONOCYTES ABSOLUTE AUTO 1.0 High N [facility] Monocytes/100 WBC (Bld) 8.6 % 1.7 - 12.0 % [facility] NEUTROPHILS ABSOLUTE AUTO 8.3 High [facility] Neutrophils/100 WBC (Bld) 69.7 % 43.0 - 75.0 % [facility] Platelet mean volume (Bld) [Entitic vol] 10.8 fL 9.5 - 13.5 fL [facility] TBH EO # 0.1 [facility] PLT 180 [facility] RBC 3.39 Low [facility] WBC 12.0 High [facility] ALL CBC WITH AUTO DIFFon BASOPHILS ABSOLUTE AUTO 0.0 N [facility] Basophils/100 WBC (Bld) 0.3 % 0.2 - 2.0 % [facility] Eosinophils/100 WBC (Bld) 0.9 % 0.9 - 7.0 % [facility] Erythrocyte distribution width (RBC) [Ratio] 13.0 % 11.0 - 15.0 % [facility] Hematocrit (Bld) [Volume fraction] 34.3 % Low 36.0 - 48.0 % [facility] Hemoglobin (Bld) [Mass/Vol] 11.3 g/dL Low 12.0 - 16.0 g/dL [facility] IMMATURE GRANULOCYTES ABS AUTO 0.03 [facility] Immature granulocytes/100 WBC (Bld) 0.4 % 0.0 - 0.5 % [facility] Interpretation and review of laboratory results Abnormal [facility] LYMPHOCYTES ABSOLUTE AUTO 1.8 [facility] Lymphocytes/100 WBC (Bld) 24.2 % 20.5 - 60.0 % [facility] MCH (RBC) [Entitic mass] 29.8 pg 26.7 - 34.0 pg [facility] MCHC (RBC) [Mass/Vol] 32.9 g/dL 29.9 - 35.2 g/dL [facility] MCV (RBC) [Entitic vol] 90.5 fL 81.0 - 99.0 fL [facility] MONOCYTES ABSOLUTE AUTO 0.7 N [facility] Monocytes/100 WBC (Bld) 8.9 % 1.7 - 12.0 % [facility] NEUTROPHILS ABSOLUTE AUTO 4.8 [facility] Neutrophils/100 WBC (Bld) 65.3 % 43.0 - 75.0 % [facility] Platelet mean volume (Bld) [Entitic vol] 10.8 fL 9.5 - 13.5 fL [facility] TBH EO # 0.1 [facility] PLT 204 [facility] RBC 3.79 Low [facility] WBC 7.4 [facility] Urinalysis macro (dipstick) panel (U)on 08-15-2023 Bilirubin, UA Negative Negative - 4(70) +++ mg/dL [facility] Blood, UA Negative Negative - 50 Nicolas/mcL [facility] Clarity, UA Clear [facility] Color, UA Yellow [facility] Glucose, UA Negative Negative - 1999(110) ++++ mg/dL [facility] Interpretation and review of laboratory results Abnormal [facility] Ketones, UA Negative Negative - 160(16) ++++ mg/dL [facility] Leukocytes, UA Negative Negative - 500+++ Freida/mcL [facility] Nitrite, UA Negative Negative - Positive [facility] pH, UA 6.5 5 - 9 [facility] Protein, UA Negative Negative - 1999(20) ++++ mg/dL [facility] Spec Grav, UA 1.020 1 - 1.03 [facility] Urobilinogen, UA 1.0 0.2 - 12 mg/dL [facility] XR LSPINE 2_3 VIEWSon 2022 XR LSPINE 2_3 VIEWS EXAM: XR LSPINE 2_3 VIEWS HISTORY: Low back pain COMPARISON: None. TECHNIQUE: 3 views FINDINGS: Satisfactory alignment. Multilevel endplate degenerative changes, disc disease, anterior spurring and facet arthropathy. No acute fracture or subluxation. Unremarkable soft tissues. IMPRESSION: No acute fracture or subluxation. Electronically authenticated by: YAKELIN FRIEDMAN Date: 2022-10-31 14:26 Normal [facility] CBC AUTO DIFFon 10-17-2022 BASO # 0.0 103/ul Normal 0.0-0.1 [facility] Comment on above: Performed By: #### C BC #### [facility] [address] [place] [address] Dr. Dav Xie Basophils/100 WBC (Bld) 0.6 % Normal 0.2-2.0 [facility] Comment on above: Performed By: #### C BC #### [facility] [address] [place] [address] Dr. Dav Xie EO # 0.2 103/ul Normal 0.0-0.7 [facility] Comment on above: Performed By: #### C BC #### [facility] [address] [place] [address] Dr. Dav Xie Eosinophils/100 WBC (Bld) 3.0 % Normal 0.9-7.0 [facility] Comment on above: Performed By: #### C BC #### [facility] [address] [place] [address] Dr. Dav Xie Erythrocyte distribution width (RBC) [Ratio] 11.9 % Normal 11.0-15.0 [facility] Comment on above: Performed By: #### C BC #### [facility] [address] [place] [address] Dr. Dav Xie Hematocrit (Bld) [Volume fraction] 39.5 % Normal 36.0-48.0 [facility] Comment on above: Performed By: #### C BC #### [facility] [address] [place] [address] Dr. Dav Xie Hemoglobin (Bld) [Mass/Vol] 13.4 g/dL Normal 12.0-16.0 [facility] Comment on above: Performed By: #### C BC #### [facility] [address] [place] [address] Dr. Dav Xie IG # 0.01 10e3/ul Normal 0.00-0.03 [facility] Comment on above: Performed By: #### C BC #### [facility] [address] [place] [address] Dr. Dav Xie IG % 0.2 % Normal 0.0-0.5 [facility] Comment on above: Performed By: #### C BC #### [facility] [address] [place] [address] Dr. Dav Xie LYMPH # 1.7 103/ul Normal 1.2-3.8 [facility] Comment on above: Performed By: #### C BC #### [facility] [address] [place] [address] Dr. Dav Xie Lymphocytes/100 WBC (Bld) 31.9 % Normal 20.5-60.0 [facility] Comment on above: Performed By: #### C BC #### [facility] [address] [place] [address] Dr. Dav Xie MANUAL DIFF REQ NO Normal [facility] Comment on above: Performed By: #### C BC #### [facility] [address] [place] [address] Dr. Dav Xie MCH (RBC) [Entitic mass] 31.8 pg Normal 26.7-34.0 [facility] Comment on above: Performed By: #### C BC #### [facility] [address] [place] [address] Dr. Dav Xie MCHC (RBC) [Mass/Vol] 33.9 g/dL Normal 29.9-35.2 [facility] Comment on above: Performed By: #### C BC #### [facility] [address] [place] [address] Dr. Dav Xie MCV (RBC) [Entitic vol] 93.6 fL Normal 81.0-99.0 [facility] Comment on above: Performed By: #### C BC #### [facility] [address] [place] [address] Dr. Dav Xie MONO # 0.5 103/ul Normal 0.3-0.8 [facility] Comment on above: Performed By: #### C BC #### [facility] [address] [place] [address] Dr. Dav Xie Monocytes/100 WBC (Bld) 9.7 % Normal 1.7-12.0 [facility] Comment on above: Performed By: #### C BC #### [facility] [address] [place] [address] Dr. Dav Xie NEUT # 2.9 103/ul Normal 1.4-6.5 [facility] Comment on above: Performed By: #### C BC #### [facility] [address] [place] [address] Dr. Dav Xie Neutrophils/100 WBC (Bld) 54.6 % Normal 43.0-75.0 [facility] Comment on above: Performed By: #### C BC #### [facility] [address] [place] [address] Dr. Dav Xie Platelet mean volume (Bld) [Entitic vol] 9.7 fL Normal 9.5-13.5 [facility] Comment on above: Performed By: #### C BC #### [facility] [address] [place] [address] Dr. Dav Xie PLT 215 103/ul Normal 150-450 [facility] Comment on above: Performed By: #### C BC #### [facility] [address] [place] [address] Dr. Dav Xie RBC 4.22 106/ul Normal 4.20-5.40 [facility] Comment on above: Performed By: #### C BC #### [facility] [address] [place] [address] Dr. Dav Xie WBC 5.4 103/ul Normal 4.0-11.0 [facility] Comment on above: Performed By: #### C BC #### [facility] [address] [place] [address] Dr. Dav Xie FERRITINon 10-17-2022 Ferritin [Mass/Vol] 85.0 ng/mL Normal 6.2-137.0 [facility] Comment on above: Performed By: #### F ERR #### [facility] [address] [place] [address] Dr. Dav Xie PROF CHEM 8 (BAS METB)on Anion gap [Moles/Vol] 11.2 mmol/L Normal [facility] Comment on above: Performed By: #### B MP #### [facility] [address] [place] [address] Dr. Dav Xie Calcium [Mass/Vol] 8.8 mg/dL Normal 8.5-10.1 [facility] Comment on above: Performed By: #### B MP #### [facility] [address] [place] [address] Dr. Dav Xie Chloride [Moles/Vol] 103 mmol/L Normal 98-107 [facility] Comment on above: Performed By: #### B MP #### [facility] [address] [place] [address] Dr. Dav Xie CO2 [Moles/Vol] 29.6 mmol/L Normal 21.0-32.0 [facility] Comment on above: Performed By: #### B MP #### [facility] [address] [place] [address] Dr. Dav Xie Creatinine [Mass/Vol] 0.82 mg/dL Normal 0.55-1.02 [facility] Comment on above: Performed By: #### B MP #### [facility] [address] [place] [address] Dr. Dav Xie EGFR-AF DOMINICAN >60 Normal >=60 [facility] Comment on above: Performed By: #### B MP #### [facility] [address] [place] [address] Dr. Dav Xie EGFR-NON AF DOMINICAN >60 Normal >=60 [facility] Comment on above: Performed By: #### B MP #### [facility] [address] [address] [address] Dav Xie Glucose [Mass/Vol] 86 mg/dL Normal 74-106 [facility] Comment on above: Performed By: #### B MP #### [facility] [address] [address] [address] Dav Xie Potassium [Moles/Vol] 3.8 mmol/L Normal 3.5-5.1 [facility] Comment on above: Performed By: #### B MP #### [facility] [address] [address] [address] Dav Xie Sodium [Moles/Vol] 140 mmol/L Normal 136-145 [facility] Comment on above: Performed By: #### B MP #### [facility] [address] [address] [address] Dav Xie Urea nitrogen [Mass/Vol] 13.0 mg/dL Normal 7.0-18.0 [facility] Comment on above: Performed By: #### B MP #### [facility] [address] [place] [address] Dr. Dav Xie Urea nitrogen/Creatinine [Mass ratio] 15.9 mg/mg Normal [facility] Comment on above: Performed By: #### B MP #### [facility] [address] [place] [address] Dr. Dav Xie Vital Signs Date Time Vital Sign Value Performing Clinician Facility 02-08-2025 10:05040 Body mass index (BMI) [Ratio] 30.79 kg/m2 [employer] Work Phone: [facility] 02-08-2025 10:05040 Body weight 83.92 kg [employer] Work Phone: [facility] 02-08-2025 10:05040 Diastolic blood pressure 72 mm[Hg] [employer] Work Phone: [facility] 02-08-2025 10:05-0400 Systolic blood pressure 118 mm[Hg] Ana Luisa Asuncion DO Work Phone: [facility] 01-18-2025 16:17-0400 Body height 165.1 cm Ana Luisa Asuncion DO Work Phone: [facility] 01-18-2025 16:17-0400 Body mass index (BMI) [Ratio] 30.45 kg/m2 Ana Luisa Asuncion DO Work Phone: [facility] 01-18-2025 16:17-0400 Body weight 83.01 kg Ana Luisa Asuncion DO Work Phone: [facility] 01-18-2025 16:17-0400 Diastolic blood pressure 74 mm[Hg] Ana Luisa Asuncion DO Work Phone: [facility] 01-18-2025 16:17-0400 Systolic blood pressure 118 mm[Hg] Ana Luisa Asuncion DO Work Phone: [facility] 12-29-2024 10:49-0400 Body mass index (BMI) [Ratio] 30.62 kg/m2 Ana Luisa Asuncion DO Work Phone: [facility] 12-29-2024 10:49-0400 Body weight 83.46 kg Ana Luisa Asuncion DO Work Phone: [facility] 12-29-2024 10:49-0400 Diastolic blood pressure 72 mm[Hg] Ana Luisa Asuncion DO Work Phone: [facility] 12-29-2024 10:49-0400 Systolic blood pressure 110 mm[Hg] Ana Luisa Asuncion DO Work Phone: [facility] 05-13-2024 15:25-0400 Body height 165.1 cm Mariam GONZALES Work Phone: [facility] 05-13-2024 15:25-0400 Body mass index (BMI) [Ratio] 26.29 kg/m2 Mariam GONZALES Work Phone: [facility] 05-13-2024 15:25-0400 Body weight 71.67 kg Mariam Torres PA Work Phone: [facility] 05-13-2024 15:25-0400 Diastolic blood pressure 70 mm[Hg] Mariam Torres JANET Work Phone: [facility] 05-13-2024 15:25-0400 Systolic blood pressure 112 mm[Hg] Mariam Torres JANET Work Phone: [facility] 04-17-2024 13:29-0400 Body height 160.02 cm MD Lexis Rodríguez Work Phone: [facility] 04-17-2024 13:29-0400 Body mass index (BMI) [Ratio] 27.4 kg/m2 MD Lexis Rodríguez Work Phone: [facility] 04-17-2024 13:29-0400 Body weight 70.3 kg MD Lexis Rodríguez Work Phone: [facility] 04-17-2024 13:29-0400 Diastolic blood pressure 74 mm[Hg] MD Lexis Rodríguez Work Phone: [facility] 04-17-2024 13:29-0400 Heart rate 50 /min MD Lexis Rodríguez Work Phone: [facility] 04-17-2024 13:29-0400 Respiratory rate 18 /min MD Lexis Rodríguez Work Phone: [facility] 04-17-2024 13:29-0400 SaO2% (BldA) [Mass fraction] 98 % MD Lexis Rodríguez Work Phone: [facility] 04-17-2024 13:29-0400 Systolic blood pressure 108 mm[Hg] MD Lexis Rodríguez Work Phone: [facility] 04-07-2024 15:29-0400 Body height 160.02 cm MD Lexis Rodríguez Work Phone: [facility] 04-07-2024 15:29-0400 Body mass index (BMI) [Ratio] 28.1 kg/m2 MD Lexis Rodríguez Work Phone: [facility] 04-07-2024 15:29-0400 Body weight 72.12 kg MD Lexis Rodríguez Work Phone: [facility] 04-07-2024 15:29-0400 Diastolic blood pressure 77 mm[Hg] MD Lexis Rodríguez Work Phone: [facility] 04-07-2024 15:29-0400 Heart rate 79 /min MD Lexis Rodríguez Work Phone: [facility] 04-07-2024 15:29-0400 Systolic blood pressure 115 mm[Hg] MD Lexis Rodríguez Work Phone: [facility] 08-15-2023 10:13-0500 Body mass index (BMI) [Ratio] 33.18 kg/m2 Ana Luisa Asuncion DO Work Phone: [facility] 08-15-2023 10:13-0500 Body weight 90.45 kg Ana Luisa Asuncion DO Work Phone: [facility] 08-15-2023 10:13-0500 Diastolic blood pressure 78 mm[Hg] Ana Luisa Asuncion DO Work Phone: [facility] [employer] 08-15-2023 10:13-0500 Systolic blood pressure 132 mm[Hg] Ana Luisa Asuncion DO Work Phone: [facility] 10-15-2022 09:30-0400 Body height 160.02 cm Lexis Rodríguez Other [employer] Other 10-15-2022 09:30-0400 Body mass index (BMI) [Ratio] 28.87 kg/m2 Lexis Rodríguez Other [employer] Other 10-15-2022 09:30-0400 Body weight 73.94 kg Lexis Rodríguez Other [employer] Other 10-15-2022 09:30-0400 Diastolic blood pressure 62 mm[Hg] Lexis Rodríguez Other [employer] Other 10-15-2022 09:30-0400 SaO2% (BldA) [Mass fraction] 99 % Lexis Rodríguez Other [employer] Other 10-15-2022 09:30-0400 Systolic blood pressure 108 mm[Hg] Lexis Marcos Other [employer] Other Encounters Encounter Date Encounter Type Care Provider Facility Start: 02-08-2025 End: 02-08-2025 Office outpatient visit 15 minutes Ana Luisa Asuncion DO Work Phone: [facility] Comment on above: Pre-op examination; Pelvic pain; Cyst of ovary, unspecified laterality Start: 02-08-2025 End: 02-08-2025 Preprocedural examination done Ana Luisa Asuncion DO Work Phone: [facility] Start: 02-08-2025 End: 02-08-2025 ambulatory ANA LUISA ASUNCION Not Available Start: 01-20-2025 End: 01-20-2025 Clinisync Result Encounter Ana Luisa Asuncion DO Work Phone: [facility] Unsolicited Start: 01-20-2025 End: 01-20-2025 Clinisync Result Encounter Ana Luisa Asuncion DO Work Phone: [facility] Unsolicited Start: 01-18-2025 End: 01-18-2025 ambulatory ANA LUISA ASUNCION Not Available Start: 01-18-2025 End: 01-18-2025 Office outpatient visit 15 minutes Ana Luisa Asuncion DO Work Phone: [facility] Comment on above: Pelvic pain in femal e Start: 01-18-2025 End: 01-18-2025 Bamboo flowsheet Ana Luisa Asuncion DO Work Phone: [facility] Start: 01-18-2025 End: 01-18-2025 Bamboo flowsheet Ana Luisa Asuncion DO Work Phone: [facility] Start: 01-05-2025 End: 01-05-2025 ambulatory ANA LUISA [...] Start: 12-30-2024 End: 12-30-2024 ambulatory Mariam Torres Facility:[facility] Start: 12-30-2024 End: 01-01-2025 External Result [...] Available Start: 05-13-2024 End: 05-13-2024 ambulatory MARIAM TORRES Not Available Start: 05-13-2024 End: 05-13-2024 Patient encounter procedure Mariam GONZALES Work Phone: [facility] Start: 05-13-2024 End: 05-13-2024 Periodic preventive med est patient 18-39 yrs Mariam GONZALES Work Phone: [facility] Comment on above: Well woman exam with routine gynecological exam; Folliculitis Start: 05-13-2024 End: 05-13-2024 Bamboo flowsheet Mariam Irish PA Work Phone: [facility] Start: 05-13-2024 End: 05-18-2024 Bamboo flowsheet Mariam GONZALES Work Phone: [facility] Start: 05-13-2024 End: 05-18-2024 Clinisync Result Encounter Mariam GONZALES Work Phone: [facility] Unsolicited Start: 05-05-2024 End: 05-05-2024 ambulatory MD Lexis Rodríguez Work Phone: [facility] Work Phone: Start: 05-05-2024 End: 05-05-2024 Patient encounter procedure MD Lexis Rodríguez Work Phone: [facility] Phys[facility] Work Phone: Start: 04-17-2024 End: 04-17-2024 Patient encounter procedure MD Lexis Rodríguez Work Phone: [facility] Phys[facility] Work Phone: Start: 04-07-2024 End: 04-07-2024 Patient encounter procedure MD Lexis Rodríguez Work Phone: [facility] Phys[facility] Work Phone: Start: 2023 Clinisync Result Encounter Ana Luisa Asuncion DO Work Phone: [facility] Unsolicited Start: 2023 Clinisync Result Encounter Ana Luisa Asuncoin DO Work Phone: [facility] Unsolicited [...] 07-12-2023 ambulatory MD Lexis Rodríguez Work Phone: [facility] Work Phone: Start: 07-12-2023 End: 07-12-2023 Discharged Recurring MD Lexis Rodríguez Work Phone: [facility] [place] Work Phone: Start: 11-30-[address] LEXIS RODRÍGUEZ [facility] ity:H1 Start: 11-09-2022 End: 11-09-2022 ambulatory Lexis Rodríguez Other [employer] Other Start: 11-09-2022 Telephone encounter Lexis Rodríguez [facility] Start: 10-31-2022 End: 11-01-[address] LEXIS RODRÍGUEZ Facility:[facility]1 Start: 10-29-2022 End: 10-29-2022 ambulatory Lexis Rodríguez Other [employer] Other Start: 10-29-2022 Telephone encounter Lexis Rodríguez [facility] Start: 10-26-2022 Encounter for genera l adult medical examination without abnormal findings DR LEXIS RODRÍGUEZ [facility] Start: 10-17-2022 End: 10-18-[address] LEXIS RODRÍGUEZ Facility:[facility] Start: 10-17-2022 End: 10-18-2022 Encounter for general adult medical examination without abnormal findings DR LEXIS RODRÍGUEZ Facility:[facility] Start: 10-15-2022 End: 10-15-2022 ambulatory Lexis Rodríguez Other [place] [employer] Other Start: 10-15-2022 Encounter for genera l adult medical examination without abnormal findings Lexis Rodríguez [facility] Start: 10-15-2022 Periodic preventive med est patient 18-39 yrs Lexis Rodríguez [facility] Procedures Date Procedure Procedure Detail Performing Clinician Start: 01-20-2025 US PELVIS W/ TRANSVAGINAL Ana Luisa Asuncion DO Work Phone: Start: 01-05-2025 Urine test visual color cmprsn [...] Activity Detail Author Start: 03-15-2025 Influenza vaccination [facility] Start: 01-18-2025 End: 01-18-2026 SURESWAB(R) ADVANCED VAGINITIS PLUS, TMA SURESWAB(R) ADVANCED VAGINITIS PLUS, TMA Pathology and Cytology Routine Pelvic pain in female Expected: 01/18/2025 (Approximate), Expires: 01/18/2026 [facility] Work Phone: Comment on above: Expected: 01/18/2025 (Approximate), Expires: 01/18/2026 Start: 01-18-2025 End: 01-18-2026 US Pelvis US Pelvis w/ TV Imaging Routine Pelvic pain in female Expected: 01/18/2025 (Approximate), Expires: 01/18/2026 [facility] Comment on above: Expected: 01/18/2025 (Approximate), Expires: 01/18/2026 Start: 01-05-2025 End: 01-05-2025 Patient encounter procedure 01/05/2025 8:20 AM EDT Procedure Visit [facility] [address] [place] [address] Ana Luisa Roland, DO [address], [facility] Start: 12-29-2024 End: 12-29-2024 Patient encounter procedure 12/29/2024 10:10 AM EDT Office Visit [facility] [address] [place] [address] Ana Luisa Roland, DO [address] [place] [address] [place], [place] [id number] Arrived [facility] Comment on above: Arrived Start: 04-17-2024 Patient referral [facility] Work Phone: Start: 03-15-2024 Influenza vaccination Influenza Vacc ine (#1) [facility] Start: 10-03-2023 End: 10-03-2023 ambulatory 10/03/2023 8:30 AM EDT Visit [facility] [address] [place] [address] Mariam Torres PA [address] [place] [address] [facility] Start: 03-15-2023 Influenza vaccination Influenza Vacc ine (#1) [facility] Bacteria identified in Urine by Culture Urine culture Microbiology Routine 12/30/2024 6:45 PM EDT [facility] Work Phone: CHLAMYDIA TRACHOMATI S (GENITO/STI) CHLAMYDIA TRACHOMATIS (GENITO/STI) Lab Routine Vaginal discharge Pelvic pain Ordered: 01/05/2025 [facility] Comment on above: Ordered: 01/05/2025 CHLAMYDIA TRACHOMATI S (GENITO/STI) CHLAMYDIA TRACHOMATIS (GENITO/STI) Lab Routine Pelvic pain in female Ordered: 01/18/2025 [facility] Comment on above: Ordered: 01/18/2025 Cytology Cervical or vaginal smear or scraping study Pap Smear Pathology and Cytology Routine Well woman exam with routine gynecological exam Ordered: 05/13/2024 [facility] Work Phone: Comment on above: Ordered: 05/13/2024 Neisseria gonorrhoea e DNA [Presence] in Unspecified specimen by ELIAS with probe detection Neisseria gonorrhea DNA probe, direct Lab Routine Vaginal discharge Pelvic pain Ordered: 01/05/2025 [facility] Comment on above: Ordered: 01/05/2025 Neisseria gonorrhoea e DNA [Presence] in Unspecified specimen by ELIAS with probe detection Neisseria gonorrhea DNA probe, direct Lab Routine Pelvic pain in female Ordered: 01/18/2025 [facility] Comment on above: Ordered: 01/18/2025 Patient referral [facility] Work Phone: SURESWAB(R) ADVANCED VAGINITIS PLUS, TMA SURESWAB(R) ADVANCED VAGINITIS PLUS, TMA Pathology and Cytology Routine Vaginal discharge Pelvic pain Ordered: 01/05/2025 [facility] Work Phone: Comment on above: Ordered: 01/05/2025 Immunizations Immunization Date Immunization [facility] influenza virus vaccine, unspecified formulation Ana Luisa Roland DO Work Phone: [facility] 05-10-2022 influenza virus vaccine, unspecified formulation Ana Luisa Asuncion DO Work Phone: [facility] 05-14-2021 influenza virus vaccine, unspecified formulation Mariam GONZALES Work Phone: [facility] 04-03-2020 influenza virus vaccine, unspecified formulation MD Lexis Rodríguez Work Phone: [facility] Payers Date Payer Category Payer () [id number] 2024 Department [facility] (BRETT and others) [id number] 2024 Self-pay 2019 Medicaid [employer] [place] [id number] 2019-Present [address] [place] [id number] 2019 Medicaid (Managed Care) [facility] MEDICAID [id number] 1998 Unknown [id number] 593 1998 Unknown [id number] [id number]. 593 1998 Unknown [id number] [id number]. 593 1998 Unknown [id number] [id number]. 593 1998 Unknown [id number] [id number]. 593 1998 Unknown [id number] [id number]. 1259 1998 Unknown [id number] [id number]. 1259 1998 Unknown [id number] [id number]. 1259 1998 Unknown [id number] [id number]. 1259 1998 Unknown [id number] [id number]. 1259 1959 Medicaid [id number] [facility] ( and others) [id number] Unknown [id number]. 531 Unknown [id number] 531 Social History Date Type Detail Facility Unknown if ever smoked [employer] Other Start: 03-16-2023 End: 05-13-2024 Sex Assigned At [facility] Start: 03-16-2023 End: 05-20-2023 Tobacco smoking status RIIS Never smoked tobacco [facility] Start: 03-16-2023 Tobacco use and exposure Smokeless tobacco non-user [facility] Start: 08-15-2023 End: 02-08-2025 Alcohol intake Current drinker of alcohol (finding) [facility] Start: 03-16-2023 End: 05-13-2024 History of Social function [facility] Start: 03-16-2023 Alcohol Comment Occasional alcohol use [facility] Start: 12-06-2022 [facility] Start: 2000 Sex Assigned At Female [facility] Start: 02-15-2023 Gender identity Identifies as female gender (finding) [facility] Start: 02-15-2023 Sexual orientation Heterosexual (finding) [facility] Clinical Notes 10-15-2022 to 02-08-2025 Kati Whitt - 02/08/2025 10:00 AM EDTPraveena Chen NP - 01/18/2025 3:50 PM EDTJessi Wilks LPN - 01/05/2025 8:20 AM EDTTelephone Encounter - JANET Fernandez - 12/31/2024 2:17 PM EDT Note Date & Type Note Facility 02-08-2025 History of Presen t illness Narrative Reason for Appointment: Patient ID: Rosalie Mclaughlin is a 24 y.o. female who presents for Pre-op Visit Patient presents today for Pre Op appointment. Patient is scheduled to undergo Diagnostic Laparoscopy, possible SHANNON, possible FOE, possible BSO on 03-03-[address] Roland at [facility]. MEDICATIONS Current Outpatient Medications Medication Instructions esomeprazole (NEXIUM) 20 mg, Daily sertraline (Zoloft) 100 MG tablet sertraline (ZOLOFT) 50 mg, Daily ALLERGIES No Known Allergies PROBLEMS Active Ambulatory Problems Diagnosis Date Noted Restless leg syndrome in ([facility]) 07/22/2023 Third trimester ([facility]) 07/22/2023 Resolved Ambulatory Problems Diagnosis [...] Vitals: Estimated body mass index is 30.79 kg/m as calculated from the following: Height [...] reviewed, and patient is to proceed to [facility] OR. Follow Up: Patient is to follow up between 1-2 weeks post operative to assess proper healing and recovery from procedure. Documented by Glenys Ghotra LPN.. on behalf of: Ana Luisa Roland DO documented in this encounter [facility] 01-18-2025 History of Presen t illness Narrative Reason for Appointment: Patient ID: Rosalie Mclaughlin is a 24 y.o. female who presents for Pelvic Pain Patient presents today for Acute Visit. MEDICATIONS No current outpatient medications ALLERGIES No Known Allergies PROBLEMS Active Ambulatory Problems Diagnosis Date Noted Restless leg syndrome in ([facility]) 07/22/2023 Third trimester ([facility]) 07/22/2023 Resolved Ambulatory Problems Diagnosis Date Noted [...] nursing note reviewed. Exam conducted with a assistant attorney general present. Vitals: Estimated body mass index is 30.45 kg/m as calculated from the following: Height [...] by Praveena Chen NP on behalf of: Ana Luisa Roland DO documented in this encounter [facility] 01-05-2025 History of Presen t illness Narrative [...] Date Noted Restless leg syndrome in ([facility]) 07/22/2023 Third trimester ([facility]) 07/22/2023 Resolved Ambulatory Problems Diagnosis [...] nursing note reviewed. Exam conducted with a assistant attorney general present. Vitals: Estimated body mass index is [...] by patient, parent, or legal power of commonwealth attorney - including discussion of procedure risks [...] Luisa Roland DO documented in this encounter [facility] 12-31-2024 Telephone encount er Note Patient called [...] understanding and agrees with plan of care. [facility] 12-31-2024 Miscellaneous Notes Formattin g of this [...] plan of care. documented in this encounter [facility] 12-29-2024 History of Presen t illness Narrative Reason for Appointment: Patient ID: Rosalie Mclaughlin is a 24 y.o. female who presents for Contraception (Pt present today to discuss b/c.) Patient presents today for Acute Visit. MEDICATIONS Current Outpatient Medications Medication Instructions sertraline (ZOLOFT) 25 mg, Oral, Daily ALLERGIES No Known Allergies PROBLEMS Active Ambulatory Problems Diagnosis Date Noted Restless leg syndrome in ([facility]) 07/22/2023 Third trimester ([facility]) 07/22/2023 Resolved Ambulatory Problems Diagnosis [...] nursing note reviewed. Exam conducted with a assistant attorney general present. Vitals: Estimated body mass index is 30.62 kg/m as calculated from the following: Height as of 10/30/24: 5' 5 . Weight as of this [...] Luisa Roland DO documented in this encounter [facility] 05-13-2024 History of Presen t illness Narrative [...] (general) (routine) without abnormal findings IUD complication ([facility]) HISTORY PAST MEDICAL HISTORY SOCIAL HISTORY Past Medical History: Diagnosis Date Anxiety At low risk for fall BMI 25.0-25.9,adult Encounter for gynecological examination (general) (routine) without abnormal findings IUD complication (CMS/HCC) Social History Tobacco Use Smoking status: Never [...] nursing note reviewed. Exam conducted with a assistant attorney general present. Vitals: Estimated body mass index is [...] of: JANET Fernandez documented in this encounter [facility] 08-15-2023 History of Presen t illness Narrative [...] (general) (routine) without abnormal findings IUD complication ([facility]) Family History Problem Relation Name Age of [...] nursing note reviewed. Exam conducted with a assistant attorney general present. Vitals: Estimated body mass index is [...] of being unable to sleep, increase in [place] contractions, pelvic pressure and sharp pains. Patient desires to have Induction of Labor on 08/22/2023 @0001. Called [facility] and spoke with Michelle and patient [...] Luisa Roland DO documented in this encounter [facility] 11-09-2022 Evaluation note Encounter Date Diagnosis Assessment Notes Oct, Lumbar pain (ICD-10 - M54.50) [facility] Other 04-03-2023 Evaluation note* Encounter Date Diagnosis Assessment Notes Treatment Notes Treatment Clinical Notes Oct, Wellness examination (ICD-10 - Z00.00) due for labs Oct, Lumbar pain (ICD-10 - M54.50) Pt states she went to chiropractor, had PT and xray through [facility]. She now wants me to address this as she is not improving and an MRI was not covered. She will contact their office and have them send us PT reports and xray so we can try to get the MRI. Pt needs this addressed as she is in the and is running a half marathon later this month. [employer] Other Evaluation noteNo [employer] Other [employer] noteNo assessment information available [facility] Work Phone: Evaluation note* Diagnosis Third trimester state, incidental documented in this encounter [facility] HealthcareEvaluation note* Diagnosis Onset Date Resolution Status Anxiety acute Left hip flexor tightness ac angeline Left hip flexor tightness ac angeline Left hip pain acute Greater trochanteric pain sy ndrome of left lower extremity acute Iliotibial band tendinitis of left side acute [facility] Work Phone: Evaluation note* Diagnosis Well woman exam with routine gynecological exam Routine gynecological examination Folliculitis Other specified disease of hair and hair follicles documented in this encounter [facility]* Diagnosis control counseling documented in this encounter [facility] HealthcareEvaluation note* Diagnosis Pelvic pain in female- Primary Unspecified symptom associated with female genital organs documented in this encounter [facility] HealthcareEvaluation note* Diagnosis Encounter for IUD insertion Insertion of intrauterine contraceptive device Vaginal discharge Leukorrhea, not specified as infective Pelvic pain [facility] Diagnosis Pelvic pain in female Unspecified symptom associated with female genital organs [facility] Diagnosis Pre-op examination Pelvic pain Cyst of ovary, unspecified laterality documented in this encounter [facility] Narrative - Reported* Type Description Date Medical History Bronchitis Medical History Vaginitis Medical History Acute UTI Medical History Dysuria Hospitalization History l2019 for a blood count being done. Covario Other Reason for Referral Reason *FU 11/19 Xray and last OV note. thank you Diagnosis 1 Lumbar pain (M54.50) Referral Organization [facility] elizabeth Referring Provider First Name Lexis Referring Provider Last Name Marcos Referring Provider Specialty Family Medi cine Referred Organization [facility] Referred Provider Juan Miguel Referred Address [address] [place], [place],[address] Referred Provider Specialty Pain Medicin e Referral Priority Routine General Notes Jessie Ashraf 04:25:04 PM >received today, attachments made, referral faxed Clinical Notes F: [id number] Summary Purpose Family History No Family History [...] to discuss b/c. Reason Comments KATHY insertion Reason Comments Pelvic Pain Reason Comments Pre-op Visit INFORMATION SOURCE (unrecogn ized section and content) DATE CREATED AUTHOR 11/15/2022 [facility] DATE CREATED AUTHOR AUTHOR'S ORGANIZ ATION 01/03/2025 [facility] DATE CREATED AUTHOR AUTHOR'S ORGANIZ ATION 02/08/2025 [facility] EPIC Care Teams (unrecognized sec tion and content) Team Status: Active Member Role Status Dates Lexis Rodríguez MD Primary Care Provider Active Team Status: Inactive Member Role Status Dates Lexis Rodríguez MD Primary Care Provider, Attending Last castellanos Active Sheather Relationship Specialty Start Date End Date Lexis Rodríguez MD [address] [place] [facility] [address] PCP - General Family Medicine 02/22/23 Sheather Relationship Specialty Start Date End Date Lexis Rodríguez MD [address] [place] [facility] [address] PCP - General Family Medicine 02/22/23 Team [...] May 05, 2024 End: May 05, 2024 Sheather Relationship Specialty Start Date End Date Lexis Rodríguez MD [address] [place] [facility] [address] PCP - General Family Medicine 02/22/23 Mariam Torres PA [address] [place] [address] [place] [address] PCP - [facility] 01/13/24 Sheather Relationship Specialty Start Date End Date Lexis Rodríguez MD [address] [facility] [place] [address] PCP - General Family Medicine 02/22/23 Mariam Torres PA [address] [place] [address] [place] [address] PCP - [facility] 01/13/24 Sheather Relationship Specialty Start Date End Date Lexis Rodríguez MD [address] [facility] [place] [address] PCP - General Family Medicine 02/22/23 Sheather Relationship Specialty Start Date End Date Lexis Rodríguez MD [address] [facility] [place] [address] PCP - General Family Medicine 02/22/23 Sheather Relationship Specialty Start Date End Date Lexis Rodríguez MD [address] [facility] [place] [address] PCP - General Family Medicine 02/22/23 Sheather Relationship Specialty Start Date End Date Lexis Rodríguez MD [address] [facility] [place] [address] PCP - General Family Medicine 02/22/23 Sheather Relationship Specialty Start Date End Date Lexis Rodríguez MD [address] [facility] [place] [address] PCP - General Family Medicine 02/22/23 Sheather Relationship Specialty Start Date End Date Lexis Rodríguez MD [address] [facility] [place] [address] PCP - General Family Medicine [...] BE BASED ON THE PRIMARY CLINICAL RECORDS. [facility] [employer] [facility]. provides no warranty or guarantee of the accuracy or completeness of information in this document.
[2025-03-03 06:24] LABS: Hematocrit 40.9 % (36.0-48.0); Hemoglobin 14.0 g/dL (12.0-16.0); Immature Granulocytes Abs Auto 0.00 10^3/uL (0.00-0.03); Immature Granulocytes Pct Auto 0.0 % (0.0-0.5); Lymphocytes Absolute Auto 2.2 10^3/uL (1.2-3.8); Mean Corpuscular HGB Conc 34.2 g/dL (29.9-35.2); Mean Corpuscular Hemoglobin 32.0 pg (26.7-34.0); Mean Corpuscular Volume 93.6 fL (81.0-99.0); Platelet Count 238 10^3/uL (150-450); Red Blood Count 4.37 10^6/uL (4.20-5.40); White Blood Count 6.3 10^3/uL (4.0-11.0)
--- NOTE | 2025-03-03 08:19 | PM.ONB ---
Brief Operative Note Date of procedure: 03/03/25 Pre-op diagnosis general: pelvic pain Post-op diagnosis: same as pre-op Procedure: NAME OF PROCEDURE: [diagnostic laparoscopy ] PROCEDURE: The patient was taken back to the Operating Room where she was placed in dorsal lithotomy position after given general anesthesia. The patient was prepped and draped in normal sterile fashion. A sponge stick was placed into the patient's vagina. Attention was turned to the patient's abdomen, where a small umbilical incision was made. The fascia was tented using Harish clamps and the fascia was entered sharply. Confirmation of intraabdominal placement of the 10 mm port was confirmed under direct visualization using a laparoscope. The patient's abdomen was then insufflated using CO2 gas with approximately 4 liters. A second port was placed left laterally, this was done under direct visualization with a 5 mm port. Survey of the patient's abdomen demonstrated normal liver and gallbladder. Survey of the patient's pelvic anatomy demonstrated normal appearing rt and lt ovary and tubes as well as normal appearing uterus. No endometrial implants could be noted, no evidence of any pelvic disease was seen, normal appearing pelvic cavity. All instruments were removed from the patient's abdomen. The patient's abdomen was deinsufflated of CO2 gas. The patient tolerated the procedure well. Sponge stick was removed from the patient's vagina. The patient's infraumbilical fascia was closed using #0 Vicryl on a GI needle. The patient's skin was closed laterally and infraumbilically using 4-0 Vicryl. The patient tolerated the procedure well. Sponge, lap and needle counts were correct x 2. The patient was taken to Recovery Room in stable condition. Anesthesia: TENISHA Surgeon: Evens Roland Aircraft De Icer Installer: Clarisse Babb Estimated blood loss (mL): 20 Pathology: none sent Condition: stable Disposition: PACU Urinary Catheter Management Urinary Catheter Management Urethral: Cath placed during this visit: no
[2025-03-03] MEDS: HYDROMORPHONE HCL 0.5 MG/0.5 ML SYRINGE IV (08:42)
--- NOTE | 2025-03-03 08:58 | PC.NURSE ---
Patient states pain si better and manageable at a 4 on the pain sccale.
--- NOTE | 2025-03-03 10:14 | PC.NURSE ---
Up to bathroom at this time. Unable to urinate. Has had 3 liters of fluid IV. Will bladder scan to see bladder content amount.
== END 2025-03-03 11:20 | disposition home or self-care (01) ==
PROVIDERS: PCP Family Medicine; Visit Provider Obstetrics & Gynecology
PROC: (CPT 840; principal; 2025-03-03 07:30)
DX: R10.2 Pelvic and perineal pain (principal); K21.9 Gastro-esophageal reflux disease without esophagitis
CPT/HCPCS: 49320; 36415; 84702; 85025; J1100; J1171; J1885; J2250; J2405; J2704; J3010

== ENCOUNTER 2025-05-10 08:11 | Emergency (ER) | payer OTHER, SELFPAY ==
--- OUTSIDE RECORDS SUMMARY | 2024-09-15 04:15 | XMS_ITS ---
Author Organization [facility] Address [address] [place] [address] Care Team Providers Care Driller Portable Name Role Phone Angi Hunt Primary Care Provider Ashley Gold Unavailable [phone] REASON FOR VISIT BH F/U Encounters Encounter Location Date Provider Diagnosis [facility] [address] [place] [address] 09/15/2024 Ashley Gold Plan Of Treatment No Information Progress Notes * ARNOLDO EVINLOUDOB: [birth year] (24 yo F)Acc No.[id number]:09/15/2024 Behavioral Health Patient: RAMESH STERLINGERALDA :?Ashley AlcarazmDOB:2000???Age:24 Y???Sex: FemaleDate:09/15/2024Phone:[phone]:[address] [place], [place] [address]Pcp:Angi Hunt Subjective: * Chief Complaints: * B H F/U Billing Information: * Procedure Codes: Care Plan Details* * Electronic signature of MELISSA Woodward on 05/10/2025 at 08:29 AM EDTSign off status: Pending * Provider: Zayda Gold Date: 0 09/15/2024 Generated for Printing/Faxing/eTransmitting on:?05/10/2025 08:29 AM EDT
--- OUTSIDE RECORDS SUMMARY | 2025-02-17 10:00 | XMS_ITS ---
Author Organization [email or web address] [facility] Address [address] [place] [address] Care Team Providers Care Fashion Consultant Name Role Phone Angi Hunt Primary Care Provider Ashley Gold Unavailable [phone] REASON FOR VISIT fu Encounters Encounter Location Date Provider Diagnosis [facility] [address] [place] [address] 02/17/2025 Ashley Gold Plan Of Treatment No Information Progress Notes * ARNOLDO EVINLOUDOB: [birth year] (24 yo F)Acc No.[id number]:02/17/2025 F/U - Patient Patient: ROSALIE STERLING :?Ashley AlcarazmDOB:2000???Age:24 Y???Sex: FemaleDate:02/17/2025Phone:[phone]:[address] [place], [place] [address]Pcp:Angi Hunt Subjective: * Chief Complaints: * B h fu Billing Information: * Procedure Codes: Care Plan Details* * Electronic signature of MELISSA Woodward on 05/10/2025 at 08:30 AM EDTSign off status: Pending * Provider: Zayda Gold Date: 0 02/17/2025 Generated for Printing/Faxing/eTransmitting on:?05/10/2025 08:30 AM EDT
[2025-05-10 08:12] VITALS: BP 118/72; PULSE 79; TEMP 37.1; O2SAT 98
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
--- OUTSIDE RECORDS SUMMARY | 2025-05-10 08:29 | XMS_ITS | Clinical Summary ---
Author Organization [facility] tem Address [id number] [address] 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 Name Role Phone Lexis Evans MD Primary Care Provider [phone] Allergies No known active allergies Medications No known medications Active Problems No known active problems Social History Tobacco UseTypesPacks/DayYears UsedDateSmoking Tobacco: NeverSmokeless Tobacco: NeverAlcohol UseStandard Drinks/WeekCommentsNo0 (1 standard drink = 0.6 oz pure alcohol)AUDIT-CAnswerDate RecordedFrequency of Alcohol ConsumptionNever 10/11/2018Average Number of DrinksNot on file10/11/2018Frequency of Binge DrinkingNot on file10/11/2018ChildcareAnswerDate RecordedChildcareUnknown 12/24/2018EmploymentAnswerDate XngmutziEynmadvzgmDwvswmc07/12/2019Purpose - Life AnswerDate RecordedPurpose and direction in mgtlWvjdiey59/11/2021 CommentsNoSex and Gender InformationValueDate RecordedSex Assigned at BirthNot on fileLegal QmzXoddgg00/06/2015 11:55 AM EDTGender IdentityNot on fileSexual OrientationNot on file Last Filed Vital Signs Vital SignReadingTime TakenCommentsBlood Rtzyvbei776/8903 2:53 PM EDT Jpubd1466 2:53 PM BRNEfprjztuvdl62.9 ??C (98.5 ??F)10/11/2018 2:53 PM EDTRespiratory Dzfd040310/11/2018 2:53 PM EDTOxygen Hbwuaqkldv02%10/11/2018 2:53 PM EDTInhaled Oxygen Concentration--Qhdoul46.6 kg (153 lb 6.4 oz)10/11/2018 2:53 PM VJGDaxqug047.1 cm (5' 5 )10/11/2018 2:53 PM EDTBody Mass Index25.53010/11/2018 2:53 PM EDT Plan of Treatment Not on file Medical Devices Not on file Insurance Care Teams Team MemberRelationshipSpecialtyStart DateEnd Date Lexis Evans MD [address] [place] [address] PCP - [facility]10/11/18
--- OUTSIDE RECORDS SUMMARY | 2025-05-10 08:30 | XMS_ITS | Clinical Summary ---
Author Organization [facility] Address [address] [place] [address] Care Team Providers Care Asian Studies Program Chair Name Role Phone Lexis Evans MD Primary Care Provider [phone] Allergies No known active allergies Medications MedicationSigDispense QuantityRefillsLast FilledStart DateEnd DateStatus sertraline (Zoloft) 100 MG tablet 5ActiveHospital, Clinic, or Other Facility Administered Medication Ordered DoseRouteFrequencyStart DateEnd DateStatus levonorgestrel (Kathy) 13.5 MG IUD Indications:Encounter for IUD insertionIUSee admin qhhtwbenvthk51/24/2025 8Active Active Problems ProblemNoted DateDiagnosed DateRestless leg syndrome in ([facility]) 07/22/2023Third trimester ([facility])07/22/2023 Encounters DateTypeDepartmentCare UpzzJtlhmnrsnqn89/11/2025Telephone [facility] [address] [place] [address] Alaina Lara LPN Error (VOID this visit)03/11/2025 10:00 [place] [address] Mariam Coburn PA Postoperative visit; S/P rtkpenbilgg78/28/2025amboo flowsheet [facility] [address] [place] [address] Mariam Coburn PA 03/10/20251560Rnkltk75/20/2025bstract [facility] [place] [facility] [address] [facility] [place] [address] Evens Roland, DO 03/03/2025bstract [facility] [place] [facility] [address] [facility] [place] [address] Evens Roland, DO 5Clinisync Result Encounter [facility] Unsolicited Evens Roland, 02/08/2025 10:00 AM EDTConsult [facility] [place] [facility] [address] [facility] [place] [address] Evens Roland, DO Pre-op examination; Pelvic pain; Cyst of ovary, unspecified lateralityfrom Last 3 Months Family History Medical HistoryRelationNameCommentsDiabetesFatherRelationNameStatusComments Daughter 1AliveDaughter 2AliveFather Social History Tobacco UseTypesPacks/DayYears UsedDateSmoking Tobacco: NeverSmokeless Tobacco: Never Tobacco Cessation:Counseling Given: Not Answered Alcohol UseStandard Drinks/WeekCommentsYes0 (1 standard drink = 0.6 oz pure alcohol)Occasional alcohol useCommentsNoSex and Gender InformationValue Date RecordedSex Assigned at RnmnvUdyctz55/04/2023 8:43 AM EDTLegal SexFemale 09/26/2022 7:35 PM EDTGender UdhepqciEkycqa79/04/2023 8:43 AM EDTSexual TwpawrhhfinOmtpgduz42/04/2023 8:43 AM EDT Last Filed Vital Signs Vital SignReadingTime TakenCommentsBlood Mcnsjuve726/7403/11/2025 10:39 AM EDT Pulse--Temperature--Respiratory Rate--Oxygen Saturation--Inhaled Oxygen Concentration--Ujaxvz54.1 kg (192 lb)03/11/2025 10:39 AM TRKQfofrp797.1 cm (5' 5 )01/18/2025 4:17 PM EDTBody Mass Index31.95001/18/2025 4:17 PM EDT Plan of Treatment DateTypeDepartmentCare Team (Latest Contact Info)Idwfpjhuuyt63/03/2025 2:30 PM ESTProcedure Visit [facility] [address] [place] [address] [place] [address] Evens Roland DO [address] [facility] [address] [place] [place], [place] [phone] 05/20/2025 10:00 AM ESTProcedure Visit [facility] [address] [facility] [place] [address] Mariam Coburn PA [address] [facility] [place] [address] Health MaintenanceDue DateLast DoneCommentsInfluenza LzyahvnJufptxttg82/18/2025, 06/05/2023, 05/10/2022, Additional history exists Procedures Procedure NamePriorityDate/TimeAssociated DiagnosisCommentsTBH PREG QUANT HCG Uczfuyf4903/03/2025 6:20 AM EDT ALL CBC WITH AUTO HONNXalelqr03/20/2025 6:20 AM EDT from Last 3 Months Results * [facility] PREG QUANT HCG (03/03/2025 6:20 AM EDT)ComponentValueRef RangeTest Method Analysis TimePerformed AtPathologist SignatureHCG QUANTITATIVE<1mIU/mLTBH Comment: 5-50 ? 0.2-1 WEEK 50-500 ? 1-2 WEEKS 100-5,000 ?2-3 WEEKS 500-10,000 ? 3-4 WEEKS 1,000-50,000 ?? 4-5 WEEKS 10,000-100,000 5-6 WEEKS 15,000-200,000 6-8 WEEKS 10,000-100,000 2-3 MONTHS Specimen (Source)Anatomical Location / LateralityCollection Method / Volume Collection TimeReceived Time08/ 6:20 AM EDT03/03/2025 6:22 AM EDT Narrative [facility] - 03/03/2025 6:47 AM EDT Authorizing ProviderResult TypeResult StatusCorey Asuncion DOCLINISYNCFinal Result Performing OrganizationAddressCity/State/ZIP CodePhone Number [facility] * (ABNORMAL) ALL CBC WITH AUTO DIFF (03/03/2025 6:20 AM EDT)ComponentValueRef RangeTest MethodAnalysis TimePerformed AtPathologist SignatureTBH WBC6.34.0 - 11.0 10 3/uLTBHTBH RBC4.374.20 - 5.40 10 6/uLTBHTBH HGB14.012.0 - 16.0 g/dLTBH TBH HCT40.936.0 - 48.0 %TBHTBH MCV93.681.0 - 99.0 fLTBHTBH MCH32.026.7 - 34.0 pgTBHTBH MCHC34.229.9 - 35.2 g/dLTBHTBH RDW12.711.0 - 15.0 %TBHTBH VPS019048 - 450 10 3/uLTBHTBH MPV9.4(L)9.5 - 13.5 fLTBHNEUTROPHILS PERCENT AUTO51.943.0 - 75.0 %TBHLYMPHOCYTES PERCENT AUTO34.720.5 - 60.0 %TBHMONOCYTES PERCENT AUTO9.1 1.7 - 12.0 %TBHTBH EO %3.70.9 - 7.0 %TBHBASOPHILS PERCENT AUTO0.60.2 - 2.0 % TBHIMMATURE GRANULOCYTES PCT AUTO0.00.0 - 0.5 %TBHNEUTROPHILS ABSOLUTE AUTO3.3 1.4 - 6.5 10 3/uLTBHLYMPHOCYTES ABSOLUTE AUTO2.21.2 - 3.8 10 3/uLTBHMONOCYTES ABSOLUTE AUTO0.60.3 - 0.8 10 3/uLTBHTBH EO #0.20.0 - 0.7 10 3/uLTBHBASOPHILS ABSOLUTE AUTO0.00.0 - 0.1 10 3/uLTBHIMMATURE GRANULOCYTES ABS AUTO0.000.00 - 0.03 10 3/uLTBHSpecimen (Source)Anatomical Location / LateralityCollection Method / VolumeCollection TimeReceived Time03/03/2025 6:20 AM EDT03/03/2025 6:22 AM EDT Narrative CLIN[facility]YNC - 03/03/2025 6:24 AM EDT Authorizing ProviderResult TypeResult StatusCorey Asuncion DOCLINISYNCFinal Result Performing OrganizationAddressCity/State/ZIP CodePhone Number [facility]NC [facility] from Last 3 Months Insurance Care Teams Team MemberRelationshipSpecialtyStart DateEnd Date Lexis Evans MD [address] [place] [address] PCP - GeneralFamily Medicine02/22/23
--- OUTSIDE RECORDS SUMMARY | 2025-05-10 08:30 | XMS_ITS | Patient Health Record ---
Author Organization [employer] [facility] Address [address] [address] Care Team Providers Care Cook Restaurant Name Role Phone Angi Hunt Primary Care Provider Rashaun Henderson Unavailable Ashley Gold Unavailable [phone] Reason For Referral No Information Problems Problem Type SNOMED Code ICD Code Onset Dates Problem Status W/U Status Risk Notes Problem Depressive episode (857017318) Depressive episode (F32.9) Activeconfirmed Encounters Encounter Location Date Provider Diagnosis [facility] [address] [place] [place] [address] 06/24/2024 [facility] [place] [address]/11/2024[facility] [place] [address]/08/2024Rashaun HendersonDepressive episode [address] [place], [place] [address] [place] [address]/[facility] companymDep[facility] episode [address] [place] [address]/Sturgis WilhelmDepressive episode [address] [place] [address]/Sturgis WilhelmDepressive episode [address] [place] [address]/Kelly WilhelmDepressive episode F32.9[facility] [place] [address]/07/2024Kelly WilhelmDepressive episode F32.9 [facility] [place] [address]/Kelly Asif Depressive episode F32.9[facility] [place] [address] 12/23/2024Kelly WilhelmDepressive episode F32.9[facility] [place] [place] [address]/Kelly WilhelmDepressive episode F32.9[facility] [place] [place] [address]/04/2025Kel Asif Depressive episode F32.9 Assessments Encounter Date Diagnosis (ICD Code) Assessment Notes Treatment Notes Treatment Clinical Notes Section Notes 05/22/2024 Depressive episode (ICD-10 - F32 .9) 08/04/2024Depressive episode (ICD-10 - F32.9)09/01/2024Depressive episode (ICD- 10 - F32.9)10/07/2024Depressive episode (ICD-10 - F32.9)10/27/2024Depressive episode (ICD-10 - F32.9)11/12/2024Depressive episode (ICD-10 - F32.9)12/01/2024 Depressive episode (ICD-10 - F32.9)12/23/2024Depressive episode (ICD-10 - F32.9) 01/05/2025Depressive episode (ICD-10 - F32.9)01/21/2025Depressive episode (ICD- 10 - F32.9) Plan Of Treatment No Information Insurance Providers Payer Name Payer Address Payer Phone Subscriber Number Group Number Insured Name Patient Relationship to Insured Coverage Start Date Coverage End Date [employer] [place] [employer] [address] [facility] [place] [id number] Barney MCLAUGHLIN - patient is the [id number] 2024 [facility] [address] [place] [id number], ESMERALDA Self - patient is the [id number] [facility] [address] [place] [id number], ESMERALDASelf - patient is the [id number]
--- OUTSIDE RECORDS SUMMARY | 2025-05-10 08:33 | XMS_ITS | CCD ---
Author Organization [facility] Care Team Providers Care Tar Distillation Supervisor Name Role Phone Lexis Rodríguez Unavailable DR LEXIS RODRÍGUEZ Admitting Unavailable MARCOS, DR LEXIS Castillo Primary Care Unavailable MARCOS, DR LEXIS Castillo Consulting Unavailable MARCSO, DR LEXIS Castillo Attending Unavailable Ursula Yakelin Consulting Unavailable MARCOS, DR LEXIS Castillo Admitting Unavailable MARCOS, DR LEXIS Castillo Primary Care Unavailable MARCOS, DR LEXIS Castillo Consulting Unavailable MARCOS, DR LEXIS Castillo Attending Unavailable MARCOS, DR LEXIS Castillo Primary Care Unavailable GIEDRAITIS, ANDRIUS Admitting Unavailable GIEDRAITIS, ANDRIUS Attending Unavailable MD Lexis Rodríguez Primary Care Provider [phone] MD Lexis Rodríguez Attending Provider Lexis Rodríguez [...] MARIAM TORRES Attending Unavailable Medications Current Medications MedicationDrug Class(es)DatesSig (Normalized)Sig (Original)acetaminophen 325 mg oral capsule (3 sources)Start: 12-31-2024 End: 62-39-2652hnem 1 capsule by mouth every six hours for painacetaminophen (Tylenol) 325 MG capsule Indications: Pelvic pain in female Take 1 capsule (325 mg) by mouth every 6 (six) hours if needed for mild pain for up to 4 days 15 capsule 12/31/2024 01/04/2025 ActiveStart: 27-93-0627cjth 1 tablet by mouth every six hoursAcetaminophen (Tylenol Extra Strength) 500 mg tablet Active 500 MG PO Every 6 hours May 05, 2024 12:00amcephalexin 500 mg oral capsule (3 sources)Cephalosporin AntibacterialStart: 05-13-2024 End: 57-38-9745hund 1 capsule by mouth in the morning, then take 1 capsule by mouth in the evening, then take 1 capsule by mouth at bedtimecephalexin (Keflex) 500 MG capsule Indications: Folliculitis Take 1 capsule (500 mg) by mouth in the morning and 1 capsule (500 mg) in the evening and 1 capsule (500 mg) before bedtime. Do all this for 7 days. 21 capsule 05/13/2024 05/20/2024 Active diphenhydrAMINE hydrochloride 25 mg oral capsule (4 sources)Histamine-1 Receptor AntagonistStart: 07-04-2023 End: 96-56-7140gabhdcynzaHOTUW (BENADryl) capsule 25 mgesomeprazole 20 mg delayed release oral capsule (5 sources)Proton Pump InhibitorStart: 01-16-2025 End: 63-51-3763pxwk 1 capsule by mouth once dailyesomeprazole (NexIUM) [address] capsule Take 20 mg by mouth Daily 01/16/2025 03/11/2025 Discontinuedibuprofen 800 mg oral tablet (4 sources)Nonsteroidal Anti-inflammatory DrugStart: 01-18-2025 End: 32-18-9010udjq 1 tablet by mouth every eight hours for painibuprofen 800 MG tablet Indications: Pelvic pain in female Take 1 tablet (800 mg) by mouth every 8 (eight) hours if needed for mild pain for up to 10 days 30 tablet 2 01/18/2025 01/28/2025 ActiveStart: 78-19-5286ogdk 1 capsule by mouth every six hours Ibuprofen (Motrin Ib) 200 mg capsule Active 200 MG PO Every 6 hours May 05, 2024 12:00amlevonorgestrel 0.379249 mg/hr intrauterine system (15 sources)Progestin, Progestin-containing Intrauterine DeviceStart: 01-05-2025 End: 27-43-7946Lyowhwcxlbeneo intrauterine device 52 mgStart: 01-05-2025 End: 20-59-799960 mg, Intrauterine, Once PRN Procedure, Starting on Sat01/05/25 at 0820, For 1 doseStart: 11-04-2023 End: 14-05-1052pkfltgruntohhv (Kathy) 13.5 MG IUDMagnesium (4 sources)Start: 07-04-2023 End: 97-65-4610ojpq 2 tablets by mouth in the morningmagnesium 200 MG tablet Indications: Third trimester Take 2 tablets (400 mg) by mouth in the morning. 60 tablet 2 07/04/2023 10/02/2023 ActivemetroNIDAZOLE 500 mg oral tablet (3 sources)Nitroimidazole AntimicrobialStart: 01-21-2025 End: 43-68-8112qilj 1 tablet by mouth in the morningmetroNIDAZOLE (Flagyl) 500 MG tablet Indications: BV (bacterial vaginosis) Take 1 tablet (500 mg) by mouth in the morning and 1 tablet (500 mg) before bedtime. Do all this for 7 days. Do not drink alcohol while taking this medication. 14 tablet 01/21/2025 02/08/2025 Discontinued (Therapy completed)Start: 01-07-2025 End: 10-52-6102jofs 1 tablet by mouth in the morningmetroNIDAZOLE (Flagyl) 500 MG tablet Indications: BV (bacterial vaginosis) Take 1 tablet (500 mg) by mouth in the morning and 1 tablet (500 mg) before bedtime. Do all this for 7 days. Do not drink alcohol while taking this medication. 14 tablet 01/07/2025 01/18/2025 Discontinued (Therapy completed)multivitamin () 27-0.8 MG tablet (4 sources)Start: 90-10-7567loloszygufau () 27-0.8 MG tabletPRENATAL VIT-DSS-FE FUM-FA PO (4 sources) VIT-DSS-FE FUM-FA PO Take 2 tablets by mouth 0 Active sertraline 100 mg oral tablet (20 sources)Serotonin Reuptake InhibitorStart: 98-86-5176uctqrvjqvy (Zoloft) 100 MG tablet 11/06/2024 ActiveStart: 07-05-2024 End: 20-19-5114gsks 1 tablet by mouth once dailysertraline (Zoloft) 50 MG tablet Take 50 mg by mouth Daily 07/05/2024 03/11/2025 DiscontinuedStart: 04-07-2024 take 50 mg by mouth once dailySertraline Active 50 MG PO Daily April 07, 2024 3:58pmStart: 01-15-2024 End: 03-25-3064lnxl 1 tablet by mouth once dailysertraline (Zoloft) 25 MG tablet Take 25 mg by mouth Daily 01/15/2024 01/05/2025 Discontinued (Other) Completed/Discontinued Medications MedicationDrug Class(es)DatesSig (Normalized)Sig (Original)docosahexaenoic acid 200 mg oral capsule (1 source)Start: 11-15-2023 End: 86-24-1452Zonnsysyxdbdnne Acid ( Dha) 200 mg capsule Discontinued MG PO November 15, 2023 12:00am January 15, 2024 9:01amhydrOXYzine pamoate 25 mg oral capsule (1 source)AntihistamineStart: 12-30-2023 End: 15-53-1975wjdb 25 mg by mouth twice dailyHydroxyzine Pamoate Discontinued 25 MG PO Twice daily December 30, 2023 12:00am January 15, 2024 9:20am Methylprednisolone (1 source)CorticosteroidStart: 04-17-2024 End: 54-72-1655Osakrumjygnqeklhhm Discontinued 0 PO per package directions April 17, 2024 12:00am May 05, 2024 9:09am PO PER PKG DIR for 6 days nitrofurantoin, macrocrystals 25 mg / nitrofurantoin, monohydrate 75 mg oral capsule (3 sources)Nitrofuran AntibacterialStart: 01-04-2025 End: 19-07-9844ogcj 1 capsule by mouth in the morningnitrofurantoin, macrocrystal-monohydrate, (Macrobid) 100 MG capsule Indications: Escherichia coli infection Take 1 capsule (100 mg) by mouth in the morning and 1 capsule (100 mg) before bedtime. Do all this for 7 days. 14 capsule 01/04/2025 01/18/2025 Discontinued (Therapy completed)terconazole 4 mg/ml vaginal cream (2 sources)Azole AntifungalStart: 08-08-2023 End: 53-01-7408npvflyozyna (Terazol 7) 0.4 % vaginal cream Indications: Yeast infection Insert 1 applicator into the vagina at bedtime for 7 days 30 g 0 08/08/2023 08/15/2023 ExpiredtiZANidine 2 mg oral tablet (1 source)Central alpha-2 Adrenergic AgonistStart: 04-07-2024 End: 63-08-5827kdul 2 mg by mouth three times dailyTizanidine Discontinued 2 MG PO Three times daily April 07, 2024 12:00am May 05, 2024 9:09am Problems Active Problems Problem ClassificationProblemDateDocumented DateEpisodic/ChronicAbdominal pain (5 sources)Pain in female pelvis; Translations: [Pelvic and perineal pain] 74-09-6397BgjkzlqaQohoyiv disorders (2 sources)Anxiety; Translations: [Anxiety disorder, unspecified]01-15-2024 ChronicCardiac dysrhythmias (1 source)Tachycardia; Translations: [Tachycardia, unspecified]12-30-2023 EpisodicChronic obstructive pulmonary disease and bronchiectasis (3 sources)Bronchitis; Translations: [Bronchitis, not specified as acute or chronic]EpisodicContraceptive and procreative management (3 sources)Patient encounter status; Translations: [Encounter for other general counseling and advice on contraception]68-35-2935MkrreqgxFuxxyfqive and other anemia (1 source)Iron deficiency anemia; Translations: [Iron deficiency anemia, unspecified]40-69-4173OetsebblOwhvosplblejj symptoms and ill-defined conditions (3 sources)Dysuria; Translations: [Dysuria]EpisodicInflammatory diseases of female pelvic organs (3 sources)Vaginitis; Translations: [Acute vaginitis]EpisodicMalaise and fatigue (1 source)Fatigue; Translations: [Other fatigue]72-50-5932KwzdgywpHrpcy acquired deformities (1 source)Disorder of hip; Translations: [Contracture, left hip]04-08-2024 ChronicOther acquired deformities (2 sources)Contracture, left hip; 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)] 68-50-2245DpzidhgJsxag aftercare (2 sources)Postoperative visit; Translations: [Encounter for other specified surgical aftercare]20-60-8890JtbbrchiKyyjp connective tissue disease (1 source)Tendinitis; Translations: [Iliotibial band syndrome, left leg] 03-84-7144QosjcolaKpikh connective tissue disease (1 source)Iliotibial band syndrome, left leg; Translations: [Other disorders of muscle, ligament, and fascia]39-66-8545KcigwbyyUuslb female genital disorders (1 source)Vaginal discharge; Translations: [Other specified noninflammatory disorders of vagina]06-16-6269AgnwdiaqSpfjt non-traumatic joint disorders (1 source)Greater trochanteric pain syndrome of left lower limb; Translations: [Pain in left hip]82-54-5610YvaqvgkfXgltp non-traumatic joint disorders (1 source)Hip pain; Translations: [Pain in left hip]38-49-8320SgunbztfPocfa skin disorders (2 sources)Folliculitis; Translations: [Follicular disorder, unspecified] 10-69-4426YahmdgkiZvquk upper respiratory infections (3 sources)Acute upper respiratory infection; Translations: [Acute upper respiratory infection]EpisodicOvarian cyst (1 source)Cyst of ovary; Translations: [Unspecified ovarian cyst, unspecified side]49-86-3131HfhkmjbhDfakellu codes; unclassified (2 sources)History of laparoscopy; Translations: [Other specified postprocedural states]04-85-7068KdmxnyawNrmvrafpbxr; intervertebral disc disorders; other back problems (1 source)Muscle spasm of cervical muscle of neck; Translations: [Muscle spasm of back]41-77-3235XqagegkfFaqkcidrwbdx (3 sources)LOW BACK PAIN, UNSPECIFIED; Translations: [LOW BACK PAIN, UNSPECIFIED]Onset: 77-59-2539Kuuycby tract infections (3 sources)Acute urinary tract infection; Translations: [Urinary tract infection, site not specified]Episodic Past or Other Problems Problem ClassificationProblemDateDocumented DateEpisodic/ChronicOther complications of (20 sources)Diseases of the nervous system complicating , unspecified trimester; Translations: [Other current conditions classifiable elsewhere of mother, unspecified as to episode of care or not applicable]Onset: 07-22-2023 65-78-2918JgmwgtoaSyukm non-traumatic joint disorders (3 sources)Pain in left hip; Translations: [Pain in joint, pelvic region and thigh]Onset: 661062-53-4814PapdpszfXjiug and delivery including normal (20 sources)Third trimester ; Translations: [Encounter for supervision of normal , unspecified, third trimester]Onset: EpisodicUnclassified (2 sources)Lumbar pain M54.50Unclassified (1 source)LOW BACK PAIN, UNSPECIFIED; Translations: [LOW BACK PAIN, UNSPECIFIED] Onset: 10-31-2022 Results Test NameValueInterpretationReference RangeFacilityALL CBC WITH AUTO DIFFon 28-73-0470KUPTKKHZO ABSOLUTE CFVI5SMSQ HealthcareBasophils/100 WBC (Bld)0.6 %0.2 - 2.0 %NOMS HealthcareEosinophils/100 WBC (Bld)3.7 %0.9 - 7.0 %NOMS Healthcare Erythrocyte distribution width (RBC) [Ratio]12.7 %11.0 - 15.0 %NOMS [facility] Hematocrit (Bld) [Volume fraction]40.9 %36.0 - 48.0 %NOMCox NorthHemoglobin (Bld) [Mass/Vol]14 g/dL12.0 - 16.0 g/dLNORanken Jordan Pediatric Specialty HospitalIMMATURE GRANULOCYTES ABS PQGB1NNCI HealthcareImmature granulocytes/100 WBC (Bld)0 %0.0 - 0.5 %NOMS HealthcareInterpretation and review of laboratory resultsAbnormalNORanken Jordan Pediatric Specialty Hospital LYMPHOCYTES ABSOLUTE AUTO2.2NOMS HealthcareLymphocytes/100 WBC (Bld)34.7 %20.5 - 60.0 %NOMCox NorthMCH (RBC) [Entitic mass]32 pg26.7 - 34.0 pgNOMS Healthcare MCHC (RBC) [Mass/Vol]34.2 g/dL29.9 - 35.2 g/dLNORanken Jordan Pediatric Specialty HospitalMCV (RBC) [Entitic vol]93.6 fL81.0 - 99.0 fLNOMS HealthcareMONOCYTES ABSOLUTE AUTO0.6NOMS HealthcareMonocytes/100 WBC (Bld)9.1 %1.7 - 12.0 %NOMS HealthcareNEUTROPHILS ABSOLUTE AUTO3.3NOMS HealthcareNeutrophils/100 WBC (Bld)51.9 %43.0 - 75.0 %NOMS HealthcarePlatelet mean volume (Bld) [Entitic vol]9.4 fLLow9.5 - 13.5 fLNOMS HealthcareTBH EO #0.2NOMS HealthcareTBH [id number] HealthcareTBH RBC4.37NOMS HealthcareTBH WBC6.3NOMS HealthcareCLINISYNCNOMS HealthcareUS PELVIS W/ TRANSVAGINALon 25-23-8348Zjt[place], [place] [address] Ultrasound Report Signed Patient: ROSALIE MCLAUGHLIN MR#: [id number] : 2000 Acct:[id number] Age/Sex: 24 / F ADM Date: 01/20/25 Loc: US Attending Dr: Ana Luisa Roland D.O. Ordering Physician: Ana Luisa Roland D.O. Date of Service: 01/20/25 Procedure(s): US pelvis w/ transvaginal Accession Number(s): [id number] cc: Lexis Rodríguez M.D.; Ana Luisa Roland D.O. The [place] [id number] Patient Name: ROSALIE MCLAUGHLIN MRN: [id number] date: 2000 Sex: F Assigned Patient Location: US Current Patient Location: US Accession/Order Number: [id number] Exam Date: 01/20/2025 15:35 Report Date: 01/20/2025 [...] Nagel M.D. 01/20/2025 3:38 PM Dictation Location: [place] [address] Electronically authenticated by: [id number] Y Date: 01/20/2025 15:38 Dictated By: Sina Nagel D.O. Signed By: 01/20/25 1540 DD/ 1538 TD/TT: Hydroelectric Production Manager:TBHRadiology, Radiologist, MD - 01/20/2025 [place] [address] Ultrasound Report Signed Patient: ROSALIE MCLAUGHLIN MR#: [id number] : 2000 Acct:[id number] Age/Sex: 24 / F ADM Date: 01/20/25 Loc: US Attending Dr: Ana Luisa Roland D.O. Ordering Physician: Ana Luisa Roland D.O. Date of Service: 01/20/25 Procedure(s): US pelvis w/ transvaginal Accession Number(s): [id number] cc: Lexis Rodríguez M.D.; Ana Luisa Roland D.O. The [address] [address] Patient Name: ROSALIE MCLAUGHLIN MRN: [id number] date: 2000 Sex: F Assigned Patient Location: US Current Patient Location: US Accession/Order Number: [id number] Exam Date: 01/20/2025 15:35 Report Date: 01/20/2025 [...] Nagel M.D. 01/20/2025 3:38 PM Dictation Location: [place] [address] Electronically authenticated by: [id number] Y Date: 01/20/2025 15:38 Dictated By: Sina Nagel D.O. Signed By: 01/20/25 1540 DD/ 1538 TD/TT: Hydroelectric Production Manager: NIKKO HealthcareRadiology Study observation (narrative)NOM HealthcareUS PELVIS W/ TRANSVAGINALOrdered By: Radiologist Radiology on 65-34-1449EOBA Healthcare Work Phone: HCG ( test) Ql (U)on 96-80-8399Exbcmqhovvxkcx and review of laboratory resultsNormalNOMS HealthcarePreg Test, UrNegative NegativeNOMS HealthcareNOTX HealthcareIUD Insertionon 28-37-7230XhceyJessi Wilks LPN 01/05/2025 9:39 AM IUD Insertion Performed by: Ana Luisa Roland DO Authorized by: Ana Luisa Roland DO Procedure: IUD insertion Consent obtained by patient, parent, or legal power of managing attorney - including discussion of procedure risks [...] office in 4 weeks for a string check.[facility] PELVIS TRANSVAGINALon 60-05-6814AsjBryan, [place] [address] Ultrasound Report Signed Patient: ROSALIE MCLAUGHLIN MR#: [id number] : 2000 Acct:[id number] Age/Sex: 24 / F ADM Date: 12/31/24 Loc: US Attending Dr: Mariam Torres Ordering Physician: Mariam Torres Date of Service: 12/31/24 Procedure(s): US pelvis transvaginal Accession Number(s): [id number] cc: Mariam Torres; Lexis Rodríguez M.D. The [address] [address] Patient Name: ROSALIE MCLAUGHLIN MRN: [id number] date: 2000 Sex: F Assigned Patient Location: US Current Patient Location: US Accession/Order Number: [id number] Exam Date: 12/31/2024 14:08 Report Date: 12/31/2024 [...] Jr., D.O. 12/31/2024 2:14 PM Dictation Location: [place] [address] Electronically authenticated by: [id number] Y Date: 12/31/2024 14:14 Dictated By: Grey Stephens M.D. Signed By: 12/31/24 1416 DD/ 1414 TD/TT: Hydroelectric Production Manager:TBHRadiology, Radiologist, - 12/31/2024 [place] [address] Ultrasound Report Signed Patient: ROSALIE MCLAUGHLIN MR#: [id number] : 2000 Acct:[id number] Age/Sex: 24 / F ADM Date: 12/31/24 Loc: US Attending Dr: Mariam Torres Ordering Physician: Mariam Torres Date of Service: 12/31/24 Procedure(s): US pelvis transvaginal Accession Number(s): [id number] cc: Mariam Torres; Lexis Rodríguez M.D. [place] [id number] Patient Name: ROSALIE MCLAUGHLIN MRN: [id number] date: 2000 Sex: F Assigned Patient Location: US Current Patient Location: Accession/Order Number: [id number] Exam Date: 12/31/2024 14:08 Report Date: 12/31/2024 [...] Jr., D.O. 12/31/2024 2:14 PM Dictation Location: [place] [address] Electronically authenticated by: [id number] Y Date: 12/31/2024 14:14 Dictated By: Grey Stephens M.D. Signed By: 12/31/24 1416 DD/ 1414 TD/TT: Hydroelectric Production Manager: NIKKO HealthcareRadiology Study observation (narrative)NOMS HealthcareUS PELVIS TRANSVAGINALOrdered By: Radiologist Radiology on 03-78-9302WXAK Healthcare Work Phone: Urine Cultureon 71-43-2318Rkroshil identified Cx Nom (U)ORGANISM: Escherichia coli (O:ESCCOL) [place] Count >100,000 Aerobic VAISHNAVI Charge (NMIC56) SUSCEPTIBILITY ORGANISM: O:ESCCOL ANTIBIOTIC INTERPRETATION VAISHNAVI Amikacin S <16 Amoxacillin/K Clavulanate S <8 Ampicillin S <8 Ampicillin/Sulbactam S <4 Aztreonam S <4 Cefazolin S <2 Cefepime S <2 Ceftazidime S <1 Ceftazidime/Avibactam S <4 Ceftolozane/Tazobactam S <2 Ceftriaxone S <1 Cefuroxime S <4 Ciprofloxacin S <0.25 Ertapenem S <0.5 Gentamicin S <2 Levofloxacin S <0.5 Meropenem S <1 Meropenem/Vaborbactam S <2 Nitrofurantoin S <32 Piperacillin/Tazobactam S <8 Tetracycline S <4 Tigecycline S <2 Tobramycin S <2 Trimethoprim/Sulfamethoxazole S <0.5 S = SUSCEPTIBLE I = [...] RESISTANT TO ALL B-LACTAM DRUGS. PERFORMED BY: [place] [address] PATHOLOGIST LABORER/KEY MAN KIRSTEN ZAMORA M.D.[facility] Physician GroupComment on above: Performed By: #### CUU #### [place] [address] USAIGP,APTIMA HPV,AGE GDLNon 29-62-1150AYU GDLN ACOG TESTING Note.NOMS HealthcareComment on above:TESTS RESULT FLAG UNITS REF RANGE LAB Clinician Provided Cytology Information Source.............Cervix;Endocervix No. of containers..01 ThinPrep Vial Age Algo ACOG Katie... 21-29 01 FLAG LEGEND: L-Low Normal,H-High Normal,LL-Alert Low,HH-Alert High <-Panic Low,>-Panic High,A-Abnormal,AA-Critical Abnormal Performed at: 01 =G [facility] [address] Dorothy Bryant MD, IGP, RFX APTIMA HPV ASCUNote.NOMS HealthcareComment on above:TESTS RESULT FLAG UNITS REF RANGE LAB DIAGNOSIS: 02 NEGATIVE FOR INTRAEPITHELIAL LESION OR MALIGNANCY. Specimen adequacy: 02 Satisfactory for evaluation. No endocervical component is identified. Performed by: 02 Iwona Zepeda, Airplane Pilot Helper ([facility]) . 02 Note: Note 03 The [...] Low,>-Panic High,A-Abnormal,AA-Critical Abnormal Performed at: 02 [place] [facility] [place] [address] Renée Galan PhD, 03 [facility] [address] [address] Dorothy Bryant MD, Performed at: = - [facility] [address] [id number] Medical Office Assistant Instructor: Dorothy Bryant MD, Phone: [phone] Performed at: [facility] - [facility], [place] [id number] Medical Office Assistant Instructor: Renée Galan PhD, Phone: [phone] BRUSH-SPATULA CERVIX ENDOCERVIX [facility]ty HospitalXR hip BI w ZBO1Tct 35-80-5537CV hip BI w [id number] HOSPITAL [facility] [address] [place] [address] XRay Report Signed Patient: Rosalie Mclaughlin MR#: [id number] : 2000 Acct:[id number] Age/Sex: 23 / U ADM Date: 05/05/24 Loc: [facility] Room: Type: [facility] Attending Dr: Grant Menjivar DO Copies [...] Sina Nagel M.D.05/05/2024 1:43 PM Dictation Location: [place] [address] Transcribed By: [facility] 05/05/24 1343 Dictated By: Sina Nagel DO 05/05/24 1341 Signed By: 05/05/24 1343[facility] Physician GroupALL CBC WITH AUTO DIFFon 15-75-1157HNPJCAJZF ABSOLUTE AUTO0.0NOMS HealthcareBasophils/100 WBC (Bld)0.3 % 0.2 - 2.0 %NOMS HealthcareEosinophils/100 WBC (Bld)0.8 %Low0.9 - 7.0 %NOMS HealthcareErythrocyte distribution width (RBC) [Ratio]13.2 %11.0 - 15.0 %NOMS HealthcareHematocrit (Bld) [Volume fraction]31.3 %Low36.0 - 48.0 %NOMS HealthcareHemoglobin (Bld) [Mass/Vol]10.1 g/dLLow12.0 - 16.0 g/dLNORanken Jordan Pediatric Specialty Hospital IMMATURE GRANULOCYTES ABS AUTO0.06HighNORanken Jordan Pediatric Specialty HospitalImmature granulocytes/100 WBC (Bld)0.5 %0.0 - 0.5 %NOM HealthcareInterpretation and review of laboratory resultsAbnormalNOTX HealthcareLYMPHOCYTES ABSOLUTE AUTO2.4NOMS Healthcare Lymphocytes/100 WBC (Bld)20.1 %Low20.5 - 60.0 %NOMMadison Medical CenterH (RBC) [Entitic mass]29.8 pg26.7 - 34.0 pgNOSoutheast Missouri Community Treatment CenterHC (RBC) [Mass/Vol]32.3 g/dL29.9 - 35.2 g/dLNORanken Jordan Pediatric Specialty HospitalMCV (RBC) [Entitic vol]92.3 fL81.0 - 99.0 fLNORanken Jordan Pediatric Specialty HospitalMONOCYTES ABSOLUTE AUTO1.0HighNOTX HealthcareMonocytes/100 WBC (Bld) 8.6 %1.7 - 12.0 %NOMS HealthcareNEUTROPHILS ABSOLUTE AUTO8.3HighNORanken Jordan Pediatric Specialty Hospital Neutrophils/100 WBC (Bld)69.7 %43.0 - 75.0 %[facility] HealthcarePlatelet mean volume (Bld) [Entitic vol]10.8 fL9.5 - 13.5 fLChristian HospitalTBH EO #0.1NOMS [facility] CUE863UVGQThe Rehabilitation Institute RBC3.39LowNOThe Rehabilitation Institute WBC12.0HighNORanken Jordan Pediatric Specialty HospitalCLINISYNCNCox SouthALL CBC WITH AUTO DIFFon 69-23-0799NEXMERKDQ ABSOLUTE AUTO0.0NOTX HealthcareBasophils/100 WBC (Bld)0.3 %0.2 - 2.0 %NOMS HealthcareEosinophils/100 WBC (Bld)0.9 %0.9 - 7.0 %Christian HospitalErythrocyte distribution width (RBC) [Ratio]13.0 %11.0 - 15.0 %Christian HospitalHematocrit (Bld) [Volume fraction]34.3 %Low36.0 - 48.0 %Christian HospitalHemoglobin (Bld) [Mass/Vol]11.3 g/dLLow12.0 - 16.0 g/dLChristian HospitalIMMATURE GRANULOCYTES ABS AUTO0.03NORanken Jordan Pediatric Specialty HospitalImmature granulocytes/100 WBC (Bld)0.4 %0.0 - 0.5 %[facility] HealthcareInterpretation and review of laboratory resultsAbnormalChristian Hospital LYMPHOCYTES ABSOLUTE AUTO1.8NOMS Summa HealthLymphocytes/100 WBC (Bld)24.2 %20.5 - 60.0 %[facility] (RBC) [Entitic mass]29.8 pg26.7 - 34.0 pgCenterPointe Hospital (RBC) [Mass/Vol]32.9 g/dL29.9 - 35.2 g/dLUniversity Health Lakewood Medical CenterV (RBC) [Entitic vol]90.5 fL81.0 - 99.0 fLChristian HospitalMONOCYTES ABSOLUTE AUTO0.7NOMS HealthcareMonocytes/100 WBC (Bld)8.9 %1.7 - 12.0 %NOM HealthcareNEUTROPHILS ABSOLUTE AUTO4.8NOMS HealthcareNeutrophils/100 WBC (Bld)65.3 %43.0 - 75.0 %Christian HospitalPlatelet mean volume (Bld) [Entitic vol]10.8 fL9.5 - 13.5 fLNOTX HealthcareTBH EO #0.1NOMS HealthcareTBH [id number] HealthcareTBH RBC3.79LowNOMS HealthcareTBH WBC7.4NOMS HealthcareCLINISYNCNOMS HealthcareUrinalysis macro (dipstick) panel (U)on 66-44-7141Xsqqqlsnu, UANegativeNegative - 4(70) +++ mg/dL NOMS HealthcareBlood, UANegativeNegative - 50 Nicolas/mcLNOMS HealthcareClarity, UA ClearNOMS HealthcareColor, UAYellowNOMS HealthcareGlucose, UANegativeNegative - 2000(110) ++++ mg/dLNOTX HealthcareInterpretation and review of laboratory resultsAbnormalNOMS HealthcareKetones, UANegativeNegative - 160(16) ++++ mg/dL NOMS HealthcareLeukocytes, UANegativeNegative - 500+++ Freida/mcLNOMS Healthcare Nitrite, UANegativeNegative - PositiveNOMS HealthcarepH, UA6.55 - 9NOMS HealthcareProtein, UANegativeNegative - 2000(20) ++++ mg/dLNOTX HealthcareSpec Grav, UA1.0201 - 1.03NOTX HealthcareUrobilinogen, UA1.00.2 - 12 mg/dLNOTX HealthcareNOTX HealthcareXR LSPINE 2_3 VIEWSon 12-18-8808CA LSPINE 2_3 VIEWS EXAM: XR LSPINE 2_3 VIEWS HISTORY: Low back pain COMPARISON: None. TECHNIQUE: 3 views FINDINGS: Satisfactory alignment. Multilevel endplate degenerative changes, disc disease, anterior spurring and facet arthropathy. No acute fracture or subluxation. Unremarkable soft tissues. IMPRESSION: No acute fracture or subluxation. Electronically authenticated by: YAKELIN FRIEDMAN Date: 2022-10-31 14:26[facility] AUTO DIFFon 58-60-2422GOPO #0.0 103/ulNormal0.0-0.1[facility] Pointe HospitalComment on above:Performed By: #### CBC #### [facility] [address] [place] [address] [address] Dav Jordansophils/100 WBC (Bld)0.6 %Normal0.2-2.0[facility] [facility] Comment on above:Performed By: #### CBC #### [facility] [address] [place] [address] Dr. Dav Rolon #0.2 103/ulNormal0.0-0.7The [facility] CenterComment on above: Performed By: #### CBC #### [facility] [address] [place] [address] Dr. Dav Willosinophils/100 WBC (Bld)3.0 %Normal0.9-7.0The [facility] Comment on above:Performed By: #### CBC #### [facility] [address] [place] [address] Dr. Dav Willrythrocyte distribution width (RBC) [Ratio]11.9 %Nswwsq21.0-15.0 [facility] CenterComment on above:Performed By: #### CBC #### [facility] [address] [place] [address] Dr. Dav XieHematocrit (Bld) [Volume fraction]39.5 %Qjmrej14.0-48.0The [facility] CenterComment on above:Performed By: #### CBC #### [facility] [address] [place] [address] Dr. Dav XieHemoglobin (Bld) [Mass/Vol]13.4 g/aSFtjily47.0-16.0The [facility] CenterComment on above:Performed By: #### CBC #### [facility] [address] [place] [address] Dr. Dav De La Rosa #0.01 10e3/ulNormal0.00-0.03The [facility] CenterComment on above:Performed By: #### CBC #### [facility] [address] [place] [address] Dr. Dav De La Rosa %0.2 %Normal0.0-0.5The [facility] CenterComment on above: Performed By: #### CBC #### [facility] [address] [place] [address] Dr. Dav Soriano #1.7 103/ulNormal1.2-3.8The [facility] CenterComment on above:Performed By: #### CBC #### [facility] [address] [place] [address] Dr. Dav Cormiermphocytes/100 WBC (Bld)31.9 %Kbeksp69.5-60.0The [facility] CenterComment on above:Performed By: #### CBC #### [facility] [address] [place] [address] Dr. Dav Banks DIFF REQNONormalThe [facility] CenterComment on above: Performed By: #### CBC #### [facility] [address] [place] [address] Dr. Dav Valenzuela (RBC) [Entitic mass]31.8 ebEysxby61.7-34.0The [facility] CenterComment on above:Performed By: #### CBC #### [facility] [address] [place] [address] Dr. Dav Valenzuela (RBC) [Mass/Vol]33.9 g/xDQnnaav53.9-35.2The [facility] CenterComment on above:Performed By: #### CBC #### [facility] [address] [place] [address] Dr. Dav Malhotra (RBC) [Entitic vol]93.6 xNSysrrs18.0-99.0The [facility] CenterComment on above:Performed By: #### CBC #### [facility] [address] [place] [address] Dr. Dav Jenkins #0.5 103/ulNormal0.3-0.8The [facility] CenterComment on above:Performed By: #### CBC #### [facility] [address] [place] [address] Dr. Dav Boyleocytes/100 WBC (Bld)9.7 %Normal1.7-12.0The [facility] Comment on above:Performed By: #### CBC #### [facility] [address] [place] [address] Dr. Dav Hauser #2.9 103/ulNormal1.4-6.5The [facility] CenterComment on above:Performed By: #### CBC #### [facility] [address] [place] [address] Dr. Dav XieNeutrophils/100 WBC (Bld)54.6 %Xxydyn32.0-75.0The [facility] CenterComment on above:Performed By: #### CBC #### [facility] [address] [place] [address] Dr. Dav XiePlatelet mean volume (Bld) [Entitic vol]9.7 fLNormal9.5-13.5The [facility] CenterComment on above:Performed By: #### CBC #### [facility] [address] [place] [address] Dr. Dav XiePLT215 103/scBdrikm316-676Ccq [facility] CenterComment on above: Performed By: #### CBC #### [facility] [address] [place] [address] Dr. Dav XieRBC4.22 106/ulNormal4.20-5.40The [facility] CenterComment on above:Performed By: #### CBC #### [facility] [address] [place] [address] Dr. Dav XieWBC5.4 103/ulNormal4.0-11.0The [facility] CenterComment on above: Performed By: #### CBC #### [facility] [address] [place] [address] Dr. Dav XieFERRITINon 44-48-9481Mfiikyjg [Mass/Vol]85.0 ng/mLNormal6.2-137.0 The [facility] CenterComment on above:Performed By: #### FERR #### [facility] [address] [place] [address] Dr. Dav XiePROSara CHEM 8 (BAS METB)on 88-42-4934Zthcf gap [Moles/Vol]11.2 mmol/LNormalThe [facility] CenterComment on above:Performed By: #### BMP #### [facility] [address] [address] [address] Dav XieCalcium [Mass/Vol]8.8 mg/dLNormal8.5-10.1The [facility] Comment on above:Performed By: #### BMP #### [facility] [address] [address] [address] Dav XieChloride [Moles/Vol]103 mmol/YVtbeum59-943Fto [facility] Comment on above:Performed By: #### BMP #### [facility] [address] [address] [address] Dav XieCO2 [Moles/Vol]29.6 mmol/JCytsaw84.0-32.0The [facility] Comment on above:Performed By: #### BMP #### [facility] [address] [place] [address] Dr. Dav XieCreatinine [Mass/Vol]0.82 mg/dLNormal0.55-1.02The [facility] CenterComment on above:Performed By: #### BMP #### [facility] [address] [address] [address] Demarco ChangEGFR-AF STATELESS>60Normal>=60The [facility] CenterComment on above:Performed By: #### BMP #### [facility] [address] [place] [address] Dr. Dav WillGFR-NON AF STATELESS>60Normal>=60The [facility] CenterComment on above:Performed By: #### BMP #### [facility] [address] [address] [address] Dav XieGlucose [Mass/Vol]86 mg/cVHeygms59-843Xuj [facility] Comment on above:Performed By: #### BMP #### [facility] [address] [place] [address] Dr. Dav XiePotassium [Moles/Vol]3.8 mmol/LNormal3.5-5.1The [facility] Comment on above:Performed By: #### BMP #### [facility] [address] [place] [address] Dr. Yilan ChangSodium [Moles/Vol]140 mmol/HDyvnfh981-086Xmd [facility] Comment on above:Performed By: #### BMP #### [facility] [address] [address] [address] Dav XieUrea nitrogen [Mass/Vol]13.0 mg/dLNormal7.0-18.0[facility] HospitalComment on above:Performed By: #### BMP #### [facility] [address] [address] [address] Dav Cronin nitrogen/Creatinine [Mass ratio]15.9 mg/mgNormalThe [facility] CenterComment on above:Performed By: #### BMP #### [facility] [address] [address] [address] Dav Xie Vital Signs Date TimeVital SignValuePerforming CmkpfplcoKuuniybb87-23-1784 10:39-0400Body mass index (BMI) [Ratio]31.95 kg/m2Mariam GONZALES Work Phone: [phone] [place], [place] [address]Iolituqxtp47-83-8453 10:39-0400Body ojdmkg23.09 kgMariam GONZALES Work Phone: [phone] [place], [place] [address]Hlmjevwdvb43-22-4546 10:39-0400Diastolic blood akdrmnnp06 mm[Hg]Mariam GONZALES Work Phone: [phone]-[facility] HospitalQjxyceqvoc68-27-6959 10:39-0400Systolic blood ttcbygmn470 mm[Hg]Mariam GONZALES Work Phone: [phone] [place], [place] [address]Oyciacezzq82-62-0042 10:05-0400Body mass index (BMI) [Ratio]30.79 kg/z3Lkhlv Asuncion DO Work Phone: [phone] [place], [place] [address]Zrvpomuztz38-87-7308 10:05-0400Body jeuoxt18.92 kgCorey Asuncion DO Work Phone: [phone] [place], [place] [address]Wmrmwaahbz26-01-1404 10:05-0400Diastolic blood fyjppjcf58 mm[Hg]Ana Luisa Asuncion DO Work Phone: [phone] [place], [place] [address]Vtdmnpnhtm43-69-8582 10:05-0400Systolic blood twdvcusv492 mm[Hg]Ana Luisa Asuncion DO Work Phone: [facility] HospitalPlfzmrizlz69-76-6689 16:17-0400Body .1 cmCorey Asuncion DO Work Phone: [phone] [place], [place] [address]Zbwkjrzujv61-49-4178 16:17-0400Body mass index (BMI) [Ratio]30.45 kg/c3Hbcud Asuncion DO Work Phone: [phone] [place], [place] [address]Wypgjybttx70-11-8841 16:17-0400Body gfkmpi55.01 kgCorey Asuncion DO Work Phone: [phone] [place], [place] [address]Nftpzoidyr01-03-8176 16:17-0400Diastolic blood xtwsudnx66 mm[Hg]Ana Luisa Asuncion DO Work Phone: [phone] [place], [place] [address]Lfukoiaabq35-45-4043 16:17-0400Systolic blood pgirxggq484 mm[Hg]Ana Luisa Asuncion DO Work Phone: [phone] [place], [place] [address]Xfqbqcebqx53-89-3968 10:49-0400Body mass index (BMI) [Ratio]30.62 kg/y8Xdyla Asuncion DO Work Phone: [phone] [place], [place] [address]Llpyagloww33-56-4791 10:49-0400Body .46 kgCorey Asuncion DO Work Phone: [phone] [place], [place] [address]Uicbqvrujq23-18-1427 10:49-0400Diastolic blood mm[Hg]Ana Luisa Asuncion DO Work Phone: [phone] [place], [place] [address]Jaakxucalb72-95-0494 10:49-0400Systolic blood inzfmruz395 mm[Hg]Ana Luisa Asuncion DO Work Phone: [phone] [place], [place] [address]Nrcgjiznxs23-11-9748 15:25-0400Body rqybhg489.1 Mode GONZALES Work Phone: [phone] [place], [place] [address]Kxcgggaxow52-95-6531 15:25-0400Body mass index (BMI) [Ratio]26.29 kg/m2Mariam GONZALES Work Phone: [phone]-[facility] HospitalJztmbulzzu22-69-4250 15:25-0400Body bdklou45.67 kgMariam Brian GONZALES Work Phone: [facility] HospitalEtoaoiqhkm39-63-0402 15:25040Diastolic blood qdbrumsz96 mm[Hg]Mariam Brian GONZALES Work Phone: [facility] HospitalAysxljfqdr84-13-5463 15:25040Systolic blood aftjcavb138 mm[Hg]Mariam Biran GONZALES Work Phone: [facility] HospitalRunmpqwutn04-88-0229 13:29-0400Body gfamkg670.02 cmMD Lexis Rodríguez Work Phone: [phone]10-04-2024 13:29-0400 Body mass index (BMI) [Ratio]27.4 kg/m2MD Lexis Rodríguez Work Phone: [phone]10-04-2024 13:29-0400 Body lbxpuq39.3 kgMD Lexis Rodríguez Work Phone: [phone]10-04-2024 13:29-0400 Diastolic blood siimxrqi13 mm[Hg]MD Lexis Rodríguez Work Phone: [phone]10-04-2024 13:29-0400 Heart rate50 /minMD Lexis Rodríguez Work Phone: [phone] [place], [place] 609[address]10-04-2024 13:29-0400 Respiratory rate18 /minMD Lexis Rodríguez Work Phone: [phone] [place], [place] 6096910-04-2024 13:29-0400 SaO2% (BldA) [Mass fraction]98 %MD Lexis Rodríguez Work Phone: [phone])535-[address] [place], [place] [address]574610-04-2024 13:29-0400 Systolic blood xbbyxdtp547 mm[Hg]MD Lexis Rodríguez Work Phone: [phone])[address]09-24-2024 15:29-0400 Body eumnrq468.02 cmMD Lexis Rodríguez Work Phone: [phone]09-24-2024 15:29-0400 Body mass index (BMI) [Ratio]28.1 kg/m2MD Lexis Rodríguez Work Phone: [facility]09-24-2024 15:29-0400 Body ysdlkb44.12 kgMD Lexis Rodríguez Work Phone: [facility]09-24-2024 15:29-0400 Diastolic blood rtbjaiit18 mm[Hg]MD Lexis Rodríguez Work Phone: [facility]09-24-2024 15:29-0400 Heart rate79 /minMD Lexis Rodríguez Work Phone: [facility]09-24-2024 15:29-0400 Systolic blood mm[Hg]MD Lexis Rodríguez Work Phone: [facility]02-01-2024 10:13-0500 Body mass index (BMI) [Ratio]33.18 kg/g3Bqgip Asuncion [employer] Work Phone: [facility] HospitalCnhmhswerw08-15-0540 10:13-0500Body jigcwi20.45 kgCorey [employer]uncion [employer] Work Phone: [facility] Nkzioxheqm35-03-5472 10:13-0500Diastolic blood faihlxxt95 mm[Hg]Ana Luisa [employer] Work Phone: [facility] HospitalIdrmmorlln23-06-2859 10:13-0500Systolic blood hgygeavf727 mm[Hg]Ana Luisa Asuncion [employer] Work Phone: [facility] Keamaycqvp98-80-2371 09:30-0400Body infjkn675.02 cmLexis Rodríguez Other [employer] Other 04-03-2023 09:30-0400Body mass index (BMI) [Ratio] 28.87 kg/z5AgptavLexis Rodríguez Other [employer] Other 04-03-2023 09:30-0400Body dztcda32.94 kgLexis Rodríguez Other [employer] Other 04-03-2023 09:30-0400Diastolic blood toiffjwt55 mm[Hg] Lexis Marcos Other [employer] Other 04-03-2023 09:30-1247JoC1% (BldA) [Mass fraction]99 % Lexis Marcos Other [employer] Other 04-03-2023 09:30-0400Systolic blood veaclbjy150 mm[Hg] Lexis Marcos Other [employer] Other Encounters Encounter DateEncounter TypeCare ProviderFacilityStart: 03-11-2025 End: 58-99-6714Cnjaix Yusef GONZALES Work Phone: [facility] OBGYNStart: 03-11-2025 End: 33-47-0241Qxinqd Yusef Torres JANET Work Phone: [facility] OBGYNStart: 03-11-2025 End: 89-91-1926iicwjfkpttGJD RAMEYNot AvailableStart: 03-11-2025 End: 48-75-4863Zzahtt follow up visit related to original Nell GONZALES Work Phone: [facility] [place] OBGYNComment on above:Postoperative visit; S/P laparoscopyStart: 03-03-2025 End: 21-27-3670Wtleiinek Result EncounterCorey Asuncion DO Work Phone: noms External Department UnsolicitedStart: 03-03-2025 End: 60-55-6533Btcbucaio Result EncounterCorey Asuncion DO Work Phone: noms External Department UnsolicitedStart: 02-08-2025 End: 04-81-3784Qodvww outpatient visit 15 minutesCorey Asuncion DO Work Phone: [facility] OBGYNComment on above:Pre-op examination; Pelvic pain; Cyst of ovary, unspecified lateralityStart: 02-08-2025 End: 79-54-1969Kaskiswiebupx examination doneCorey Asuncion DO Work Phone: noms HealthcareStart: 02-08-2025 End: 04-58-2378osbqtndjasYZFJW FAZIONot AvailableStart: 01-20-2025 End: 87-58-3788Wmjkxznmt Result EncounterCorey Asuncion DO Work Phone: noms External Department UnsolicitedStart: 01-20-2025 End: 17-56-2569Ccsgrntsf Result EncounterCorey Asuncion DO Work Phone: noms External Department UnsolicitedStart: 01-18-2025 End: 89-84-7836mtuskfumvdQIESP FAZIONot AvailableStart: 01-18-2025 End: 67-52-9125Qwxgdh outpatient visit 15 minutesCorey Asuncion DO Work Phone: NOUX BCP OBComment on above:Pelvic pain in female Start: 01-18-2025 End: 14-20-6784Jhtvov flowsheetCorey Asuncion DO Work Phone: NOMZ BCP OBStart: 01-18-2025 End: 26-48-1267Ghnxaq flowsheetCorey Asuncion DO Work Phone: NOMR BCP OBStart: 01-05-2025 End: 35-52-8150moplbgdqmcXITEE FAZIONot AvailableStart: 01-05-2025 End: 04-67-5242Miluyve encounter procedureCorey Asuncion DO Work Phone: NOBM BCP OBComment on above:Encounter for IUD insertion; Vaginal discharge; Pelvic painStart: 12-31-2024 End: 32-32-6093Rtyfeaovn Result EncounterAmy Brian GONZALES Work Phone: noms External Department UnsolicitedStart: 12-31-2024 End: 37-88-9364Tamqaspxh Result EncounterAmy Brian GONZALES Work Phone: noms External Department UnsolicitedStart: 12-31-2024 End: 12-06-1301Ozuxjejtc encounterMariam GONZALES Work Phone: noms BCP OBStart: 12-30-2024 End: 71-66-6916pnivyyhavlLbn Festus TorresFacility:[facility] Start: 12-30-2024 End: 94-69-4824Hgniduqc Result EncounterMariam GONZALES Work Phone: noMS External Department UnsolicitedStart: 12-30-2024 End: 42-55-9081Mtjjipel Result EncounterAmy Brian GONZALES Work Phone: noMS External Department UnsolicitedStart: 12-29-2024 End: 13-47-1123Bfbhox flowsheetCorey Asuncion DO Work Phone: NOEO BCP OBStart: 12-29-2024 End: 75-00-6585Pgbpka flowsheetCorey Asuncion DO Work Phone: NOMS BCP OBStart: 12-29-2024 End: 84-86-0920Usunpa outpatient visit 15 minutesCorey Asuncion DO Work Phone: NOMS BCP OBComment on above: control counseling Start: 12-29-2024 End: 42-36-2585ezhxazpyqlGXNGM FAZIONot AvailableStart: 05-13-2024 End: 20-80-9457cdcmtiisrjYOI BRIANNot AvailableStart: 05-13-2024 End: 14-27-5596Jmwpsfy encounter procedureMariam GONZALES Work Phone: NOMS HealthcareStart: 05-13-2024 End: 09-77-3057Hxomkvpg preventive med est patient 18-39 yrsMariam GONZALES Work Phone: noMS BCP OBComment on above:Well woman exam with routine gynecological exam; FolliculitisStart: 05-13-2024 End: 20-37-6835Mqtwxd Yusef GONZALES Work Phone: [facility] BCP OBStart: 05-13-2024 End: 32-25-8243Pfaouh flowsMarco A GONZALES Work Phone: noms BCP OBStart: 05-13-2024 End: 96-73-0405Pslhdondm Result EncounterMariam GONZALES Work Phone: noms External Department UnsolicitedStart: 05-05-2024 End: 20-90-4918mshlhxypajQC Lexis Anna Marcos Work Phone: [facility] Work Phone: Start: 05-05-2024 End: 01-09-0657Lfdymre encounter procedureMD Lexis Rodríguez Work Phone: [facility] Work Phone: Start: 04-17-2024 End: 21-63-8730Kdgblhb encounter procedureMD Lexis Rodríguez Work Phone: [facility] Work Phone: Start: 04-07-2024 End: 70-12-5005Jixhfor encounter procedureMD Lexis Rodríguez Work Phone: [facility] Work Phone: Start: 63-88-3930Kfwwwnbin Result EncounterCorey Asuncion DO Work Phone: noms External Department UnsolicitedStart: 2023 Clinisync Result EncounterCorey Asuncion DO Work Phone: noms External Department UnsolicitedStart: 08-22-2023 Clinisync Result EncounterCorey Asuncion DO Work Phone: noms External Department UnsolicitedStart: 08-22-2023 Clinisync Result EncounterCorey Asuncion DO Work Phone: noms External Department UnsolicitedStart: 08-15-2023 End: 21-27-7724Emtucw outpatient visit 15 minutesCorey Asuncion DO Work Phone: noms BCP OBComment on above:Third trimester Start: 07-12-2023 End: 10-14-6409ghwsexufiaAO Lexis Castillo Rodríguez Work Phone: [facility] Work Phone: Start: 07-12-2023 End: 06-61-6218Yaabuslqlx RecurringMD Lexis Rodríguez Work Phone: [facility] Work Phone: Start: 21-54-6117ejddacmyrcJY LEXIS RODRÍGUEZ Facility:B7Rbgqb: 11-09-2022 End: 91-05-3640qddkymjzgnOvzbgh Marcos Other [employer] Other Start: 60-63-3891Sqzvzciiu encounterMiller Children's Hospitaltart: 10-31-2022 End: 96-98-2292hyvyqlqjxnKK MARCIA E BRAUNFacility:Z6Tgckf: 10-29-2022 End: 53-74-1680mruyfnmnurOiuqss Braun Other [employer] Other Start: 50-12-7139Ugghawgxi encounterMiller Children's Hospitaltart: 72-25-0117Dxushcscg for general adult medical examination without abnormal findingsDR LEXIS RODRÍGUEZC[facility] Clinic [facility] Start: 10-17-2022 End: 23-36-9591mzvjshuafhVY MARCIA E BRAUNFacility:R1Hjuia: 10-17-2022 End: 40-35-9310Xuwdkwtci for general adult medical examination without abnormal findingsDR LEXIS RODRÍGUEZFacility:N7Crgvm: 10-15-2022 End: 05-29-9038oiqsedigubEqgvdq Braun Other [employer] Other Start: 28-57-1702Qbxttcntl for general adult medical examination without abnormal findingsMiller Children's Hospitaltart: 19-13-1302Jchnwnay preventive med est patient 18-39 yrsMarEvergreenHealth [facility] Procedures DateProcedureProcedure DetailPerforming ClinicianStart: 25-62-8175SBX CBC WITH AUTO DIFFCorey Asuncion DO Work Phone: Start: 89-62-4284EI PELVIS W/ TRANSVAGINALCorey Asuncion DO Work Phone: Start: 85-42-8079Hkhij test visual color cmprsn methsCorey Asuncion DO Work Phone: Start: 83-70-6244CIB INSERTIONCorey Asuncion DO Work Phone: Start: 75-46-2883OE PELVIS TRANSVAGINALAmy Brian GONZALES Work Phone: Start: 93-24-8148Kootlsz bacterial quanttative colony count urineMariam GONZALES Work Phone: Start: 20-24-2269YKH,APTIMA HPV,AGE GDLNMariam GONZALES Work Phone: Start: 40-29-5976Eonqo x-ray of pelvis and lower extremityMD Lexis Rodríguez Work Phone: Start: 63-06-1558NTO CBC WITH AUTO DIFFCorey Asuncion DO Work Phone: Start: 79-92-7679YOS CBC WITH AUTO DIFFCorey Asuncion DO Work Phone: Start: 47-32-0153Vnupo dip stick/tablet rgnt non-auto w/o micrscpCorey Asuncion DO Work Phone: Plan of Treatment DateCare ActivityDetailAuthorStart: 05-20-2025 End: 56-67-0727Sawgxdn encounter lcivgxsjy63/06/2025 10:00 AM EST Procedure Visit NOMJusten FOX [address] [place], [id number] Mariam Torres PA [address] [place] [address] NOMS [facility] MUIRNStart: 03-15-2025 Influenza vaccinationDEL[facility] HealthcareStart: 03-11-2025 End: 11-40-4911Cqsfgtn encounter /28/2025 10:00 AM EDT Office Visit [facility]Just[facility] [address] [place] [id number] Mariam Torres PA [address] [place] [address] NOMJusten [facility]ce[facility] OBGYNStart: 01-18-2025 End: 02-83-9858WYFTIQOR(R) ADVANCED VAGINITIS PLUS, TMASURESWAB(R) ADVANCED VAGINITIS PLUS, TMA Pathology and Cytology Routine Pelvic pain in female Expect ed: 01/18/2025 (Approximate), Expires: 01/18/2026[facility] Work Phone: comment on above:Expected: 01/18/2025 (Approximate), Expires: 01/18/2026Start: 01-18-2025 End: 09-51-4998FG PelvisUS Pelvis w/ TV Imaging Routine Pelvic pain in female Expected: 01/18/2025 (Approximate), Expires: 01/18/2026[facility] HealthcareComment on above:Expected: 01/18/2025 (Approximate), Expires: 01/18/2026Start: 01-05-2025 End: 89-67-9717Zawciig encounter jmqumlfap17/24/2025 8:20 AM EDT Procedure Visit [facility] [address] [place] [address] Ana Luisa Roland, DO [address] [place] [address] N[facility] BCP OBStart: 12-29-2024 End: 05-89-2989Hdfzaoi encounter ejoxpfnqg82/17/2025 10:10 AM EDT Office Visit [facility] [address] [place] [phone] Ana Luisa Roland, DO [address] [place] [address] [facility]rivedPROVID[facility] OBComment on above:ArrivedStart: 46-47-6828Oxveqmu [facility] Work Phone: Start: 51-87-3753Pgfqqrsvq vaccinationInfluenza Vaccine (#1)[facility] HealthcareStart: 10-03-2023 End: 16-65-9177tsuydrhewn98/21/2024 8:30 AM EDT Visit [facility] [address] [place] [address] aMriam Torres PA [address] [place], [place] [id number] [facility] OBStart: 49-55-0491Zekmyppoe vaccinationInfluenza Vaccine (#1)[facility] HealthcareBacteria identified in Urine by CultureUrine culture Microbiology Routine 12/30/2024 6:45 PM [facility]PR[facility] Work Phone: cHLAMYDIA TRACHOMATIS (GENITO/STI)CHLAMYDIA TRACHOMATIS (GENITO/STI) Lab Routine Vaginal discharge Pelvic pain Ordered: 01/05/2025[facility] HealthcareComment on above:Ordered: 01/05/2025HLAMYDIA TRACHOMATIS (GENITO/STI)CHLAMYDIA TRACHOMATIS (GENITO/STI) Lab Routine Pelvic pain in female Ordered: 01/18/2025[facility] HealthcareComment on above:Ordered: 5Cytology Cervical or vaginal smear or scraping studyPap Smear Pathology and Cytology Routine Well woman exam with routine gynecological exam Ordered: 05/13/2024[facility] Healthcare Work Phone: comment on above:Ordered: 05/13/2024Neisseria gonorrhoeae DNA [Presence] in Unspecified specimen by ELIAS with probe detection Neisseria gonorrhea DNA probe, direct Lab Routine Vaginal discharge Pelvic pain Ordered: 01/05/2025[facility] HealthcareComment on above:Ordered: 01/05/2025Neisseria gonorrhoeae DNA [Presence] in Unspecified specimen by ELIAS with probe detection Neisseria gonorrhea DNA probe, direct Lab Routine Pelvic pain in female Ordered: 01/18/2025[facility] HealthcareComment on above:Ordered: 01/18/2025Patient referral [facility] Work Phone: SURESWAB(R) ADVANCED VAGINITIS PLUS, TMASURESWAB(R) ADVANCED VAGINITIS PLUS, TMA Pathology and Cytology Routine Vaginal discharge Pelvic pain Ordered: 01/05/2025[facility] Work Phone: comment on above:Ordered: 01/05/2025 Immunizations Immunization DateImmunizationNotesCare MrenhlmjNwomcniu64-02-8444wyogebdda virus vaccine, unspecified formulationCorey Asuncion DO Work Phone: [facility] HospitalUmxmilzeju40-07-0315shjqqkmtn virus vaccine, unspecified formulationCorey Asuncion DO Work Phone: [facility] HospitalLisrawmoqi39-10-3071ybwhyzibj virus vaccine, unspecified formulationMariam GONZALES Work Phone: [facility] HospitalBvwnfjktka85-70-4236nkommpkmz virus vaccine, unspecified formulationMD Lexis Rodríguez Work Phone: [facility] Payers DatePayer CategoryPayerPolicy [id number] (JUAN ALBERTO) [id number] of Defense ( and others)[id number] 2024Self-pay2020Medicaid[facility] MEDICA[facility] [place] [id number] 2019-Present [address] [place] [id number] Medicaid (Managed Care)[facility] MEDICAID [id number] 2.16840.1.613374.3.57[id number] 2.16840.1.346750.3.57[id number] 2.16840.1.092195.3.57[id number] 2.16840.1.871656.3.57[id number] 2.160.1.242061.3.57[id number] 2.16840.1.238123.3.57[id number] 2.16840.1.665081.3.57[id number] 2.16840.1.726100.3.57[id number] 2.16840.1.468179.3.57[id number] 2.16840.1.604500.3.57[id number] 2.16.840.1.278200.3.579.2.1259 [id number] [id number] of Defense ( and others)[id number] 2.[id number] 2.16840.1.7[id number] 2.16840.1.273171.3.579.2.531 Social History DateTypeDetailFacilityUnknown if ever smokedNort [employer] Other Start: 03-16-2023 End: 03-32-7976Sho [facility]igned At [facility]art: 03-16-2023 End: 54-24-3798Saclunt smoking status NHISNever smoked tobaccoNOMS Healthcare Start: 00-61-9787Yjnqhop use and exposureSmokeless tobacco non-userNOMS HealthcareStart: 08-15-2023 End: 96-75-3275Udbkudt intakeCurrent drinker of alcohol (finding)[facility] Start: 03-16-2023 End: 14-49-6654Fvjtrgf of Social functionNOMS HealthcareStart: 37-72-5131Hdraquk CommentOccasional alcohol useNOMS HealthcareStart: 24-92-4301OuzramwoiTRGN HealthcareStart: 03-93-4823Jen Assigned At [facility]Fe[facility] HealthcareStart: 52-11-9649Jswglr identityIdentifies as female gender (finding)[facility] Healthcare Start: 93-42-2183Fjemfw orientationHeterosexual (finding)[facility] Healthcare Clinical Notes 10-15-2022 to 03-11-2025 Note Date & UvdaMbxpIkyuzpby15-29-6023 History of Present illness Narrative* JANET Fernandez - 03/11/2025 10:00 AM EDT Reason for Appointment: Patient ID: Rosalie Mclaughlin is a 24 y.o. female who presents for Post-op Visit (Pt present todayfor post operative visit. Pt had a dx lap on 03/03/2025.) Patient presents today for 1 Week Post Op Follow Up appointment. MEDICATIONS Current Outpatient Medications Medication Instructions sertraline (Zoloft) 100 MG tablet ALLERGIES No Known Allergies PROBLEMS Active Ambulatory Problems Diagnosis Date Noted Restless leg syndrome in ([facility]) 07/22/2023 Third trimester ([facility]) 07/22/2023 Resolved Ambulatory Problems Diagnosis Date [...] Age of Onset Diabetes Father SURGICAL HISTORY Past Surgical History: Procedure Laterality Date LAPAROSCOPY DIAGNOSTIC / BIOPSY / ASPIRATION / LYSIS 03/03/2025 REVIEW OF SYSTEMS Review of Systems: Review of Systems Constitutional: Negative. HENT: Negative. Eyes: Negative. Respiratory: Negative. Cardiovascular: Negative. Gastrointestinal: Negative. Genitourinary: Negative. Musculoskeletal: Negative. Skin: Negative. Neurological: Negative. All other systems reviewed and are negative. Hematological: Negative. Endocrine: Negative. Allergic/Immunologic: Negative. OBJECTIVE Objective: Physical Exam Constitutional: Appearance: Normal appearance. She is normal weight. HENT: Head: Normocephalic. Cardiovascular: Rate and Rhythm: Normal rate. Pulses: Normal pulses. Pulmonary: Effort: Pulmonary effort is normal. Breath sounds: Normal breath sounds. Abdominal: Palpations: Abdomen is soft. Musculoskeletal: General: Normal range of motion. Neurological: General: No focal deficit present. Mental Status: She is alert and oriented to person, place, and time. Psychiatric: Mood and Affect: Mood normal. Behavior: Behavior normal. Thought Content: Thought content normal. Judgment: Judgment normal. Vitals and nursing note reviewed. Vitals: Estimated body mass index is 31.95 kg/m as calculated from the following: Height as of 01/18/25: 5' 5 . Weight as of this encounter: 192 lb. BP: 122/74 No LMP recorded. (Menstrual status: IUD). ASSESSMENT & PLAN ICD-10-CM 1. Postoperative visit Z48.89 2. S/P laparoscopy Z98.890 Patient presents today for post op diagnostic lap. Patient doing well, mild soreness. Restrictions lifted and patient will return for annual as scheduled Documented by JANET Fernandez on behalf of: JANET Fernandez documented in this encounterChristian HospitalUaulnlrdoa08-25-5542 History of Present illness Narrative* Kati Peri - 02/08/2025 10:00 AM EDT Reason for Appointment: Patient ID: Rosalie Mclaughlin is a 24 y.o. female who presents for Pre-op Visit Patient presents today for Pre Op appointment. Patient is scheduled to undergo Diagnostic Laparoscopy, possible SHANNON, possible FOE, possible BSO on 03-03-[address] Roland at [facility]. MEDICATIONS Current Outpatient Medications Medication Instructions esomeprazole (NEXIUM) 20 mg, Daily sertraline (Zoloft) 100 MG tablet sertraline (ZOLOFT) 50 mg, Daily ALLERGIES No Known Allergies PROBLEMS Active Ambulatory Problems Diagnosis Date Noted Restless leg syndrome in ([facility]) 07/22/2023 Third trimester ([facility]) 07/22/2023 Resolved Ambulatory Problems Diagnosis Date [...] Ana Luisa Roland DO documented in this encounterChristian HospitalJdqipvcnsc81-64-8696 History of Present illness Narrative* Praveena Chen NP - 01/18/2025 3:50 PM EDT Reason for Appointment: Patient ID: Rosalie Mclaughlin is a 24 y.o. female who presents for Pelvic Pain Patient presents today for Acute Visit. MEDICATIONS No current outpatient medications ALLERGIES No Known Allergies PROBLEMS Active Ambulatory Problems Diagnosis Date Noted Restless leg syndrome in ([facility]) 07/22/2023 Third trimester ([facility]) 07/22/2023 Resolved Ambulatory Problems Diagnosis Date [...] nursing note reviewed. Exam conducted with a reverse engineer present. Vitals: Estimated body mass index is [...] Ana Luisa Roland DO documented in this encounterChristian HospitalMiihwjxegy66-04-7775 History of Present illness Narrative* Jessi Wilks LPN - 01/05/2025 8:20 AM [...] Diagnosis Date Noted Restless leg syndrome in ([facility]) 07/22/2023 Third trimester ([facility]) 07/22/2023 Resolved Ambulatory Problems Diagnosis Date [...] nursing note reviewed. Exam conducted with a reverse engineer present. Vitals: Estimated body mass index is [...] by patient, parent, or legal power of managing attorney - including discussion of procedurerisks and [...] Ana Luisa Roland DO documented in this encounterChristian HospitalWmptqiaust10-02-0971 Telephone encounter Note* Telephone Encounter - JANET Fernandez - 12/31/2024 2:17 PM EDT Patient called in regards to pain post US. Patient advised to return to the ER if symptoms continueor worsen. Patient was seen last evening by myself in er and labs with CT scan were all negative. She did have US performed today but results are not back. CT made no mention of ovarian cyst or free fluid in pelvis, ua neg . We will send in small script for tylenol #3. Patient verbalized understanding and agrees with plan of care. Christian HospitalJgsnqiypbb59-59-5734 Miscellaneous Notes* Telephone Encounter - JANET Fernandez - 12/31/2024 2:17 PM EDT Patient called in regards to pain post US. Patient advised to return to the ER if symptoms continueor worsen. Patient was seen last evening by [...] with plan of care. documented in this encounterChristian HospitalDntcjqlbso53-96-2839 History of Present illness Narrative* Jessi ANAID Wilks - 12/29/2024 10:10 AM EDT Reason for Appointment: Patient ID: Rosalie Mclaughlin is a 24 y.o. female who presents for Contraception (Pt present todayto discuss b/c.) Patient presents today for Acute Visit. MEDICATIONS Current Outpatient Medications Medication Instructions sertraline (ZOLOFT) 25 mg, Oral, Daily ALLERGIES No Known Allergies PROBLEMS Active Ambulatory Problems Diagnosis Date Noted Restless leg syndrome in ([facility]) 07/22/2023 Third trimester ([facility]) 07/22/2023 Resolved Ambulatory Problems Diagnosis Date [...] nursing note reviewed. Exam conducted with a reverse engineer present. Vitals: Estimated body mass index is [...] Ana Luisa Roland DO documented in this encounterChristian [id number] History of Present illness Narrative* JANET Fernandez - 05/13/2024 3:00 PM EDT Reason for Appointment: Patient ID: Rosalie Mclaughlin [...] (routine) without abnormal findings IUD complication ([facility]) HISTORY PAST MEDICAL HISTORY SOCIAL HISTORY Past [...] nursing note reviewed. Exam conducted with a reverse engineer present. Vitals: Estimated body mass index is [...] behalf of: JANET Fernandez documented in this encounterChristian HospitalHcnpbslrom87-50-7365 History of Present illness Narrative* Glenys Ghotra, TRANSFUSION AIDE - 08/15/2023 10:00 AM EST Reason for Appointment: Patient ID: Rosalie Mclaughlin [...] (routine) without abnormal findings IUD complication ([facility]) Family History Problem Relation Name [...] nursing note reviewed. Exam conducted with a reverse engineer present. Vitals: Estimated body mass index is [...] of being unable to sleep, increase in [place] contractions, pelvic pressure and sharp pains. Patient desires to have Induction of Labor on 08/22/2023 @0001. Called [facility] and spoke with Michelle and [...] Ana Luisa Roland DO documented in this encounterChristian HospitalFdxprkqqrc50-29-6518 Evaluation note* Encounter Date Diagnosis Assessment Notes Treatment Notes Treatment Clinical Notes Oct, Lumbar pain (ICD-10 - M54.50) [employer] Other 04-03-2023 Evaluation note* Encounter Date Diagnosis Assessment Notes Treatment Notes Treatment Clinical Notes Oct, Wellness examination (ICD-10 - Z 00.00) due for labs Oct,Lumbar pain (ICD-10 - M54.50)Pt states she went to chiropractor, had PT and xray through [facility]. She now wantsme to address this as she is not improving and an MRI was not covered. She will contact their office and have them send us PT reports and xray so we can try to get the MRI. Pt needs this addressed asshe is in the and is running a half marathon later this month. [employer] Other Evaluation noteNo InformationNort [employer] Other Evaluation noteNo assessment information available [facility] Work Phone: Evaluation note* Diagnosis Third trimester state, incidental documented in this encounter [facility] HealthcareEvaluation note* Diagnosis Onset Date Resolution Status Anxiety acuteLeft hip flexor tightnessacuteLeft hip flexor tightnessacuteLeft hip pain acuteGreater trochanteric pain syndrome of left lower extremityacuteIliotibial band tendinitis of left sideacute [facility] Work Phone: Evaluation note* Diagnosis Well woman exam with routine gynecological exam Routine gynecological examination Folliculitis Other specified disease of hair and hair follicles documented in this encounter [facility] HealthcareEvaluation note* Diagnosis control counseling documented in this encounter [facility] HealthcareEvaluation note* Diagnosis Pelvic pain in female- Primary Unspecified symptom associated with female genital organs documented in this encounter [facility] HealthcareEvaluation note* Diagnosis Encounter for IUD insertion Insertion of intrauterine contraceptive device Vaginal discharge Leukorrhea, not specified as infective Pelvic pain documented in this encounter [facility] HealthcareEvaluation note* Diagnosis Pelvic pain in female Unspecified symptom associated with female genital organs documented in this encounter [facility] HealthcareEvaluation note* Diagnosis Pre-op examination Pelvic pain Cyst of ovary, unspecified laterality documented in this encounter [facility] HealthcareEvaluation note* Diagnosis Postoperative visit S/P laparoscopy Other postprocedural status documented in this encounter [facility] HealthcareHistory general Narrative - Reported* Type Description Date Medical History Bronchitis Medical HistoryVaginitisMedical HistoryAcute UTIMedical HistoryDysuria Hospitalization [id number] for a blood count being done. [employer] Other Reason for Referral Reason *FU 11/19 Xray and last OV note. thank you Diagnosis 1 Lumbar pain (M54.50) Referral Organization [facility] elizabeth Referring Provider First Name Lexis Referring Provider Last Name Marcos Referring Provider Specialty Family Medi cine Referred Organization [facility] Referred Provider Juan Miguel Referred Address [address] [place], [place],[address] Referred Provider Specialty Pain Medicin e Referral Priority Routine General Notes Jessie Ashraf 04:25:04 PM >received today, attachments made, referral faxed Clinical Notes F: [id number] Summary Purpose Family History No Family History Records Found Relationship Condition Age at Onset Recorded Date/T bolssom father Diabetes mellitus Unknown Advance Directives No [...] PAIN, NX M25.552 - Pain in left hipReason for VisitAnxiety Left hip flexor tightness Left hip flexor tightness Left hip pain Greater trochanteric pain syndrome of left lower extremity Iliotibial band tendinitis of left side Additional Source Comments REASON FOR VISIT (unrecogniz ed section and content) ReasonCommentsRoutine VisitReasonCommentsWell Women VisitReasonComments ContraceptionPt present today to discuss b/c.ReasonCommentsSKYLA insertionReason CommentsPelvic PainReasonCommentsPre-op VisitReasonCommentsPost-op VisitPt present today for post operative visit. Pt had a dx lap on 03/03/2025. INFORMATION SOURCE (unrecogn ized section and content) DATE CREATED AUTHOR 11/15/2022 [facility] DATE CREATED AUTHOR AUTHOR'S ORGANIZ ATION 01/03/2025 [facility] DATE CREATED AUTHOR AUTHOR'S ORGANIZ ATION 03/13/2025 [facility] EPIC Care Teams (unrecognized sec tion and content) Team Status: Active Member Role Status Dates Lexis Rodríguez MD Primary Care Provider Active Team Status: Inactive Member Role Status Dates Lexis Rodríguez MD Primary Care Provider, Attending Last castellanos Active Team MemberRelationshipSpecialtyStart DateEnd Date Lexis Rodríguez MD [address] [place] [phone] PCP - [facility]02/22/23Team MemberRelationshipSpecialtyStart DateEnd Date Lexis Rodríguez MD [address] [place] [address] PCP - [facility] Medicine02/22/23 Team Status: Inactive Member Role Status Dates [...] Start: May 05, 2024 End: May 05, 2024Perez Cuellar ProviderActiveStart: May 05, 2024 End: May 05, 2024Team MemberRelationshipSpecialtyStart DateEnd Date Lexis Rodríguez MD [address] [place] [facility] [address] PCP - [facility]02/22/23 Mariam Torres PA [address] [place] [address] [place] [address] PCP - [facility]01/13/24Team MemberRelationshipSpecialtyStart DateEnd Date Lexis Rodríguez MD [address] [place] [address] PCP - [facility]02/22/23 Mariam Torres PA [address] [place] [address] [place] [address] [facility] - [facility]01/13/24Team MemberRelationshipSpecialtyStart DateEnd Date Lexis Rodríguez MD [address] [place] [facility] [address] PCP - [facility]02/22/23Team MemberRelationshipSpecialtyStart DateEnd Date Lexis Rodríguez MD [address] [place] [facility] [phone] PCP - [facility]02/22/23Team MemberRelationshipSpecialtyStart DateEnd Date Lexis Rodríguez MD [address] [place] [facility] [address] [facility]/22/23Te MemberRelationshipSpecialtyStart DateEnd Date Lexis Rodríguez MD [address] [place] [facility] [address] [facility] - [facility]/23Te MemberRelationshipSpecialtyStart DateEnd Date Lexis Rodríguez MD [address] [place] [facility] [address] PCP - [facility]02/22/23Te MemberRelationshipSpecialtyStart DateEnd Date Lexis Rodríguez MD [address] [place] [facility] [address] PCP - [facility]02/22/23Te MemberRelationshipSpecialtyStart DateEnd Date Lexis Rodríguez MD [address] [place] [facility] [address] [facility]02/22/23Te MemberRelationshipSpecialtyStart DateEnd Date Lexis Rodríguez MD [address] [place] [facility] [address] [facility] - [facility]02/22/23 Goals (unrecognized section and content) Goals may [...] BE BASED ON THE PRIMARY CLINICAL RECORDS. [facility] [employer] [facility]. provides no warranty or guarantee of the accuracy or completeness of information in this document.
[2025-05-10] MEDS: NAPROXEN 250 MG TABLET 500 MG PO (09:08)
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
[2025-05-10 09:56] VITALS: BP 102/68; PULSE 60; O2SAT 98
== END 2025-05-10 10:03 | disposition home or self-care (01) ==
PROVIDERS: Emergency Provider Emergency Medicine; PCP Family Medicine
DX: S80.01XA Contusion of right knee, initial encounter (principal); V49.49XA Driver injured in collision with other motor vehicles in traffic accident, initial encounter; S80.211A Abrasion, right knee, initial encounter
CPT/HCPCS: 73562; 99283